=== PATIENT | male | born 1950 | race Caucasian/White ===

== ENCOUNTER → 2018-03-19 15:46 | Outpatient (CLI) | payer MEDICARE, OTHER, SELFPAY ==
[2018-03-19 16:38] LABS: Add Manual Diff / Slide Review NO; Basophils Percent Auto 0.7 % (0-2); Eosinophils Percent Auto 2.2 % (2-4); Hematocrit 45.5 % (41-53); Hemoglobin 15.3 g/dL (13.5-17.5); Lymphocytes Percent Auto 32.1 % (25-40); Mean Corpuscular HGB Conc 33.7 % (30-36); Mean Corpuscular Hemoglobin 30.7 PG (26-34); Mean Corpuscular Volume 91.1 fL (80-100); Monocytes Percent Auto 10.6 % (3-14); Neutrophils Absolute Auto 4000 /uL (1500-7000); Neutrophils Percent Auto 54.4 % (50-75); Platelet Count 255 X10^3/uL (150-400); Red Cell Distribution Width 14.5 % (11.6-14.8); White Blood Cell Count 7.3 X10^3/uL (4.5-11.0)
[2018-03-19 16:52] LABS: Alanine Aminotransferase 43 IU/L (21-72); Albumin 4.6 g/dL (3.5-5.0); Albumin Globulin Ratio 1.6 (1.0-2.8); Alkaline Phosphatase 56 U/L (38-126); Aspartate Aminotransferase 28 IU/L (17-59); Bilirubin Total 0.6 mg/dL (0.2-1.3); Blood Urea Nitrogen 17 mg/dL (9-20); Calcium 9.4 mg/dL (8.4-10.2); Carbon Dioxide 24 mmol/L (22-32); Chloride 104 mmol/L (98-107); Cholesterol 267 mg/dL (140-199); Estimated Glomerular Filt Rate > 60.0 mL/min (>60); Globulin 2.9 g/dL (1.7-4.1); Glucose 91 mg/dL (80-110); HDL Cholesterol 55 mg/dL (40-60); HEMOLYSIS < 15 (0-50); LDL Cholesterol Calculated 183 mg/dL (<100); Potassium 4.4 mmol/L (3.4-5.1); Sodium 141 mmol/L (137-145); Total Protein 7.5 g/dL (6.3-8.2); Triglycerides 144 mg/dL (35-150)
[2018-03-19 17:21] LABS: TSH w/ Reflex to FT4 2.47 uIU/mL (0.47-4.68)
== END ==
PROVIDERS: PCP Family Medicine; Visit Provider Family Medicine
DX: R10.31 Right lower quadrant pain (principal); E78.00 Pure hypercholesterolemia, unspecified
CPT/HCPCS: 36415; 80053; 80061; 84443; 85025

== ENCOUNTER → 2018-03-20 12:31 | Outpatient (CLI) | payer MEDICARE, OTHER, SELFPAY ==
--- NOTE | 2018-03-20 13:49 | DI.CT.S_ITS ---
PROCEDURE: CT ABDOMEN PELVIS W CON INDICATIONS: RLQ pain TECHNIQUE: After the administration of oral and intravenous contrast, 5 mm thick sections acquired from the diaphragms to the symphysis. 5 mm thick coronal and sagittal reformats were performed. For radiation dose reduction, the following was used: automated exposure control, adjustment of mA and/or kV according to patient size. COMPARISON: None. FINDINGS: Image quality: 6 ABDOMEN: Lung bases: Lung bases are clear. Heart size is normal. Solid organs: Liver is normal in size and enhancement. Gallbladder is surgically absent. Biliary system is non-dilated. Pancreas enhances normally. Spleen is normal in size and enhancement. No adrenal nodules. Kidneys are normal in size and enhancement, without hydronephrosis. A low density cystic lesion is present within the midpole of the right kidney which likely represents a simple renal cyst. Peritoneum and bowel: Stomach, small bowel, and colon loops are normal in caliber and wall thickness. The appendix is thin walled and gas filled. No free fluid or air. Nodes and vessels: No retroperitoneal or mesenteric adenopathy. Aorta and inferior vena cava are normal in caliber. There are scattered atheromatous calcifications throughout the aorta and iliac arteries bilaterally. Miscellaneous: No ventral hernias. PELVIS: Genitourinary: Bladder wall thickness is normal. Miscellaneous: No inguinal hernias or adenopathy. Bones: No suspicious bony lesions. No vertebral body compression fractures. Severe degenerative changes present of the lumbar spine. IMPRESSION: 1. No acute intra-abdominal findings. Normal appendix. No findings to explain right lower quadrant pain. 2. Aortic atherosclerosis. Dictated by: Liane Aguilar M.D. on 03/20/2018 at 15:28 Approved by: Liane Aguilar M.D. on 03/20/2018 at 15:31
== END ==
PROVIDERS: Family Provider Family Medicine; PCP Family Medicine; Visit Provider Family Medicine
DX: R10.31 Right lower quadrant pain (principal); I70.0 Atherosclerosis of aorta
CPT/HCPCS: 74177; Q9967

== ENCOUNTER 2018-03-27 06:31 | Day surgery (SDC) | payer MEDICARE, OTHER, SELFPAY ==
--- NOTE | 2018-03-27 | PATH_ITS ---
[facility] Accession Number: [id number] . 01 Material submitted: . PART A: ASCENDING COLON POLYP X2 PART B: COLON POLYP AT 70CM X3 . 02 Diagnosis: A. Ascending Colon, Polyps x2, Biopsies: Tubular adenomas. . B. Colon, Polyp at 70 cm x3, Biopsies: Tubular adenoma in two of seven fragments. MRV/03/29/2018 . 02 Electronically signed: . Cristiana Perez MD, Pathologist NPI- [id number] . 01 Gross description: . Received two formalin-filled containers both labeled with the patient's name. . A. In a container labeled ascending colon polyp X2 are two 0.2 to 0.4 cm portions of tissue. Entirely submitted in cassette A. B. In a container labeled colon polyp at 70 X3 are multiple less than 0.1 to 0.3 cm portions of tissue. Filtered, wrapped and entirely submitted in cassette B. ([facility]:[id number]) /[facility] . 02 Pathologist provided ICD-10: D12.2, D12.6 . 02 CPT . 757220, 564402 Performed at: 01 [facility] [address] Formerly named [facility], [place], [place] [id number] MD Mitchell Fong MD Phone: [phone] Performed at: 02 [facility] [address] [place], [place] [id number] MD Cristiana Perez MD Phone: [phone]
--- NOTE | 2018-03-27 07:11 | SUR.PREOP ---
pt arrived to pre-op states his stool is coming out with pieces in it. Pt states his stool is not clear at all and that he did his prep well. States it did not work . Will let Dr. Noguera know about it.
[2018-03-27] MEDS: SODIUM CHLORIDE 0.9% 1,000 ML 200 ML IV (07:20)
[2018-03-27 07:26] VITALS: BP 146/83; PULSE 91; RESP 18; TEMP 36.6; O2SAT 98; BMI 31.8
--- NOTE | 2018-03-27 08:29 | PM.HP.1 ---
History of Present Illness Date Patient Seen: 03/27/18 Time Patient Seen: 08:21 Chief complaint: colonoscopy [id number] Narrative: Patient is here for screening colonoscopy. His last exam was 10 years ago. He has had polyps in the past. No family history of colon cancer Patient History Surgical History Status post cholecystectomy Family & Social History Family History: Reviewed 03/27/18 by Andre Noguera MD Social History: household members spouse Tobacco & Substance use: Smoking Status Current every day smoker alcohol intake current Meds Home Medications Medication Instructions Recorded Confirmed Type ASPIRIN (Aspir-Low) 162 mg PO QDAY #0 12/04/12 03/27/18 History epinephrine [EpiPen 2-Phillip] 0.3 mg IM SEE INSTRUCTIONS #1 kit 12/09/15 03/27/18 Rx cyclobenzaprine 10 mg tablet See Label Instructions PO TID PRN 03/20/18 03/27/18 Rx #15 tab sildenafil 100 mg tablet 100 mg PO QDAYP PRN #10 tab 03/21/18 03/27/18 Rx Allergies Allergy/AdvReac Type Severity Reaction Status Date / Time No Known Drug Allergies Allergy Verified 03/27/18 07:33 Review of Systems Review of Systems All systems reviewed & are unremarkable except as noted in HPI and below Exam Vital Signs (past 8 hours): - 03/27/18 07:26 Temperature 97.8 F Pulse Rate 91 H Respiratory Rate 18 Blood Pressure 146/83 H Pulse Oximetry 98 Oxygen Delivery Method Room Air Narrative Exam Narrative: Operative no apparent distress. Lungs are clear to auscultation. Heart regular rate and rhythm no murmur gallop. Abdomen is protuberant soft nontender without mass or hernia. Patient is alert and oriented x3. Assessment & Plan Plan: Assessment/Plan Narrative: Patient for screening colonoscopy. I have discussed the procedure and the rationale with the patient including risks of bleeding, perforation which would necessitate a major operation, failure to find remove all lesions and the potential to tattoo. They appeared to understand and wished to proceed.
--- NOTE | 2018-03-27 08:33 | PM.PREOP ---
Pre-operative Note Interval Note History & Physical reviewed/Exam performed by Physician: Yes Changes to H&P: No ASA Class (for procedural sedation): I
[2018-03-27] MEDS: GLUCAGON,HUMAN RECOMBINANT 1 MG/ML VIAL IV (08:57)
[2018-03-27] MEDS: fentaNYL 250 MCG/5 ML INJ IV (09:05)
[2018-03-27] MEDS: MIDAZOLAM 5 MG/5 ML VIAL IV (09:06)
[2018-03-27 09:30] VITALS: BP 117/73; PULSE 97; RESP 17; TEMP 36.8; O2SAT 97
--- NOTE | 2018-03-27 09:33 | P.OP.ENDO_ITS ---
Procedure & Clinicians Study performed: Colonoscopy with cold biopsy Same procedure as scheduled: Yes Indications: Screening. Last exam 10 years ago. Surgeon: Andre Noguera Procedure Notes SCOAP/Timeout: Done Procedure in detail: The patient was placed in the left lateral decubitus position and underwent IV sedation directed by the surgeon consisting of fentanyl and Versed. Digital exam was remarkable for being unable to really feel anything but the most distal part of his prostate. There were no rectal masses. The scope was inserted and advanced through the rectum into the sigmoid. The patient appeared to have a great deal of spasm in his colon. He was given glucagon and I continued into the descending, transverse, and ascending colon. Pressure was applied the patient was repositioned and a stiffener inserted in order to make our way into the cecum. The cecum was reached identified by the ileocecal valve and the appendiceal opening. The ileocecal valve was cannulated. The terminal ileum was normal in appearance. The scope was gradually brought out. Polyps were found at the ascending colon and 3 polyps were found at approximately 70 cm from the anal verge. All were diminutive. The scope ultimately was retroflexed in the rectum. The appearance was normal. The scope was removed and the patient tolerated the procedure well. Prep was adequate with irrigation and suction. There was 1 small area of the sigmoid that was not well seen due to stool. The patient was also noted to have says a few scattered diverticuli. Scope withdrawal time: 19 min Sedation minutes: 48 Findings: diverticulosis (A few scattered throughout the colon) and polyp ( Multiple small polyps) Specimen(s): other (Polyps) Complications: none Recommendations: Colonscopy in 5 years Follow up: as needed Disposition: PACU
[2018-03-27 09:35] VITALS: BP 104/68; PULSE 95; RESP 209; TEMP 36.8
[2018-03-27 09:40] VITALS: BP 101/55; PULSE 86; RESP 20; TEMP 36.8; O2SAT 98
[2018-03-27 09:52] VITALS: BP 109/68; PULSE 83; RESP 15; TEMP 36.5; O2SAT 96
[2018-03-27 10:07] VITALS: BP 106/66; PULSE 76; RESP 18; O2SAT 95
== END 2018-03-27 10:15 | disposition home or self-care (01) ==
PROVIDERS: Family Provider Family Medicine; PCP Family Medicine; Visit Provider Specialist
PROC: 0DJD8ZZ Inspection of Lower Intestinal Tract, Via Natural or Artificial Opening Endoscopic (ICD-10-PCS; CPT 45378; principal; 2018-03-27 07:45)
DX: Z86.010 Personal history of colon polyps (principal); F17.210 Nicotine dependence, cigarettes, uncomplicated; K57.30 Diverticulosis of large intestine without perforation or abscess without bleeding; D12.2 Benign neoplasm of ascending colon; D12.6 Benign neoplasm of colon, unspecified
CPT/HCPCS: 45380; 88305; 99152; 99153; J1610; J2250; J3010

== ENCOUNTER → 2019-10-29 08:34 | Outpatient (CLI) | payer MEDICARE, OTHER, SELFPAY ==
--- NOTE | 2019-10-29 08:35 | DI.ECHO.S_ITS ---
[facility]---------+ [facility] +---------+ : : [address] : : : : [id number] : : : : Phone: [phone]---------+ Echocardiogram Report + + :Name: YANDEL PIERCE Study Date: 10/29/2019 Height: 73 in : :[facility] Weight: 240 lb : : Gender: Male BSA: 2.3 m2 : :: 1950 Age: 69 yrs BP: 167/84 mmHg: :Reason For Study: SHORTNESS OF BREATH : : Performed By: Jeannette Monte : :Referring: JOHN MUHAMMAD : + + Interpretation Summary 1) Mildly increased left ventricular thickness (concentric) with normal size, normal wall motion and normal systolic function (EF 60-65%). 2) Normal right ventricular size and function. 3) No significant valvular abnormalities. 4) Pulmonary artery pressures cannot be estimated because of the lack of a measurable TR jet velocity. 5) Hypertension present during the study (BP 167/84mmHg). 6) No prior Echo available for comparison. Procedure: A two-dimensional transthoracic echocardiogram with color flow and Doppler was performed. The study quality was technically adequate. There is no prior echocardiogram noted for this patient. The patient was in sinus rhythm with heart rates between 56-60 bpm during the exam. Left Ventricle: The left ventricle is normal in size. There is mild concentric left ventricular hypertrophy. The ejection fraction is estimated to be 60-65%. Diastolic parameters suggest probable normal left ventricular diastolic function and normal filling pressures. Right Ventricle: The right ventricle is normal in size and function. Atria: Both atria are normal in size. There is no Doppler evidence for an interatrial shunt. Mitral Valve: The mitral valve is normal in structure and function. There is trace mitral regurgitation. Aortic Valve: The aortic valve is trileaflet. There is discrete nodular thickening of the left coronary cusp. There is no aortic valve stenosis. No aortic regurgitation is present. Tricuspid Valve: The tricuspid valve is normal in structure and function. Pulmonary artery pressures cannot be estimated because of the lack of a measurable TR jet velocity. No tricuspid regurgitation. Pulmonic Valve: The pulmonic valve is not well visualized. The pulmonic valve is not well seen, but is grossly normal. There is a trace or physiologic amount of pulmonic regurgitation. Great Vessels: The aortic root is borderline dilated. The ascending aorta is moderately enlarged. The IVC is of normal diameter and collapses greater than 50% with a sniff. This suggests a low right atrial pressure of 3 mm Hg. Pericardium/ Pleura There is no pericardial effusion. There is no pleural effusion. MMode/2D Measurements & Calculations LVIDd: 5.4 cm LVOT diam: 2.6 cm LVIDs: 3.9 cm Ao root diam: 3.9 cm FS: 28.9 % asc Aorta Diam: 4.2 cm EPSS: 1.2 cm Ao Arch Diam (Prox Trans): 3.7 cm IVSd: 1.1 cm LVPWd: 1.2 cm LV [place]. diameter/BSA (cm/m^2): 2.3 LV sys. diameter/BSA (cm/m^2): 1.7 LA A2 area: 23.2 cm2 RA long axis: 5.8 cm LA A4 area: 20.1 cm2 RA area: 19.1 cm2 LA length (vol): 5.9 cm RA vol: 53.4 ml LA vol: 66.9 ml RA : 23.0 ml/m2 LA vol index: 28.8 ml/m2 IVC diam: 1.6 cm RVD1 (basal): 3.6 cm TAPSE: 2.0 cm Doppler Measurements & Calculations Ao V2 max: 107.8 cm/sec LVOT Max Trevon: 94.3 cm/sec Ao V2 mean: 71.4 cm/sec LV V1 max P.6 mmHg Ao max P.7 mmHg LV V1 VTI: 21.4 cm Ao mean P.4 mmHg BRUCE(I,D): 5.0 cm2 Ao V2 VTI: 23.6 cm BRUCE(V,D): 4.8 cm2 sev ratio: 0.90 BRUCE indexed to BSA (cm^2/m^2): 2.1 MV E max trevon: 49.3 cm/sec PA V2 max: 81.9 cm/sec MV A max trevon: 64.2 cm/sec PA V2 mean: 56.3 cm/sec MV E/A: 0.77 PA mean P.4 mmHg Med Peak E' Trevon: 7.4 cm/sec PA pr(Accel): 29.3 mmHg E/E' med: 6.7 Lat Peak E' Trevon: 7.6 cm/sec E/E' lat: 6.5 E/e' average: 6.6 MV dec time: 0.29 sec SV(LVOT): 117.7 ml Reading Physician:01:14 PM
[2019-10-29 09:44] LABS: Add Manual Diff / Slide Review NO; Basophils Absolute Auto 100 /uL (0-100); Basophils Percent Auto 1.4 % (0-2); Eosinophils Absolute Auto 200 /uL (0-450); Eosinophils Percent Auto 4.3 % (2-4); Hematocrit 42.7 % (41-53); Hemoglobin 14.3 g/dL (13.5-17.5); Lymphocytes Absolute Auto 1600 /uL (1100-4500); Lymphocytes Percent Auto 26.9 % (25-40); Mean Corpuscular HGB Conc 33.4 % (30-36); Mean Corpuscular Hemoglobin 30.1 PG (26-34); Monocytes Absolute Auto 600 /uL (0-900); Monocytes Percent Auto 10.8 % (3-14); Neutrophils Absolute Auto 3300 /uL (1500-7000); Neutrophils Percent Auto 56.6 % (50-75); Platelet Count 266 X10^3/uL (150-400); Red Blood Cell Count 4.75 X10^6/uL (4.5-5.9); Red Cell Distribution Width 14.7 % (11.6-14.8); White Blood Cell Count 5.9 X10^3/uL (4.5-11.0)
[2019-10-29 10:13] LABS: Alanine Aminotransferase 29 IU/L (<50); Albumin 4.1 g/dL (3.5-5.0); Albumin Globulin Ratio 1.5 (1.0-2.8); Alkaline Phosphatase 59 U/L (38-126); Aspartate Aminotransferase 31 IU/L (17-59); Bilirubin Total 0.9 mg/dL (0.2-1.3); Blood Urea Nitrogen 25 mg/dL (9-20); Calcium 9.1 mg/dL (8.4-10.2); Carbon Dioxide 28 mmol/L (22-32); Chloride 101 mmol/L (98-107); Cholesterol 212 mg/dL (140-199); Estimated Glomerular Filt Rate > 60.0 mL/min (>60); Globulin 2.8 g/dL (1.7-4.1); Glucose 101 mg/dL (80-110); HDL Cholesterol 50 mg/dL (40-60); HEMOLYSIS < 15 (0-50); LDL Cholesterol Calculated 139 mg/dL (<100); Potassium 4.3 mmol/L (3.4-5.1); Sodium 136 mmol/L (137-145); Total Protein 6.9 g/dL (6.3-8.2); Triglycerides 116 mg/dL (35-150)
[2019-10-29 10:39] LABS: TSH w/ Reflex to FT4 1.53 uIU/mL (0.47-4.68)
== END ==
PROVIDERS: Family Provider Family Medicine; PCP Family Medicine; Referring Provider Family Medicine; Visit Provider Family Medicine
DX: I77.89 Other specified disorders of arteries and arterioles (principal); R06.02 Shortness of breath; I49.9 Cardiac arrhythmia, unspecified; E78.00 Pure hypercholesterolemia, unspecified; I10 Essential (primary) hypertension
CPT/HCPCS: 36415; 80053; 80061; 84443; 85025; 93306

== ENCOUNTER → 2020-05-25 09:47 | Outpatient (CLI) | payer MEDICARE, OTHER, SELFPAY ==
[2020-05-25] MEDS: COVID-19 VACC, Ad26(JANSSEN)/PF 0.5 ML IM (09:58)
== END ==
PROVIDERS: Family Provider Family Medicine; PCP Family Medicine; Visit Provider Internal Medicine
DX: Z23 Encounter for immunization (principal)
CPT/HCPCS: 0031A; 91303

== ENCOUNTER → 2021-01-28 11:09 | Outpatient (CLI) | payer MEDICARE, OTHER, SELFPAY ==
[2021-01-28 12:06] LABS: Add Manual Diff / Slide Review NO; Basophils Absolute Auto 100 /uL (0-100); Basophils Percent Auto 1.2 % (0-2); Eosinophils Absolute Auto 100 /uL (0-450); Hematocrit 41.5 % (41-53); Lymphocytes Absolute Auto 1100 /uL (1100-4500); Lymphocytes Percent Auto 19.3 % (25-40); Mean Corpuscular HGB Conc 33.7 % (30-36); Mean Corpuscular Hemoglobin 30.5 PG (26-34); Mean Corpuscular Volume 90.5 fL (80-100); Monocytes Absolute Auto 1100 /uL (0-900); Monocytes Percent Auto 18.2 % (3-14); Neutrophils Absolute Auto 3500 /uL (1500-7000); Neutrophils Percent Auto 59.3 % (50-75); Platelet Count 219 X10^3/uL (150-400); Red Blood Cell Count 4.59 X10^6/uL (4.5-5.9); Red Cell Distribution Width 14.5 % (11.6-14.8); White Blood Cell Count 5.8 X10^3/uL (4.5-11.0)
[2021-01-28 13:08] LABS: Alanine Aminotransferase 29 IU/L (<50); Albumin 4.1 g/dL (3.5-5.0); Albumin Globulin Ratio 1.5 (1.0-2.8); Alkaline Phosphatase 49 U/L (38-126); Aspartate Aminotransferase 28 IU/L (17-59); BUN Creatinine Ratio 18.6 (6-22); Bilirubin Total 0.7 mg/dL (0.2-1.3); Blood Urea Nitrogen 19 mg/dL (9-20); Carbon Dioxide 29 mmol/L (22-32); Chloride 101 mmol/L (98-107); Cholesterol 214 mg/dL (140-199); Estimated Glomerular Filt Rate > 60.0 mL/min (>60); Globulin 2.7 g/dL (1.7-4.1); Glucose 105 mg/dL (80-110); HDL Cholesterol 45 mg/dL (40-60); HEMOLYSIS < 15 (0-50); LDL Cholesterol Calculated 144 mg/dL (<100); Potassium 4.2 mmol/L (3.4-5.1); Sodium 137 mmol/L (137-145); Total Protein 6.8 g/dL (6.3-8.2); Triglycerides 126 mg/dL (35-150)
[2021-01-28 13:17] LABS: TSH w/ Reflex to FT4 1.08 uIU/mL (0.47-4.68)
[2021-01-28 13:33] LABS: Prostate Specific Antigen Scrn 0.547 ng/mL (0.1-4.0)
== END ==
PROVIDERS: Family Provider Family Medicine; PCP Family Medicine; Referring Provider Family Medicine; Visit Provider Family Medicine
DX: I10 Essential (primary) hypertension (principal); Z12.5 Encounter for screening for malignant neoplasm of prostate; F32.9 Major depressive disorder, single episode, unspecified
CPT/HCPCS: 36415; 80053; 80061; 84443; 85025; G0103

== ENCOUNTER 2021-11-22 15:06 | Emergency (ER) | payer MEDICARE, OTHER, SELFPAY ==
[2021-11-22 15:59] VITALS: BP 120/68; PULSE 72; RESP 16; O2SAT 97
--- NOTE | 2021-11-22 16:12 | DI.CT.S_ITS ---
PROCEDURE: CT CERVICAL SPINE WO CON INDICATIONS: fall TECHNIQUE: Noncontrast 3 mm thick sections acquired from the skull base to the T4 level. Sagittal and coronal reformats were then constructed. For radiation dose reduction, the following was used: automated exposure control, adjustment of mA and/or kV according to patient size. COMPARISON: [facility], CT, CT FACIAL BONES WO CON, 11/22/2021, 16:18. [facility], CT, CT HEAD/BRAIN WO CON, 11/22/2021, 16:18. FINDINGS: Image quality: This examination is somewhat limited by quantum mottle artifact. Bones: No fractures or dislocations. Visualized superior ribs are intact. Focal degenerative change is seen involving the C1-C2 interface anteriorly. Milder degenerative changes are seen elsewhere. Soft tissues: Prevertebral soft tissues are normal in thickness. No paravertebral hematomas. No apical pneumothoraces. Atherosclerotic calcification is noted. IMPRESSION: Negative for cervical spine fracture. Dictated by: Silvestre Clarke M.D. on 11/22/2021 at 15:42 Approved by: Silvestre Clarke M.D. on 11/22/2021 at 15:43
--- NOTE | 2021-11-22 16:12 | DI.CT.S_ITS ---
PROCEDURE: CT HEAD/BRAIN WO CON INDICATIONS: fall TECHNIQUE: Noncontrast 4.5 mm thick angled axial sections acquired from the foramen magnum to the vertex, with coronal and sagittal reformats. For radiation dose reduction, the following was used: automated exposure control, adjustment of mA and/or kV according to patient size. COMPARISON: [facility], CT, CT CERVICAL SPINE WO CON, 11/22/2021, 16:18. FINDINGS: Image quality: Excellent. CSF spaces: Basal cisterns are patent. No extra-axial fluid collections. The ventricles are symmetric in size and shape. Brain: No intracranial bleeds or masses. There is cerebral volume loss for age, with resultant ventricular and sulcal prominence. There are periventricular and deep white matter chronic small vessel ischemic changes. There is intracranial internal carotid artery atherosclerosis. Skull and face: Calvarium and visualized facial bones appear intact, without suspicious lesions. Sinuses: Visualized sinuses and mastoids are clear. IMPRESSION: No acute intracranial hemorrhage is seen. No acute intracranial process is seen. Dictated by: Silvestre Clarke M.D. on 11/22/2021 at 15:41 Approved by: Silvestre Clarke M.D. on 11/22/2021 at 15:41
--- NOTE | 2021-11-22 16:12 | DI.CT.S_ITS ---
PROCEDURE: CT FACIAL BONES WO CON INDICATIONS: fall TECHNIQUE: Noncontrast 2.5 mm thick axial images acquired from the mandible through the frontal sinuses, with coronal and sagittal reformatting. For radiation dose reduction, the following was used: automated exposure control, adjustment of mA and/or kV according to patient size. COMPARISON: [facility], CT, CT CERVICAL SPINE WO CON, 11/22/2021, 16:18. [facility], CT, CT HEAD/BRAIN WO CON, 11/22/2021, 16:18. FINDINGS: Image quality: Excellent. Bones and teeth: Orbital bowling are intact. Sinus bowling show no fracture or deformity. Nasal bones and septum are intact. Visualized portions of the mandible demonstrate no fractures or subluxation. Zygomatic arches are intact. Pterygoid plates are intact. Visualized portions of the skull base and auditory canals are intact. Sinuses: Mild mucosal thickening is seen within the right maxillary sinus. Mastoid air cells are aerated. A left-sided bharati bullosa can be seen. There is mild rightward nasal septal deviation seen. Soft tissues: Apparent radiopaque debris can be seen involving the central forehead. No edema, masses, or fluid collections. No enlarged lymph nodes. No soft tissue lacerations. Vascular: Visualized vascular structures appear normal in the absence of contrast. Bony vascular foramina and canals are intact. IMPRESSION: No displaced fractures are seen. Apparent radiopaque debris seen involving the central forehead. Please correlate with known patient history and physical examination findings. Dictated by: Silvestre Clarke M.D. on 11/22/2021 at 15:39 Approved by: Silvestre Clarke M.D. on 11/22/2021 at 15:40
[2021-11-22 16:13] VITALS: BP 120/68; PULSE 72; RESP 16; O2SAT 97
[2021-11-22 17:18] VITALS: BP 133/78; PULSE 62; RESP 15; O2SAT 98
--- NOTE | 2021-11-22 18:25 | ED_ITS ---
HPI - Fall <Berny Donaldson PA-C - Last Filed: 11/22/21 19:17> General Chief Complaint: Trauma Stated Complaint: Head lac, Fall 45 minutes ago, balance Time Seen by Provider: 11/22/21 16:25 Source: patient Mode of arrival: Family Vehicle History of Present Illness HPI Narrative: 71-year-old male with past medical history ataxia, slow speech, hypertension, hypercholesterolemia, depression presents to the ED status post a mechanical fall sustained just prior to arrival. Patient fell off a step when he was trying to level a storm door, tried to save the door, fell on his face. Patient denies loss of consciousness, is not on blood thinners. Patient denies feeling lightheaded or dizzy leading up to the fall. Patient states that he takes gabapentin which seem to affect his balance, and this is his baseline. Related Data Previous Rx's Medication Instructions Recorded epinephrine 0.3 mg/0.3 mL 0.3 mg (0.3 mL) IM SEE 12/09/15 injection, auto-injector (EpiPen INSTRUCTIONS #1 kit 2-Phillip) duloxetine 30 mg capsule,delayed 30 mg PO DAILY #90 caps 01/28/21 release hydrochlorothiazide 25 mg tablet 25 mg PO QAM #90 tabs 01/28/21 gabapentin 300 mg capsule 600 mg PO TID rlq pain #180 caps 02/16/21 lisinopril 40 mg tablet 40 mg PO DAILY #90 tabs 04/26/21 sildenafil (pulm.hypertension) 20 60 mg PO DAILY #30 tabs 07/09/21 mg tablet (Revatio) oxycodone 5 mg tablet 5 mg PO Q8H PRN pain #90 tabs 09/29/21 cyclobenzaprine 10 mg tablet 10 mg PO TID PRN muscle spasm #60 10/20/21 tabs Allergies Allergy/AdvReac Type Severity Reaction Status Date / Time No Known Drug Allergies Allergy Verified 09/29/21 08:26 Review of Systems <Berny Donaldson PA-C - Last Filed: 11/22/21 19:17> Review of Systems ROS Unobtainable: All systems reviewed & are unremarkable except as noted in HPI and below Constitutional Constitutional: Denies chills, Denies fatigue, Denies fever(s), Denies frequent falls, Denies lethargy and Denies weakness Eyes Eyes: Denies change in vision, Denies eye discharge, Denies irritation and Denies loss of vision ENT Ears, Nose, Mouth, and Throat: Denies change in voice, Denies dizziness, Denies neck pain, Denies sore throat and Denies throat swelling Cardiovascular Cardiovascular: Denies chest pain, Denies irregular heart rhythm, Denies lightheadedness, Denies palpitations, Denies dyspnea, Denies dyspnea on exertion and Denies orthopnea Respiratory Respiratory: Denies cough, Denies dyspnea, Denies dyspnea on exertion and Denies wheezing Gastrointestinal Gastrointestinal: Denies abdominal pain, Denies change in bowel habits, Denies diarrhea, Denies nausea and Denies vomiting Genitourinary Genitourinary: Denies hematuria, Denies flank pain, Denies urinary incontinence and Denies urinary urgency Musculoskeletal Musculoskeletal: Denies back pain, Denies muscle weakness, Denies neck pain, Denies numbness and Denies tingling Integumentary/Breasts Skin/Breast: Denies pruritus, Denies erythema, Denies rash and Denies wounds Comments: Abrasion/laceration on face Neurologic Neurologic: Denies behavioral changes, Denies confusion, Denies dizziness, Denies frequent falls, Denies loss of vision, Denies numbness, Denies tingling and Denies weakness Psychiatric Psychiatric: Denies anxiety, Denies behavioral changes, Denies confusion, Denies depression, Denies homicidal ideation and Denies suicidal ideation Endocrine Endocrine: Denies fatigue, Denies flushing and Denies palpitations Hematologic/Lymphatic Hematologic/Lymphatic: Denies easy bruising Allergic/Immunologic Allergic/Immunologic: Denies urticaria, Denies throat swelling and Denies wheezing Patient History <Berny Donaldson PA-C - Last Filed: 11/22/21 19:17> Medical History Ataxia Deep inguinal pain, right Medication side effects Pelvic somatic dysfunction Psoas muscle strain Rate of speech, slow Screening for prostate cancer Segmental and somatic dysfunction of abdomen and other regions Surgical History Hx of hernia repair Status post cholecystectomy Family History Grandmother Heart disease Mother Age: 91 Environmental allergies Grandmother Stroke Social History marital status: household members: spouse Smoking Status: Former smoker alcohol intake: current substance use type: does not use Smoking Status: Former smoker alcohol intake frequency: 0-2 drinks per day Substance Use Type: does not use Exam <Berny Donaldson PA-C - Last Filed: 11/22/21 19:17> Narrative Exam Narrative: Const General:?cooperative, healthy appearing and comfortable [facility] Head:?normal to inspection Ears:?hearing grossly normal bilaterally Nose:?external nose normal Face and sinus:?normal facial exam and sinuses nontender Mouth:?oral mucosae normal Throat:?posterior oropharynx normal Eyes General:?appearance normal, both eyes and all related structures Neck Neck:?normal visual inspection and no lymphadenopathy noted Resp Effort & Inspection:?normal respiratory effort Auscultation:?clear to auscultation bilaterally Cardio Rate:?regular rate Rhythm:?regular rhythm Integumentary Multiple abrasions to forehead, top of nose. Bleeding controlled with pressure. Neuro General:?patient alert, patient awake and patient oriented x3 Initial Vital Signs Initial Vital Signs: Vital Signs Pulse Rate 72 11/22/21 15:59 Respiratory Rate 16 11/22/21 15:59 Blood Pressure 120/68 11/22/21 15:59 Pulse Oximetry 97 11/22/21 15:59 Oxygen Delivery Method 11/22/21 15:59 <Keisha Farrar DO - Last Filed: 11/23/21 08:14> Initial Vital Signs Initial Vital Signs: Vital Signs Pulse Rate 72 11/22/21 15:59 Respiratory Rate 16 11/22/21 15:59 Blood Pressure 120/68 11/22/21 15:59 Pulse Oximetry 97 11/22/21 15:59 Oxygen Delivery Method 11/22/21 15:59 Course <eBrny Donaldson PA-C - Last Filed: 11/22/21 19:17> Orders Ordered: Discontinued Medications Acetaminophen (Acetaminophen 325 Mg Tablet) 975 mg PO NOW ONE Stop: 11/22/21 18:17 Last Admin: 11/22/21 18:43 Dose: 975 mg Documented By: SANDRA Manningacin (Bacitracin Oint 0.9 Gm Pckt) 1 applic TOP NOW ONE Stop: 11/22/21 19:15 Last Admin: 11/22/21 19:21 Dose: Not Given Documented By: JR Diphtheria/Tetanus/Acell Pertussis (Tet,Diph,Pertuss(Acell),Vac/Pf 0.5 Ml Syringe) 0.5 ml IM .ONCE ONE Stop: 11/22/21 18:25 Last Admin: 11/22/21 18:41 Dose: 0.5 ml Documented By: SANDRA Vital Signs Vital signs: Vital Signs - 8 hr 11/22/21 15:59 11/22/21 16:13 11/22/21 17:18 Pulse Rate 72 72 62 Respiratory Rate 16 16 15 Blood Pressure 120/68 133/78 Blood Pressure [Right Arm] 120/68 Pulse Oximetry 97 97 98 Oxygen Delivery Method Room Air Room Air <Keisha Farrar DO - Last Filed: 11/23/21 08:14> Orders Ordered: Discontinued Medications Acetaminophen (Acetaminophen 325 Mg Tablet) 975 mg PO NOW ONE Stop: 11/22/21 18:17 Last Admin: 11/22/21 18:43 Dose: 975 mg Documented By: SANDRA Bacitracin (Bacitracin Oint 0.9 Gm Pckt) 1 applic TOP NOW ONE Stop: 11/22/21 19:15 Last Admin: 11/22/21 19:21 Dose: Not Given Documented By: JR Diphtheria/Tetanus/Acell Pertussis (Tet,Diph,Pertuss(Acell),Vac/Pf 0.5 Ml Syringe) 0.5 ml IM .ONCE ONE Stop: 11/22/21 18:25 Last Admin: 11/22/21 18:41 Dose: 0.5 ml Documented By: SANDRA Vital Signs Vital signs: Vital Signs - 8 hr 11/22/21 15:59 11/22/21 16:13 11/22/21 17:18 Pulse Rate 72 72 62 Respiratory Rate 16 16 15 Blood Pressure 120/68 133/78 Blood Pressure [Right Arm] 120/68 Pulse Oximetry 97 97 98 Oxygen Delivery Method Room Air Room Air MDM - Fall <Berny Donaldson PA-C - Last Filed: 11/22/21 19:17> Imaging Data CT scan - head: Radiologist's Impression: PROCEDURE:? CT HEAD/BRAIN WO CON ? INDICATIONS:? fall ? TECHNIQUE:? Noncontrast 4.5 mm thick angled axial sections acquired from the foramen magnum to the vertex, with coronal and sagittal reformats.? For radiation dose reduction, the following was used:? automated exposure control, adjustment of mA and/or kV according to patient size.? ? COMPARISON:? [facility], CT, CT CERVICAL SPINE WO CON, 11/22/2021, 16:18. ? FINDINGS:? Image quality:? Excellent.? ? CSF spaces:? Basal cisterns are patent.? No extra-axial fluid collections.? The ventricles are symmetric in size and shape.? ? Brain:? No intracranial bleeds or masses.? There is cerebral volume loss for age, with resultant ventricular and sulcal prominence.? There are periventricular and deep white matter chronic small vessel ischemic changes.? There is intracranial internal carotid artery atherosclerosis.? ? Skull and face:? Calvarium and visualized facial bones appear intact, without suspicious lesions.? ? Sinuses:? Visualized sinuses and mastoids are clear.? ? IMPRESSION:? No acute intracranial hemorrhage is seen.? ? No acute intracranial process is seen.? ? ? Dictated by: Silvestre Clarke M.D. on 11/22/2021 at 15:41 ? ? Approved by: Silvestre Clarke M.D. on 11/22/2021 at 15:41 ? CT facial bones: Radiologist's Impression: PROCEDURE:? CT FACIAL BONES WO CON ? INDICATIONS:? fall ? TECHNIQUE:? Noncontrast 2.5 mm thick axial images acquired from the mandible through the frontal sinuses, with coronal and sagittal reformatting.? For radiation dose reduction, the following was used:? automated exposure control, adjustment of mA and/or kV according to patient size.? ? COMPARISON:? [facility], CT, CT CERVICAL SPINE WO CON, 11/22/2021, 16:18.? [facility], CT, CT HEAD/BRAIN WO CON, 11/22/2021, 16:18. ? FINDINGS:? Image quality:? Excellent.? ? Bones and teeth:? Orbital bowling are intact.? Sinus bowling show no fracture or deformity.? Nasal bones and septum are intact.? Visualized portions of the mandible demonstrate no fractures or subluxation.? Zygomatic arches are intact.? Pterygoid plates are intact.? Visualized portions of the skull base and auditory canals are intact.? ? Sinuses:? Mild mucosal thickening is seen within the right maxillary sinus.? Mastoid air cells are aerated.? A left-sided bharati bullosa can be seen.? There is mild rightward nasal septal deviation seen. ? Soft tissues:? Apparent radiopaque debris can be seen involving the central forehead.? No edema, masses, or fluid collections.? No enlarged lymph nodes.? No soft tissue lacerations.? ? Vascular:? Visualized vascular structures appear normal in the absence of contrast.? Bony vascular foramina and canals are intact.? ? IMPRESSION:? No displaced fractures are seen. ? Apparent radiopaque debris seen involving the central forehead.? Please correlate with known patient history and physical examination findings. ? ? Dictated by: Silvestre Clarke M.D. on 11/22/2021 at 15:39 ? ? Approved by: Silvestre Clarke M.D. on 11/22/2021 at 15:40 ? CT - cervical spine: Radiologist's Impression: PROCEDURE:? CT CERVICAL SPINE WO CON ? INDICATIONS:? fall ? TECHNIQUE:? Noncontrast 3 mm thick sections acquired from the skull base to the T4 level.? Sagittal and coronal reformats were then constructed.? For radiation dose reduction, the following was used:? automated exposure control, adjustment of mA and/or kV according to patient size.? ? COMPARISON:? [facility], CT, CT FACIAL BONES WO CON, 11/22/2021, 16:18.? [facility], CT, CT HEAD/BRAIN WO CON, 11/22/2021, 16:18. ? FINDINGS:? Image quality:? This examination is somewhat limited by quantum mottle artifact.? ? Bones:? No fractures or dislocations.? Visualized superior ribs are intact.? Focal degenerative change is seen involving the C1-C2 interface anteriorly.? Milder degenerative changes are seen elsewhere.? ? Soft tissues:? Prevertebral soft tissues are normal in thickness.? No paravertebral hematomas.? No apical pneumothoraces.? Atherosclerotic calcification is noted.? ? ? IMPRESSION:? Negative for cervical spine fracture. ? ? ? Dictated by: Silvestre Clarke M.D. on 11/22/2021 at 15:42 ? ? Approved by: Silvestre Clarke M.D. on 11/22/2021 at 15:43 MDM Narrative Medical decision making narrative: 71-year-old male with past medical history ataxia, slow speech, hypertension, hypercholesterolemia, depression presents to the ED status post a mechanical fall sustained just prior to arrival. Concern for intracranial hemorrhage versus fracture/dislocation. No acute findings on CT head, CT C-spine, CT face. Wounds were cleaned out well with irrigation. Wound care and signs of infection discussed with patient and patient's . ED return precautions discussed with patient and patient's . They verbalized understanding. Discharge Plan Departure Patient Disposition: Home Clinical Impression: Fall Instructions: DI for Trauma Activity Restrictions/Additional Instructions: You were evaluated in the ED today for a fall. Your CT of the head, cervical spine, face did not show any fractures or dislocations or brain bleeds. You sustained several abrasions on your face, please keep them clean and dry, you may apply a triple antibiotic ointment on it. Your tetanus was updated today. Please watch for signs of infection including worsening redness, swelling, pain, warmth, discharge. Please return to the ED if you notice any signs of infection. You may take Tylenol for pain. Prescriptions: No Action duloxetine 30 mg capsule,delayed release(DR/EC) 30 mg PO DAILY Qty: 90 3RF Rx Instructions: Take one capsule daily at bedtime. hydrochlorothiazide 25 mg tablet 25 mg PO QAM Qty: 90 3RF epinephrine [EpiPen 2-Phillip] 0.3 MG/0.3 ML auto-injector 0.3 mg IM SEE INSTRUCTIONS Qty: 1 0RF Label Comments: pt has never taken gabapentin 300 mg capsule 600 mg PO TID Qty: 180 11RF lisinopril 40 mg tablet 40 mg PO DAILY Qty: 90 3RF sildenafil (pulm.hypertension) [Revatio] 20 mg tablet 60 mg PO DAILY Qty: 30 5RF Rx Instructions: take up to three tabs a day as needed cyclobenzaprine 10 mg tablet 10 mg PO TID PRN (Reason: muscle spasm) Qty: 60 1RF oxycodone 5 mg tablet 5 mg PO Q8H PRN (Reason: pain) Qty: 90 0RF Referrals: Luciano Cheung DO [Primary Care Provider] - Visit Report Forms: Patient Portal/API <Keisha Farrar DO - Last Filed: 11/23/21 08:14> Cosign ED Attending Cosignature Attestation: I was immediately available in the department for consultation. Documentation has been reviewed.
[2021-11-22] MEDS: TET,DIPH,PERTUSS(ACELL),VAC/PF 0.5 ML SYRINGE IM (18:41)
[2021-11-22] MEDS: ACETAMINOPHEN 325 MG TABLET 975 MG PO (18:43)
[2021-11-22 19:15] VITALS: PULSE 61; O2SAT 97
[2021-11-22 19:16] VITALS: BP 121/65; PULSE 61; O2SAT 97
== END 2021-11-22 19:24 | disposition home or self-care (01) ==
PROVIDERS: Emergency Provider Student in an Organized Health Care Education/Training Program; Family Provider Family Medicine; PCP Family Medicine
DX: S09.93XA Unspecified injury of face, initial encounter (principal); W10.9XXA Fall (on) (from) unspecified stairs and steps, initial encounter; Z23 Encounter for immunization; S09.90XA Unspecified injury of head, initial encounter
CPT/HCPCS: 70450; 70486; 72125; 90471; 99284; 90715

== ENCOUNTER → 2022-01-08 13:34 | Outpatient (CLI) | payer MEDICARE, OTHER, SELFPAY ==
--- NOTE | 2022-01-08 13:36 | DI.RAD.S_ITS ---
PROCEDURE: XR CHEST 2V INDICATIONS: persistent cough TECHNIQUE: 2 views of the chest were acquired. COMPARISON: None. FINDINGS: Surgical changes and devices: None. Lungs and pleura: Suspect left retrocardiac opacity. No pleural effusions or pneumothorax. Mediastinum: Mediastinal contours are normal. Heart size is normal. Bones and chest wall: No suspicious bony abnormalities. Soft tissues appear unremarkable. IMPRESSION: Suspect left retrocardiac opacity. This is suspicious for pneumonia. CT chest could be considered for further evaluation. Dictated by: Terry Pool M.D. on 01/08/2022 at 13:45 Approved by: Terry Pool M.D. on 01/08/2022 at 13:46
== END ==
PROVIDERS: Family Provider Family Medicine; PCP Family Medicine; Referring Provider Registered Nurse; Visit Provider Registered Nurse
DX: R05.9 Cough, unspecified (principal)
CPT/HCPCS: 71046

== ENCOUNTER → 2022-01-18 07:34 | Outpatient (CLI) | payer MEDICARE, OTHER, SELFPAY ==
[2022-01-18 08:47] LABS: Add Manual Diff / Slide Review NO; Basophils Absolute Auto 100 /uL (0-100); Basophils Percent Auto 1.4 % (0-2); Eosinophils Absolute Auto 300 /uL (0-450); Hematocrit 41.5 % (41-53); Hemoglobin 14.4 g/dL (13.5-17.5); Lymphocytes Absolute Auto 1700 /uL (1100-4500); Lymphocytes Percent Auto 27.7 % (25-40); Mean Corpuscular HGB Conc 34.7 % (30-36); Mean Corpuscular Hemoglobin 30.9 PG (26-34); Mean Corpuscular Volume 89.1 fL (80-100); Monocytes Absolute Auto 600 /uL (0-900); Monocytes Percent Auto 10.6 % (3-14); Neutrophils Absolute Auto 3300 /uL (1500-7000); Neutrophils Percent Auto 55.3 % (50-75); Platelet Count 305 X10^3/uL (150-400); Red Blood Cell Count 4.66 X10^6/uL (4.5-5.9); Red Cell Distribution Width 14.9 % (11.6-14.8)
[2022-01-18 09:56] LABS: Prostate Specific Antigen Scrn 0.577 ng/mL (0.1-4.0)
[2022-01-18 10:04] LABS: Alanine Aminotransferase 48 IU/L (<50); Albumin 4.2 g/dL (3.5-5.0); Albumin Globulin Ratio 1.4 (1.0-2.8); Alkaline Phosphatase 65 U/L (38-126); Aspartate Aminotransferase 30 IU/L (17-59); BUN Creatinine Ratio 20.9 (6-22); Bilirubin Total 0.6 mg/dL (0.2-1.3); Blood Urea Nitrogen 19 mg/dL (9-20); Calcium 9.1 mg/dL (8.4-10.2); Carbon Dioxide 26 mmol/L (22-32); Chloride 98 mmol/L (98-107); Cholesterol 175 mg/dL (140-199); Estimated Glomerular Filt Rate > 60 mL/min (>60); Globulin 3.1 g/dL (1.7-4.1); Glucose 107 mg/dL (80-110); HDL Cholesterol 37 mg/dL (40-60); HEMOLYSIS < 15 (0-50); LDL Cholesterol Calculated 116 mg/dL (<100); Potassium 4.3 mmol/L (3.4-5.1); Sodium 137 mmol/L (137-145); Total Protein 7.3 g/dL (6.3-8.2); Triglycerides 112 mg/dL (35-150)
== END ==
PROVIDERS: Family Provider Family Medicine; PCP Family Medicine; Referring Provider Family Medicine; Visit Provider Family Medicine
DX: I10 Essential (primary) hypertension (principal); Z12.5 Encounter for screening for malignant neoplasm of prostate; E78.00 Pure hypercholesterolemia, unspecified; R27.0 Ataxia, unspecified; T88.7XXA Unspecified adverse effect of drug or medicament, initial encounter
CPT/HCPCS: 36415; 80053; 80061; 85025; G0103

== ENCOUNTER 2022-01-25 11:08 | Emergency (ER) | payer MEDICARE, OTHER, SELFPAY ==
[2022-01-25] VITALS (13 sets, daily range): BP systolic 108–136; BP diastolic 60–84; PULSE 68–80; RESP 15–25; TEMP 35.9–36.6; O2SAT 95–98; BMI 33.0
--- NOTE | 2022-01-25 11:40 | DI.CT.S_ITS ---
PROCEDURE: CT HEAD/BRAIN WO CON INDICATIONS: change in neuro status after meds TECHNIQUE: Noncontrast 4.5 mm thick angled axial sections acquired from the foramen magnum to the vertex, with coronal and sagittal reformats. For radiation dose reduction, the following was used: automated exposure control, adjustment of mA and/or kV according to patient size. COMPARISON: [facility], CT, CT HEAD/BRAIN WO CON, 11/22/2021, 16:18. FINDINGS: Image quality: Excellent. CSF spaces: Basal cisterns are patent. No extra-axial fluid collections. The ventricles are symmetric in size and shape. Brain: No intracranial bleeds or masses. There is cerebral volume loss for age, with resultant ventricular and sulcal prominence. There are periventricular and deep white matter chronic small vessel ischemic changes. Skull and face: Calvarium and visualized facial bones appear intact, without suspicious lesions. Sinuses: Visualized sinuses and mastoids are clear. IMPRESSION: No evidence acute intracranial process. Dictated by: Raji Powell M.D. on 01/25/2022 at 12:32 Approved by: Raji Powell M.D. on 01/25/2022 at 12:33
--- NOTE | 2022-01-25 11:40 | DI.RAD.S_ITS ---
PROCEDURE: XR CHEST 1V INDICATIONS: Altered mental status TECHNIQUE: One view of the chest was acquired. COMPARISON: [facility], CR, XR CHEST 2V, 01/08/2022, 13:35. FINDINGS: Surgical changes and devices: None. Lungs and pleura: Lungs are clear. No pleural effusions or pneumothorax. Mediastinum: Mediastinal contours appear normal. Heart size is normal. Bones and chest wall: No suspicious bony lesions. Overlying soft tissues appear unremarkable. IMPRESSION: No acute cardiopulmonary process demonstrated radiographically. Dictated by: Bryce Nunez M.D. on 01/25/2022 at 12:49 Approved by: Bryce Nunez M.D. on 01/25/2022 at 12:50
[2022-01-25 12:00] LABS: Add Manual Diff / Slide Review NO; Basophils Absolute Auto 100 /uL (0-100); Basophils Percent Auto 1.1 % (0-2); Eosinophils Absolute Auto 200 /uL (0-450); Eosinophils Percent Auto 2.7 % (2-4); Hemoglobin 14.4 g/dL (13.5-17.5); Lymphocytes Absolute Auto 2000 /uL (1100-4500); Mean Corpuscular HGB Conc 33.5 % (30-36); Mean Corpuscular Hemoglobin 30.3 PG (26-34); Mean Corpuscular Volume 90.4 fL (80-100); Monocytes Absolute Auto 800 /uL (0-900); Monocytes Percent Auto 12.2 % (3-14); Neutrophils Absolute Auto 3200 /uL (1500-7000); Platelet Count 342 X10^3/uL (150-400); Red Blood Cell Count 4.76 X10^6/uL (4.5-5.9); Red Cell Distribution Width 14.5 % (11.6-14.8); White Blood Cell Count 6.2 X10^3/uL (4.5-11.0)
[2022-01-25 12:10] LABS: Alanine Aminotransferase 40 IU/L (<50); Albumin 4.4 g/dL (3.5-5.0); Albumin Globulin Ratio 1.3 (1.0-2.8); Alkaline Phosphatase 67 U/L (38-126); Aspartate Aminotransferase 46 IU/L (17-59); BUN Creatinine Ratio 23.8 (6-22); Bilirubin Total 0.8 mg/dL (0.2-1.3); Blood Urea Nitrogen 25 mg/dL (9-20); Calcium 9.3 mg/dL (8.4-10.2); Carbon Dioxide 28 mmol/L (22-32); Chloride 98 mmol/L (98-107); Estimated Glomerular Filt Rate > 60 mL/min (>60); Globulin 3.5 g/dL (1.7-4.1); Glucose 106 mg/dL (80-110); HEMOLYSIS < 15 (0-50); Potassium 4.6 mmol/L (3.4-5.1); Sodium 136 mmol/L (137-145); Total Protein 7.9 g/dL (6.3-8.2)
[2022-01-25 12:11] LABS: Ammonia (NH3) < 9 umol/L (9-30)
[2022-01-25 14:27] LABS: Acetaminophen < 10 ug/mL (10-30); Ethanol (ETOH) < 10 mg/dL; Salicylate < 1.0 mg/dL (<20)
--- NOTE | 2022-01-25 15:46 | ED_ITS ---
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 Patient was brought in today for an acute exacerbation of his symptoms. 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 She states when she arrived home he seemed to be back at his baseline but he is had longstanding issues over the last couple years with a shuffling gait, will often mixed up his nose and give a yes answer or vice versa, will often have difficulty with word finding that seems to be intermittent and she is noticed that he has had issues such as in the last few weeks started using his left hand even though he is right-handed. Patient has had some incontinence but this is not new. They state this has been for last several years they thought it maybe from gabapentin and they stopped this 2 weeks ago but he was on it for 4 years total of 600 mg 3 times daily was stopped and he was switched over to oxycodone every 8 hours. She states there has not really been a big change in his mentation since it was stopped there has not been change in the characteristics of his mentation or movements since it was stopped or started on the oxycodone. She states his symptoms started 1 or 2 years after being on the gabapentin not initially. She states he is currently at his normal baseline he agrees. Denies headache, vision changes, denies chest pain or shortness of breath, no nausea no vomiting no weakness or lateralizing deficits. He denies any fecal incontinence but has had urinary issues. Patient has not had any other medication changes. He is had cholecystectomy. No known drug allergies. No tobacco, no alcohol or illicit. His primary care is Dr. Cheung. He had a head CT couple months ago but his last MRI was in 2018. He is set up to see Neurology in April. On Anticoagulants: No Related Data Previous Rx's Medication Instructions Recorded gabapentin 300 mg capsule 600 mg PO TID rlq pain #180 caps 02/16/21 lisinopril 40 mg tablet 40 mg PO DAILY #90 tabs 04/26/21 sildenafil (pulm.hypertension) 20 60 mg PO DAILY #30 tabs 07/09/21 mg tablet (Revatio) epinephrine 0.3 mg/0.3 mL 0.3 mg (0.3 mL) IM SEE 12/09/21 injection, auto-injector (EpiPen INSTRUCTIONS #1 kit 2-Phillip) oxycodone 5 mg tablet 5 mg PO Q8H PRN pain #90 tabs 12/28/21 duloxetine 30 mg capsule,delayed 30 mg PO DAILY #90 caps 01/24/22 release hydrochlorothiazide 25 mg tablet 25 mg PO QAM #90 tabs 01/24/22 lidocaine 5 % topical patch 1 patch topical DAILY PRN pain #15 01/25/22 ea Allergies Allergy/AdvReac Type Severity Reaction Status Date / Time bee venom protein (honey bee) Allergy Severe Anaphylaxis Verified 01/25/22 15:51 Review of Systems Review of Systems ROS Unobtainable: All systems reviewed & are unremarkable except as noted in HPI and below Hematologic/Lymphatic On Anticoagulants: No Patient History Medical History Ataxia Deep inguinal pain, right Medication side effects Pelvic somatic dysfunction Psoas muscle strain Rate of speech, slow Screening for prostate cancer Segmental and somatic dysfunction of abdomen and other regions Surgical History Hx of hernia repair Status post cholecystectomy Family History Grandmother Heart disease Mother Age: 92 Environmental allergies Grandmother Stroke Social History marital status: household members: spouse Smoking Status: Former smoker alcohol intake: current substance use type: does not use Smoking Status: Former smoker alcohol intake frequency: holidays/special occasions only Substance Use Type: does not use Exam Narrative Exam Narrative: GEN: well nourished, well appearing male, alert and oriented x 3, patient appears to be in mild distress. Patient has flat affect, able to answer questions appropriately but quite slow to to speak HEENT: Atraumatic, pupils are equal round reactive to light, extraocular movements are intact, nares are clear, TMs are clear with no fluid, there is no conjunctival pallor. Throat is clear without any exudates, erythema, tonsillar enlargement or uvular deviation, no facial droop noted. HEART: Regular rate and rhythm without murmur, clicks, rubs. pulses are equal in upper and lower extremities LUNGS:Lungs clear to auscultation, no wheezes, rales, crackles, chest moves symmetrically ABD:bowel sounds normal, soft, non-tender, no guarding, rebound, rigidity, no masses noted, no hepatosplenomegaly :No CVA tenderness MSCL: Non-tender, no muscle atrophy, muscles strength 5/5 upper and lower extremities, full range of motion, patient has a slow almost shuffling gait. NEURO:CN 2-12 intact, sensation normal, no tremor appreciated. Initial Vital Signs Initial Vital Signs: Vital Signs Temperature 96.7 F L 01/25/22 11:35 Pulse Rate 71 01/25/22 11:35 Respiratory Rate 15 01/25/22 11:35 Blood Pressure 129/60 01/25/22 11:35 Pulse Oximetry 96 01/25/22 11:35 Oxygen Delivery Method 01/25/22 11:35 Scores GCS [place] coma scale eye opening: Spontaneous [place] coma scale verbal response: Orientated [place] coma scale motor response: Obey commands [place] coma scale total score: 15 Course Orders Ordered: ED Orders 01/25/22 11:40 CT head/brain wo con Stat XR chest 1V Stat 01/25/22 11:47 Acetaminophen Stat Ammonia (NH3) Stat Complete Blood Count AUTO DIFF Stat Comprehensive Metabolic Panel Stat Ethanol (ETOH) Stat Salicylate Stat 01/25/22 15:59 EKG-12 Lead Stat 01/25/22 16:10 Urine Drug Screen, Rapid Stat 01/25/22 16:15 Covid-19 + FLU A/B + RSV - PCR Stat 01/25/22 16:33 MR head/brain wo con Stat Vital Signs Vital signs: Vital Signs - 8 hr 01/25/22 15:37 01/25/22 15:22 01/25/22 15:23 Temperature 97.9 F Pulse Rate 75 78 Respiratory Rate Blood Pressure 115/74 Pulse Oximetry 97 95 98 Oxygen Delivery Method Room Air 01/25/22 15:23 01/25/22 15:30 01/25/22 15:30 Temperature Pulse Rate 76 Respiratory Rate 20 Blood Pressure 119/76 128/82 Pulse Oximetry 97 Oxygen Delivery Method 01/25/22 16:00 01/25/22 16:00 01/25/22 16:13 Temperature Pulse Rate 69 74 Respiratory Rate 25 H 20 Blood Pressure 125/76 Pulse Oximetry 97 98 Oxygen Delivery Method 01/25/22 16:13 01/25/22 16:30 01/25/22 16:30 Temperature Pulse Rate 68 Respiratory Rate 22 Blood Pressure 136/84 125/68 Pulse Oximetry 97 Oxygen Delivery Method 01/25/22 17:31 01/25/22 17:34 01/25/22 17:34 Temperature Pulse Rate 70 69 Respiratory Rate 20 Blood Pressure 126/74 Pulse Oximetry 97 97 Oxygen Delivery Method 01/25/22 18:00 01/25/22 18:00 01/25/22 18:30 Temperature Pulse Rate 73 80 Respiratory Rate 20 Blood Pressure 108/72 Pulse Oximetry 98 97 Oxygen Delivery Method 01/25/22 18:31 01/25/22 18:31 Temperature Pulse Rate 80 Respiratory Rate 22 Blood Pressure 124/79 Pulse Oximetry 96 Oxygen Delivery Method MDM - Neuro Symptoms/Deficit Lab Data Result diagrams: 01/25/22 11:47 01/25/22 11:47 Labs: Lab Results 01/25/22 01/25/22 01/25/22 Range/Units 11:47 11:47 11:47 WBC 6.2 (4.5-11.0) X10^3/uL RBC 4.76 (4.5-5.9) X10^6/uL Hgb 14.4 (13.5-17.5) g/dL Hct 43.0 (41-53) % MCV 90.4 (80-100) fL MCH 30.3 (26-34) PG MCHC 33.5 (30-36) % RDW 14.5 (11.6-14.8) % Plt Count 342 (150-400) X10^3/uL Neut % (Auto) 52.0 (50-75) % Lymph % (Auto) 32.0 (25-40) % [place] % (Auto) 12.2 (3-14) % Eos % (Auto) 2.7 (2-4) % Baso % (Auto) 1.1 (0-2) % Neut # (Auto) 3200 (4848-9052) /uL Lymph # (Auto) 2000 (4264-9811) /uL [place] # (Auto) 800 (0-900) /uL Eos # (Auto) 200 (0-450) /uL Baso # (Auto) 100 (0-100) /uL Sodium 136 L (137-145) mmol/L Potassium 4.6 (3.4-5.1) mmol/L Chloride 98 (98-107) mmol/L Carbon Dioxide 28 (22-32) mmol/L BUN 25 H (9-20) mg/dL Creatinine 1.05 (0.66-1.25) mg/dL Estimated GFR > 60 (>60) mL/min BUN/Creatinine Ratio 23.8 H (6-22) Glucose 106 (80-110) mg/dL Calcium 9.3 (8.4-10.2) mg/dL Total Bilirubin 0.8 (0.2-1.3) mg/dL AST 46 (17-59) IU/L ALT 40 (<50) IU/L Alkaline Phosphatase 67 (38-126) U/L Ammonia < 9 L (9-30) umol/L Total Protein 7.9 (6.3-8.2) g/dL Albumin 4.4 (3.5-5.0) g/dL Globulin 3.5 (1.7-4.1) g/dL Albumin/Globulin Ratio 1.3 (1.0-2.8) Salicylates (<20) mg/dL U Opiates 300ng/mL cut (Negative) Ur Oxycodone Screen (Negative) Urine Methadone Screen (Negative) Acetaminophen (10-30) ug/mL Ur Barbiturates Screen (Negative) U Tricyclic Antidepress (Negative) Ur Phencyclidine Scrn (Negative) Ur Amphetamines Screen (Negative) U Methamphetamines Scrn (Negative) Ur MDMA Scrn (Ecstasy) (Negative) U Benzodiazepines Scrn (Negative) Urine Cocaine Screen (Negative) U Marijuana (THC) Screen (Negative) Ethyl Alcohol ( - 10) mg/dL SARS-CoV-2 (PCR) (Negative) Influenza A (RT-PCR) (NEGATIVE) Influenza B (RT-PCR) (NEGATIVE) RSV (PCR) (Negative) 01/25/22 01/25/22 01/25/22 Range/Units 11:47 16:10 16:15 WBC (4.5-11.0) X10^3/uL RBC (4.5-5.9) X10^6/uL Hgb (13.5-17.5) g/dL Hct (41-53) % MCV (80-100) fL MCH (26-34) PG MCHC (30-36) % RDW (11.6-14.8) % Plt Count (150-400) X10^3/uL Neut % (Auto) (50-75) % Lymph % (Auto) (25-40) % [place] % (Auto) (3-14) % Eos % (Auto) (2-4) % Baso % (Auto) (0-2) % Neut # (Auto) (2105-0824) /uL Lymph # (Auto) (5636-8421) /uL [place] # (Auto) (0-900) /uL Eos # (Auto) (0-450) /uL Baso # (Auto) (0-100) /uL Sodium (137-145) mmol/L Potassium (3.4-5.1) mmol/L Chloride (98-107) mmol/L Carbon Dioxide (22-32) mmol/L BUN (9-20) mg/dL Creatinine (0.66-1.25) mg/dL Estimated GFR (>60) mL/min BUN/Creatinine Ratio (6-22) Glucose (80-110) mg/dL Calcium (8.4-10.2) mg/dL Total Bilirubin (0.2-1.3) mg/dL AST (17-59) IU/L ALT (<50) IU/L Alkaline Phosphatase (38-126) U/L Ammonia (9-30) umol/L Total Protein (6.3-8.2) g/dL Albumin (3.5-5.0) g/dL Globulin (1.7-4.1) g/dL Albumin/Globulin Ratio (1.0-2.8) Salicylates < 1.0 (<20) mg/dL U Opiates 300ng/mL cut Negative (Negative) Ur Oxycodone Screen Positive H (Negative) Urine Methadone Screen Negative (Negative) Acetaminophen < 10 (10-30) ug/mL Ur Barbiturates Screen Negative (Negative) U Tricyclic Antidepress Negative (Negative) Ur Phencyclidine Scrn Negative (Negative) Ur Amphetamines Screen Negative (Negative) U Methamphetamines Scrn Negative (Negative) Ur MDMA Scrn (Ecstasy) Negative (Negative) U Benzodiazepines Scrn Negative (Negative) Urine Cocaine Screen Negative (Negative) U Marijuana (THC) Screen Negative (Negative) Ethyl Alcohol < 10 ( - 10) mg/dL SARS-CoV-2 (PCR) Negative (Negative) Influenza A (RT-PCR) Flu a negative (NEGATIVE) Influenza B (RT-PCR) Flu b negative (NEGATIVE) RSV (PCR) Negative (Negative) Urine Dip Bedside Urine Glucose Negative Bedside Urine Bilirubin - Negative Bedside Urine Ketone - Negative Urine Specific [place] 1.020 Bedside Urine Occult Blood - Negative Bedside Urine Protein +/- 15 Bedside Urine Urobilinogen - Negative Bedside Urine Nitrite - Negative Bedside Urine Leukocytes - Negative Esterase Imaging Data Brain MRI: Radiologist's Impression: [address] [address] Magnetic Resonance Report Signed Patient: Amaury Jacobo MR#: [id number] : 1950 Acct:[id number] Age/Sex: 71 / M Date of Service: 01/25/22 Loc: ED Accession Number: [id number] ?? Procedure: MR head/brain wo con Ordering Provider: Keisha Farrar D.O. PROCEDURE:? MR HEAD/BRAIN WO/W CON ? INDICATIONS:? altered, speech, movement issues long standing ? TECHNIQUE:? Noncontrast axial T1 spin echo, axial T2 fast spin echo, sagittal and axial FLAIR, coronal T2 fast spin echo, axial gradient echo, axial diffusion and ADC through the brain.? After the administration of contrast, axial and coronal and sagittal 3D VIBE or T1 spin echo with fat saturation through the brain.? ? COMPARISON:? None. ? FINDINGS:? Image quality:? Exam was terminated before completion.? Existing images are motion degraded. ? CSF spaces: Basal cisterns are patent. Lateral ventricles are symmetric. Volume:? Lwuw-ef-lzzgipth volume loss ? Brain:? DWI images without acute infarct.? No high-grade edema.? No definite intracranial hemorrhage. ? Craniofacial structures: No displaced fracture. Sinuses are clear. Orbits are intact. ? IMPRESSION:? Exam was terminated prematurely.? Within limits of evaluation.? No acute intracranial abnormality. ? ? Dictated by: Balta Mckinley M.D. on 01/25/2022 at 18:15 ? ? Approved by: Balta Mckinley M.D. on 01/25/2022 at 18:17?? CT scan - head: Radiologist's Impression: [address] [address] [address] Scan Report Signed Patient: Amaury Jacobo MR#: [id number] : 1950 Acct:[id number] Age/Sex: 71 / M Date of Service: 01/25/22 Loc: ED Accession Number: [id number] ?? Procedure: CT head/brain wo con Ordering Provider: Keisha Farrar D.O. PROCEDURE:? CT HEAD/BRAIN WO CON ? INDICATIONS:? change in neuro status after meds ? TECHNIQUE:? Noncontrast 4.5 mm thick angled axial sections acquired from the foramen magnum to the vertex, with coronal and sagittal reformats.? For radiation dose reduction, the following was used:? automated exposure control, adjustment of mA and/or kV according to patient size.? ? COMPARISON:? [facility], CT, CT HEAD/BRAIN WO CON, 11/22/2021, 16:18. ? FINDINGS:? Image quality:? Excellent.? ? CSF spaces:? Basal cisterns are patent.? No extra-axial fluid collections.? The ventricles are symmetric in size and shape.? ? Brain:? No intracranial bleeds or masses.? There is cerebral volume loss for age, with resultant ventricular and sulcal prominence.? There are periventricular and deep white matter chronic small vessel ischemic changes.? ? Skull and face:? Calvarium and visualized facial bones appear intact, without suspicious lesions.? ? Sinuses:? Visualized sinuses and mastoids are clear.? ? IMPRESSION:? No evidence acute intracranial process. ? ? Dictated by: Raji Powell M.D. on 01/25/2022 at 12:32 ? ? Approved by: Raji Powell M.D. on 01/25/2022 at 12:33?? Chest x-ray: Radiologist's Impression: Close Brain MRI (Signed) Balta Mckinley - 01/25/[address] (Signed) Raji Powell - 01/25/22 Chest X-Ray (Signed) Bryce Nunez - 01/25/22 Chest X-Ray (Signed) Terry Pool - 01/08/[address] (Signed) Silvestre Clarke - 11/22/[address] (Signed) Silvestre Clarke - 11/22/[address] (Signed) Silvestre Clarke - 11/22/21 Echocardiogram Ultrasound (Signed) Nilsa Jenkinswes - 10/29/19 Telemetry Strips 03/27/18 Abdomen/Pelvis CT (Signed) Liane Aguilar - 03/20/18 Launch?Image [address] [address] XRay Report Signed Patient: Amaury Jacobo MR#: [id number] : 1950 Acct:[id number] Age/Sex: 71 / M Date of Service: 01/25/22 Loc: ED Accession Number: [id number] ?? Procedure: XR chest 1V Ordering Provider: Keisha Farrar D.O. PROCEDURE:? XR CHEST 1V ? INDICATIONS: Altered mental status ? TECHNIQUE:? One view of the chest was acquired.? ? COMPARISON:? [facility], , XR CHEST 2V, 01/08/2022, 13:35. ? FINDINGS:? ? Surgical changes and devices:? None.? ? Lungs and pleura:? Lungs are clear.? No pleural effusions or pneumothorax.? ? Mediastinum:? Mediastinal contours appear normal.? Heart size is normal.? ? Bones and chest wall:? No suspicious bony lesions.? Overlying soft tissues appear unremarkable.? ? IMPRESSION: No acute cardiopulmonary process demonstrated radiographically. ? ? Dictated by: Bryce Nunez M.D. on 01/25/2022 at 12:49 ? ? Approved by: Bryce Nunez M.D. on 01/25/2022 at 12:50?? ECG Data Interpretation: Normal sinus rhythm, rate of 70 NE 174 QRS of 108 [address]TC 416. No acute ST changes appreciated. MDM Narrative Medical decision making narrative: This is a 71-year-old male with longstanding symptoms seemed to be acutely worsened today, patient's head CT and lab work do not show any clear cause. Family suspects it was his gabapentin although this was stopped 2 weeks ago and he has not had any change or clear withdrawal in comparison and was started on oxycodone and really has not had a lot of change in his symptomatology making this seem less likely. He has seen his primary care he is set up for follow-up in April with Neurology, MRI was obtained today was terminated early as patient started to crawl out the tube but does not show any clear acute changes. Discharge Plan Departure Patient Disposition: Home Clinical Impression: Altered mental status Activity Restrictions/Additional Instructions: Follow-up with your physician, I think it is very appropriate that you follow-up with Neurology. Please talk with them to see if they can move up your appointment. You can try lidocaine patches to the affected area on your abdomen Prescription sent to [facility] in [place] It may be helpful to follow-up with pain management for your chronic nerve pain. Please return for rapidly worsening changes, severe headaches, sudden speech, mentation changes, new weakness, difficulty with movement, facial droop or other new or concerning changes. Prescriptions: New lidocaine 5 % adhesive patch,medicated 1 patch topical DAILY PRN (Reason: pain) Qty: 15 0RF Rx Instructions: leave on most painful area for up to 12 hrs No Action gabapentin 300 mg capsule 600 mg PO TID Qty: 180 11RF Label Comments: PT reports not taking this anymore x 2 weeks lisinopril 40 mg tablet 40 mg PO DAILY Qty: 90 3RF sildenafil (pulm.hypertension) [Revatio] 20 mg tablet 60 mg PO DAILY Qty: 30 5RF Rx Instructions: take up to three tabs a day as needed duloxetine 30 mg capsule,delayed release(DR/EC) 30 mg PO DAILY Qty: 90 3RF Rx Instructions: Take one capsule daily at bedtime. hydrochlorothiazide 25 mg tablet 25 mg PO QAM Qty: 90 3RF epinephrine [EpiPen 2-Phillip] 0.3 mg/0.3 mL auto-injector 0.3 mg IM SEE INSTRUCTIONS Qty: 1 2RF Label Comments: pt has never taken oxycodone 5 mg tablet 5 mg PO Q8H PRN (Reason: pain) Qty: 90 0RF Referrals: Anibal Keita DO [Physician] - Luciano Cheung DO [Primary Care Provider] - Visit Report Forms: Patient Portal/API
--- NOTE | 2022-01-25 15:57 | PC.NURSE ---
Pt spouse reports that pt has been having a hard time finding words, delayed speech intermittently over the past 1-2 year. Reports that two weeks ago, gabapentin Rx was stopped and pt was put on oxycodone TID prn. Comes in today because these symptoms just aren't going away. Has been seen in primary care for this in August also. Pt is alert/oriented and does at times say yes or no but he actually means the opposite. Slow to answer questions, though will answer appropriately. Pt states he is frustrated by all of this.
--- NOTE | 2022-01-25 16:33 | DI.MRI.S_ITS ---
PROCEDURE: MR HEAD/BRAIN WO/W CON INDICATIONS: altered, speech, movement issues long standing TECHNIQUE: Noncontrast axial T1 spin echo, axial T2 fast spin echo, sagittal and axial FLAIR, coronal T2 fast spin echo, axial gradient echo, axial diffusion and ADC through the brain. After the administration of contrast, axial and coronal and sagittal 3D VIBE or T1 spin echo with fat saturation through the brain. COMPARISON: None. FINDINGS: Image quality: Exam was terminated before completion. Existing images are motion degraded. CSF spaces: Basal cisterns are patent. Lateral ventricles are symmetric. Volume: Melc-bm-blazueoi volume loss Brain: DWI images without acute infarct. No high-grade edema. No definite intracranial hemorrhage. Craniofacial structures: No displaced fracture. Sinuses are clear. Orbits are intact. IMPRESSION: Exam was terminated prematurely. Within limits of evaluation. No acute intracranial abnormality. Dictated by: Balta Mckinley M.D. on 01/25/2022 at 18:15 Approved by: Balta Mckinley M.D. on 01/25/2022 at 18:17
[2022-01-25 16:35] LABS: UR Morphine/Opiate cutoff 300 Negative (Negative); Ur Creatinine Normal (Normal); Ur Specific Gravity Normal (Normal); Urine Amphetamines Negative (Negative); Urine Barbiturates Negative (Negative); Urine Benzodiazepines Negative (Negative); Urine Cocaine Negative (Negative); Urine MDMA Negative (Negative); Urine Methadone Negative (Negative); Urine Methamphetamines Negative (Negative); Urine Oxycodone Positive (Negative); Urine Phencyclidine Negative (Negative); Urine Tetrahydrocannabinol Negative (Negative); Urine Tricyclic Antidepressant Negative (Negative); Urine pH Normal (Normal)
[2022-01-25 17:08] LABS: Influenza A - CEPHEID Flu A NEGATIVE (NEGATIVE); Influenza B - CEPHEID Flu B NEGATIVE (NEGATIVE); Respiratory Syncytial Virus Negative (Negative)
[2022-01-25 17:18] LABS: COVID-19 CEPHEID 4-PLEX PCR Negative (Negative)
== END 2022-01-25 19:12 | disposition home or self-care (01) ==
PROVIDERS: Emergency Provider Emergency Medicine; Family Provider Family Medicine; PCP Family Medicine
DX: R41.82 Altered mental status, unspecified (principal); Z20.822 Contact with and (suspected) exposure to COVID-19
CPT/HCPCS: 0241U; 36415; 70450; 70551; 71045; 80053; 80305; 80320; 80329; 81003; 82140; 85025; 93005; 99284; G0480

== ENCOUNTER 2022-01-28 14:16 | Emergency (ER) | payer MEDICARE, OTHER, SELFPAY ==
[2022-01-28 14:43] VITALS: BP 111/55; PULSE 86; RESP 17; TEMP 36.6; O2SAT 97
--- NOTE | 2022-01-28 14:46 | DI.CT.S_ITS ---
PROCEDURE: CT HEAD/BRAIN WO CON INDICATIONS: head injury TECHNIQUE: Noncontrast 4.5 mm thick angled axial sections acquired from the foramen magnum to the vertex, with coronal and sagittal reformats. For radiation dose reduction, the following was used: automated exposure control, adjustment of mA and/or kV according to patient size. COMPARISON: [facility], CT, CT HEAD/BRAIN WO CON, 01/25/2022, 12:01. [facility], CT, CT HEAD/BRAIN WO CON, 11/22/2021, 16:18. FINDINGS: Image quality: Excellent. CSF spaces: Basal cisterns are patent. No extra-axial fluid collections. The ventricles are symmetric in size and shape. Brain: No intracranial bleeds or masses. There is cerebral volume loss for age, with resultant ventricular and sulcal prominence. There are periventricular and deep white matter chronic small vessel ischemic changes. There is intracranial internal carotid artery atherosclerosis. Skull and face: Calvarium and visualized facial bones appear intact, without suspicious lesions. Sinuses: Visualized sinuses and mastoids are clear. IMPRESSION: Normal for age, source of current pain after trauma symptoms is not seen. Dictated by: Darren Griffin M.D. on 01/28/2022 at 15:20 Approved by: Darren Griffin M.D. on 01/28/2022 at 15:20
[2022-01-28] MEDS: ACETAMINOPHEN 325 MG TABLET 975 MG PO (18:49)
[2022-01-28] MEDS: LIDOCAINE 2% INJ SDV 5 ML INJ (18:49)
[2022-01-28] MEDS: BACITRACIN OINT 0.9 GM PCKT 1 APPLIC TOP (18:49)
[2022-01-28 18:51] VITALS: BP 162/74; PULSE 68; O2SAT 97
--- NOTE | 2022-01-28 19:40 | ED_ITS ---
HPI - Head Injury <Cristiana Dumont [facility] - Last Filed: 01/28/22 19:49> General Chief complaint: Head Injury Stated complaint: fall, split forehead open, bleeding Time Seen by Provider: 01/28/22 18:44 Source: patient Mode of arrival: Ambulatory History of Present Illness HPI Narrative: This is a 71-year-old male presents to the emergency department after he fell forward only approximately 6 in in his garden while working today but fell into a rest and metal post that caused the laceration vertically on his forehead approximately 5 cm. Patient is not anticoagulated, he takes gabapentin at baseline which causes a speech delay, he is being worked up by Neurology and his primary care provider for this change that has been gradual over a couple of years. Patient has some balance issues at baseline, denies any history of dementia, is alert, oriented and interactive. Denies any nausea vomiting, denies any neck pain, states his last tetanus was 1 year ago. He denies vision changes, is ambulatory, has full range of motion of his neck, shoulders and denies any other pain. He endorses a mild headache without any other symptoms. There was no loss of consciousness. Without vomiting. He denies any numbness or tingling anywhere. Related Data Previous Rx's Medication Instructions Recorded gabapentin 300 mg capsule 600 mg PO TID rlq pain #180 caps 02/16/21 lisinopril 40 mg tablet 40 mg PO DAILY #90 tabs 04/26/21 sildenafil (pulm.hypertension) 20 60 mg PO DAILY #30 tabs 07/09/21 mg tablet (Revatio) epinephrine 0.3 mg/0.3 mL 0.3 mg (0.3 mL) IM SEE 12/09/21 injection, auto-injector (EpiPen INSTRUCTIONS #1 kit 2-Phillip) duloxetine 30 mg capsule,delayed 30 mg PO DAILY #90 caps 01/24/22 release hydrochlorothiazide 25 mg tablet 25 mg PO QAM #90 tabs 01/24/22 lidocaine 5 % topical patch 1 patch topical DAILY PRN pain #15 01/25/22 ea nirmatrelvir 300 mg (150 mg See Rx Instructions PO .COMPLEX 02/07/22 x2)-ritonavir 100 mg tablet,dose #30 ea pack(EUA) (Paxlovid) Allergies Allergy/AdvReac Type Severity Reaction Status Date / Time bee venom protein (honey bee) Allergy Severe Anaphylaxis Verified 02/01/22 16:19 Review of Systems <LOVE Sousa - Last Filed: 01/28/22 19:49> Review of Systems Narrative: Review of systems is negative for acute abnormalities unless otherwise noted in HPI Patient History <LOVE Sousa - Last Filed: 01/28/22 19:49> Medical History Ataxia Deep inguinal pain, right Medication side effects Pelvic somatic dysfunction Psoas muscle strain Rate of speech, slow Screening for prostate cancer Segmental and somatic dysfunction of abdomen and other regions Surgical History Hx of hernia repair Status post cholecystectomy Family History Grandmother Heart disease Mother Age: 92 Environmental allergies Grandmother Stroke Social History marital status: household members: spouse Smoking Status: Former smoker alcohol intake: current substance use type: does not use Smoking Status: Former smoker alcohol intake frequency: holidays/special occasions only Substance Use Type: does not use Exam <LOVE Sousa - Last Filed: 01/28/22 19:49> Narrative Exam Narrative: Reviewed vitals signs and nursing notes. General: cooperative, comfortable, in no acute distress, well groomed HEENT: symmetrical facial expressions, moist mucous membranes, no tenderness to his cervical spine to palpation, patient has full range of motion of his neck both flexion extension into the left and right. Mild abrasion to his nose, patient's states that he was wearing his glasses when he fell forward which caused an abrasion to his nares, no tenderness to his facial bones, nasal bones, or other facial structures to palpation EOMI, symmetrical face expressions, pupils are equal and reactive to light and accommodation Cardiovascular: regular rate and rhythm, no peripheral edema, warm extremities MSK: moves all extremities, neurovascularly intact, no weakness, normal tone without any other injury Skin: brisk capillary refill, without pallor or erythema, Neuro: normal speech and cognition, A&O x3, ambulatory, clear speech Psych: mental status is grossly normal, congruent mood, normal affect, pleasant and cooperative Initial Vital Signs Initial Vital Signs: Vital Signs Temperature 98 F 01/28/22 14:43 Pulse Rate 86 01/28/22 14:43 Respiratory Rate 17 01/28/22 14:43 Blood Pressure 111/55 L 01/28/22 14:43 Pulse Oximetry 97 01/28/22 14:43 Oxygen Delivery Method 01/28/22 14:43 <Keisha Farrar DO - Last Filed: 02/11/22 11:09> Initial Vital Signs Initial Vital Signs: Vital Signs Temperature 98 F 01/28/22 14:43 Pulse Rate 86 01/28/22 14:43 Respiratory Rate 17 01/28/22 14:43 Blood Pressure 111/55 L 01/28/22 14:43 Pulse Oximetry 97 01/28/22 14:43 Oxygen Delivery Method 01/28/22 14:43 Procedures <LOVE Sousa - Last Filed: 01/28/22 19:49> Laceration Repair Laceration 1: Site: face Size (cm): 5 Description: linear, flap and irregular Depth: simple, single layer Local Anesthetic: lidocaine 1% Amount of anesthesia used (mL): 5 Pre-repair: wound explored, irrigated extensively, deep structures intact and wound margins revised Skin layer closed with: nylon Skin layer suture size: 6-0 Number of sutures: 14 Technique: simple, interrupted and horizontal mattress Course <LOVE Sousa - Last Filed: 01/28/22 19:49> Orders Ordered: Discontinued Medications Acetaminophen (Acetaminophen 325 Mg Tablet) 975 mg PO NOW ONE Stop: 01/28/22 18:45 Last Admin: 01/28/22 18:49 Dose: 975 mg Documented By: SREE Bacitracin (Bacitracin Oint 0.9 Gm Pckt) 1 applic TOP NOW ONE Stop: 01/28/22 18:46 Last Admin: 01/28/22 18:49 Dose: 1 applic Documented By: SREE Lidocaine HCl (Lidocaine 2% Inj Sdv) 5 ml INJ INTRA-OP ONE Stop: 01/28/22 18:49 Last Admin: 01/28/22 18:49 Dose: 5 ml Documented By: SREE Lidocaine/Epinephrine (Lidocaine 1% W/Epi) 4 ml INJ INTRA-OP ONE Stop: 01/28/22 18:45 Last Admin: 01/28/22 18:50 Dose: Not Given Documented By: RL Vital Signs Vital signs: Vital Signs - 8 hr 01/28/22 14:43 01/28/22 18:51 Temperature 98 F Pulse Rate 86 68 Respiratory Rate 17 Blood Pressure 111/55 L 162/74 H Pulse Oximetry 97 97 Oxygen Delivery Method Room Air Room Air <Keisha Farrar DO - Last Filed: 02/11/22 11:09> Orders Ordered: Discontinued Medications Acetaminophen (Acetaminophen 325 Mg Tablet) 975 mg PO NOW ONE Stop: 01/28/22 18:45 Last Admin: 01/28/22 18:49 Dose: 975 mg Documented By: RL Bacitracin (Bacitracin Oint 0.9 Gm Pckt) 1 applic TOP NOW ONE Stop: 01/28/22 18:46 Last Admin: 01/28/22 18:49 Dose: 1 applic Documented By: RL Lidocaine HCl (Lidocaine 2% Inj Sdv) 5 ml INJ INTRA-OP ONE Stop: 01/28/22 18:49 Last Admin: 01/28/22 18:49 Dose: 5 ml Documented By: RL Lidocaine/Epinephrine (Lidocaine 1% W/Epi) 4 ml INJ INTRA-OP ONE Stop: 01/28/22 18:45 Last Admin: 01/28/22 18:50 Dose: Not Given Documented By: RL Vital Signs Vital signs: Vital Signs - 8 hr 01/28/22 14:43 01/28/22 18:51 Temperature 98 F Pulse Rate 86 68 Respiratory Rate 17 Blood Pressure 111/55 L 162/74 H Pulse Oximetry 97 97 Oxygen Delivery Method Room Air Room Air MDM - Head Injury <LOVE Sousa - Last Filed: 01/28/22 19:49> Imaging Data CT scan - head: Radiologist's Impression: PROCEDURE:? CT HEAD/BRAIN WO CON ? INDICATIONS:? head injury ? TECHNIQUE:? Noncontrast 4.5 mm thick angled axial sections acquired from the foramen magnum to the vertex, with coronal and sagittal reformats.? For radiation dose reduction, the following was used:? automated exposure control, adjustment of mA and/or kV according to patient size.? ? COMPARISON:? [facility], CT, CT HEAD/BRAIN WO CON, 01/25/2022, 12:01.? [facility], CT, CT HEAD/BRAIN WO CON, 11/22/2021, 16:18. ? FINDINGS:? Image quality:? Excellent.? ? CSF spaces:? Basal cisterns are patent.? No extra-axial fluid collections.? The ventricles are symmetric in size and shape.? ? Brain:? No intracranial bleeds or masses.? There is cerebral volume loss for age, with resultant ventricular and sulcal prominence.? There are periventricular and deep white matter chronic small vessel ischemic changes.? There is intracranial internal carotid artery atherosclerosis.? ? Skull and face:? Calvarium and visualized facial bones appear intact, without suspicious lesions.? ? Sinuses:? Visualized sinuses and mastoids are clear.? ? IMPRESSION:? Normal for age, source of current pain after trauma symptoms is not seen. ? ? Dictated by: Darren Griffin M.D. on 01/28/2022 at 15:20 ? ? Approved by: Darren Griffin M.D. on 01/28/2022 at 15:20 ? MDM Narrative Medical decision making narrative: This is a 71 year male who presents to the emergency department after a fall forward while working in the garden today causing a laceration to his forehead approximately 5 cm. He had a head CT completed today which does not show any acute intracranial abnormality, his speech is normal for him at baseline, he is without vision changes, nausea vomiting, neck pain, altered mentation, weakness or sensation changes. Suture repair was completed by myself, received 14 sutures, both horizontal mattress and simple sutures to bring wound edges together with good approximation. Wound was irrigated with normal saline, debris was removed, no deep structure injury, symmetrical face expressions. Patient is leaving on a trip tomorrow, he was given strict return precautions for any worsening of his symptoms, nausea vomiting, vision changes, weakness or altered mental status. He is instructed to have his sutures removed in 5 days, return for any worsening, and to follow-up with his regular doctor. Patient is appropriate and amenable to discharge home. Vital signs are stable on repeat examination is unremarkable. Patient has been informed of results. Patient has been given strict return to ER precautions for any new or worsening symptoms. Patient understands to follow up closely with outpatient providers as instructed. Patient understands plan and agrees to discharge home. All questions and concerns answered at this time. Discharge Plan Departure Patient Disposition: Home Clinical Impression: Laceration Head injury Qualifiers: Encounter type: initial encounter Qualified Code(s): S09.90XA - Unspecified injury of head, initial encounter Concussion Qualifiers: Encounter type: initial encounter Loss of consciousness presence/duration: without LOC Qualified Code(s): S06.0X0A - Concussion without loss of consciousness, initial encounter Instructions: DI for Concussion, Concussion, DI for Laceration Repair, DI for Suture Removal, DI for Closed Head Injury Activity Restrictions/Additional Instructions: *You have been diagnosed with [ ] a head injury, laceration, and concussion. Please have your sutures removed in 5 days, you have 14 of them. Keep your wound covered with antibiotic ointment and a Band-Aid, please drink plenty of water, take Tylenol and ibuprofen for headache, have a fun trip, and take it easy, avoid hitting her head again. And if you have any changes in behavior, vision, vomiting, please go to an emergency department for evaluation. I wish you a great weekend. Thank you for your patience today. *What to do: *Please continue to take your regular medications as directed. [ ] New medication prescriptions sent to your pharmacy: [ ] [ ] New medication written as a paper prescription [x] No new medications given *Please follow up with your primary care provider in 2-3 days, call for an appointment. Let them know you were seen in the Emergency Department and that we asked that you be seen for follow-up. We will electronically transmit a record of today's note if your PCP is in our system *If you do not have a primary care provider please contact [phone] to establish care with one of the [facility] primary care providers. *Return to Emergency Department if you should have any new, worsening, or concerning symptoms, such as [fever greater than 101F, chills, worsening pain, persistent vomiting or other bothersome symptoms]. Prescriptions: No Action gabapentin 300 mg capsule 600 mg PO TID Qty: 180 11RF Label Comments: PT reports not taking this anymore x 2 weeks lisinopril 40 mg tablet 40 mg PO DAILY Qty: 90 3RF sildenafil (pulm.hypertension) [Revatio] 20 mg tablet 60 mg PO DAILY Qty: 30 5RF Rx Instructions: take up to three tabs a day as needed duloxetine 30 mg capsule,delayed release(DR/EC) 30 mg PO DAILY Qty: 90 3RF Rx Instructions: Take one capsule daily at bedtime. hydrochlorothiazide 25 mg tablet 25 mg PO QAM Qty: 90 3RF Paxlovid (EUA) 300 mg (150 mg x 2)-100 mg tablets,dose pack See Rx Instructions PO .COMPLEX Qty: 30 0RF Rx Instructions: take TWO 150 mg tablets of nirmatrelvir with ONE 100 mg tablet of ritonavir twice daily for 5 days PO. Do not take statins with this medication. epinephrine [EpiPen 2-Phillip] 0.3 mg/0.3 mL auto-injector 0.3 mg IM SEE INSTRUCTIONS Qty: 1 2RF Label Comments: pt has never taken lidocaine 5 % adhesive patch,medicated 1 patch topical DAILY PRN (Reason: pain) Qty: 15 0RF Rx Instructions: leave on most painful area for up to 12 hrs Referrals: Luciano Cheung DO [Primary Care Provider] - Visit Report Forms: Patient Portal/API <Keisha Farrar DO - Last Filed: 02/11/22 11:09> Cosign ED Attending Cosluisature Attestation: I was immediately available in the department for consultation. Documentation has been reviewed.
== END 2022-01-28 19:44 | disposition home or self-care (01) ==
PROVIDERS: Emergency Provider Nurse Practitioner Critical Care Medicine; Family Provider Family Medicine; PCP Family Medicine
DX: S01.01XA Laceration without foreign body of scalp, initial encounter (principal); S06.0X0A Concussion without loss of consciousness, initial encounter; W18.00XA Striking against unspecified object with subsequent fall, initial encounter; Y93.H2 Activity, gardening and landscaping
CPT/HCPCS: 12002; 70450; 99284

== ENCOUNTER → 2022-02-16 09:35 | Outpatient (CLI) | payer MEDICARE, OTHER, SELFPAY ==
--- NOTE | 2022-02-16 09:38 | DI.RAD.S_ITS ---
PROCEDURE: XR CHEST 2V INDICATIONS: persistent cough and SOB after covid pna TECHNIQUE: 2 views of the chest were acquired. COMPARISON: [facility], CR, XR CHEST 1V, 01/25/2022, 12:01. [facility], CR, XR CHEST 2V, 01/08/2022, 13:35. FINDINGS: Surgical changes and devices: None. Lungs and pleura: Lungs are clear. No pleural effusions or pneumothorax. Mediastinum: Mediastinal contours are normal. Heart size is normal. Bones and chest wall: No suspicious bony abnormalities. Soft tissues appear unremarkable. IMPRESSION: No acute cardiopulmonary process demonstrated radiographically. Dictated by: Bryce Nunez M.D. on 02/16/2022 at 9:17 Approved by: Bryce Nunez M.D. on 02/16/2022 at 9:17
== END ==
PROVIDERS: Family Provider Family Medicine; PCP Family Medicine; Referring Provider Family Medicine; Visit Provider Family Medicine
DX: R05.9 Cough, unspecified (principal)
CPT/HCPCS: 71046

== ENCOUNTER → 2022-03-21 10:17 | Outpatient (CLI) | payer MEDICARE, OTHER, SELFPAY ==
--- NOTE | 2022-03-21 10:18 | DI.RAD.S_ITS ---
PROCEDURE: XR HIP W PEL IF DONE DIPIKA MIN 4V INDICATIONS: Hip Pain TECHNIQUE: AP pelvis with lateral view(s) of the each hip(s). COMPARISON: [facility], CT, CT ABDOMEN PELVIS W CON, 03/20/2018, 13:34. FINDINGS: Bones: No fractures or dislocations. Mild bilateral joint space narrowing. Elof-di-pwnfjumg degenerative changes. Pelvic ring appears intact. No suspicious bony lesions. Soft tissues: The visualized bowel gas pattern is normal. No suspicious soft tissue calcifications. IMPRESSION: [id number] bilateral hip DJD. Dictated by: Terry Pool M.D. on 03/21/2022 at 15:29 Approved by: Terry Pool M.D. on 03/21/2022 at 15:31
--- NOTE | 2022-03-21 10:18 | DI.RAD.S_ITS ---
PROCEDURE: XR LUMBAR SPINE INDICATIONS: LOW BACK PAIN TECHNIQUE: Three views of the lumbar spine. COMPARISON: None. FINDINGS: Bones: 5 nonrib-bearing vertebrae are present. Minimal scoliosis. Multilevel loss of intervertebral disc space height. Vertebral body osteophytes. Lower lumbar spine facet joint hypertrophy. Bony neural foraminal stenosis. No vertebral body compression fractures. No suspicious bony lesions. Soft tissues: Overlying bowel gas pattern is normal. No suspicious soft tissue calcifications. Cholecystectomy clips. IMPRESSION: Advanced degenerative change and DDD in the lumbar spine. Dictated by: Terry Pool M.D. on 03/21/2022 at 15:33 Approved by: Terry Pool M.D. on 03/21/2022 at 15:35
== END ==
PROVIDERS: Family Provider Family Medicine; PCP Family Medicine; Referring Provider Anesthesiology; Visit Provider Anesthesiology
DX: M99.05 Segmental and somatic dysfunction of pelvic region (principal); M16.0 Bilateral primary osteoarthritis of hip; M47.816 Spondylosis without myelopathy or radiculopathy, lumbar region; M51.36 Other intervertebral disc degeneration, lumbar region; G57.91 Unspecified mononeuropathy of right lower limb; M54.50 Low back pain, unspecified; G58.8 Other specified mononeuropathies
CPT/HCPCS: 64425; 72110; 73522; 76942; 99214; J1030

== ENCOUNTER → 2022-04-07 07:41 | Outpatient (CLI) | payer MEDICARE, OTHER, SELFPAY ==
[2022-04-07 08:05] LABS: Add Manual Diff / Slide Review NO; Basophils Absolute Auto 100 /uL (0-100); Basophils Percent Auto 1.1 % (0-2); Eosinophils Absolute Auto 300 /uL (0-450); Eosinophils Percent Auto 3.9 % (2-4); Hematocrit 41.5 % (41-53); Hemoglobin 14.6 g/dL (13.5-17.5); Lymphocytes Absolute Auto 2800 /uL (1100-4500); Mean Corpuscular HGB Conc 35.1 % (30-36); Mean Corpuscular Hemoglobin 31.2 PG (26-34); Mean Corpuscular Volume 88.9 fL (80-100); Monocytes Absolute Auto 900 /uL (0-900); Monocytes Percent Auto 11.5 % (3-14); Neutrophils Absolute Auto 3500 /uL (1500-7000); Neutrophils Percent Auto 46.5 % (50-75); Platelet Count 278 X10^3/uL (150-400); Red Blood Cell Count 4.67 X10^6/uL (4.5-5.9); Red Cell Distribution Width 15.5 % (11.6-14.8); White Blood Cell Count 7.6 X10^3/uL (4.5-11.0)
[2022-04-07 08:19] LABS: Alanine Aminotransferase 23 IU/L (<50); Albumin 4.5 g/dL (3.5-5.0); Albumin Globulin Ratio 1.4 (1.0-2.8); Alkaline Phosphatase 54 U/L (38-126); Aspartate Aminotransferase 26 IU/L (17-59); BUN Creatinine Ratio 26.2 (6-22); Bilirubin Total 0.6 mg/dL (0.2-1.3); Blood Urea Nitrogen 28 mg/dL (9-20); Calcium 9.4 mg/dL (8.4-10.2); Carbon Dioxide 29 mmol/L (22-32); Chloride 98 mmol/L (98-107); Estimated Glomerular Filt Rate > 60 mL/min (>60); Globulin 3.2 g/dL (1.7-4.1); Glucose 105 mg/dL (80-110); HEMOLYSIS < 15 (0-50); Potassium 4.7 mmol/L (3.4-5.1); Sodium 135 mmol/L (137-145); Total Protein 7.7 g/dL (6.3-8.2)
[2022-04-07 08:46] LABS: Prostate Specific Antigen Scrn 0.508 ng/mL (0.1-4.0)
== END ==
PROVIDERS: Family Provider Family Medicine; PCP Family Medicine; Referring Provider Family Medicine; Visit Provider Family Medicine
DX: E78.00 Pure hypercholesterolemia, unspecified (principal); Z12.5 Encounter for screening for malignant neoplasm of prostate; I10 Essential (primary) hypertension
CPT/HCPCS: 36415; 80053; 85025; G0103

== ENCOUNTER → 2022-04-11 11:21 | Outpatient (CLI) | payer MEDICARE, OTHER, SELFPAY ==
--- NOTE | 2022-04-11 11:22 | DI.CT.S_ITS ---
PROCEDURE: CT ABDOMEN PELVIS W CON INDICATIONS: Right groin pain TECHNIQUE: After the administration of oral and IV contrast, axial sections were acquired from the lung bases to the pubic symphysis. Coronal and sagittal reformats were performed. For radiation dose reduction, the following was used: automated exposure control, adjustment of mA and/or kV according to patient size. COMPARISON: [facility], CT, CT ABDOMEN PELVIS W CON, 03/20/2018, 13:34. FINDINGS: Image quality: There are motion artifacts. Lung bases: Unremarkable. Heart: No significant findings. Mild coronary artery calcification. Small hiatal hernia ABDOMEN: Liver: Unremarkable. Gallbladder: Surgically removed. Biliary ducts: Unremarkable. Pancreas: Unremarkable. Spleen: Unremarkable. Adrenal Glands: Unremarkable. Kidneys and Ureters: There is a 2.2 cm cyst in the inferior pole of the right kidney. Kidneys are normal in size and enhancement. No stones or hydronephrosis. Stomach and Bowel: Stomach, small bowel loops, and colon are normal in caliber. Appendix is normal. A large amount of stool in colon. Peritoneum: No abnormal intraperitoneal fluid. No free air. Ventral Wall: No hernia. Abdominal Nodes: No retroperitoneal or mesenteric adenopathy by size criteria. Vessels: Aorta and inferior vena cava are normal in size. Moderate atherosclerosis. PELVIS: Pelvic Organs: Unremarkable. Bladder: Unremarkable. Pelvic Nodes: There is a 1.0 x 1.6 cm right inguinal lymph node, likely reactive. Miscellaneous: There is a small fat containing left inguinal hernia. Bones: Scoliosis and severe degenerative changes in lumbar spine. IMPRESSION: 1. A cause for right groin pain is not identified. There is a borderline sized right inguinal lymph node, nonspecific and most likely reactive. 2. A small fat containing left inguinal hernia. 3. A large amount of stool in colon. 4. Scoliosis and severe degenerative changes in lumbar spine. Dictated by: Sreedhar Lawrence M.D. on 04/11/2022 at 19:15 Approved by: Sreedhar Lawrence M.D. on 04/12/2022 at 8:33
== END ==
PROVIDERS: Family Provider Family Medicine; PCP Family Medicine; Referring Provider Anesthesiology; Visit Provider Anesthesiology
DX: R10.31 Right lower quadrant pain (principal); K44.9 Diaphragmatic hernia without obstruction or gangrene; K40.90 Unilateral inguinal hernia, without obstruction or gangrene, not specified as recurrent; N28.1 Cyst of kidney, acquired; M47.816 Spondylosis without myelopathy or radiculopathy, lumbar region; M41.9 Scoliosis, unspecified; I25.10 Atherosclerotic heart disease of native coronary artery without angina pectoris; G89.29 Other chronic pain; Z90.49 Acquired absence of other specified parts of digestive tract
CPT/HCPCS: 74177; Q9967

== ENCOUNTER → 2022-05-03 15:10 | Outpatient (CLI) | payer MEDICARE, OTHER, SELFPAY ==
--- NOTE | 2022-05-03 15:11 | DI.MRI.S_ITS ---
PROCEDURE: MR LUMBAR SPINE WO CON INDICATIONS: GROIN PAIN CHRONIC,RIGHT-ILIOHYPERGASTRIC NEURALGIA TECHNIQUE: Noncontrast sagittal T1 spin echo and T2 fast echo, sagittal STIR, and T2 fast spin echo through the lumbar spine. In cases with scoliosis, additional coronal T2 fast spin echo may be performed. COMPARISON: [facility], CR, XR LUMBAR SPINE MIN 4V, 03/21/2022, 10:54. FINDINGS: Image quality: Excellent. Alignment and Curvature: There is normal bony alignment. Bone Marrow: Marrow is of normal overall signal. No acute vertebral body compression fractures. Spinal Cord: Conus medullaris terminates at the L1-L2 level. Visualized cord demonstrates normal signal and size. Paraspinous Soft Tissues: No paravertebral masses. T12-L1: Normal appearance. L1-L2: Disc bulge. Mild facet hypertrophy. Borderline canal stenosis. Mild left foraminal stenosis. L2-L3: Minimal disc bulge. Facet hypertrophy. No canal stenosis or significant foraminal stenosis. L3-L4: Severe chronic disc height loss. Posterior disc osteophyte complex. Facet and ligament hypertrophy. Moderate canal stenosis. Moderate bilateral foraminal narrowing. There is flattening deformity on the exiting right L3 nerve root. L4-L5: Severe chronic disc height loss. Posterior disc osteophyte complex. Facet hypertrophy. Moderate canal stenosis. There is a right foraminal disc protrusion that contributes to moderate to severe right foraminal narrowing and right foraminal L4 nerve root impingement. Reference image 06/13--T2 sagittal sequence. Mild left foraminal narrowing. L5-S1: There is moderate to severe chronic disc height loss. There is bilateral facet hypertrophy. There is a focal left lateral recess/foraminal disc protrusion/extrusion. Disc material does not directly abut the left S1 nerve root. There is a right foraminal disc protrusion, resulting in severe right foraminal narrowing and right foraminal L5 nerve root impingement. There is moderate to severe left foraminal narrowing with a degree of left foraminal L5 nerve root impingement. IMPRESSION: 1. Diffuse degenerative change with multilevel degenerative disc disease and facet arthropathy. 2. There is moderate canal stenosis at L3-L4 and L4-L5. 3. At L4-L5, there is moderate to severe right foraminal narrowing with right foraminal L4 nerve root impingement. 4. At L5-S1, there is severe right foraminal narrowing and moderate to severe left foraminal narrowing with bilateral foraminal L5 nerve root impingement. Dictated by: Raji Powell M.D. on 05/04/2022 at 8:08 Approved by: Raji Powell M.D. on 05/04/2022 at 8:49
--- NOTE | 2022-05-03 15:11 | DI.MRI.S_ITS ---
PROCEDURE: MR PELVIS WO CON INDICATIONS: GROIN PAIN CHRONIC RIGHT-ILIOHYPERGASTRIC- TECHNIQUE: Noncontrast axial and oblique coronal T1 spin echo and STIR through the sacroiliac joints. COMPARISON: None. FINDINGS: Image quality: Excellent. Bones: Mild bilateral sacroiliac joint osteoarthritic changes are seen with joint space narrowing and subchondral sclerosis. No adjacent bone marrow edema to suggest active sacroiliitis. No bony ankylosis. No suspicious marrow space occupying lesions. Degenerative disc disease in visualized lower lumbar spine is seen. No acute pelvic or hip fracture. No evidence of avascular necrosis of femoral head. Soft tissues: No presacral masses. Rectum appears normal in caliber and wall thickness. No pathologic free pelvic fluid. No gross pelvic or hip muscle signal abnormalities. IMPRESSION: 1. Mild bilateral sacroiliac joint osteoarthritis. No marrow edema. No bony erosion or ankylosis. 2. Bilateral hip joint osteoarthritis. No hip fracture or dislocation. No evidence of avascular necrosis of femoral heads. Degenerative disc disease in visualized lower lumbar spine. 3. No pelvic or hip muscle or tendon signal abnormalities. No presacral soft tissue abnormalities. 4. No pelvic free fluid. Dictated by: Master Reynolds M.D. on 05/04/2022 at 8:51 Approved by: Master Reynolds M.D. on 05/04/2022 at 9:01
== END ==
PROVIDERS: Family Provider Family Medicine; PCP Family Medicine; Referring Provider Anesthesiology; Visit Provider Anesthesiology
DX: G58.8 Other specified mononeuropathies (principal); R10.31 Right lower quadrant pain; M47.816 Spondylosis without myelopathy or radiculopathy, lumbar region; G57.91 Unspecified mononeuropathy of right lower limb; M51.36 Other intervertebral disc degeneration, lumbar region; M47.817 Spondylosis without myelopathy or radiculopathy, lumbosacral region; M51.37 Other intervertebral disc degeneration, lumbosacral region; M48.061 Spinal stenosis, lumbar region without neurogenic claudication; G89.29 Other chronic pain; M48.07 Spinal stenosis, lumbosacral region
CPT/HCPCS: 72148; 72195

== ENCOUNTER 2022-07-27 07:56 | Outpatient (CLI) | payer MEDICARE, OTHER, SELFPAY ==
--- NOTE | 2022-07-27 07:58 | DI.RAD.S_ITS ---
PROCEDURE: PAIN L INTERLAMINAR/CAUDAL INJ INDICATIONS: SPONDYLOSIS COMPARISON: [facility], MR, MR LUMBAR SPINE WO CON, 05/03/2022, 15:35. FINDINGS: Or Fluoroscopic spot filming was performed to verify placement of a spinal needle at the L3-L4 level, as labeled on the films. Appropriate location of the needle tip was confirmed by injection of iodinated contrast. IMPRESSION: Intraprocedural examination within normal limits. Dictated by: Silvestre Clarke M.D. on 07/27/2022 at 12:17 Approved by: Silvestre Clarke M.D. on 07/27/2022 at 12:17
[2022-07-27 08:00] VITALS: BP 134/63; PULSE 64; RESP 18; TEMP 36.2; O2SAT 100
[2022-07-27 08:30] VITALS: BP 125/60; PULSE 59; RESP 18; O2SAT 97
[2022-07-27] MEDS: BUPIVACAINE 0.25% (PF) VIAL 2 ML INJ (08:34)
[2022-07-27] MEDS: methylPREDNISolone acetate 80 MG/ML VIAL INJ (08:34)
[2022-07-27 08:35] VITALS: BP 103/60; PULSE 60; RESP 22; O2SAT 100
[2022-07-27] MEDS: IOPAMIDOL 15 ML VIAL 3 ML INJ (08:35)
[2022-07-27 08:39] VITALS: BP 101/57; PULSE 58; RESP 22; O2SAT 100
[2022-07-27 08:43] VITALS: BP 117/67; PULSE 65; RESP 18; O2SAT 99
--- NOTE | 2022-07-27 13:58 | P.PCN_ITS ---
Date/Time/Diagnoses Date of procedure: 07/27/22 Time of procedure: 08:30 Procedure Notes Physician: Charles Patel Total Fluoroscopy time (seconds): 16 Total sedation minutes: 0 Procedure in detail & Post-procedure care: L3-4 Interlaminar Epidural Steroid Injection Indications: Enrique is presenting for treatment of lumbar radiculopathy with low back and leg pain. Preoperative diagnosis: Lumbar radiculopathy Postoperative diagnosis: Same Focused Examination: Ax3 Mood and affect are normal Vital Signs: VSS Consent: Following review of allergies and potential side effects/complications, including, but not necessarily limited to, infection, allergic reaction, local tissue breakdown, stroke, temporary or permanent nerve injury, paralysis, and possible , the patient indicated that they understood and agreed to proceed.? An informed consent document was signed by the patient, witnessed by a nurse and placed in the patient's chart.? Additionally, other treatment options including medications and physical therapy were reviewed with the patient. All questions were answered. Site was then marked. Anesthesia: local Position: Prone Monitoring: NIBP, Pulse oximetry, 3 lead EKG Needle used: 18 G 3.5? Tuohy Contrast: Isovue 300M Injectate: Depo-Medrol 80 mg with 0.25% Bupivacaine 2 mL Technique: The skin was prepped with chloraprep and then draped in a sterile fashion. Time out was performed as per protocol. Oxygen applied via NC. Skin and subcutaneous structures of the needle entry site was then infiltrated with 3 mL of lidocaine 1%. Under AP, lateral and contralateral oblique fluoroscopic control, the Tuohy needle was guided into the L3-4 epidural space. The space was accessed with loss of resistance technique. Isovue 300M was then injected and the spread was consistent with the epidural space. There was no evidence for intravascular or intrathecal uptake. After negative aspiration, the above- mentioned injectate was then slowly administered and the needle withdrawn. The patient expressed no unusual discomfort or paresthesias during the injection. Band-Aids applied to injection sites. EBL: less than 1 ml Complications: None Post Procedure: Patient was taken to the recovery and monitored. It was noted that his pain was 0/10 in recovery. He denied weakness of the lower extremities. The patient was provided a Pain Log to continue to record the patient's response to the target-specific procedure prior to the patient's follow-up visit with the referring physician. Patient was stable upon discharge. Detailed post procedure instructions were provided. Patient was asked to call in the event of worsening pain, fever, weakness, numbness or bladder or bowel incontinence.
== END 2022-07-27 08:50 | disposition home or self-care (01) ==
LOC: RAD 07:57
PROVIDERS: Family Provider Family Medicine; PCP Family Medicine; Referring Provider Anesthesiology; Visit Provider Anesthesiology
DX: M54.16 Radiculopathy, lumbar region (principal)
CPT/HCPCS: 62323; J1040; J3490

== ENCOUNTER 2022-09-20 08:27 | Day surgery (SDC) | payer MEDICARE, OTHER, SELFPAY ==
[2022-09-08 09:23] VITALS: BMI 30.3
[2022-09-20] VITALS (7 sets, daily range): BP systolic 101–121; BP diastolic 60–77; PULSE 73–78; RESP 12–18; TEMP 36.2–36.3; O2SAT 91–97; BMI 30.3
[2022-09-20] MEDS: LACTATED RINGERS 1,000 ML 84 ML IV ×2 (08:54→10:14)
--- NOTE | 2022-09-20 09:15 | PM.PREOP ---
Pre-operative Note COVID-19 COVID-19 status: Not tested Interval Note History & Physical reviewed/Exam performed by Physician: Yes Changes to H&P: No ASA Class (for procedural sedation): III
[2022-09-20] MEDS: CEFAZOLIN 2 GM/100 ML PREMIX 100 ML IV (09:35)
[2022-09-20] MEDS: BUPIVACAINE 0.5% (PF) 10 ML VIAL INJ (09:50)
[2022-09-20] MEDS: EPINEPHrine 1 MG/ML 0.15 MG INJ (09:51)
--- NOTE | 2022-09-20 09:53 | SUR.OPER ---
Supine on padded OR bed, head on pillow, arms secured on padded arm boards at <90 degrees abduction, right forearm/wrist supported by folded blanket, legs uncrossed, safety belt at thigh, tape over blanket over lower legs.
--- NOTE | 2022-09-20 10:16 | PM.OP.1 ---
Operative Date/Time/Diagnoses Date of procedure: 09/20/22 Time of procedure: 10:16 Pre-op diagnosis: Right inguinodynia Post-op diagnosis: same Procedure & Clinicians Procedure: Right double neurectomy Same procedure as scheduled: No Surgeon: Chi hSultz Caustic Preparer: Emre Wilkins Anesthesia Type: General Operative Notes Procedure in detail: Enrique is a 72-year-old man with right inguinodynia. He had a right inguinal hernia repair over 5 years ago and had neuropathic pain of the right groin for several years. He was consented for a right triple neurectomy. The patient was given preoperative antibiotic. The patient was brought to the operating room and placed on the table in the supine position and general anesthesia was induced with LMA. The right groin was prepped and draped in the usual fashion and a time-out was performed. We made a 5 cm incision at the lateral aspect of the old inguinal hernia scar. We dissected down to the external oblique fascia. There was no evidence of recurrence. We open the fascia at the lateral aspect of the wound and immediately identified the ilioinguinal and iliohypogastric nerves. It appeared that there was an Ethibond stitch encircling the ilioinguinal nerve. Palpation of the lateral superior aspect of the mesh suggested that the stitch may have been placed to close the tails of the mesh. After injecting some lidocaine into the proximal perineural tissue a 2 cm segment of the ilioinguinal nerve was resected and a 2 cm segment of the iliohypogastric nerve was resected and sent in formalin. The offending stitch was also resected along with a small triangle of mesh. This did not violate the mesh to the level of the internal ring preserving the original successful hernia repair. A small amount of cautery was used to stop some bleeders near the edge of the mesh which was well within the denervated tissue. EBL: 10 mL Specimens: Ilioinguinal nerve, iliohypogastric nerve and stitch with mesh Post-operative Condition: stable Disposition: PACU
== END 2022-09-20 11:20 | disposition home or self-care (01) ==
PROVIDERS: Family Provider Family Medicine; PCP Family Medicine; Referring Provider Surgery; Visit Provider Surgery
PROC: (CPT 64784; principal; 2022-09-20 09:45)
DX: G57.91 Unspecified mononeuropathy of right lower limb (principal); Z87.891 Personal history of nicotine dependence
CPT/HCPCS: 64784; J0171; J0690; J2405; J3010

== ENCOUNTER → 2022-10-18 09:45 | Outpatient (CLI) | payer MEDICARE, OTHER, SELFPAY ==
--- NOTE | 2022-10-18 09:46 | DI.RAD.S_ITS ---
PROCEDURE: XR ELBOW RT MIN 3V INDICATIONS: fall right elbow pain/laceration TECHNIQUE: 3 views of the elbow were acquired. COMPARISON: None. FINDINGS: Bones: No fractures or dislocations. No suspicious bony lesions. Soft tissues: No elbow joint effusion. No suspicious soft tissue calcifications. IMPRESSION: No acute osseous abnormality. If symptoms persist, follow-up radiographs and/or CT or MRI may be helpful for further evaluation. Dictated by: Sagar Baldwin M.D. on 10/18/2022 at 12:17 Approved by: Sagar Baldwin M.D. on 10/18/2022 at 12:24
== END ==
PROVIDERS: Family Provider Family Medicine; PCP Family Medicine; Referring Provider Student in an Organized Health Care Education/Training Program; Visit Provider Student in an Organized Health Care Education/Training Program
DX: M25.521 Pain in right elbow (principal)
CPT/HCPCS: 73080

== ENCOUNTER → 2022-10-31 16:08 | Outpatient (CLI) | payer MEDICARE, OTHER, SELFPAY | PROVIDERS: Family Provider Family Medicine; PCP Family Medicine; Visit Provider Family Medicine | DX: S51.001A Unspecified open wound of right elbow, initial encounter (principal) | CPT/HCPCS: 87070; 87075; 87077; 87186; 87205 ==

== ENCOUNTER 2022-11-07 07:07 | Emergency (ER) | payer MEDICARE, OTHER, SELFPAY ==
[2022-11-07 07:23] VITALS: PULSE 67; RESP 29; O2SAT 99
[2022-11-07 07:27] VITALS: BP 131/81; PULSE 63; RESP 18; TEMP 36.6; O2SAT 99; BMI 28.3
[2022-11-07 07:30] VITALS: BP 107/70; PULSE 63; RESP 20; O2SAT 99
--- NOTE | 2022-11-07 07:49 | ED.GENADULT ---
HPI - General Adult General Chief complaint: Abdominal Pain Stated complaint: abd pain, had surgery and can't sleep Time Seen by Provider: 11/07/22 07:36 Source: patient and family Mode of arrival: Ambulatory History of Present Illness HPI narrative: Patient is a 72-year-old male. History of Parkinson's disease. His at bedside is providing much of the HPI. He had a right inguinal hernia repair many years ago. He has been having pain in that area. Has been on gabapentin and nortriptyline which he is weaned off both of these medicines. Approximately 6 weeks ago he had a surgery where they ?cut the nerves? in the right inguinal region. He would a period of time with no pain afterwards however now he is starting to have increase in pain. No fevers. He does urinate frequently per his this is baseline for him. Related Data Home Medications Medication Instructions Recorded Confirmed carbidopa 25 mg-levodopa 100 mg 1 tab PO TID 05/25/22 10/31/22 tablet gabapentin 600 mg tablet 600 mg PO BID 09/08/22 10/31/22 Previous Rx's Medication Instructions Recorded sildenafil (pulm.hypertension) 20 60 mg PO DAILY #30 tabs 07/09/21 mg tablet (Revatio) epinephrine 0.3 mg/0.3 mL 0.3 mg (0.3 mL) IM SEE 12/09/21 injection, auto-injector (EpiPen INSTRUCTIONS #1 kit 2-Phillip) duloxetine 30 mg capsule,delayed 30 mg PO DAILY #90 caps 01/24/22 release hydrochlorothiazide 25 mg tablet 25 mg PO QAM #90 tabs 01/24/22 albuterol sulfate 90 mcg/actuation 2 puff inhalation Q4-6H PRN 03/04/22 aerosol inhaler shortness of breath or wheezing #8.5 grams lisinopril 40 mg tablet 40 mg PO DAILY #90 tabs 04/26/22 ibuprofen 600 mg tablet 600 mg PO Q8H PRN pain #90 tabs 05/04/22 Disabled Parking Permit #1 ea 10/14/22 amoxicillin 875 mg-potassium 1 tab PO BID #10 tabs 10/31/22 clavulanate 125 mg tablet hydrocodone 5 mg-acetaminophen 325 1 tab PO Q8H PRN pain #14 tabs 11/07/22 mg tablet Allergies Allergy/AdvReac Type Severity Reaction Status Date / Time bee venom protein (honey bee) Allergy Severe Anaphylaxis Verified 10/31/22 16:00 Review of Systems Constitutional Constitutional: Reports system reviewed and no additional complaints, except as documented Gastrointestinal Gastrointestinal: Reports system reviewed and no additional complaints, except as documented Integumentary/Breasts Skin/Breast: Reports system reviewed and no additional complaints, except as documented Neurologic Neurologic: Reports system reviewed and no additional complaints, except as documented Patient History Medical History Ataxia BCC (basal cell carcinoma) Deep inguinal pain, right Femoroacetabular impingement of right hip Groin pain, chronic, right History of COVID-19 (01/2022) HTN (hypertension) 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 Lumbar radiculopathy Medication side effects Osteoarthritis, hip, bilateral Parkinson disease Pelvic somatic dysfunction Psoas muscle strain Rate of speech, slow Screening for prostate cancer Segmental and somatic dysfunction of abdomen and other regions Sleep apnea Surgical History Hx of hernia repair Status post cholecystectomy Family History Grandmother Heart disease Mother Age: 92 Environmental allergies Grandmother Stroke Social History marital status: household members: spouse Smoking Status: Former smoker alcohol intake: current substance use type: does not use Smoking Status: Former smoker alcohol intake frequency: holidays/special occasions only Substance Use Type: does not use Exam Initial Vital Signs Initial Vital Signs: Vital Signs Temperature 97.9 F 11/07/22 07:27 Pulse Rate 63 11/07/22 07:27 Respiratory Rate 18 11/07/22 07:27 Blood Pressure 131/81 11/07/22 07:27 Pulse Oximetry 99 11/07/22 07:27 Oxygen Delivery Method Room Air 11/07/22 07:27 Const General: cooperative, healthy appearing and No ill appearing HENND Head: normal to inspection and normocephalic GI Other: No masses in right inguinal region Skin Other: Surgical incision right inguinal region appears very well. No signs of infection. Extrem Other: No gross deformities Course Orders Ordered: ED Orders 11/07/22 07:31 Complete Blood Count AUTO DIFF Stat Comprehensive Metabolic Panel Stat Lipase Stat Ondansetron HCl (Ondansetron 4 Mg Odt) 4 mg PO NOW PRN PRN Reason: Nausea And Vomiting Ondansetron HCl (Ondansetron 4 Mg/2 Ml Inj) 4 mg IV NOW PRN PRN Reason: Nausea And Vomiting Discontinued Medications Hydrocodone Bitart/Acetaminophen (Hydrocodone/Acet 5/325 Tablet) 1 tab PO NOW ONE Stop: 11/07/22 07:51 Last Admin: 11/07/22 07:57 Dose: 1 tab Documented By: DAY Vital Signs Vital signs: Vital Signs - 8 hr 11/07/22 07:27 Temperature 97.9 F Pulse Rate 63 Respiratory Rate 18 Blood Pressure 131/81 Pulse Oximetry 99 Oxygen Delivery Method Room Air Medical Decision Making Lab Data 11/07/22 07:31 11/07/22 07:31 Labs: Lab Results 11/07/22 11/07/22 Range/Units 07:31 07:31 WBC 7.7 (4.5-11.0) X10^3/uL RBC 4.06 L (4.5-5.9) X10^6/uL Hgb 12.6 L (13.5-17.5) g/dL Hct 37.1 L (41-53) % MCV 91.5 (80-100) fL MCH 31.0 (26-34) PG MCHC 33.9 (30-36) % RDW 13.7 (11.6-14.8) % Plt Count 322 (150-400) X10^3/uL Neut % (Auto) 58.6 (50-75) % Lymph % (Auto) 28.1 (25-40) % [place] % (Auto) 9.5 (3-14) % Eos % (Auto) 2.8 (2-4) % Baso % (Auto) 1.0 (0-2) % Neut # (Auto) 4500 (5531-7151) /uL Lymph # (Auto) 2200 (0143-7225) /uL [place] # (Auto) 700 (0-900) /uL Eos # (Auto) 200 (0-450) /uL Baso # (Auto) 100 (0-100) /uL Sodium 135 L (137-145) mmol/L Potassium 4.1 (3.4-5.1) mmol/L Chloride 100 (98-107) mmol/L Carbon Dioxide 28 (22-32) mmol/L BUN 28 H (9-20) mg/dL Creatinine 0.95 (0.66-1.25) mg/dL Estimated GFR > 60 (>60) mL/min BUN/Creatinine Ratio 29.5 H (6-22) Glucose 101 (80-110) mg/dL Calcium 9.0 (8.4-10.2) mg/dL Total Bilirubin 0.3 (0.2-1.3) mg/dL AST 31 (17-59) IU/L ALT 17 (<50) IU/L Alkaline Phosphatase 51 (38-126) U/L Total Protein 6.9 (6.3-8.2) g/dL Albumin 4.1 (3.5-5.0) g/dL Globulin 2.8 (1.7-4.1) g/dL Albumin/Globulin Ratio 1.5 (1.0-2.8) Lipase 925 H (23-300) U/L Urine Dip Bedside Urine Glucose Negative Bedside Urine Bilirubin - Negative Bedside Urine Ketone - Negative Urine Specific [place] 1.02 Bedside Urine Occult Blood - Negative Bedside Urine pH 6.0 Bedside Urine Protein - Negative Bedside Urine Urobilinogen - Negative Bedside Urine Nitrite - Negative Bedside Urine Leukocytes - Negative Esterase Point of care testing: Urine Dip Bedside Urine Glucose Negative Bedside Urine Bilirubin - Negative Bedside Urine Ketone - Negative Urine Specific [place] 1.02 Bedside Urine Occult Blood - Negative Bedside Urine pH 6.0 Bedside Urine Protein - Negative Bedside Urine Urobilinogen - Negative Bedside Urine Nitrite - Negative Bedside Urine Leukocytes - Negative Esterase MDM Narrative Medical decision making narrative: Patient is well-appearing. The surgical incision appears well. His labs are unremarkable. Afebrile. Urinalysis is unremarkable. No indication for any radiologic studies. He is going to need follow-up with Neurology or surgery. Will provide pain medication for now for that. He was given return precautions. Discharge Plan Departure Patient Disposition: Home Clinical Impression: Abdominal pain Instructions: DI for Abdominal Pain-Adult Activity Restrictions/Additional Instructions: I do recommend that you contact your neurologist and general surgeon for a follow-up and to discuss further medications. Return to the emergency department for new symptoms. Prescriptions: New hydrocodone-acetaminophen 5-325 mg tablet 1 tab PO Q8H PRN (Reason: pain) Qty: 14 0RF No Action sildenafil (pulm.hypertension) [Revatio] 20 mg tablet 60 mg PO DAILY Qty: 30 5RF Rx Instructions: take up to three tabs a day as needed duloxetine 30 mg capsule,delayed release(DR/EC) 30 mg PO DAILY Qty: 90 3RF Rx Instructions: Take one capsule daily at bedtime. hydrochlorothiazide 25 mg tablet 25 mg PO QAM Qty: 90 3RF albuterol sulfate 90 mcg/actuation HFA aerosol inhaler 2 puff inhalation Q4-6H PRN (Reason: shortness of breath or wheezing) Qty: 8.5 0RF lisinopril 40 mg tablet 40 mg PO DAILY Qty: 90 3RF (DME) Disabled Parking Permit See Rx Instructions .Route .MEDSUPPLY Qty: 1 0RF Rx Instructions: Valid for 12 months amoxicillin-pot clavulanate 875-125 mg tablet 1 tab PO BID Qty: 10 0RF epinephrine [EpiPen 2-Phillip] 0.3 mg/0.3 mL auto-injector 0.3 mg IM SEE INSTRUCTIONS Qty: 1 2RF Patient Comments: pt has never taken gabapentin 600 mg tablet 600 mg PO BID ibuprofen 600 mg tablet 600 mg PO Q8H PRN (Reason: pain) Qty: 90 2RF carbidopa-levodopa 25-100 mg tablet 1 tab PO TID Referrals: Luciano Cheung DO [Primary Care Provider] - Stand Alone Forms: Patient Portal/API
[2022-11-07 07:52] LABS: Alanine Aminotransferase 17 IU/L (<50); Albumin 4.1 g/dL (3.5-5.0); Albumin Globulin Ratio 1.5 (1.0-2.8); Alkaline Phosphatase 51 U/L (38-126); Aspartate Aminotransferase 31 IU/L (17-59); BUN Creatinine Ratio 29.5 (6-22); Bilirubin Total 0.3 mg/dL (0.2-1.3); Blood Urea Nitrogen 28 mg/dL (9-20); Carbon Dioxide 28 mmol/L (22-32); Chloride 100 mmol/L (98-107); Estimated Glomerular Filt Rate > 60 mL/min (>60); Globulin 2.8 g/dL (1.7-4.1); Glucose 101 mg/dL (80-110); HEMOLYSIS < 15 (0-50); Lipase 925 U/L (23-300); Potassium 4.1 mmol/L (3.4-5.1); Sodium 135 mmol/L (137-145); Total Protein 6.9 g/dL (6.3-8.2)
[2022-11-07 07:53] LABS: Add Manual Diff / Slide Review NO; Basophils Absolute Auto 100 /uL (0-100); Eosinophils Absolute Auto 200 /uL (0-450); Eosinophils Percent Auto 2.8 % (2-4); Hematocrit 37.1 % (41-53); Hemoglobin 12.6 g/dL (13.5-17.5); Lymphocytes Absolute Auto 2200 /uL (1100-4500); Lymphocytes Percent Auto 28.1 % (25-40); Mean Corpuscular HGB Conc 33.9 % (30-36); Mean Corpuscular Volume 91.5 fL (80-100); Monocytes Absolute Auto 700 /uL (0-900); Monocytes Percent Auto 9.5 % (3-14); Neutrophils Absolute Auto 4500 /uL (1500-7000); Neutrophils Percent Auto 58.6 % (50-75); Platelet Count 322 X10^3/uL (150-400); Red Blood Cell Count 4.06 X10^6/uL (4.5-5.9); Red Cell Distribution Width 13.7 % (11.6-14.8); White Blood Cell Count 7.7 X10^3/uL (4.5-11.0)
[2022-11-07] MEDS: HYDROCODONE/ACET 5/325 TABLET 1 TAB PO (07:57)
[2022-11-07 08:00] VITALS: BP 120/70; PULSE 72; RESP 30
[2022-11-07 08:30] VITALS: BP 121/72; PULSE 55; RESP 14
[2022-11-07 09:00] VITALS: BP 123/73; PULSE 60; RESP 13
== END 2022-11-07 09:22 | disposition home or self-care (01) ==
PROVIDERS: Emergency Provider Emergency Medicine; Family Provider Family Medicine; PCP Family Medicine
DX: R10.9 Unspecified abdominal pain (principal)
CPT/HCPCS: 36415; 80053; 81003; 83690; 85025; 99283; 99284

== ENCOUNTER 2022-11-10 09:16 | Emergency (ER) | payer MEDICARE, OTHER, SELFPAY ==
[2022-11-10 09:19] VITALS: BP 100/56; PULSE 75; RESP 22; TEMP 36.6; O2SAT 98; BMI 29.0
--- NOTE | 2022-11-10 09:31 | DI.CT.S_ITS ---
PROCEDURE: CT CERVICAL SPINE WO CON INDICATIONS: fall, hit head TECHNIQUE: Noncontrast 3 mm thick sections acquired from the skull base to the T4 level. Sagittal and coronal reformats were then constructed. For radiation dose reduction, the following was used: automated exposure control, adjustment of mA and/or kV according to patient size. COMPARISON: [facility], CT, CT CERVICAL SPINE WO CON, 11/22/2021, 16:18. FINDINGS: Image quality: Excellent. Bones: No fractures or dislocations. Visualized superior ribs are intact. Soft tissues: Prevertebral soft tissues are normal in thickness. No paravertebral hematomas. No apical pneumothoraces. IMPRESSION: No visualized fracture. Dictated by: Radha Donovan M.D. on 11/10/2022 at 10:05 Approved by: Radha Donovan M.D. on 11/10/2022 at 10:10
--- NOTE | 2022-11-10 09:31 | DI.CT.S_ITS ---
PROCEDURE: CT HEAD/BRAIN WO CON INDICATIONS: fall, hit head TECHNIQUE: Noncontrast 4.5 mm thick angled axial sections acquired from the foramen magnum to the vertex, with coronal and sagittal reformats. For radiation dose reduction, the following was used: automated exposure control, adjustment of mA and/or kV according to patient size. COMPARISON: [facility], CT, CT HEAD/BRAIN WO CON, 01/28/2022, 14:52. FINDINGS: Image quality: Excellent. CSF spaces: Basal cisterns are patent. No extra-axial fluid collections. The ventricles are symmetric in size and shape. Brain: No intracranial bleeds or masses. There is cerebral volume loss for age, with resultant ventricular and sulcal prominence. There are periventricular and deep white matter chronic small vessel ischemic changes. There is intracranial internal carotid artery atherosclerosis. Skull and face: Calvarium and visualized facial bones appear intact, without suspicious lesions. Sinuses: Visualized sinuses and mastoids are clear. IMPRESSION: 1. No acute intracranial process. 2. Mild to moderate atrophy and chronic microvascular ischemic changes. Dictated by: Radha Donovan M.D. on 11/10/2022 at 9:57 Approved by: Radha Donovan M.D. on 11/10/2022 at 10:05
[2022-11-10 11:16] VITALS: BP 113/63; PULSE 77; RESP 12; O2SAT 95
--- NOTE | 2022-11-10 11:27 | ED_ITS ---
HPI - Fall <Heather Garcia PA-C - Last Filed: 11/10/22 11:37> General Chief Complaint: Fall Stated Complaint: fell hit head Time Seen by Provider: 11/10/22 09:45 Source: patient and family Mode of arrival: Ambulatory History of Present Illness HPI Narrative: Patient is a 72-year-old male with Parkinson's who was attempting to retrieve something he had dropped on the floor and fell this morning, hitting his forehead and right faith. This occurred at home, where he lives and is cared for by his . He did not have loss of consciousness and does not take any blood thinners. He initially reported pain in his forehead to his but denies pain on my exam. He denies nausea vomiting, blurry vision, palpitations, chest pain. Related Data Home Medications Medication Instructions Recorded Confirmed carbidopa 25 mg-levodopa 100 mg 1 tab PO TID 05/25/22 11/11/22 tablet gabapentin 600 mg tablet 600 mg PO BID 09/08/22 11/11/22 Previous Rx's Medication Instructions Recorded sildenafil (pulm.hypertension) 20 60 mg PO DAILY #30 tabs 07/09/21 mg tablet (Revatio) epinephrine 0.3 mg/0.3 mL 0.3 mg (0.3 mL) IM SEE 12/09/21 injection, auto-injector (EpiPen INSTRUCTIONS #1 kit 2-Phillip) duloxetine 30 mg capsule,delayed 30 mg PO DAILY #90 caps 01/24/22 release hydrochlorothiazide 25 mg tablet 25 mg PO QAM #90 tabs 01/24/22 albuterol sulfate 90 mcg/actuation 2 puff inhalation Q4-6H PRN 03/04/22 aerosol inhaler shortness of breath or wheezing #8.5 grams lisinopril 40 mg tablet 40 mg PO DAILY #90 tabs 04/26/22 ibuprofen 600 mg tablet 600 mg PO Q8H PRN pain #90 tabs 05/04/22 Disabled Parking Permit #1 ea 10/14/22 amoxicillin 875 mg-potassium 1 tab PO BID #10 tabs 10/31/22 clavulanate 125 mg tablet hydrocodone 5 mg-acetaminophen 325 1 tab PO Q8H PRN pain #14 tabs 11/15/22 mg tablet Allergies Allergy/AdvReac Type Severity Reaction Status Date / Time bee venom protein (honey bee) Allergy Severe Anaphylaxis Verified 11/11/22 16:04 Review of Systems <Heather Garcia PA-C - Last Filed: 11/10/22 11:37> Review of Systems ROS Unobtainable: All systems reviewed & are unremarkable except as noted in HPI and below Patient History <Heather Garcia PA-C - Last Filed: 11/10/22 11:37> Medical History Ataxia BCC (basal cell carcinoma) Deep inguinal pain, right Femoroacetabular impingement of right hip Groin pain, chronic, right History of COVID-19 (01/2022) HTN (hypertension) 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 Lumbar radiculopathy Medication side effects Osteoarthritis, hip, bilateral Parkinson disease Pelvic somatic dysfunction Psoas muscle strain Rate of speech, slow Screening for prostate cancer Segmental and somatic dysfunction of abdomen and other regions Sleep apnea Surgical History Hx of hernia repair Status post cholecystectomy Family History Grandmother Heart disease Mother Age: 92 Environmental allergies Grandmother Stroke Social History marital status: household members: spouse Smoking Status: Former smoker alcohol intake: current substance use type: does not use Smoking Status: Former smoker alcohol intake frequency: holidays/special occasions only Substance Use Type: does not use Exam <Heather Garcia PA-C - Last Filed: 11/10/22 11:37> Narrative Exam Narrative: GENERAL: 72 year old patient, alert, flat affect, responds slowly to my questions. reports he is a little bit slower today overall including prior to the fall then at his baseline. NEURO: AOx3. Patient has unsteady gait, normally ambulates with a walker. He has a mild tremor. HEAD: Mild erythema and edema over right eyebrow and right faith. No significant fluid collection, no tenderness to palpation. EYES: Pupils equal round and reactive. Extraocular motions intact. No scleral icterus. No injection or drainage. ENT: Nose without bleeding or purulent drainage. RESPIRATORY: No distress SKIN: 2 small abrasions on right hand and right forearm not requiring repair. I cleaned and bandaged by RN. Initial Vital Signs Initial Vital Signs: Vital Signs Temperature 97.8 F 11/10/22 09:19 Pulse Rate 75 11/10/22 09:19 Respiratory Rate 22 11/10/22 09:19 Blood Pressure 100/56 L 11/10/22 09:19 Pulse Oximetry 98 11/10/22 09:19 Oxygen Delivery Method Room Air 11/10/22 09:19 <Fabian Pimentel MD - Last Filed: 11/18/22 07:08> Initial Vital Signs Initial Vital Signs: Vital Signs Temperature 97.8 F 11/10/22 09:19 Pulse Rate 75 11/10/22 09:19 Respiratory Rate 22 11/10/22 09:19 Blood Pressure 100/56 L 11/10/22 09:19 Pulse Oximetry 98 11/10/22 09:19 Oxygen Delivery Method Room Air 11/10/22 09:19 Course <Heather Garcia PA-C - Last Filed: 11/10/22 11:37> Orders Ordered: ED Orders 11/10/22 09:31 CT cervical spine wo con Stat CT head/brain wo con Stat Vital Signs Vital signs: Vital Signs - 8 hr 11/10/22 09:19 11/10/22 11:16 Temperature 97.8 F Pulse Rate 75 77 Respiratory Rate 22 12 Blood Pressure 100/56 L 113/63 Pulse Oximetry 98 95 Oxygen Delivery Method Room Air Room Air <Fabian Pimentel MD - Last Filed: 11/18/22 07:08> Orders Ordered: ED Orders 11/10/22 09:31 CT cervical spine wo con Stat CT head/brain wo con Stat Vital Signs Vital signs: Vital Signs - 8 hr 11/10/22 09:19 11/10/22 11:16 Temperature 97.8 F Pulse Rate 75 77 Respiratory Rate 22 12 Blood Pressure 100/56 L 113/63 Pulse Oximetry 98 95 Oxygen Delivery Method Room Air Room Air MDM - Fall <Heather Garcia PA-C - Last Filed: 11/10/22 11:37> Lab Data Labs: Urine Dip Bedside Urine Glucose Negative Bedside Urine Bilirubin - Negative Bedside Urine Ketone - Negative Urine Specific [place] 1.010 Bedside Urine Occult Blood - Negative Bedside Urine pH 6.5 Bedside Urine Protein - Negative Bedside Urine Urobilinogen - Negative Bedside Urine Nitrite - Negative Bedside Urine Leukocytes - Negative Esterase Imaging Data CT scan - head: Radiologist's Impression: PROCEDURE:? CT HEAD/BRAIN WO CON ? INDICATIONS:? fall, hit head ? TECHNIQUE:? Noncontrast 4.5 mm thick angled axial sections acquired from the foramen magnum to the vertex, with coronal and sagittal reformats.? For radiation dose reduction, the following was used:? automated exposure control, adjustment of mA and/or kV according to patient size.? ? COMPARISON:? [facility], CT, CT HEAD/BRAIN WO CON, 01/28/2022, 14:52. ? FINDINGS:? Image quality:? Excellent.? ? CSF spaces:? Basal cisterns are patent.? No extra-axial fluid collections.? The ventricles are symmetric in size and shape.? ? Brain:? No intracranial bleeds or masses.? There is cerebral volume loss for age, with resultant ventricular and sulcal prominence.? There are periventricular and deep white matter chronic small vessel ischemic changes.? There is intracranial internal carotid artery atherosclerosis.? ? Skull and face:? Calvarium and visualized facial bones appear intact, without suspicious lesions.? ? Sinuses:? Visualized sinuses and mastoids are clear.? ? IMPRESSION:? ? 1. No acute intracranial process. ? 2. Mild to moderate atrophy and chronic microvascular ischemic changes. ? ? Dictated by: Radha Donovan M.D. on 11/10/2022 at 9:57 ? ? Approved by: Radha Donovan M.D. on 11/10/2022 at 10:05 ? CT - cervical spine: Radiologist's Impression: PROCEDURE:? CT CERVICAL SPINE WO CON ? INDICATIONS:? fall, hit head ? TECHNIQUE:? Noncontrast 3 mm thick sections acquired from the skull base to the T4 level.? Sagittal and coronal reformats were then constructed.? For radiation dose reduction, the following was used:? automated exposure control, adjustment of mA and/or kV according to patient size.? ? COMPARISON:? [facility], CT, CT CERVICAL SPINE WO CON, 11/22/2021, 16:18. ? FINDINGS:? Image quality:? Excellent.? ? Bones:? No fractures or dislocations.? Visualized superior ribs are intact.? ? Soft tissues:? Prevertebral soft tissues are normal in thickness.? No parav ertebral hematomas.? No apical pneumothoraces.? ? ? IMPRESSION:? No visualized fracture. ? Dictated by: Radha Donovan M.D. on 11/10/2022 at 10:05 ? ? Approved by: Radha Donovan M.D. on 11/10/2022 at 10:10 ? MDM Narrative Medical decision making narrative: Multiple etiologies for patient's symptoms considered including, but not limited to: Intracranial hemorrhage, skull fracture, fracture of cervical spine, scalp hematoma. Patient with fall this morning, meets criteria for cross-sectional imaging given age. UA negative for urinary tract infection, screening done as potential source of fall. Imaging reviewed: Reports reviewed, no skull or C-spine fracture, or intracranial hemorrhage, or acute intracranial changes noted. Abrasions dressed. feels comfortable taking him home and patient is anxious to go. Return precautions reviewed. Patient's symptoms improved over duration of stay with above-stated therapies. Findings and discharge diagnosis discussed with patient/family followed by verbalization of understanding Return precautions discussed with patient/family whom verbalize understanding of diagnosis and plan <Fabian Pimentel MD - Last Filed: 11/18/22 07:08> Lab Data Labs: Urine Dip Bedside Urine Glucose Negative Bedside Urine Bilirubin - Negative Bedside Urine Ketone - Negative Urine Specific [place] 1.010 Bedside Urine Occult Blood - Negative Bedside Urine pH 6.5 Bedside Urine Protein - Negative Bedside Urine Urobilinogen - Negative Bedside Urine Nitrite - Negative Bedside Urine Leukocytes - Negative Esterase Discharge Plan Departure Patient Disposition: Home Clinical Impression: Fall Instructions: How to Prevent Falls Activity Restrictions/Additional Instructions: *You have been diagnosed with a fall. Your CT of your neck and head does not show any fractures or bleeding in your brain. I suspect he may have a headache after this fall, for an apply ice to the area. If you develop any vomiting, severe pain not controlled by Tylenol, blurry vision, or significant dizziness, or other new concerns, please return to the emergency department for reassessment. *What to do: *Please continue to take your regular medications as directed. [ ] New medication prescriptions sent to your pharmacy: [ ] [ ] New medication written as a paper prescription [x] No new medications given *Please follow up with your primary care provider in 2-3 days, call for an appointment. Let them know you were seen in the Emergency Department and that we ask that you be seen in follow up. We will electronically transmit a record of today's note if your PCP is in our system *If you do not have a primary care provider please contact the [facility] Resource line at [phone]. They will ask some questions about your medical history and help get you set up with a doctor in the community. *Return to Emergency Department if you should have any new, worsening or concerning symptoms, such as [fever greater than 101 F, shaking chills, worsening pain, persistent vomiting or other concerning symptoms]. Prescriptions: No Action sildenafil (pulm.hypertension) [Revatio] 20 mg tablet 60 mg PO DAILY Qty: 30 5RF Rx Instructions: take up to three tabs a day as needed duloxetine 30 mg capsule,delayed release(DR/EC) 30 mg PO DAILY Qty: 90 3RF Rx Instructions: Take one capsule daily at bedtime. hydrochlorothiazide 25 mg tablet 25 mg PO QAM Qty: 90 3RF albuterol sulfate 90 mcg/actuation HFA aerosol inhaler 2 puff inhalation Q4-6H PRN (Reason: shortness of breath or wheezing) Qty: 8.5 0RF lisinopril 40 mg tablet 40 mg PO DAILY Qty: 90 3RF (DME) Disabled Parking Permit See Rx Instructions .Route .MEDSUPPLY Qty: 1 0RF Rx Instructions: Valid for 12 months hydrocodone-acetaminophen 5-325 mg tablet 1 tab PO Q8H PRN (Reason: pain) Qty: 14 0RF amoxicillin-pot clavulanate 875-125 mg tablet 1 tab PO BID Qty: 10 0RF epinephrine [EpiPen 2-Phillip] 0.3 mg/0.3 mL auto-injector 0.3 mg IM SEE INSTRUCTIONS Qty: 1 2RF Patient Comments: pt has never taken gabapentin 600 mg tablet 600 mg PO BID ibuprofen 600 mg tablet 600 mg PO Q8H PRN (Reason: pain) Qty: 90 2RF carbidopa-levodopa 25-100 mg tablet 1 tab PO TID Referrals: Luciano Cheung DO [Primary Care Provider] - Stand Alone Forms: Patient Portal/API <Fabian Pimentel MD - Last Filed: 11/18/22 07:08> Cosign ED Attending Cosignature Attestation: I was immediately available in the department for consultation. ?This documentation has been reviewed and I agree with assessment and plan. Supervised by Fabian Pimentel MD
== END 2022-11-10 11:18 | disposition home or self-care (01) ==
PROVIDERS: Emergency Provider Physician Assistant; Family Provider Family Medicine; PCP Family Medicine
DX: S09.90XA Unspecified injury of head, initial encounter (principal); W18.30XA Fall on same level, unspecified, initial encounter; G20 Parkinson's disease
CPT/HCPCS: 70450; 72125; 81003; 99283; 99284

== ENCOUNTER 2022-12-15 15:22 | Emergency (ER) | payer MEDICARE, OTHER, SELFPAY ==
[2022-12-15] VITALS (7 sets, daily range): BP systolic 90–127; BP diastolic 55–69; PULSE 61–75; RESP 16–23; TEMP 36.4; O2SAT 96–99; BMI 27.8
--- NOTE | 2022-12-15 16:06 | ED.GENADULT ---
HPI - General Adult General Chief complaint: Weakness Stated complaint: low blood pressure, sent by clinic Time Seen by Provider: 12/15/22 15:36 Source: patient Mode of arrival: Wheelchair History of Present Illness HPI narrative: 72-year-old male who has a history of Parkinson's disease. At baseline he uses a cane and a walker. He also has a history of high blood pressure. He is on lisinopril and hydrochlorothiazide. He was recently started on Flomax secondary to urinary issues. He was at the pain management clinic today. He has had some left lower quadrant pain related to an incision. He was found to be hypotensive. There was some question as to whether not he was lightheaded at that time. At the time of my evaluation he states he is feeling better. No chest pain. No lightheadedness. No dizziness. No fevers. Related Data Home Medications Medication Instructions Recorded Confirmed gabapentin 600 mg tablet 600 mg PO BID 09/08/22 12/15/22 carbidopa 25 mg-levodopa 100 mg 2 tab PO TID 12/01/22 12/15/22 tablet Previous Rx's Medication Instructions Recorded sildenafil (pulm.hypertension) 20 60 mg (3 x 20 mg) PO DAILY #30 tabs 07/09/21 mg tablet (Revatio) epinephrine 0.3 mg/0.3 mL 0.3 mg (0.3 mL) IM SEE 12/09/21 injection, auto-injector (EpiPen INSTRUCTIONS #1 kit 2-Phillip) duloxetine 30 mg capsule,delayed 30 mg PO DAILY #90 caps 01/24/22 release albuterol sulfate 90 mcg/actuation 2 puff inhalation Q4-6H PRN 03/04/22 aerosol inhaler shortness of breath or wheezing #8.5 grams lisinopril 40 mg tablet 40 mg PO DAILY #90 tabs 04/26/22 Disabled Parking Permit #1 ea 10/14/22 amoxicillin 875 mg-potassium 1 tab PO BID #10 tabs 10/31/22 clavulanate 125 mg tablet hydrocodone 5 mg-acetaminophen 325 1 tab PO Q8H PRN pain #14 tabs 11/15/22 mg tablet hydrochlorothiazide 12.5 mg tablet 12.5 mg PO QAM #30 tabs 12/01/22 tamsulosin 0.4 mg capsule (Flomax) 0.4 mg PO DAILY #30 caps 12/01/22 ibuprofen 600 mg tablet 600 mg PO Q8H PRN pain #90 tabs 12/15/22 ketamine 5 % cream in metered-dose 1 applic topical BID #30 grams 12/15/22 applicator Allergies Allergy/AdvReac Type Severity Reaction Status Date / Time bee venom protein (honey bee) Allergy Severe Anaphylaxis Verified 12/01/22 11:22 Review of Systems Constitutional Constitutional: Reports system reviewed and no additional complaints, except as documented Cardiovascular Cardiovascular: Reports system reviewed and no additional complaints, except as documented Respiratory Respiratory: Reports system reviewed and no additional complaints, except as documented Gastrointestinal Gastrointestinal: Reports system reviewed and no additional complaints, except as documented Integumentary/Breasts Skin/Breast: Reports system reviewed and no additional complaints, except as documented Neurologic Neurologic: Reports system reviewed and no additional complaints, except as documented Patient History Medical History History of COVID-19 (01/2022) Sleep apnea HTN (hypertension) BCC (basal cell carcinoma) Parkinson disease Lumbar radiculopathy Femoroacetabular impingement of right hip Osteoarthritis, hip, bilateral Groin pain, chronic, right 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 Psoas muscle strain Segmental and somatic dysfunction of abdomen and other regions Pelvic somatic dysfunction Screening for prostate cancer Ataxia Rate of speech, slow Medication side effects Deep inguinal pain, right Surgical History Hx of hernia repair Status post cholecystectomy Family History Grandmother Heart disease Mother Age: 93 Environmental allergies Grandmother Stroke Social History marital status: household members: spouse Smoking Status: Former smoker alcohol intake: current substance use type: does not use Smoking Status: Former smoker alcohol intake frequency: holidays/special occasions only Substance Use Type: does not use Exam Initial Vital Signs Initial Vital Signs: Vital Signs Temperature 97.6 F 12/15/22 15:25 Pulse Rate 74 12/15/22 15:25 Respiratory Rate 16 12/15/22 15:25 Blood Pressure 90/55 L 12/15/22 15:25 Pulse Oximetry 97 12/15/22 15:25 Oxygen Delivery Method Room Air 12/15/22 15:25 HENMT Head: normal to inspection and normocephalic Resp Effort & Inspection: normal respiratory effort Auscultation: clear to auscultation bilaterally Cardio Rate: regular rate Rhythm: regular rhythm GI Inspection: normal to inspection Neuro General: patient alert, patient awake and moves all extremities Extrem General: normal to inspection and capillary refill normal Course Orders Ordered: ED Orders 12/15/22 16:10 EKG-12 Lead Stat Vital Signs Vital signs: Vital Signs - 8 hr 12/15/22 15:25 12/15/22 15:33 12/15/22 15:33 Temperature 97.6 F Pulse Rate 74 71 Respiratory Rate 16 23 Blood Pressure 90/55 L 105/57 L Pulse Oximetry 97 99 Oxygen Delivery Method Room Air 12/15/22 16:00 12/15/22 16:00 Temperature Pulse Rate 63 Respiratory Rate 22 Blood Pressure 100/58 L Pulse Oximetry 99 Oxygen Delivery Method Medical Decision Making ECG Data Attestation: I personally reviewed and interpreted this ECG as follows: Interpretation: Sinus rhythm Ventricular rate is 62 Normal axis Normal QRS Normal QTC No ST T wave changes MDM Narrative Medical decision making narrative: Patient was relatively hypotensive here in the ER. I suspect that this is because he just started on the Flomax and also is other blood pressure medications. He did ambulate with a walker and felt fine per his report. His blood pressure improved without specific intervention. Plan will be to have him decrease his lisinopril in half and continue with the Flomax and also the hydrochlorothiazide. Take his blood pressure at home and follow-up with primary provider. Discharge Plan Departure Patient Disposition: Home Clinical Impression: Hypotension Activity Restrictions/Additional Instructions: I do recommend that you continue to take the hydrochlorothiazide and tamsulosin as directed. I recommend that you decrease your lisinopril to half of your previous dose. Continue to take your blood pressure at home. Contact your primary provider for follow-up. Prescriptions: No Action sildenafil (pulm.hypertension) [Revatio] 20 mg tablet 60 mg PO DAILY Qty: 30 5RF Rx Instructions: take up to three tabs a day as needed duloxetine 30 mg capsule,delayed release(DR/EC) 30 mg PO DAILY Qty: 90 3RF Rx Instructions: Take one capsule daily at bedtime. albuterol sulfate 90 mcg/actuation HFA aerosol inhaler 2 puff inhalation Q4-6H PRN (Reason: shortness of breath or wheezing) Qty: 8.5 0RF lisinopril 40 mg tablet 40 mg PO DAILY Qty: 90 3RF (DME) Disabled Parking Permit See Rx Instructions .Route .MEDSUPPLY Qty: 1 0RF Rx Instructions: Valid for 12 months hydrocodone-acetaminophen 5-325 mg tablet 1 tab PO Q8H PRN (Reason: pain) Qty: 14 0RF amoxicillin-pot clavulanate 875-125 mg tablet 1 tab PO BID Qty: 10 0RF tamsulosin [Flomax] 0.4 mg capsule 0.4 mg PO DAILY Qty: 30 2RF hydrochlorothiazide 12.5 mg tablet 12.5 mg PO QAM Qty: 30 2RF epinephrine [EpiPen 2-Phillip] 0.3 mg/0.3 mL auto-injector 0.3 mg IM SEE INSTRUCTIONS Qty: 1 2RF Patient Comments: pt has never taken gabapentin 600 mg tablet 600 mg PO BID carbidopa-levodopa 25-100 mg tablet 2 tab PO TID ibuprofen 600 mg tablet 600 mg PO Q8H PRN (Reason: pain) Qty: 90 2RF ketamine 5 % cream in metered-dose pump 1 applic topical BID Qty: 30 0RF Referrals: Luciano Cheung DO [Primary Care Provider] - Stand Alone Forms: Patient Portal/API
--- NOTE | 2022-12-15 16:40 | PC.NURSE ---
Patient ambulated with wheeled walker, denies dizziness or lightheadedness. Dr. Salcido notified
== END 2022-12-15 17:20 | disposition home or self-care (01) ==
PROVIDERS: Emergency Provider Emergency Medicine; Family Provider Family Medicine; PCP Family Medicine
DX: I95.9 Hypotension, unspecified (principal); R07.9 Chest pain, unspecified; L76.82 Other postprocedural complications of skin and subcutaneous tissue
CPT/HCPCS: 36415; 93005; 99213; 99283

== ENCOUNTER 2023-01-15 05:01 | Emergency (ER) | payer MEDICARE, OTHER, SELFPAY ==
[2023-01-15 05:15] VITALS: BP 178/86; PULSE 69; RESP 22; TEMP 37.2; O2SAT 98; BMI 29.0
--- NOTE | 2023-01-15 05:15 | ED.GENADULT ---
HPI - General Adult General Chief complaint: Skin/Abscess/Foreign Body Stated complaint: constant pain in incision area Time Seen by Provider: 01/15/23 05:02 Source: patient and family Mode of arrival: Ambulatory Limitations: no limitations History of Present Illness HPI narrative: Patient is a 72-year-old male. Has a history of Parkinson's disease. Has had issues with chronic pain secondary to an incision in his right inguinal region. Has had surgeries to try to several of the nerves in this area. Is being followed by pain management. Has been on gabapentin in the past but not currently. He is tried lidocaine patches. Has had hydrocodone in the past. Minimal relief with any of these treatments. He is here because his pain continues to worsen and his states that he has expressed concern about his ability to continue to live because of the pain. They do have an appointment with the friction paint machine tender next week. No fevers. No urinary symptoms. No skin changes. Related Data Home Medications Medication Instructions Recorded Confirmed gabapentin 600 mg tablet 600 mg PO BID 09/08/22 01/10/23 carbidopa 25 mg-levodopa 100 mg 2 tab PO TID 12/01/22 01/10/23 tablet Previous Rx's Medication Instructions Recorded sildenafil (pulm.hypertension) 20 60 mg (3 x 20 mg) PO DAILY #30 tabs 07/09/21 mg tablet (Revatio) epinephrine 0.3 mg/0.3 mL 0.3 mg (0.3 mL) IM SEE 12/09/21 injection, auto-injector (EpiPen INSTRUCTIONS #1 kit 2-Phillip) Disabled Parking Permit #1 ea 10/14/22 hydrocodone 5 mg-acetaminophen 325 1 tab PO Q8H PRN pain #14 tabs 11/15/22 mg tablet ketamine 5 % cream in metered-dose 1 applic topical BID #30 grams 12/15/22 applicator duloxetine 30 mg capsule,delayed 30 mg PO DAILY #90 caps 01/10/23 release hydrochlorothiazide 12.5 mg tablet 12.5 mg PO QAM #90 tabs 01/10/23 ibuprofen 600 mg tablet 600 mg PO Q8H PRN pain #90 tabs 01/10/23 lisinopril 20 mg tablet 20 mg PO DAILY #90 tabs 01/10/23 tamsulosin 0.4 mg capsule 0.4 mg PO DAILY #90 caps 01/10/23 triamcinolone acetonide 0.1 % 1 applic topical BID PRN itching 01/10/23 topical ointment #30 grams oxycodone-acetaminophen 5 mg-325 1 tab PO Q8H PRN pain #14 tabs 01/15/23 mg tablet (Percocet) Allergies Allergy/AdvReac Type Severity Reaction Status Date / Time bee venom protein (honey bee) Allergy Severe Anaphylaxis Verified 01/10/23 14:06 Review of Systems Constitutional Constitutional: Reports system reviewed and no additional complaints, except as documented Genitourinary Genitourinary: Reports system reviewed and no additional complaints, except as documented Integumentary/Breasts Skin/Breast: Reports system reviewed and no additional complaints, except as documented Neurologic Neurologic: Reports system reviewed and no additional complaints, except as documented Hematologic/Lymphatic On Anticoagulants: No Patient History Medical History History of COVID-19 (01/2022) Sleep apnea HTN (hypertension) BCC (basal cell carcinoma) Parkinson disease Lumbar radiculopathy Femoroacetabular impingement of right hip Osteoarthritis, hip, bilateral Groin pain, chronic, right 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 Psoas muscle strain Segmental and somatic dysfunction of abdomen and other regions Pelvic somatic dysfunction Screening for prostate cancer Ataxia Rate of speech, slow Medication side effects Deep inguinal pain, right Surgical History Hx of hernia repair Status post cholecystectomy Family History Grandmother Heart disease Mother Age: 93 Environmental allergies Grandmother Stroke Social History marital status: household members: spouse Smoking Status: Former smoker alcohol intake: current substance use type: does not use Smoking Status: Former smoker alcohol intake frequency: holidays/special occasions only Substance Use Type: does not use Exam Initial Vital Signs Initial Vital Signs: Vital Signs Temperature 98.9 F 01/15/23 05:15 Pulse Rate 69 01/15/23 05:15 Respiratory Rate 22 01/15/23 05:15 Blood Pressure 178/86 H 01/15/23 05:15 Pulse Oximetry 98 01/15/23 05:15 Oxygen Delivery Method Room Air 01/15/23 05:15 HENOK Head: normal to inspection and normocephalic GI Inspection: normal to inspection and non-distended Palpation: soft Skin Other: Surgical incision and right inguinal region appears well. There was no signs of infection. Extrem Other: No gross deformities Course Orders Ordered: Discontinued Medications Bupivacaine HCl (Bupivacaine 0.25% Mdv) 50 ml INJ INTRA-OP ONE Stop: 01/15/23 05:16 Bupivacaine HCl (Bupivacaine 0.25% (Pf) Vial) 30 ml INJ INTRA-OP ONE Stop: 01/15/23 05:20 Last Admin: 01/15/23 05:24 Dose: 30 ml Documented By: SANDEEP Oxycodone/Acetaminophen (Oxycodone/Acetaminophen 5/325 Tablet) 1 tab PO NOW ONE Stop: 01/15/23 05:37 Last Admin: 01/15/23 06:00 Dose: 1 tab Documented By: SANDEEP Oxycodone/Acetaminophen (Oxycodone/Apap 5/325 Prepack) 1 bottle MISC SEEINSTR ONE Stop: 01/15/23 05:37 Last Admin: 01/15/23 06:01 Dose: 1 bottle Documented By: SANDEEP Vital Signs Vital signs: Vital Signs - 8 hr 01/15/23 05:15 Temperature 98.9 F Pulse Rate 69 Respiratory Rate 22 Blood Pressure 178/86 H Pulse Oximetry 98 Oxygen Delivery Method Room Air Medical Decision Making MDM Narrative Medical decision making narrative: Patient's surgical incision appears very well. There was no signs of an infection. The pain does seem to be located around the incision. The patient was able to express that the pain seems to be more superficial rather than deep in his abdomen. A total of 10 cc of 1% lidocaine with epi mixed with 0.25% bupivacaine was injected around the incision site. Patient states that this did improve his symptoms but did not take the pain completely away. I had a long discussion with the family regarding this. Do not feel there is any radiologic studies or blood work that would be helpful. Hydrocodone has not worked for him in the past so we will try oxycodone/acetaminophen. They understand the risks of this with balance issues and his Parkinson's disease but the patient's pain seems to be getting somewhat out of control for him. Advised that they talk with her friction paint machine tender next week. They were given return precautions. They expressed understanding and agreement. Discharge Plan Departure Patient Disposition: Home Clinical Impression: Pain at surgical incision Activity Restrictions/Additional Instructions: Recommend that you continue to take all of your medications as directed. Keep all of your scheduled medical appointments. Return to the emergency department for new symptoms. Prescriptions: New oxycodone-acetaminophen [Percocet] 5-325 mg tablet 1 tab PO Q8H PRN (Reason: pain) Qty: 14 0RF No Action sildenafil (pulm.hypertension) [Revatio] 20 mg tablet 60 mg PO DAILY Qty: 30 5RF Hold Instructions: started flomax Rx Instructions: take up to three tabs a day as needed (DME) Disabled Parking Permit See Rx Instructions .Route .MEDSUPPLY Qty: 1 0RF Rx Instructions: Valid for 12 months hydrocodone-acetaminophen 5-325 mg tablet 1 tab PO Q8H PRN (Reason: pain) Qty: 14 0RF ibuprofen 600 mg tablet 600 mg PO Q8H PRN (Reason: pain) Qty: 90 2RF epinephrine [EpiPen 2-Phillip] 0.3 mg/0.3 mL auto-injector 0.3 mg IM SEE INSTRUCTIONS Qty: 1 2RF Patient Comments: pt has never taken lisinopril 20 mg tablet 20 mg PO DAILY Qty: 90 1RF tamsulosin 0.4 mg capsule 0.4 mg PO DAILY Qty: 90 1RF hydrochlorothiazide 12.5 mg tablet 12.5 mg PO QAM Qty: 90 1RF duloxetine 30 mg capsule,delayed release(DR/EC) 30 mg PO DAILY Qty: 90 3RF Rx Instructions: Take one capsule daily at bedtime. triamcinolone acetonide 0.1 % ointment 1 applic topical BID PRN (Reason: itching) Qty: 30 0RF Rx Instructions: After 7 days, pause for at least 7 days to pulse the therapy and avoid thinning the skin. gabapentin 600 mg tablet 600 mg PO BID carbidopa-levodopa 25-100 mg tablet 2 tab PO TID ketamine 5 % cream in metered-dose pump 1 applic topical BID Qty: 30 0RF Referrals: Luciano Cheung DO [Primary Care Provider] - Stand Alone Forms: Patient Portal/API
[2023-01-15] MEDS: BUPIVACAINE 0.25% (PF) VIAL 30 ML INJ (05:24)
--- NOTE | 2023-01-15 05:39 | PC.NURSE ---
Patient has a surgical scar in his right lower groin that has been painful for months; endorses that he has an appointment with his pain management team next week but this is really challenging to cope with this level of pain at home.
[2023-01-15] MEDS: OXYCODONE/ACETAMINOPHEN 5/325 TABLET 1 TAB PO (06:00)
[2023-01-15] MEDS: OXYCODONE/APAP 5/325 PREPACK 1 BOTTLE MISC (06:01)
== END 2023-01-15 06:12 | disposition home or self-care (01) ==
PROVIDERS: Emergency Provider Emergency Medicine; Family Provider Family Medicine; PCP Family Medicine
DX: G89.18 Other acute postprocedural pain (principal)
CPT/HCPCS: 99283

== ENCOUNTER → 2023-01-30 09:16 | Outpatient (CLI) | payer MEDICARE, OTHER, SELFPAY ==
--- NOTE | 2023-01-30 09:18 | DI.RAD.S_ITS ---
PROCEDURE: XR FOREARM RT 2V INDICATIONS: Upper extremity injury TECHNIQUE: 2 views of the forearm were acquired. COMPARISON: None. FINDINGS: Bones: No acute fractures or dislocations. No suspicious bony lesions. Degenerative changes are seen in the wrist. Soft tissues: No suspicious soft tissue calcifications. Nonspecific soft tissue edema is seen surrounding the elbow and forearm. IMPRESSION: Nonspecific soft tissue edema. No acute osseous abnormality. If the symptoms persist, consider cross sectional imaging such as MRI or CT for further assessment. Approved by: Sagar Joyce M.D. on 01/30/2023 at 13:33
--- NOTE | 2023-01-30 09:18 | DI.RAD.S_ITS ---
PROCEDURE: XR HUMERUS RT 2V INDICATIONS: Upper extremity injury TECHNIQUE: 2 views of the humerus were acquired. COMPARISON: None. FINDINGS: Bones: No acute fractures or dislocations. No suspicious bony lesions. Chronic appearing right-sided rib fractures are noted. Soft tissues: No suspicious soft tissue calcifications. Soft tissue edema noted in the distal upper arm and elbow. IMPRESSION: No acute osseous abnormality. If the symptoms persist, consider cross sectional imaging such as MRI or CT for further assessment. Approved by: Sagar Joyce M.D. on 01/30/2023 at 13:35
--- NOTE | 2023-01-30 09:18 | DI.RAD.S_ITS ---
PROCEDURE: XR HAND RT MIN 3V INDICATIONS: Upper extremity injury TECHNIQUE: Three views of the hand acquired. COMPARISON: None. FINDINGS: Bones: No acute fractures or dislocations. Carpal bones are normally aligned. No suspicious bony lesions. Moderate multifocal osteoarthrosis in the wrist and the interphalangeal joints of the fingers with presume subchondral cystic changes. Soft tissues: No suspicious soft tissue calcifications. Nonspecific subcutaneous edema is seen throughout the distal forearm and hand. IMPRESSION: 1. Diffuse nonspecific soft tissue edema. No acute osseous abnormality. If the symptoms persist, consider cross sectional imaging such as MRI or CT for further assessment. 2. Moderate osteoarthrosis. Approved by: Sagar Joyce M.D. on 01/30/2023 at 13:34
--- NOTE | 2023-01-30 09:18 | DI.RAD.S_ITS ---
PROCEDURE: XR SHOULDER RT MIN 2V INDICATIONS: Upper extremity injury TECHNIQUE: Three views of the shoulder were acquired. COMPARISON: None. FINDINGS: Bones: No acute fractures or dislocations. No suspicious bony lesions. Visualized ribs appear intact. Moderate acromioclavicular joint osteoarthrosis. Soft tissues: No suspicious soft tissue calcifications. IMPRESSION: 1. No acute osseous abnormality. If the symptoms persist, consider cross sectional imaging such as MRI or CT for further assessment. 2. Moderate acromioclavicular joint osteoarthrosis. Approved by: Sagar Joyce M.D. on 01/30/2023 at 13:30
--- NOTE | 2023-01-30 09:18 | DI.RAD.S_ITS ---
PROCEDURE: XR ELBOW RT MIN 3V INDICATIONS: Upper extremity injury TECHNIQUE: Three views of the elbow were acquired. COMPARISON: [facility], CR, XR ELBOW RT MIN 3V, 10/18/2022, 9:52. FINDINGS: Bones: No acute fractures or dislocations. No suspicious bony lesions. Small posterior olecranon enthesophyte. Soft tissues: No elbow joint effusion. No suspicious soft tissue calcifications. Nonspecific soft tissue edema is seen surrounding the elbow. IMPRESSION: Nonspecific soft tissue edema. No acute osseous abnormality. If the symptoms persist, consider cross sectional imaging such as MRI or CT for further assessment. Approved by: Sagar Joyce M.D. on 01/30/2023 at 13:31
== END ==
PROVIDERS: Family Provider Family Medicine; PCP Family Medicine; Referring Provider Nurse Practitioner Family; Visit Provider Nurse Practitioner Family
DX: S49.90XA Unspecified injury of shoulder and upper arm, unspecified arm, initial encounter (principal); M19.011 Primary osteoarthritis, right shoulder; M19.041 Primary osteoarthritis, right hand; M19.031 Primary osteoarthritis, right wrist; X58.XXXA Exposure to other specified factors, initial encounter
CPT/HCPCS: 73030; 73060; 73080; 73090; 73130

== ENCOUNTER 2023-03-07 09:00 | Outpatient (RCR) | payer MEDICARE, OTHER, SELFPAY ==
--- NOTE | 2022-11-08 16:31 | PT.OIE ---
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 Lumbar radiculopathy Medication side effects Osteoarthritis, hip, bilateral Parkinson disease Pelvic somatic dysfunction Psoas muscle strain Rate of speech, slow Screening for prostate cancer Segmental and somatic dysfunction of abdomen and other regions Sleep apnea Past Surgical History (Last Reviewed 10/18/22 @ 19:37 by Heather Hough PA-C) Hx of hernia repair Status post cholecystectomy Visit Care Team Role Provider Type Luciano Cheung DO Attending Provider Physician Family Provider Primary Care Provider Referring Provider Specialty: [facility] Address: [address] [place] [address] Email: Physical Therapy Initial Evaluation PT-OP-A Visit Information Start: 11/08/22 15:09 Freq: Status: Active Protocol: Document 11/08/22 15:10 AB (Rec: 11/08/22 16:30 AB [id number]) Out-Patient Physical Therapy Visit Information Visit Information Visit Type Initial Evaluation Visit Start Time 15:15 Visit Stop Time 16:00 Total Visit Minutes 45 Visit Number 1 Number of 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 He also confirms a fall today and a fall on 10/18/22 which caused an injury to his right elbow. The pt confirms that he is experiencing right sided weakness and imbalance which are leading to falls. His confirmed this information, and stated that the pt's neurologist has increased his PD medication to help with muscle stiffness. Treatment Goals Patient/Caregiver Goals To decrease his fall risk. Prior Functional Status Baseline Function- ADL's Needs Assist Baseline Function- Mobility Needs Assist Baseline Function- Gait Uses FWW at home, 4WW in community Baseline Function- Work/School Retired Current Functional Impairments (Reported) Functional Limitations- Other Same level of function, however is more unstable when walking PT-OP-C Subjective Start: 11/08/22 15:09 Freq: Status: Active Protocol: Document 11/08/22 15:10 AB (Rec: 11/08/22 16:30 AB [id number]) OP-PT Subjective Patient Comments Patient Comments See hx of current condition PT-OP-D Balance Start: 11/08/22 15:09 Freq: Status: Active Protocol: Document 11/08/22 15:10 AB (Rec: 11/08/22 16:30 AB [id number]) Balance Tests mCTSIB mCTSIB Position 1 30 sec mCTSIB Position 2 30 sec mild sway mCTSIB Position 3 30 sec mod sway mCTSIB Position 4 8 sec with anterior LOB PT-OP-E Functional Tests Start: 11/08/22 15:09 Freq: Status: Active Protocol: Document 11/08/22 15:10 AB (Rec: 11/08/22 16:30 AB [id number]) Functional Tests Five Times Sit to Stand Test Score 20.08 sec Comments High fall risk; with BUEs Timed Up and Go (TUG) Score 31.51 sec without AD; 27.15 with 4WW PT-OP-G Mobility & Gait Start: 11/08/22 15:09 Freq: Status: Active Protocol: Document 11/08/22 15:10 AB (Rec: 11/08/22 16:30 AB [id number]) OP Mobility Evaluation Transfers Sit to Stand SBA to IND, uses BUEs and uses back of legs on chair for stability Poor safety awareness when performing stand<>sit OP Gait Assessment Gait Gait Assistance Required: Contact Guard Assist,1 Person Assist Distance (Feet) 200 Assistive Devices Assistive Device Gait Belt,4 Wheeled Walker Gait Deviations General Gait Pattern Decreased Stride Length, Decreased Feet Clearance, Flexed Trunk,Narrow Based Gait Factors Limiting Gait Function Factors Limiting Gait Function Difficulty Following Directions,Incoordination, Limited Range of Motion,Poor Balance,Poor Safety Awareness Comments Gait Comments Pt has poor safety awareness when ambulatinWW is too far, does not pay attention to obstacles in the way PT-OP-M Strength Start: 11/08/22 15:09 Freq: Status: Active Protocol: Document 11/08/22 15:10 AB (Rec: 11/08/22 16:30 AB [id number]) Hip Strength Hip Manual Muscle Testing Right Flexion (L2) 5 Normal Extension (S1) 4 Good Abduction 4- Good- Adduction 4 Good External Rotation 3+ Fair+ Internal Rotation 3+ Fair+ Left Flexion (L2) 5 Normal Extension (S1) 4 Good Abduction 4- Good- Adduction 4 Good External Rotation 3+ Fair+ Internal Rotation 3+ Fair+ Knee Strength Knee Manual Muscle Testing Right Flexion (S2) 4 Good Extension (L3) 5 Normal Left Flexion (S2) 4 Good Extension (L3) 5 Normal Ankle/Foot Strength Ankle and Foot Manual Muscle Testing Right Dorsiflexion (L4) 4+ Good+ Plantarflexion (S1) 4 Good Left Dorsiflexion (L4) 4+ Good+ Plantarflexion (S1) 4 Good PT-OP-T Assessment and Plan Start: 11/08/22 15:09 Freq: Status: Active Protocol: Document 11/08/22 15:10 AB (Rec: 11/08/22 16:30 AB [id number]) Physical Therapy Assessment Rehab Potential Rehabilitation Potential Fair Evaluation Complexity Number of Personal Factors/Comorbidities 1-2 Number of Body Systems Impaired 1-2 Clinical Presentation at Evaluation Stable Impairments Impairments Balance,Coordination, Functional Activities, Functional Mobility,Gait,Pain, Posture,ROM,Soft Tissue Mobility,Strength,Transfers Goals Four Impairment mCTSIB Short Term Goal (STG) Pt to be able to perform conditions 2 and 3 of mCTSIB with minimal to no abnormal sway to show improving static balance to reduce fall risk. STG Duration 4 Chcf Goal (LTG) Pt to be able to perform condition 4 of mCTSIB for 15 seconds or better with minimal to no abnormal sway to show improving static balance to reduce fall risk. LTG Duration 8 Three Impairment TUG Short Term Goal (STG) Pt's TUG with an AD to improve to 22 seconds or better to show improving dynamic balance in order to reduce fall risk. STG Duration 4 Traffic Coordinator Goal (LTG) Pt's TUG with an AD to improve to 18 seconds or better to show improving dynamic balance in order to reduce fall risk. LTG Duration 8 Two Impairment 5x STS Short Term Goal (STG) Pt's 5xSTS to improve to 16 seconds or better to show improving LE strength and stability to reduce fall risk. STG Duration 4 Traffic Coordinator Goal (LTG) Pt's 5xSTS to improve to 13 seconds or better to show improving LE strength and stability to reduce fall risk. LTG Duration 8 One Impairment LE strength Short Term Goal (STG) Pt's gross LE MMT scores to improve to 4/5 or better to show improving strength to perform functional mobility and increase stability. STG Duration 4 Traffic Coordinator Goal (LTG) Pt's gross LE MMT scores to improve to 5/5 to show improved strength to perform functional mobility and increase stability. LTG Duration 8 Assessment Summary Assessment Amaury Jacobo is a 72 year old male patient presenting to outpatient PT clinic with complaints of right sided weakness and instability of frequent falls. Of note, the pt also has a medical diagnosis of Parkinson 's disease. Today's PT examination revealed BLE weakness, gait impairments, and static and dynamic balance deficits. These are contributing to the pt's frequent falls and recent injuries. Based on these findings, the pt would benefit from a trial of skilled PT to improve these deficits in order to improve his symptoms and reduce his risk for falls. The pt may also benefit from a referral to [facility] program in order to further improve his symptoms. His POC is subject to change based on any changes in status. The pt's rehab potential is guarded to the nature of PD, and the amount of time since onset of symptoms. Physical Therapy Plan Frequency and Duration Frequency of Treatment 2x/Week Duration of treatment (weeks) 8 Plan of Care Start Date 11/08/22 Plan of Care End Date 01/03/23 Therapeutic Interventions Therapeutic Interventions Balance Training,Coordination Training,Gait Training,Home Exercise Program,Joint Mobilizations,Manual Therapy, Neuromuscular Re-education, Orthotic/Prosthetic Management ,Patient/Caregiver Education, Self-Care/Home Management,Soft Tissue Mobilization,Taping, Therapeutic Activities, Therapeutic Exercises Modalities Cold Pack/Ice Massage,Electric Stimulation,Hot Packs Other Referrals/Consults Referrals/Consults Recommended May benefit from evaluation for [facility] program. Next Visit Focus/Plan Next Note Type Treatment Note Next Visit Plan Perform additional functional or balance tests as indicated. Establish HEP.
--- NOTE | 2022-11-08 16:31 | PT.OPPOC ---
Physical, Occupational & Speech Therapy At Current Diagnoses Parkinson's disease (11/08/22) Bilateral primary osteoarthritis of hip (11/08/22) Radiculopathy, lumbar region (11/08/22) Ataxia, unspecified (11/08/22) Visit Care Team Role Provider Type Luciano Cheung DO Attending Provider Physician Family Provider Primary Care Provider Referring Provider Specialty: Family Practice Address: [address] [place] [address], [facility] Email: Plan Of Care PT-OP-T Assessment and Plan Start: 11/08/22 15:09 Freq: Status: Active Protocol: Document 11/08/22 15:10 AB (Rec: 11/08/22 16:30 AB [id number]) Physical Therapy Assessment Rehab Potential Rehabilitation Potential Fair Evaluation Complexity Number of Personal Factors/Comorbidities 1-2 Number of Body Systems Impaired 1-2 Clinical Presentation at Evaluation Stable Impairments Impairments Balance,Coordination, Functional Activities, Functional Mobility,Gait,Pain, Posture,ROM,Soft Tissue Mobility,Strength,Transfers Goals Four Impairment mCTSIB Short Term Goal (STG) Pt to be able to perform conditions 2 and 3 of mCTSIB with minimal to no abnormal sway to show improving static balance to reduce fall risk. STG Duration 4 Schedule Clerk Goal (LTG) Pt to be able to perform condition 4 of mCTSIB for 15 seconds or better with minimal to no abnormal sway to show improving static balance to reduce fall risk. LTG Duration 8 Three Impairment TUG Short Term Goal (STG) Pt's TUG with an AD to improve to 22 seconds or better to show improving dynamic balance in order to reduce fall risk. STG Duration 4 Care Home Goal (LTG) Pt's TUG with an AD to improve to 18 seconds or better to show improving dynamic balance in order to reduce fall risk. LTG Duration 8 Two Impairment 5x STS Short Term Goal (STG) Pt's 5xSTS to improve to 16 seconds or better to show improving LE strength and stability to reduce fall risk. STG Duration 4 Care Home Goal (LTG) Pt's 5xSTS to improve to 13 seconds or better to show improving LE strength and stability to reduce fall risk. LTG Duration 8 One Impairment LE strength Short Term Goal (STG) Pt's gross LE MMT scores to improve to 4/5 or better to show improving strength to perform functional mobility and increase stability. STG Duration 4 Care Home Goal (LTG) Pt's gross LE MMT scores to improve to 5/5 to show improved strength to perform functional mobility and increase stability. LTG Duration 8 Assessment Summary Assessment Amaury Jacobo is a 72 year old male patient presenting to outpatient PT clinic with complaints of right sided weakness and instability of frequent falls. Of note, the pt also has a medical diagnosis of Parkinson 's disease. Today's PT examination revealed BLE weakness, gait impairments, and static and dynamic balance deficits. These are contributing to the pt's frequent falls and recent injuries. Based on these findings, the pt would benefit from a trial of skilled PT to improve these deficitis in order to improve his symptoms and reduce his risk for falls. The pt may also benefit from a referral to [facility] program in order to further improve his symptoms. His POC is subject to change based on any changes in status. The pt's rehab potential is guarded to the nature of PD, and the amount of time since onset of symptoms. Physical Therapy Plan Frequency and Duration Frequency of Treatment 2x/Week Duration of treatment (weeks) 8 Plan of Care Start Date 11/08/22 Plan of Care End Date 01/03/23 Therapeutic Interventions Therapeutic Interventions Balance Training,Coordination Training,Gait Training,Home Exercise Program,Joint Mobilizations,Manual Therapy, Neuromuscular Re-education, Orthotic/Prosthetic Management ,Patient/Caregiver Education, Self-Care/Home Management,Soft Tissue Mobilization,Taping, Therapeutic Activities, Therapeutic Exercises Modalities Cold Pack/Ice Massage,Electric Stimulation,Hot Packs Other Referrals/Consults Referrals/Consults Recommended May benefit from evaluation for [facility] program. Next Visit Focus/Plan Next Note Type Treatment Note Next Visit Plan Perform additional functional or balance tests as indicated. Establish HEP. Plan of Care Dates Plan of Care Start Date 11/08/22 Plan of Care End Date 01/03/23 Electronically Signed by: Ernesto Martin PT 11/08/22 0038 If you are in agreement with this Plan of Care, please return a signed and dated copy. I have reviewed this Plan of Care and certify that the skilled therapy services above are required to meet the patient?s needs. Physician Signature Date Printed Name and Credentials Clinical Instructor Signature Printed Name and Credentials
--- NOTE | 2022-11-15 17:19 | PT.OTN ---
Current Diagnoses Parkinson's disease (11/15/22) Bilateral primary osteoarthritis of hip (11/15/22) Radiculopathy, lumbar region (11/15/22) Ataxia, unspecified (11/15/22) Physical Therapy Treatment Note PT-OP-A Visit Information Start: 11/08/22 15:09 Freq: Status: Active Protocol: Document 11/15/22 16:25 AB (Rec: 11/15/22 17:19 AB [id number]) Out-Patient Physical Therapy Visit Information Visit Information Visit Type Treatment Note Visit Start Time 16:17 Visit Stop Time 17:00 Total Visit Minutes 42 Visit Number 2 Number of HOSTEL PARENT Visits 0 Evaluation Information Evaluation Date 11/08/22 PT-OP-B Current Condition Start: 11/08/22 15:09 Freq: Status: Active Protocol: Document 11/08/22 15:10 AB (Rec: 11/08/22 16:30 AB [id number]) Current Condition History of Current Condition Onset Date Chronic Current Complaints Right sided weakness, frequent falls History of Current Condition Pt confirms ED visit yesterday due to increased pain the the abdominal area where he had surgery on 09/20/22. He also confirms a fall today and a fall on 10/18/22 which caused an injury to his right elbow. The pt confirms that he is experiencing right sided weakness and imbalance which are leading to falls. His confirmed this information, and stated that the pt's neurologist has increased his PD medication to help with muscle stiffness. Treatment Goals Patient/Caregiver Goals To decrease his fall risk. Prior Functional Status Baseline Function- ADL's Needs Assist Baseline Function- Mobility Needs Assist Baseline Function- Gait Uses FWW at home, 4WW in community Baseline Function- Work/School Retired Current Functional Impairments (Reported) Functional Limitations- Other Same level of function, however is more unstable when walking PT-OP-C Subjective Start: 11/08/22 15:09 Freq: Status: Active Protocol: Document 11/15/22 16:25 AB (Rec: 11/15/22 17:19 AB [id number]) OP-PT Subjective Patient Comments Patient Comments The pt reports he fell. He currently has brusing near his right eye, as well as a superficial wound on the lateral side of his right knee . PT-OP-D Balance Start: 11/08/22 15:09 Freq: Status: Active Protocol: Document 11/08/22 15:10 AB (Rec: 11/08/22 16:30 AB [id number]) Balance Tests mCTSIB mCTSIB Position 1 30 sec mCTSIB Position 2 30 sec mild sway mCTSIB Position 3 30 sec mod sway mCTSIB Position 4 8 sec with anterior LOB PT-OP-E Functional Tests Start: 11/08/22 15:09 Freq: Status: Active Protocol: Document 11/08/22 15:10 AB (Rec: 11/08/22 16:30 AB [id number]) Functional Tests Five Times Sit to Stand Test Score 20.08 sec Comments High fall risk; with BUEs Timed Up and Go (TUG) Score 31.51 sec without AD; 27.15 with 4WW PT-OP-G Mobility & Gait Start: 11/08/22 15:09 Freq: Status: Active Protocol: Document 11/08/22 15:10 AB (Rec: 11/08/22 16:30 AB [id number]) OP Mobility Evaluation Transfers Sit to Stand SBA to IND, uses BUEs and uses back of legs on chair for stability Poor safety awareness when performing stand<>sit OP Gait Assessment Gait Gait Assistance Required: Contact Guard Assist,1 Person Assist Distance (Feet) 200 Assistive Devices Assistive Device Gait Belt,4 Wheeled Walker Gait Deviations General Gait Pattern Decreased Stride Length, Decreased Feet Clearance, Flexed Trunk,Narrow Based Gait Factors Limiting Gait Function Factors Limiting Gait Function Difficulty Following Directions,Incoordination, Limited Range of Motion,Poor Balance,Poor Safety Awareness Comments Gait Comments Pt has poor safety awareness when ambulatinWW is too far, does not pay attention to obstacles in the way PT-OP-M Strength Start: 11/08/22 15:09 Freq: Status: Active Protocol: Document 11/08/22 15:10 AB (Rec: 11/08/22 16:30 AB [id number]) Hip Strength Hip Manual Muscle Testing Right Flexion (L2) 5 Normal Extension (S1) 4 Good Abduction 4- Good- Adduction 4 Good External Rotation 3+ Fair+ Internal Rotation 3+ Fair+ Left Flexion (L2) 5 Normal Extension (S1) 4 Good Abduction 4- Good- Adduction 4 Good External Rotation 3+ Fair+ Internal Rotation 3+ Fair+ Knee Strength Knee Manual Muscle Testing Right Flexion (S2) 4 Good Extension (L3) 5 Normal Left Flexion (S2) 4 Good Extension (L3) 5 Normal Ankle/Foot Strength Ankle and Foot Manual Muscle Testing Right Dorsiflexion (L4) 4+ Good+ Plantarflexion (S1) 4 Good Left Dorsiflexion (L4) 4+ Good+ Plantarflexion (S1) 4 Good PT-OP-Q Treatments Start: 11/08/22 15:09 Freq: Status: Active Protocol: Document 11/15/22 16:25 AB (Rec: 11/15/22 17:19 AB [id number]) Cardio Equipment Recumbent Elliptical (Biodex) Duration (Minutes) 5 Seat Position 16 Therapeutic Exercises Sitting Exercises Balloon toss Reps/Minutes 2x1 min marching Reps/Minutes 2x10 ea Comments Emphasizing big movement LAQs Reps/Minutes 2x10 ea Comments Emphasizing big movement STS Equipment Used standard chair Reps/Minutes 3x8 Comments with Alex PT-OP-T Assessment and Plan Start: 11/08/22 15:09 Freq: Status: Active Protocol: Document 11/15/22 16:25 AB (Rec: 11/15/22 17:19 AB [id number]) Physical Therapy Assessment Goals Four Impairment mCTSIB Short Term Goal (STG) Pt to be able to perform conditions 2 and 3 of mCTSIB with minimal to no abnormal sway to show improving static balance to reduce fall risk. STG Duration 4 Usp Goal (LTG) Pt to be able to perform condition 4 of mCTSIB for 15 seconds or better with minimal to no abnormal sway to show improving static balance to reduce fall risk. LTG Duration 8 Three Impairment TUG Short Term Goal (STG) Pt's TUG with an AD to improve to 22 seconds or better to show improving dynamic balance in order to reduce fall risk. STG Duration 4 Clinical Account Manager Goal (LTG) Pt's TUG with an AD to improve to 18 seconds or better to show improving dynamic balance in order to reduce fall risk. LTG Duration 8 Two Impairment 5x STS Short Term Goal (STG) Pt's 5xSTS to improve to 16 seconds or better to show improving LE strength and stability to reduce fall risk. STG Duration 4 Clinical Account Manager Goal (LTG) Pt's 5xSTS to improve to 13 seconds or better to show improving LE strength and stability to reduce fall risk. LTG Duration 8 One Impairment LE strength Short Term Goal (STG) Pt's gross LE MMT scores to improve to 4/5 or better to show improving strength to perform functional mobility and increase stability. STG Duration 4 Usp Goal (LTG) Pt's gross LE MMT scores to improve to 5/5 to show improved strength to perform functional mobility and increase stability. LTG Duration 8 Assessment Summary Assessment The pt's HEP was established with a focus on LE strengthening and improving STS form to improve ability to perform functional mobility. The pt requires extensive verbal cues when performing STS for proper hand placement, to fully stand up, and to control his descent to the chair. With LAQs and marching, verbal cues to perform large and big movements were given to improve the amplitude of these movements. The pt would benefit from continued skilled PT focusing on improving the quality of his functional mobility to decrease his risk for falls. Physical Therapy Plan Frequency and Duration Frequency of Treatment 2x/Week Duration of treatment (weeks) 8 Plan of Care Start Date 11/08/22 Plan of Care End Date 01/03/23 Therapeutic Interventions Therapeutic Interventions Balance Training,Coordination Training,Gait Training,Home Exercise Program,Joint Mobilizations,Manual Therapy, Neuromuscular Re-education, Orthotic/Prosthetic Management ,Patient/Caregiver Education, Self-Care/Home Management,Soft Tissue Mobilization,Taping, Therapeutic Activities, Therapeutic Exercises Modalities Cold Pack/Ice Massage,Electric Stimulation,Hot Packs Next Visit Focus/Plan Next Note Type Treatment Note Next Visit Plan Add additional exercises to improve gait mechanics and safety with functional mobility.
--- NOTE | 2022-11-22 15:36 | PT.OTN ---
Current Diagnoses Parkinson's disease (11/22/22) Bilateral primary osteoarthritis of hip (11/22/22) Radiculopathy, lumbar region (11/22/22) Ataxia, unspecified (11/22/22) Physical Therapy Treatment Note PT-OP-A Visit Information Start: 11/08/22 15:09 Freq: Status: Active Protocol: Document 11/22/22 14:20 NBM (Rec: 11/22/22 15:32 NB [id number]) Out-Patient Physical Therapy Visit Information Visit Information Visit Type Treatment Note Visit Start Time 14:17 Visit Stop Time 15:04 Total Visit Minutes 47 Visit Number 3 Number of SUPERVISOR LEAD REFINERY Visits 1 PT-OP-B Current Condition Start: 11/08/22 15:09 Freq: Status: Active Protocol: Document 11/08/22 15:10 AB (Rec: 11/08/22 16:30 AB [id number]) Current Condition History of Current Condition Onset Date Chronic Current Complaints Right sided weakness, frequent falls History of Current Condition Pt confirms ED visit yesterday due to increased pain the the abdominal area where he had surgery on 09/20/22. He also confirms a fall today and a fall on 10/18/22 which caused an injury to his right elbow. The pt confirms that he is experiencing right sided weakness and imbalance which are leading to falls. His confirmed this information, and stated that the pt's neurologist has increased his PD medication to help with muscle stiffness. Treatment Goals Patient/Caregiver Goals To decrease his fall risk. Prior Functional Status Baseline Function- ADL's Needs Assist Baseline Function- Mobility Needs Assist Baseline Function- Gait Uses FWW at home, 4WW in community Baseline Function- Work/School Retired Current Functional Impairments (Reported) Functional Limitations- Other Same level of function, however is more unstable when walking PT-OP-C Subjective Start: 11/08/22 15:09 Freq: Status: Active Protocol: Document 11/22/22 14:20 NBM (Rec: 11/22/22 15:32 NBM [id number]) OP-PT Subjective Patient Comments Patient Comments Enrique reports no new falls. Spouse reports pt has returning cataracts affecting vision and will receive surgery date Monday. PT-OP-D Balance Start: 11/08/22 15:09 Freq: Status: Active Protocol: Document 11/08/22 15:10 AB (Rec: 11/08/22 16:30 AB [id number]) Balance Tests mCTSIB mCTSIB Position 1 30 sec mCTSIB Position 2 30 sec mild sway mCTSIB Position 3 30 sec mod sway mCTSIB Position 4 8 sec with anterior LOB PT-OP-E Functional Tests Start: 11/08/22 15:09 Freq: Status: Active Protocol: Document 11/08/22 15:10 AB (Rec: 11/08/22 16:30 AB [id number]) Functional Tests Five Times Sit to Stand Test Score 20.08 sec Comments High fall risk; with BUEs Timed Up and Go (TUG) Score 31.51 sec without AD; 27.15 with 4WW PT-OP-G Mobility & Gait Start: 11/08/22 15:09 Freq: Status: Active Protocol: Document 11/08/22 15:10 AB (Rec: 11/08/22 16:30 AB [id number]) OP Mobility Evaluation Transfers Sit to Stand SBA to IND, uses BUEs and uses back of legs on chair for stability Poor safety awareness when performing stand<>sit OP Gait Assessment Gait Gait Assistance Required: Contact Guard Assist,1 Person Assist Distance (Feet) 200 Assistive Devices Assistive Device Gait Belt,4 Wheeled Walker Gait Deviations General Gait Pattern Decreased Stride Length, Decreased Feet Clearance, Flexed Trunk,Narrow Based Gait Factors Limiting Gait Function Factors Limiting Gait Function Difficulty Following Directions,Incoordination, Limited Range of Motion,Poor Balance,Poor Safety Awareness Comments Gait Comments Pt has poor safety awareness when ambulatinWW is too far, does not pay attention to obstacles in the way PT-OP-M Strength Start: 11/08/22 15:09 Freq: Status: Active Protocol: Document 11/08/22 15:10 AB (Rec: 11/08/22 16:30 AB [id number]) Hip Strength Hip Manual Muscle Testing Right Flexion (L2) 5 Normal Extension (S1) 4 Good Abduction 4- Good- Adduction 4 Good External Rotation 3+ Fair+ Internal Rotation 3+ Fair+ Left Flexion (L2) 5 Normal Extension (S1) 4 Good Abduction 4- Good- Adduction 4 Good External Rotation 3+ Fair+ Internal Rotation 3+ Fair+ Knee Strength Knee Manual Muscle Testing Right Flexion (S2) 4 Good Extension (L3) 5 Normal Left Flexion (S2) 4 Good Extension (L3) 5 Normal Ankle/Foot Strength Ankle and Foot Manual Muscle Testing Right Dorsiflexion (L4) 4+ Good+ Plantarflexion (S1) 4 Good Left Dorsiflexion (L4) 4+ Good+ Plantarflexion (S1) 4 Good PT-OP-Q Treatments Start: 11/08/22 15:09 Freq: Status: Active Protocol: Document 11/22/22 14:20 NBM (Rec: 11/22/22 15:32 NBM [id number]) Cardio Equipment Recumbent Elliptical (Biodex) Duration (Minutes) 6 Seat Position 16>15 seen Other cues to push through heels. MaxA for foot placement Samuel. Therapeutic Exercises Sitting Exercises IV/EV Sitting Exercise Name resisted Side bilateral Resistance Lvl 1 Tb peach Reps/Minutes x5 ea Comments form improves w/ visual target PF/DF Sitting Exercise Name resisted - (added to HEP DF unresisted) Side bilateral Resistance Lvl 1 Tb peach Reps/Minutes x10 ea Comments verbal count cues for slower pacing Balloon toss Sitting Exercise Name 1. UE toss 2. LE kicks, R focus. Reps/Minutes 2x2 min ea marching Side bilateral Equipment Used metronome 50 bps for slower pacing Reps/Minutes 2x10 ea Comments Emphasizing big movement, demonstration LAQs Side bilateral Equipment Used metronome 50 bps for slower pacing Reps/Minutes 2x10 ea Comments Emphasizing big movement, demonstration, visual target STS Equipment Used standard chair Reps/Minutes 2x10 Comments with BUEs, cues for tall posture, slower pacing Gait Training Gait Activity 4WW Description Ambulating in clinic w/ 4WW Device Used 4WW Level of Assistance CGA Surface carpet Treatment Focus safety, proximation, upright posture, STS Comments Educated pt for safe hand placement and brake-setting 4WW prior to sitting or standing. Self-Care/Home Management Treatment Education Patient Education Fall Risk,Home Exercise Program,Posture,Safety Other Education Educated pt to remove rugs and increase lighting (such as night lights) in house to reduce fall risk. Educated pt for safe hand placement and brake-setting 4WW prior to sitting or standing. Added to HEP: Dorsiflexion and resisted PF - HO and Lvl1 Tb given to spouse who is educated w/ pt's permission on cues for safety w/ FWW and pacing w/ ex's. PT-OP-T Assessment and Plan Start: 11/08/22 15:09 Freq: Status: Active Protocol: Document 11/22/22 14:20 [facility] (Rec: 11/22/22 15:32 [facility] [id number]) Physical Therapy Assessment Goals Four Impairment mCTSIB Short Term Goal (STG) Pt to be able to perform conditions 2 and 3 of mCTSIB with minimal to no abnormal sway to show improving static balance to reduce fall risk. STG Duration 4 Assisted Goal (LTG) Pt to be able to perform condition 4 of mCTSIB for 15 seconds or better with minimal to no abnormal sway to show improving static balance to reduce fall risk. LTG Duration 8 Three Impairment TUG Short Term Goal (STG) Pt's TUG with an AD to improve to 22 seconds or better to show improving dynamic balance in order to reduce fall risk. STG Duration 4 Program Support Clerk Goal (LTG) Pt's TUG with an AD to improve to 18 seconds or better to show improving dynamic balance in order to reduce fall risk. LTG Duration 8 Two Impairment 5x STS Short Term Goal (STG) Pt's 5xSTS to improve to 16 seconds or better to show improving LE strength and stability to reduce fall risk. STG Duration 4 Program Support Clerk Goal (LTG) Pt's 5xSTS to improve to 13 seconds or better to show improving LE strength and stability to reduce fall risk. LTG Duration 8 One Impairment LE strength Short Term Goal (STG) Pt's gross LE MMT scores to improve to 4/5 or better to show improving strength to perform functional mobility and increase stability. STG Duration 4 Assisted Goal (LTG) Pt's gross LE MMT scores to improve to 5/5 to show improved strength to perform functional mobility and increase stability. LTG Duration 8 Assessment Summary Assessment Treatment focus on education, safety w/ 4WW and LE strengthening and HEP review of STS. Enrique demonstrates impulsivity w/ leaving 4WW to walk when near target. He requires cues with 4WW for L side clearance (possibly affected by cataracts), proximation and upright posture, setting brakes appropriately, and safe hand placement for stand to sit. Educated pt to remove rugs and increase lighting (such as night lights) in house to reduce fall risk. MaxA for LE elevation with recumbent elliptical. He requires cues with STS for standing upright fully and eccentric control. Metronome 50 bps and demonstration improves pt's pacing with seated LAQs and marching. Resisted inversion/ eversion form improves with visual target. Added to HEP: Dorsiflexion and resisted PF - HO and Lvl1 Tb given to spouse who is educated w/ pt's permission on cues for safety w/ FWW and pacing w/ ex's. 2 seated rest/water breaks this session. Physical Therapy Plan Frequency and Duration Frequency of Treatment 2x/Week Duration of treatment (weeks) 8 Plan of Care Start Date 11/08/22 Plan of Care End Date 01/03/23 Therapeutic Interventions Therapeutic Interventions Balance Training,Coordination Training,Gait Training,Home Exercise Program,Joint Mobilizations,Manual Therapy, Neuromuscular Re-education, Orthotic/Prosthetic Management ,Patient/Caregiver Education, Self-Care/Home Management,Soft Tissue Mobilization,Taping, Therapeutic Activities, Therapeutic Exercises Modalities Cold Pack/Ice Massage,Electric Stimulation,Hot Packs Other Referrals/Consults Referrals/Consults Recommended May benefit from evaluation for LSVT BIG program. Next Visit Focus/Plan Next Note Type Treatment Note Next Visit Plan Safety w/ 4WW(L-side clearance , proximation, brakes, hand placement for sitting). Asses 4-way ankle ex for HEP. Continue POC. POC: Add additional exercises to improve gait mechanics and safety with functional mobility.
--- NOTE | 2022-11-29 11:33 | PT.OTN ---
Current Diagnoses Parkinson's disease (11/29/22) Bilateral primary osteoarthritis of hip (11/29/22) Radiculopathy, lumbar region (11/29/22) Ataxia, unspecified (11/29/22) Physical Therapy Treatment Note PT-OP-A Visit Information Start: 11/08/22 15:09 Freq: Status: Active Protocol: Document 11/29/22 10:19 NBM (Rec: 11/29/22 11:31 NB [id number]) Out-Patient Physical Therapy Visit Information Visit Information Visit Type Treatment Note Visit Note Pt EKUK bilaterally Visit Start Time 10:30 Visit Stop Time 11:16 Total Visit Minutes 46 Visit Number 4 Number of CHART SNATCHER Visits 2 Evaluation Information Evaluation Date 11/08/22 PT-OP-B Current Condition Start: 11/08/22 15:09 Freq: Status: Active Protocol: Document 11/08/22 15:10 AB (Rec: 11/08/22 16:30 AB [id number]) Current Condition History of Current Condition Onset Date Chronic Current Complaints Right sided weakness, frequent falls History of Current Condition Pt confirms ED visit yesterday due to increased pain the the abdominal area where he had surgery on 09/20/22. He also confirms a fall today and a fall on 10/18/22 which caused an injury to his right elbow. The pt confirms that he is experiencing right sided weakness and imbalance which are leading to falls. His confirmed this information, and stated that the pt's neurologist has increased his PD medication to help with muscle stiffness. Treatment Goals Patient/Caregiver Goals To decrease his fall risk. Prior Functional Status Baseline Function- ADL's Needs Assist Baseline Function- Mobility Needs Assist Baseline Function- Gait Uses FWW at home, 4WW in community Baseline Function- Work/School Retired Current Functional Impairments (Reported) Functional Limitations- Other Same level of function, however is more unstable when walking PT-OP-C Subjective Start: 11/08/22 15:09 Freq: Status: Active Protocol: Document 11/29/22 10:19 NBM (Rec: 11/29/22 11:31 NB [id number]) OP-PT Subjective Patient Comments Patient Comments Enrique and spouse report no new falls. He gets surgery on both eyes . Pt reports doing ex's. Spouse Anisha reports pt is hard of hearing in both ears and has misplaced one hearing aid. PT-OP-D Balance Start: 11/08/22 15:09 Freq: Status: Active Protocol: Document 11/08/22 15:10 AB (Rec: 11/08/22 16:30 AB [id number]) Balance Tests mCTSIB mCTSIB Position 1 30 sec mCTSIB Position 2 30 sec mild sway mCTSIB Position 3 30 sec mod sway mCTSIB Position 4 8 sec with anterior LOB PT-OP-E Functional Tests Start: 11/08/22 15:09 Freq: Status: Active Protocol: Document 11/08/22 15:10 AB (Rec: 11/08/22 16:30 AB [id number]) Functional Tests Five Times Sit to Stand Test Score 20.08 sec Comments High fall risk; with BUEs Timed Up and Go (TUG) Score 31.51 sec without AD; 27.15 with 4WW PT-OP-G Mobility & Gait Start: 11/08/22 15:09 Freq: Status: Active Protocol: Document 11/08/22 15:10 AB (Rec: 11/08/22 16:30 AB [id number]) OP Mobility Evaluation Transfers Sit to Stand SBA to IND, uses BUEs and uses back of legs on chair for stability Poor safety awareness when performing stand<>sit OP Gait Assessment Gait Gait Assistance Required: Contact Guard Assist,1 Person Assist Distance (Feet) 200 Assistive Devices Assistive Device Gait Belt,4 Wheeled Walker Gait Deviations General Gait Pattern Decreased Stride Length, Decreased Feet Clearance, Flexed Trunk,Narrow Based Gait Factors Limiting Gait Function Factors Limiting Gait Function Difficulty Following Directions,Incoordination, Limited Range of Motion,Poor Balance,Poor Safety Awareness Comments Gait Comments Pt has poor safety awareness when ambulatinWW is too far, does not pay attention to obstacles in the way PT-OP-M Strength Start: 11/08/22 15:09 Freq: Status: Active Protocol: Document 11/08/22 15:10 AB (Rec: 11/08/22 16:30 AB [id number]) Hip Strength Hip Manual Muscle Testing Right Flexion (L2) 5 Normal Extension (S1) 4 Good Abduction 4- Good- Adduction 4 Good External Rotation 3+ Fair+ Internal Rotation 3+ Fair+ Left Flexion (L2) 5 Normal Extension (S1) 4 Good Abduction 4- Good- Adduction 4 Good External Rotation 3+ Fair+ Internal Rotation 3+ Fair+ Knee Strength Knee Manual Muscle Testing Right Flexion (S2) 4 Good Extension (L3) 5 Normal Left Flexion (S2) 4 Good Extension (L3) 5 Normal Ankle/Foot Strength Ankle and Foot Manual Muscle Testing Right Dorsiflexion (L4) 4+ Good+ Plantarflexion (S1) 4 Good Left Dorsiflexion (L4) 4+ Good+ Plantarflexion (S1) 4 Good PT-OP-Q Treatments Start: 11/08/22 15:09 Freq: Status: Active Protocol: Document 11/29/22 10:19 [facility] (Rec: 11/29/22 11:31 [facility] [id number]) Cardio Equipment Recumbent Elliptical (Biodex) Duration (Minutes) 6 Seat Position 16>13 seen Other Target 30 RPS, vc to push through heels. Martha for R foot placement Therapeutic Exercises Sitting Exercises HS Curls Sitting Exercise Name seated hamstring curls Side bilateral Resistance Lvl 1 Tb Reps/Minutes Rx10, Lx15 Comments dc'd on R due to fatigue. Hip adduction Sitting Exercise Name seated ball squeeze Side bilateral Equipment Used blue/white ball Reps/Minutes 10 x5SH Comments added to HEP Hip ER Sitting Exercise Name seated clamshells Side bilateral Resistance Lvl 1 Tb Reps/Minutes x10 Comments added to HEP IV/EV Sitting Exercise Name resisted Side bilateral Resistance Lvl 1 Tb peach Reps/Minutes x10 ea Comments w/ visual target PF/DF Sitting Exercise Name resisted - (added to HEP DF unresisted) Side bilateral Resistance Lvl 1 Tb peach Reps/Minutes x10 ea Comments cues for straight leg w/ PF and verbal count for slower pacing marching Side bilateral Resistance 1# ea Reps/Minutes 2x10 ea Comments Emphasizing big movement, demonstration LAQs Side bilateral Resistance 1# ea Reps/Minutes x10 ea Comments Emphasizing big movement, demonstration, visual target STS Equipment Used standard chair Reps/Minutes x10 Comments with BUEs, cues for tall posture, slower pacing Gait Training Gait Activity 4WW Description Ambulating in clinic w/ 4WW Device Used 4WW Level of Assistance CGA Surface carpet Distance/Duration 200' Treatment Focus safety, proximation, upright posture, STS Comments Focus on proximation, safe hand placement and brake- setting 4WW prior to sitting or standing. Self-Care/Home Management Treatment Education Patient Education Fall Risk,Home Exercise Program,Posture,Safety Other Education Reviewed education for safe hand placement and brake- setting 4WW prior to sitting or standing, and not to walk without walker. Added to HEP: seated resisted clamshells and seated hip adduction - HO given to spouse w/ pt's permission. PT-OP-T Assessment and Plan Start: 11/08/22 15:09 Freq: Status: Active Protocol: Document 11/29/22 10:19 [facility] (Rec: 11/29/22 11:31 [facility] [id number]) Physical Therapy Assessment Goals Four Impairment mCTSIB Short Term Goal (STG) Pt to be able to perform conditions 2 and 3 of mCTSIB with minimal to no abnormal sway to show improving static balance to reduce fall risk. STG Duration 4 Usp Goal (LTG) Pt to be able to perform condition 4 of mCTSIB for 15 seconds or better with minimal to no abnormal sway to show improving static balance to reduce fall risk. LTG Duration 8 Three Impairment TUG Short Term Goal (STG) Pt's TUG with an AD to improve to 22 seconds or better to show improving dynamic balance in order to reduce fall risk. STG Duration 4 Blending Plant Operator Goal (LTG) Pt's TUG with an AD to improve to 18 seconds or better to show improving dynamic balance in order to reduce fall risk. LTG Duration 8 Two Impairment 5x STS Short Term Goal (STG) Pt's 5xSTS to improve to 16 seconds or better to show improving LE strength and stability to reduce fall risk. STG Duration 4 Usp Goal (LTG) Pt's 5xSTS to improve to 13 seconds or better to show improving LE strength and stability to reduce fall risk. LTG Duration 8 One Impairment LE strength Short Term Goal (STG) Pt's gross LE MMT scores to improve to 4/5 or better to show improving strength to perform functional mobility and increase stability. STG Duration 4 Blending Plant Operator Goal (LTG) Pt's gross LE MMT scores to improve to 5/5 to show improved strength to perform functional mobility and increase stability. LTG Duration 8 Assessment Summary Assessment Enrique demonstrates improved LE strength today requiring no foot placement assist for LLE and Martha instead of maxA for RLE foot placement in recumbant elliptical. He shows impulsivity with 4WW walking without it, not setting brakes , using two hands on it to sit abruptly, and two hands to pull to standing. Reviewed education for safe hand placement and brake-setting 4WW prior to sitting or standing, and not to walk without walker. He requires initial cues for straight leg with resisted plantar flexion. Added to HEP: seated resisted clamshells and seated hip adduction - HO given to spouse w/ pt's permission. Physical Therapy Plan Frequency and Duration Frequency of Treatment 2x/Week Duration of treatment (weeks) 8 Plan of Care Start Date 11/08/22 Plan of Care End Date 01/03/23 Therapeutic Interventions Therapeutic Interventions Balance Training,Coordination Training,Gait Training,Home Exercise Program,Joint Mobilizations,Manual Therapy, Neuromuscular Re-education, Orthotic/Prosthetic Management ,Patient/Caregiver Education, Self-Care/Home Management,Soft Tissue Mobilization,Taping, Therapeutic Activities, Therapeutic Exercises Modalities Cold Pack/Ice Massage,Electric Stimulation,Hot Packs Other Referrals/Consults Referrals/Consults Recommended May benefit from evaluation for LSVT BIG program. Next Visit Focus/Plan Next Note Type Treatment Note Next Visit Plan Safety w/ 4WW(L-side clearance , proximation, brakes, hand placement for sitting). Assess 4-way ankle ex for HEP. Continue POC. POC: Add additional exercises to improve gait mechanics and safety with functional mobility.
--- NOTE | 2022-12-07 17:14 | PT.OTN ---
Current Diagnoses Parkinson's disease (12/07/22) Bilateral primary osteoarthritis of hip (12/07/22) Radiculopathy, lumbar region (12/07/22) Ataxia, unspecified (12/07/22) Physical Therapy Treatment Note PT-OP-A Visit Information Start: 11/08/22 15:09 Freq: Status: Active Protocol: Document 12/07/22 13:57 AB (Rec: 12/07/22 15:30 AB [id number]) Out-Patient Physical Therapy Visit Information Visit Information Visit Type Treatment Note Visit Start Time 13:15 Visit Stop Time 14:30 Total Visit Minutes 45 Visit Number 5 PT-OP-B Current Condition Start: 11/08/22 15:09 Freq: Status: Active Protocol: Document 11/08/22 15:10 AB (Rec: 11/08/22 16:30 AB [id number]) Current Condition History of Current Condition Onset Date Chronic Current Complaints Right sided weakness, frequent falls History of Current Condition Pt confirms ED visit yesterday due to increased pain the the abdominal area where he had surgery on 09/20/22. He also confirms a fall today and a fall on 10/18/22 which caused an injury to his right elbow. The pt confirms that he is experiencing right sided weakness and imbalance which are leading to falls. His confirmed this information, and stated that the pt's neurologist has increased his PD medication to help with muscle stiffness. Treatment Goals Patient/Caregiver Goals To decrease his fall risk. Prior Functional Status Baseline Function- ADL's Needs Assist Baseline Function- Mobility Needs Assist Baseline Function- Gait Uses FWW at home, 4WW in community Baseline Function- Work/School Retired Current Functional Impairments (Reported) Functional Limitations- Other Same level of function, however is more unstable when walking PT-OP-C Subjective Start: 11/08/22 15:09 Freq: Status: Active Protocol: Document 12/07/22 13:57 AB (Rec: 12/07/22 15:30 AB [id number]) OP-PT Subjective Patient Comments Patient Comments The pt reports he fell two days ago while on vacation, though denies any injuries. PT-OP-D Balance Start: 11/08/22 15:09 Freq: Status: Active Protocol: Document 11/08/22 15:10 AB (Rec: 11/08/22 16:30 AB [id number]) Balance Tests mCTSIB mCTSIB Position 1 30 sec mCTSIB Position 2 30 sec mild sway mCTSIB Position 3 30 sec mod sway mCTSIB Position 4 8 sec with anterior LOB PT-OP-E Functional Tests Start: 11/08/22 15:09 Freq: Status: Active Protocol: Document 11/08/22 15:10 AB (Rec: 11/08/22 16:30 AB [id number]) Functional Tests Five Times Sit to Stand Test Score 20.08 sec Comments High fall risk; with BUEs Timed Up and Go (TUG) Score 31.51 sec without AD; 27.15 with 4WW PT-OP-G Mobility & Gait Start: 11/08/22 15:09 Freq: Status: Active Protocol: Document 11/08/22 15:10 AB (Rec: 11/08/22 16:30 AB [id number]) OP Mobility Evaluation Transfers Sit to Stand SBA to IND, uses BUEs and uses back of legs on chair for stability Poor safety awareness when performing stand<>sit OP Gait Assessment Gait Gait Assistance Required: Contact Guard Assist,1 Person Assist Distance (Feet) 200 Assistive Devices Assistive Device Gait Belt,4 Wheeled Walker Gait Deviations General Gait Pattern Decreased Stride Length, Decreased Feet Clearance, Flexed Trunk,Narrow Based Gait Factors Limiting Gait Function Factors Limiting Gait Function Difficulty Following Directions,Incoordination, Limited Range of Motion,Poor Balance,Poor Safety Awareness Comments Gait Comments Pt has poor safety awareness when ambulatinWW is too far, does not pay attention to obstacles in the way PT-OP-M Strength Start: 11/08/22 15:09 Freq: Status: Active Protocol: Document 11/08/22 15:10 AB (Rec: 11/08/22 16:30 AB [id number]) Hip Strength Hip Manual Muscle Testing Right Flexion (L2) 5 Normal Extension (S1) 4 Good Abduction 4- Good- Adduction 4 Good External Rotation 3+ Fair+ Internal Rotation 3+ Fair+ Left Flexion (L2) 5 Normal Extension (S1) 4 Good Abduction 4- Good- Adduction 4 Good External Rotation 3+ Fair+ Internal Rotation 3+ Fair+ Knee Strength Knee Manual Muscle Testing Right Flexion (S2) 4 Good Extension (L3) 5 Normal Left Flexion (S2) 4 Good Extension (L3) 5 Normal Ankle/Foot Strength Ankle and Foot Manual Muscle Testing Right Dorsiflexion (L4) 4+ Good+ Plantarflexion (S1) 4 Good Left Dorsiflexion (L4) 4+ Good+ Plantarflexion (S1) 4 Good PT-OP-Q Treatments Start: 11/08/22 15:09 Freq: Status: Active Protocol: Document 12/07/22 13:57 AB (Rec: 12/07/22 15:30 AB [id number]) Cardio Equipment Recumbent Elliptical (Biodex) Duration (Minutes) 6 Therapeutic Exercises Sitting Exercises Cross body reaching Sitting Exercise Name High cross body reaching; low cross body reaching Side bilateral Equipment Used foam pads (for visual cue) Reps/Minutes 2x10 ea Comments decreased ROM with RUE Balloon toss Sitting Exercise Name 1. UE toss 2. LE kicks, R focus. Reps/Minutes 2x2 min ea marching Side bilateral Reps/Minutes 2x10 ea Comments Emphasizing big movement, demonstration LAQs Side bilateral Reps/Minutes x10 ea Comments Emphasizing big movement, demonstration, visual target STS Equipment Used standard chair Reps/Minutes 2x10 Comments with LUE, cues for tall posture, slower pacing, proper hand placement PT-OP-T Assessment and Plan Start: 11/08/22 15:09 Freq: Status: Active Protocol: Document 12/07/22 13:57 AB (Rec: 12/07/22 15:30 AB [id number]) Physical Therapy Assessment Goals Four Impairment mCTSIB Short Term Goal (STG) Pt to be able to perform conditions 2 and 3 of mCTSIB with minimal to no abnormal sway to show improving static balance to reduce fall risk. STG Duration 4 Care Home Goal (LTG) Pt to be able to perform condition 4 of mCTSIB for 15 seconds or better with minimal to no abnormal sway to show improving static balance to reduce fall risk. LTG Duration 8 Three Impairment TUG Short Term Goal (STG) Pt's TUG with an AD to improve to 22 seconds or better to show improving dynamic balance in order to reduce fall risk. STG Duration 4 Care Home Goal (LTG) Pt's TUG with an AD to improve to 18 seconds or better to show improving dynamic balance in order to reduce fall risk. LTG Duration 8 Two Impairment 5x STS Short Term Goal (STG) Pt's 5xSTS to improve to 16 seconds or better to show improving LE strength and stability to reduce fall risk. STG Duration 4 Metal Model Maker Goal (LTG) Pt's 5xSTS to improve to 13 seconds or better to show improving LE strength and stability to reduce fall risk. LTG Duration 8 One Impairment LE strength Short Term Goal (STG) Pt's gross LE MMT scores to improve to 4/5 or better to show improving strength to perform functional mobility and increase stability. STG Duration 4 Metal Model Maker Goal (LTG) Pt's gross LE MMT scores to improve to 5/5 to show improved strength to perform functional mobility and increase stability. LTG Duration 8 Assessment Summary Assessment The focus of today's session was on improving STS mechanics and safety, as this continues to be a difficult task for the pt which could lead to a fall. The pt initially demonstrates a WBOS and use of BUEs on 4WW to pull up. He was educated with visual and verbal cues on proper form including proper hand and foot placement, cues to control descent into chair, and cues to generate power through LEs to stand. The pt demonstrates much improved STS technique, however relies on LUE/LLE than RUE/RLE due to right sided weakness and RUE pain. The pt continues to benefit from skilled PT to improve his deficits and to decrease his fall risk. Physical Therapy Plan Frequency and Duration Frequency of Treatment 2x/Week Duration of treatment (weeks) 8 Plan of Care Start Date 11/08/22 Plan of Care End Date 01/03/23 Therapeutic Interventions Therapeutic Interventions Balance Training,Coordination Training,Gait Training,Home Exercise Program,Joint Mobilizations,Manual Therapy, Neuromuscular Re-education, Orthotic/Prosthetic Management ,Patient/Caregiver Education, Self-Care/Home Management,Soft Tissue Mobilization,Taping, Therapeutic Activities, Therapeutic Exercises Modalities Cold Pack/Ice Massage,Electric Stimulation,Hot Packs Next Visit Focus/Plan Next Note Type Treatment Note Next Visit Plan Safety w/ 4WW(L-side clearance , proximation, brakes, hand placement for sitting). Assess 4-way ankle ex for HEP. Continue POC. POC: Add additional exercises to improve gait mechanics and safety with functional mobility.
--- NOTE | 2022-12-16 12:48 | PT.OTN ---
Current Diagnoses Parkinson's disease (12/16/22) Bilateral primary osteoarthritis of hip (12/16/22) Radiculopathy, lumbar region (12/16/22) Ataxia, unspecified (12/16/22) Physical Therapy Treatment Note PT-OP-A Visit Information Start: 11/08/22 15:09 Freq: Status: Active Protocol: Document 12/16/22 11:45 NBM (Rec: 12/16/22 12:21 NBM [id number]) Out-Patient Physical Therapy Visit Information Visit Information Visit Type Treatment Note Visit Note PT late. helpdesk specialist confirms w / pt's they are coming to PT but thought appt was at 11 :45a. Visit Start Time 11:45 Visit Stop Time 12:20 Total Visit Minutes 35 Visit Number 7 Number of SLEEP LAB TECHNICIAN Visits 2 Evaluation Information Evaluation Date 11/08/22 Precautions Precautions Parkinson's disease Only able to answer yes/no questions due to word finding difficulties HTN PT-OP-B Current Condition Start: 11/08/22 15:09 Freq: Status: Active Protocol: Document 11/08/22 15:10 AB (Rec: 11/08/22 16:30 AB [id number]) Current Condition History of Current Condition Onset Date Chronic Current Complaints Right sided weakness, frequent falls History of Current Condition Pt confirms ED visit yesterday due to increased pain the the abdominal area where he had surgery on 09/20/22. He also confirms a fall today and a fall on 10/18/22 which caused an injury to his right elbow. The pt confirms that he is experiencing right sided weakness and imbalance which are leading to falls. His confirmed this information, and stated that the pt's neurologist has increased his PD medication to help with muscle stiffness. Treatment Goals Patient/Caregiver Goals To decrease his fall risk. Prior Functional Status Baseline Function- ADL's Needs Assist Baseline Function- Mobility Needs Assist Baseline Function- Gait Uses FWW at home, 4WW in community Baseline Function- Work/School Retired Current Functional Impairments (Reported) Functional Limitations- Other Same level of function, however is more unstable when walking PT-OP-C Subjective Start: 11/08/22 15:09 Freq: Status: Active Protocol: Document 12/16/22 11:45 NBM (Rec: 12/16/22 12:21 NBM [id number]) OP-PT Subjective Patient Comments Patient Comments Enrique confirms in ED yesterday for high blood pressure. He reports he took two lisinopril today and feels good for Physical Therapy. He is not sure if he has a follow up appt scheduled w/ PCP. He reports no new falls and he is feeling stronger and trying to move his R side more. Patient Reported Progress Improving PT-OP-D Balance Start: 11/08/22 15:09 Freq: Status: Active Protocol: Document 11/08/22 15:10 AB (Rec: 11/08/22 16:30 AB [id number]) Balance Tests mCTSIB mCTSIB Position 1 30 sec mCTSIB Position 2 30 sec mild sway mCTSIB Position 3 30 sec mod sway mCTSIB Position 4 8 sec with anterior LOB PT-OP-E Functional Tests Start: 11/08/22 15:09 Freq: Status: Active Protocol: Document 11/08/22 15:10 AB (Rec: 11/08/22 16:30 AB [id number]) Functional Tests Five Times Sit to Stand Test Score 20.08 sec Comments High fall risk; with BUEs Timed Up and Go (TUG) Score 31.51 sec without AD; 27.15 with 4WW PT-OP-G Mobility & Gait Start: 11/08/22 15:09 Freq: Status: Active Protocol: Document 11/08/22 15:10 AB (Rec: 11/08/22 16:30 AB [id number]) OP Mobility Evaluation Transfers Sit to Stand SBA to IND, uses BUEs and uses back of legs on chair for stability Poor safety awareness when performing stand<>sit OP Gait Assessment Gait Gait Assistance Required: Contact Guard Assist,1 Person Assist Distance (Feet) 200 Assistive Devices Assistive Device Gait Belt,4 Wheeled Walker Gait Deviations General Gait Pattern Decreased Stride Length, Decreased Feet Clearance, Flexed Trunk,Narrow Based Gait Factors Limiting Gait Function Factors Limiting Gait Function Difficulty Following Directions,Incoordination, Limited Range of Motion,Poor Balance,Poor Safety Awareness Comments Gait Comments Pt has poor safety awareness when ambulatinWW is too far, does not pay attention to obstacles in the way PT-OP-M Strength Start: 11/08/22 15:09 Freq: Status: Active Protocol: Document 11/08/22 15:10 AB (Rec: 11/08/22 16:30 AB [id number]) Hip Strength Hip Manual Muscle Testing Right Flexion (L2) 5 Normal Extension (S1) 4 Good Abduction 4- Good- Adduction 4 Good External Rotation 3+ Fair+ Internal Rotation 3+ Fair+ Left Flexion (L2) 5 Normal Extension (S1) 4 Good Abduction 4- Good- Adduction 4 Good External Rotation 3+ Fair+ Internal Rotation 3+ Fair+ Knee Strength Knee Manual Muscle Testing Right Flexion (S2) 4 Good Extension (L3) 5 Normal Left Flexion (S2) 4 Good Extension (L3) 5 Normal Ankle/Foot Strength Ankle and Foot Manual Muscle Testing Right Dorsiflexion (L4) 4+ Good+ Plantarflexion (S1) 4 Good Left Dorsiflexion (L4) 4+ Good+ Plantarflexion (S1) 4 Good PT-OP-Q Treatments Start: 11/08/22 15:09 Freq: Status: Active Protocol: Document 12/16/22 11:45 NBM (Rec: 12/16/22 12:21 NBM [id number]) Cardio Equipment Recumbent Elliptical (Evostor) Duration (Minutes) 6 Seat Position 13 seen Other visual [id number], push through heels. metronome 60 bps,foot placement Therapeutic Exercises Sitting Exercises Floor to Ceiling ex Sitting Exercise Name fwd reach>ceiling reach>floor reach>side reach Side bilateral Equipment Used standard mesh chair, finger flicks to side Reps/Minutes x5 Comments cues for large amplitude, pause for slower RUE Cross body reaching Sitting Exercise Name High cross body reaching; low cross body reaching Side bilateral Equipment Used foam pads (for visual cue) Reps/Minutes 2x10 ea Comments decreased ROM with RUE Gait Training Gait Activity 4WW Description Ambulating in clinic w/ 4WW Device Used 4WW Level of Assistance CGA Surface carpet Distance/Duration 70', 40', 70' Treatment Focus safety, proximation, upright posture, STS Comments Focus on proximation, safe hand placement and brake- setting 4WW prior to sitting or standing. Manual Therapy Treatment Soft Tissue Mobilization R shoulder Body Location R UT, LS, supraspinatus, infraspinatus, teres minor Mobilization Type Rolling,Strumming,Sustained Pressure Intensity/Depth Moderate Body Position Sitting Comments R UT focus Manual Techniques Hip Flexor stretch Type next session Body Location Samuel hip flex Body Position Sidelying Reps/Duration 2 x 30s each PT-OP-T Assessment and Plan Start: 11/08/22 15:09 Freq: Status: Active Protocol: Document 12/16/22 11:45 [facility] (Rec: 12/16/22 12:21 [facility] [id number]) Physical Therapy Assessment Goals Four Impairment mCTSIB Short Term Goal (STG) Pt to be able to perform conditions 2 and 3 of mCTSIB with minimal to no abnormal sway to show improving static balance to reduce fall risk. STG Duration 4 Mcfp Goal (LTG) Pt to be able to perform condition 4 of mCTSIB for 15 seconds or better with minimal to no abnormal sway to show improving static balance to reduce fall risk. LTG Duration 8 Three Impairment TUG Short Term Goal (STG) Pt's TUG with an AD to improve to 22 seconds or better to show improving dynamic balance in order to reduce fall risk. STG Duration 4 Outpatient Clerk Goal (LTG) Pt's TUG with an AD to improve to 18 seconds or better to show improving dynamic balance in order to reduce fall risk. LTG Duration 8 Two Impairment 5x STS Short Term Goal (STG) Pt's 5xSTS to improve to 16 seconds or better to show improving LE strength and stability to reduce fall risk. STG Duration 4 Outpatient Clerk Goal (LTG) Pt's 5xSTS to improve to 13 seconds or better to show improving LE strength and stability to reduce fall risk. LTG Duration 8 One Impairment LE strength Short Term Goal (STG) Pt's gross LE MMT scores to improve to 4/5 or better to show improving strength to perform functional mobility and increase stability. STG Duration 4 Mcfp Goal (LTG) Pt's gross LE MMT scores to improve to 5/5 to show improved strength to perform functional mobility and increase stability. LTG Duration 8 Assessment Summary Assessment Pt presented to Emergency Department yesterday for hypertension and reports taking two tablets of lisinopril today. B/P 101/62, 71 bpm start of session - Automation Control Integrator authorizes this SLEEP LAB TECHNICIAN to proceed w/ treatment session (in evaluating PT's absence). Pt presents late so shortened session today. Enrique is unable to maintain 60 bpm with metronome on recumbent elliptical or visual target of 30 RPMs. Pt struggles with full amplitude UE movements bilaterally today with floor to ceiling ex, particularly with shoulder abduction, and does not perform finger flicks today despite cueing. He misjudges target consistently today when ambulating to chair to sit and requires max cues to adjust positioning before sitting. He again requires cues for safety and hand placement using both hands on 4WW and falling back into chair without brakes or control. Pt is counseled for safety w/ 4WW and demonstrates improved proximation and hand placement w/ sit>stand transition end of session. Max cues for RUE with ceiling reach and pt reports R arm hurts today. STM to R shoulder in sitting with focus on R Upper Trapezius mm. Palpable tension to R UT improves w/ manual therapy. Pt's spouse is informed of pt's report of R shoulder pain end of session. Physical Therapy Plan Frequency and Duration Frequency of Treatment 2x/Week Duration of treatment (weeks) 8 Plan of Care Start Date 11/08/22 Plan of Care End Date 01/03/23 Therapeutic Interventions Therapeutic Interventions Balance Training,Coordination Training,Gait Training,Home Exercise Program,Joint Mobilizations,Manual Therapy, Neuromuscular Re-education, Orthotic/Prosthetic Management ,Patient/Caregiver Education, Self-Care/Home Management,Soft Tissue Mobilization,Taping, Therapeutic Activities, Therapeutic Exercises Modalities Cold Pack/Ice Massage,Electric Stimulation,Hot Packs Other Referrals/Consults Referrals/Consults Recommended May benefit from evaluation for LSVT BIG program. Next Visit Focus/Plan Next Note Type Treatment Note Next Visit Plan STM to RUE. On Air Host for gait belt use. Consider hip flexor stretch. Safety w/ 4WW(L-side clearance, proximation, brakes , hand placement for sitting). Assess 4-way ankle ex for HEP . Continue POC. POC: Add additional exercises to improve gait mechanics and safety with functional mobility.
--- NOTE | 2022-12-21 15:26 | PT.OTN ---
Current Diagnoses Parkinson's disease (12/21/22) Bilateral primary osteoarthritis of hip (12/21/22) Radiculopathy, lumbar region (12/21/22) Ataxia, unspecified (12/21/22) Physical Therapy Treatment Note PT-OP-A Visit Information Start: 11/08/22 15:09 Freq: Status: Active Protocol: Document 12/21/22 10:58 AB (Rec: 12/21/22 15:26 AB [id number]) Out-Patient Physical Therapy Visit Information Visit Information Visit Type Treatment Note Visit Start Time 11:40 Visit Stop Time 12:25 Total Visit Minutes 45 Visit Number 8 Evaluation Information Evaluation Date 11/08/22 Precautions Precautions Parkinson's disease Only able to answer yes/no questions due to word finding difficulties HTN PT-OP-B Current Condition Start: 11/08/22 15:09 Freq: Status: Active Protocol: Document 12/21/22 10:58 AB (Rec: 12/21/22 15:26 AB [id number]) Current Condition Prior Functional Status Baseline Function- ADL's Needs Assist Baseline Function- Mobility Needs Assist Baseline Function- Gait Uses FWW at home, 4WW in community Baseline Function- Work/School Retired Current Functional Impairments (Reported) Functional Limitations- Other Same level of function, however is more unstable when walking PT-OP-C Subjective Start: 11/08/22 15:09 Freq: Status: Active Protocol: Document 12/21/22 10:58 AB (Rec: 12/21/22 15:26 AB [id number]) OP-PT Subjective Patient Comments Patient Comments The pt reports he is feeling good, except has pain in his RUE. He denies any recent falls. PT-OP-D Balance Start: 11/08/22 15:09 Freq: Status: Active Protocol: Document 11/08/22 15:10 AB (Rec: 11/08/22 16:30 AB [id number]) Balance Tests mCTSIB mCTSIB Position 1 30 sec mCTSIB Position 2 30 sec mild sway mCTSIB Position 3 30 sec mod sway mCTSIB Position 4 8 sec with anterior LOB PT-OP-E Functional Tests Start: 11/08/22 15:09 Freq: Status: Active Protocol: Document 11/08/22 15:10 AB (Rec: 11/08/22 16:30 AB [id number]) Functional Tests Five Times Sit to Stand Test Score 20.08 sec Comments High fall risk; with BUEs Timed Up and Go (TUG) Score 31.51 sec without AD; 27.15 with 4WW PT-OP-G Mobility & Gait Start: 11/08/22 15:09 Freq: Status: Active Protocol: Document 11/08/22 15:10 AB (Rec: 11/08/22 16:30 AB [id number]) OP Mobility Evaluation Transfers Sit to Stand SBA to IND, uses BUEs and uses back of legs on chair for stability Poor safety awareness when performing stand<>sit OP Gait Assessment Gait Gait Assistance Required: Contact Guard Assist,1 Person Assist Distance (Feet) 200 Assistive Devices Assistive Device Gait Belt,4 Wheeled Walker Gait Deviations General Gait Pattern Decreased Stride Length, Decreased Feet Clearance, Flexed Trunk,Narrow Based Gait Factors Limiting Gait Function Factors Limiting Gait Function Difficulty Following Directions,Incoordination, Limited Range of Motion,Poor Balance,Poor Safety Awareness Comments Gait Comments Pt has poor safety awareness when ambulatinWW is too far, does not pay attention to obstacles in the way PT-OP-M Strength Start: 11/08/22 15:09 Freq: Status: Active Protocol: Document 12/21/22 10:58 AB (Rec: 12/21/22 15:26 AB [id number]) Hip Strength Hip Manual Muscle Testing Right Flexion (L2) 5 Normal Extension (S1) 4 Good Abduction 4 Good Adduction 4+ Good+ External Rotation 4 Good Internal Rotation 4 Good Left Flexion (L2) 5 Normal Extension (S1) 4 Good Abduction 4 Good Adduction 4+ Good+ External Rotation 4 Good Internal Rotation 4 Good Knee Strength Knee Manual Muscle Testing Right Flexion (S2) 4 Good Extension (L3) 5 Normal Left Flexion (S2) 4 Good Extension (L3) 5 Normal PT-OP-Q Treatments Start: 11/08/22 15:09 Freq: Status: Active Protocol: Document 12/21/22 10:58 AB (Rec: 12/21/22 15:26 AB [id number]) Cardio Equipment Recumbent Elliptical ([employer]ho.st) Duration (Minutes) 6 Therapeutic Exercises Sitting Exercises Floor to Ceiling ex Sitting Exercise Name fwd reach>ceiling reach>floor reach>side reach Side bilateral Equipment Used standard mesh chair, finger flicks to side Reps/Minutes 2x5 Comments cues for large amplitude, pause for slower RUE Self-Care/Home Management Treatment Education Patient Education Fall Risk,Posture,Safety Caregiver Education Continued education regarding safety with STS. Pt and were also educated on orthostatic hypotension findings and LSVT BIG program. PT-OP-T Assessment and Plan Start: 11/08/22 15:09 Freq: Status: Active Protocol: Document 12/21/22 10:58 AB (Rec: 12/21/22 15:26 AB [id number]) Physical Therapy Assessment Goals Four Impairment mCTSIB Short Term Goal (STG) Pt to be able to perform conditions 2 and 3 of mCTSIB with minimal to no abnormal sway to show improving static balance to reduce fall risk. STG Duration 4 Water Gas Operator Goal (LTG) Pt to be able to perform condition 4 of mCTSIB for 15 seconds or better with minimal to no abnormal sway to show improving static balance to reduce fall risk. LTG Duration 8 Three Impairment TUG Short Term Goal (STG) Pt's TUG with an AD to improve to 22 seconds or better to show improving dynamic balance in order to reduce fall risk. STG Duration 4 Usp Goal (LTG) Pt's TUG with an AD to improve to 18 seconds or better to show improving dynamic balance in order to reduce fall risk. LTG Duration 8 Two Impairment 5x STS Short Term Goal (STG) Pt's 5xSTS to improve to 16 seconds or better to show improving LE strength and stability to reduce fall risk. STG Duration 4 Water Gas Operator Goal (LTG) Pt's 5xSTS to improve to 13 seconds or better to show improving LE strength and stability to reduce fall risk. LTG Duration 8 One Impairment LE strength Short Term Goal (STG) Pt's gross LE MMT scores to improve to 4/5 or better to show improving strength to perform functional mobility and increase stability. STG Duration 4 Usp Goal (LTG) Pt's gross LE MMT scores to improve to 5/5 to show improved strength to perform functional mobility and increase stability. LTG Duration 8 Assessment Summary Assessment Progress note was initially planned for today, however was not performed due to orthostatic hypotension noted when going from sitting to standing and pt reports of dizziness and lightheadedness. The pt's BP in sitting after 5 mins on [employer] is 136/77 mmHg. Upon performing STS to attempt to perform mCTSIB, the pt reports dizziness/ lightheadedness and needing to sit. Pt sat down and BP is 128/74. Pt was allowed to rest and performed STS again, this time BP was assessed in standing and is 110/73 and again reports symptoms. Pt returned to sitting and symptoms resolved after a few minutes. The pt was then able to complete seated exercises with mild symptoms of dizziness and lightheadedness. At end of session, pt's was informed of findings. Both pt and pt's were educated on LSVT BIG program including benefits for pts with PD, and need for MD referral in order to evaluate. Physical Therapy Plan Frequency and Duration Frequency of Treatment 2x/Week Duration of treatment (weeks) 8 Plan of Care Start Date 11/08/22 Plan of Care End Date 01/03/23 Therapeutic Interventions Therapeutic Interventions Balance Training,Coordination Training,Gait Training,Home Exercise Program,Joint Mobilizations,Manual Therapy, Neuromuscular Re-education, Orthotic/Prosthetic Management ,Patient/Caregiver Education, Self-Care/Home Management,Soft Tissue Mobilization,Taping, Therapeutic Activities, Therapeutic Exercises Modalities Cold Pack/Ice Massage,Electric Stimulation,Hot Packs Other Referrals/Consults Referrals/Consults Recommended May benefit from evaluation for LSVT BIG program. Next Visit Focus/Plan Next Note Type Treatment Note Next Visit Plan Continue with STS and gait with 4WW practice focusing on safety and proper mechanics.
--- NOTE | 2022-12-23 13:28 | PT.OTN ---
Current Diagnoses Parkinson's disease (12/23/22) Bilateral primary osteoarthritis of hip (12/23/22) Radiculopathy, lumbar region (12/23/22) Ataxia, unspecified (12/23/22) Physical Therapy Treatment Note PT-OP-A Visit Information Start: 11/08/22 15:09 Freq: Status: Active Protocol: Document 12/23/22 10:28 NBM (Rec: 12/23/22 13:26 NBM [id number]) Out-Patient Physical Therapy Visit Information Visit Information Visit Type Treatment Note Visit Note Start of session sitting B/P: 119/72 HR 68 bpm. standing 121 /72 HR 72 After w/u sitting B/P 120/77 74 bpm, standing b/p 127/76 Visit Start Time 11:30 Visit Stop Time 12:15 Total Visit Minutes 45 Visit Number 9 Number of WEED SPRAYER Visits 1 PT-OP-B Current Condition Start: 11/08/22 15:09 Freq: Status: Active Protocol: Document 12/21/22 10:58 AB (Rec: 12/21/22 15:26 AB [id number]) Current Condition Prior Functional Status Baseline Function- ADL's Needs Assist Baseline Function- Mobility Needs Assist Baseline Function- Gait Uses FWW at home, 4WW in community Baseline Function- Work/School Retired Current Functional Impairments (Reported) Functional Limitations- Other Same level of function, however is more unstable when walking PT-OP-C Subjective Start: 11/08/22 15:09 Freq: Status: Active Protocol: Document 12/23/22 10:28 NBM (Rec: 12/23/22 13:26 NBM [id number]) OP-PT Subjective Patient Comments Patient Comments Enrique and spouse report no blood pressure issues today. Pt is feeling good. Spouse plans to talk to pt's PCP about LSVT BIG program. Enrique reports manual therapy helped R arm pain last visit. PT-OP-D Balance Start: 11/08/22 15:09 Freq: Status: Active Protocol: Document 11/08/22 15:10 AB (Rec: 11/08/22 16:30 AB [id number]) Balance Tests mCTSIB mCTSIB Position 1 30 sec mCTSIB Position 2 30 sec mild sway mCTSIB Position 3 30 sec mod sway mCTSIB Position 4 8 sec with anterior LOB PT-OP-E Functional Tests Start: 11/08/22 15:09 Freq: Status: Active Protocol: Document 11/08/22 15:10 AB (Rec: 11/08/22 16:30 AB [id number]) Functional Tests Five Times Sit to Stand Test Score 20.08 sec Comments High fall risk; with BUEs Timed Up and Go (TUG) Score 31.51 sec without AD; 27.15 with 4WW PT-OP-G Mobility & Gait Start: 11/08/22 15:09 Freq: Status: Active Protocol: Document 11/08/22 15:10 AB (Rec: 11/08/22 16:30 AB [id number]) OP Mobility Evaluation Transfers Sit to Stand SBA to IND, uses BUEs and uses back of legs on chair for stability Poor safety awareness when performing stand<>sit OP Gait Assessment Gait Gait Assistance Required: Contact Guard Assist,1 Person Assist Distance (Feet) 200 Assistive Devices Assistive Device Gait Belt,4 Wheeled Walker Gait Deviations General Gait Pattern Decreased Stride Length, Decreased Feet Clearance, Flexed Trunk,Narrow Based Gait Factors Limiting Gait Function Factors Limiting Gait Function Difficulty Following Directions,Incoordination, Limited Range of Motion,Poor Balance,Poor Safety Awareness Comments Gait Comments Pt has poor safety awareness when ambulatinWW is too far, does not pay attention to obstacles in the way PT-OP-M Strength Start: 11/08/22 15:09 Freq: Status: Active Protocol: Document 12/21/22 10:58 AB (Rec: 12/21/22 15:26 AB [id number]) Hip Strength Hip Manual Muscle Testing Right Flexion (L2) 5 Normal Extension (S1) 4 Good Abduction 4 Good Adduction 4+ Good+ External Rotation 4 Good Internal Rotation 4 Good Left Flexion (L2) 5 Normal Extension (S1) 4 Good Abduction 4 Good Adduction 4+ Good+ External Rotation 4 Good Internal Rotation 4 Good Knee Strength Knee Manual Muscle Testing Right Flexion (S2) 4 Good Extension (L3) 5 Normal Left Flexion (S2) 4 Good Extension (L3) 5 Normal PT-OP-Q Treatments Start: 11/08/22 15:09 Freq: Status: Active Protocol: Document 12/23/22 10:28 NBM (Rec: 12/23/22 13:26 NBM [id number]) Cardio Equipment Recumbent Elliptical (Un[employer]) Duration (Minutes) 6 Seat Position 13 seen Other UEs/LEs, visual target 30RPMs, push through heels, foot placement Therapeutic Exercises Sitting Exercises Floor to Ceiling ex Sitting Exercise Name fwd reach>floor reach>ceiling reach>>side reach Side bilateral Equipment Used standard mesh chair, finger flicks to side Reps/Minutes x5 Comments pt reports RUE pain; cues for large amplitude, pause for slower RUE marching Sitting Exercise Name 1. marching 2. alt midline foot tap 3. alt foot tap to cone w/ LE alignment Side bilateral Resistance 1# ea LE Equipment Used two cones; modA for RLE for LE alignment Reps/Minutes x5 ea, x8 ea w/ foot taps to middle cone, then lateral Comments Emphasizing big movement, demonstration STS Equipment Used standard mesh chair Reps/Minutes x8 ea Comments with LUE, cues for tall posture, slower pacing, hand placement Gait Training Gait Activity 4WW Description Ambulating in clinic w/ 4WW Device Used 4WW Level of Assistance CGA Surface carpet Distance/Duration 70', 40', 70' Treatment Focus safety, proximation, upright posture, STS Comments Focus on proximation, upright posture, safe hand placement. Manual Therapy Treatment Soft Tissue Mobilization R shoulder Body Location R UT, LS, supraspinatus, infraspinatus, teres minor Mobilization Type Rolling,Strumming,Sustained Pressure Intensity/Depth Moderate Body Position Sitting Comments R UT focus PT-OP-T Assessment and Plan Start: 11/08/22 15:09 Freq: Status: Active Protocol: Document 12/23/22 10:28 [facility] (Rec: 12/23/22 13:26 [facility] [id number]) Physical Therapy Assessment Goals Four Impairment mCTSIB Short Term Goal (STG) Pt to be able to perform conditions 2 and 3 of mCTSIB with minimal to no abnormal sway to show improving static balance to reduce fall risk. STG Duration 4 Prison Goal (LTG) Pt to be able to perform condition 4 of mCTSIB for 15 seconds or better with minimal to no abnormal sway to show improving static balance to reduce fall risk. LTG Duration 8 Three Impairment TUG Short Term Goal (STG) Pt's TUG with an AD to improve to 22 seconds or better to show improving dynamic balance in order to reduce fall risk. STG Duration 4 Traffic Control Specialist Goal (LTG) Pt's TUG with an AD to improve to 18 seconds or better to show improving dynamic balance in order to reduce fall risk. LTG Duration 8 Two Impairment 5x STS Short Term Goal (STG) Pt's 5xSTS to improve to 16 seconds or better to show improving LE strength and stability to reduce fall risk. STG Duration 4 Prison Goal (LTG) Pt's 5xSTS to improve to 13 seconds or better to show improving LE strength and stability to reduce fall risk. LTG Duration 8 One Impairment LE strength Short Term Goal (STG) Pt's gross LE MMT scores to improve to 4/5 or better to show improving strength to perform functional mobility and increase stability. STG Duration 4 Prison Goal (LTG) Pt's gross LE MMT scores to improve to 5/5 to show improved strength to perform functional mobility and increase stability. LTG Duration 8 Assessment Summary Assessment Blood pressure values taken start of session in seating and standing and again after warmup and remain stable. Treatment focus on Sit to stand, gait w/ 4WW, and manual therapy to RUE. Enrique requires maximum cues for slower pacing and eccentric control w / STS. Emphasis on large amplitude movements w/ gait and proximation of 4WW. Pt requires less cueing today for proximation of 4WW and use of brakes demonstrating improving safety. He is able to accurately transition from standing to sitting after ambulating w/ 4WW today when approaching seat from his Left but requires maximum cues for target when approaching seat from his R. Pt compensates for RLE hip flexion w/ hip ER requiring modA for cone tap. Floor to ceiling ex discontinued today per pt's report of R arm pain which limits R arm abduction w/ elbow extension. Pt reports arm pain from shoulder down to R elbow. Palpable tightness to R Upper trapezius improves w/ soft tissue mobilization and pt reports decreased R upper extremity pain after. Physical Therapy Plan Frequency and Duration Frequency of Treatment 2x/Week Duration of treatment (weeks) 8 Plan of Care Start Date 11/08/22 Plan of Care End Date 01/03/23 Therapeutic Interventions Therapeutic Interventions Balance Training,Coordination Training,Gait Training,Home Exercise Program,Joint Mobilizations,Manual Therapy, Neuromuscular Re-education, Orthotic/Prosthetic Management ,Patient/Caregiver Education, Self-Care/Home Management,Soft Tissue Mobilization,Taping, Therapeutic Activities, Therapeutic Exercises Modalities Cold Pack/Ice Massage,Electric Stimulation,Hot Packs Other Referrals/Consults Referrals/Consults Recommended May benefit from evaluation for LSVT BIG program. Next Visit Focus/Plan Next Note Type Treatment Note Next Visit Plan Continue with STS and gait with 4WW practice focusing on safety and proper mechanics.
--- NOTE | 2023-01-04 17:03 | PT.OTN ---
Current Diagnoses Parkinson's disease (01/04/23) Bilateral primary osteoarthritis of hip (01/04/23) Radiculopathy, lumbar region (01/04/23) Ataxia, unspecified (01/04/23) Physical Therapy Treatment Note PT-OP-A Visit Information Start: 11/08/22 15:09 Freq: Status: Active Protocol: Document 01/04/23 11:07 AB (Rec: 01/04/23 17:02 AB [id number]) Out-Patient Physical Therapy Visit Information Visit Information Visit Type Progress Note Visit Note BP is stable throughout session. Visit Start Time 11:00 Visit Stop Time 11:45 Total Visit Minutes 45 Visit Number 12 Evaluation Information Evaluation Date 11/08/22 Precautions Precautions Parkinson's disease Only able to answer yes/no questions due to word finding difficulties HTN PT-OP-B Current Condition Start: 11/08/22 15:09 Freq: Status: Active Protocol: Document 01/04/23 11:07 AB (Rec: 01/04/23 17:02 AB [id number]) Current Condition History of Current Condition Onset Date Chronic Current Complaints Right sided weakness, frequent falls History of Current Condition Pt confirms ED visit yesterday due to increased pain the the abdominal area where he had surgery on 09/20/22. He also confirms a fall today and a fall on 10/18/22 which caused an injury to his right elbow. The pt confirms that he is experiencing right sided weakness and imbalance which are leading to falls. His confirmed this information, and stated that the pt's neurologist has increased his PD medication to help with muscle stiffness. Treatment Goals Patient/Caregiver Goals To decrease his fall risk. Current Functional Impairments (Reported) Functional Limitations- Other Same level of function, however is more unstable when walking PT-OP-C Subjective Start: 11/08/22 15:09 Freq: Status: Active Protocol: Document 01/04/23 11:07 AB (Rec: 01/04/23 17:02 AB [id number]) OP-PT Subjective Patient Comments Patient Comments The pt and his spouse deny any falls since last visit, and report his BP has been stable. They both agree that Enrique is feeling stronger and is a little more mobile. However, his reports continue concern regarding his safety when performing STS or when sitting down, as a few of his falls have occurred when missing the seat or sitting down too hard causing the seat to tip over. PT-OP-D Balance Start: 11/08/22 15:09 Freq: Status: Active Protocol: Document 01/04/23 11:07 AB (Rec: 01/04/23 17:02 AB [id number]) Balance Tests mCTSIB mCTSIB Position 1 30 sec mCTSIB Position 2 30 sec mCTSIB Position 3 30 sec mild sway mCTSIB Position 4 26 sec, lateral LOB PT-OP-E Functional Tests Start: 11/08/22 15:09 Freq: Status: Active Protocol: Document 01/04/23 11:07 AB (Rec: 01/04/23 17:02 AB [id number]) Functional Tests Five Times Sit to Stand Test Score 17.78 seconds Comments High fall risk; with BUEs Timed Up and Go (TUG) Score 25.88 sec without AD; 30.51 with FWW PT-OP-G Mobility & Gait Start: 11/08/22 15:09 Freq: Status: Active Protocol: Document 01/04/23 11:07 AB (Rec: 01/04/23 17:02 AB [id number]) OP Gait Assessment Gait Gait Assistance Required: Standby Assistance,1 Person Assist Distance (Feet) 50 Assistive Devices Assistive Device Gait Belt,Front Wheeled Walker Gait Deviations General Gait Pattern Decreased Stride Length, Decreased Feet Clearance, Flexed Trunk,Narrow Based Gait Factors Limiting Gait Function Factors Limiting Gait Function Difficulty Following Directions,Incoordination, Limited Range of Motion,Poor Balance,Poor Safety Awareness Comments Gait Comments Assessed pt's use of FWW: much improved stability noted with FWW compared to 4WW. PT adjusted height and placement of wheels vs tennis balls on walker (wheels were originally on back side). PT-OP-M Strength Start: 11/08/22 15:09 Freq: Status: Active Protocol: Document 01/04/23 11:07 AB (Rec: 01/04/23 17:02 AB [id number]) Hip Strength Hip Manual Muscle Testing Right Flexion (L2) 5 Normal Extension (S1) 4 Good Abduction 4 Good Adduction 4+ Good+ External Rotation 4 Good Internal Rotation 4 Good Left Flexion (L2) 5 Normal Extension (S1) 4 Good Abduction 4 Good Adduction 4+ Good+ External Rotation 4 Good Internal Rotation 4 Good Knee Strength Knee Manual Muscle Testing Right Flexion (S2) 4 Good Extension (L3) 5 Normal Left Flexion (S2) 4 Good Extension (L3) 5 Normal PT-OP-Q Treatments Start: 11/08/22 15:09 Freq: Status: Active Protocol: Document 01/04/23 11:07 AB (Rec: 01/04/23 17:02 AB [id number]) Cardio Equipment Recumbent Stepper (Sci-Fit) Duration (Minutes) 8 Gait Training Gait Activity FWW Description Assessment of FWW Device Used FWW Level of Assistance SBA/CGA Surface even Distance/Duration 50 Treatment Focus proper use of FWW; adjusted height and legs of FWW Self-Care/Home Management Treatment Education Patient Education Fall Risk,Home Exercise Program,Safety Caregiver Education Discussed with pt and spouse regarding progress note findings, LSVT BIG eval and updated POC, and safety when sitting and when using 4WW vs FWW PT-OP-T Assessment and Plan Start: 11/08/22 15:09 Freq: Status: Active Protocol: Document 01/04/23 11:07 AB (Rec: 01/04/23 17:02 AB [id number]) Physical Therapy Assessment Goals Four Impairment mCTSIB Short Term Goal (STG) Pt to be able to perform conditions 2 and 3 of mCTSIB with minimal to no abnormal sway to show improving static balance to reduce fall risk. STG Duration 4 Business Solutions Director Goal (LTG) Pt to be able to perform condition 4 of mCTSIB for 15 seconds or better with minimal to no abnormal sway to show improving static balance to reduce fall risk. LTG Duration 8 Three Impairment TUG Short Term Goal (STG) Pt's TUG with an AD to improve to 22 seconds or better to show improving dynamic balance in order to reduce fall risk. STG Duration 4 Business Solutions Director Goal (LTG) Pt's TUG with an AD to improve to 18 seconds or better to show improving dynamic balance in order to reduce fall risk. LTG Duration 8 Two Impairment 5x STS Short Term Goal (STG) Pt's 5xSTS to improve to 16 seconds or better to show improving LE strength and stability to reduce fall risk. STG Duration 4 Senior Care Goal (LTG) Pt's 5xSTS to improve to 13 seconds or better to show improving LE strength and stability to reduce fall risk. LTG Duration 8 One Impairment LE strength Short Term Goal (STG) Pt's gross LE MMT scores to improve to 4/5 or better to show improving strength to perform functional mobility and increase stability. STG Duration 4 Senior Care Goal (LTG) Pt's gross LE MMT scores to improve to 5/5 to show improved strength to perform functional mobility and increase stability. LTG Duration 8 Progress Towards Goals Progress Towards Goals Progressing Toward Goals Assessment Summary Assessment Enrique has completed 11 visits of skilled PT to address his high fall risk and functional mobility deficits. The pt shows improvement in his 5x STS, TUG, MMT scores, and mCTSIB. However, minimal improvements in gait mechanics and safety awareness have been made, and the pt continues to have falls. Based on his improvements but high fall risk and remaining deficits, the pt would benefit from continued skilled PT interventions. Participating in LSVT BIG program was discussed with the pt and spouse, and they are agreeable to this. The pt's POC will be extended in order for the pt to continue to participate in PT and to continue making gains, then will be discharged from this case before undergoing LSVT BIG evaluation to avoid a gap in care. Physical Therapy Plan Frequency and Duration Frequency of Treatment 2x/Week Duration of treatment (weeks) 8 Plan of Care Start Date 01/04/23 Plan of Care End Date 03/01/23 Therapeutic Interventions Therapeutic Interventions Balance Training,Coordination Training,Gait Training,Home Exercise Program,Joint Mobilizations,Manual Therapy, Neuromuscular Re-education, Orthotic/Prosthetic Management ,Patient/Caregiver Education, Self-Care/Home Management,Soft Tissue Mobilization,Taping, Therapeutic Activities, Therapeutic Exercises Modalities Cold Pack/Ice Massage,Electric Stimulation,Hot Packs Next Visit Focus/Plan Next Note Type Treatment Note Next Visit Plan Continue with STS and gait with 4WW practice focusing on safety and proper mechanics.
--- NOTE | 2023-01-04 17:04 | PT.OPPOC ---
Physical, Occupational & Speech Therapy At [facility] Current Diagnoses Parkinson's disease (01/04/23) Bilateral primary osteoarthritis of hip (01/04/23) Radiculopathy, lumbar region (01/04/23) Ataxia, unspecified (01/04/23) Visit Care Team Role Provider Type Luciano Cheung DO Attending Provider Physician Family Provider Primary Care Provider Referring Provider Specialty: Family Practice Address: [address] [place] [address], [facility] Email: Plan Of Care PT-OP-T Assessment and Plan Start: 11/08/22 15:09 Freq: Status: Active Protocol: Document 01/04/23 11:07 AB (Rec: 01/04/23 17:02 AB [id number]) Physical Therapy Assessment Goals Four Impairment mCTSIB Short Term Goal (STG) Pt to be able to perform conditions 2 and 3 of mCTSIB with minimal to no abnormal sway to show improving static balance to reduce fall risk. STG Duration 4 Fuel Quality Tech Goal (LTG) Pt to be able to perform condition 4 of mCTSIB for 15 seconds or better with minimal to no abnormal sway to show improving static balance to reduce fall risk. LTG Duration 8 Three Impairment TUG Short Term Goal (STG) Pt's TUG with an AD to improve to 22 seconds or better to show improving dynamic balance in order to reduce fall risk. STG Duration 4 Fuel Quality Tech Goal (LTG) Pt's TUG with an AD to improve to 18 seconds or better to show improving dynamic balance in order to reduce fall risk. LTG Duration 8 Two Impairment 5x STS Short Term Goal (STG) Pt's 5xSTS to improve to 16 seconds or better to show improving LE strength and stability to reduce fall risk. STG Duration 4 Fuel Quality Tech Goal (LTG) Pt's 5xSTS to improve to 13 seconds or better to show improving LE strength and stability to reduce fall risk. LTG Duration 8 One Impairment LE strength Short Term Goal (STG) Pt's gross LE MMT scores to improve to 4/5 or better to show improving strength to perform functional mobility and increase stability. STG Duration 4 Fuel Quality Tech Goal (LTG) Pt's gross LE MMT scores to improve to 5/5 to show improved strength to perform functional mobility and increase stability. LTG Duration 8 Progress Towards Goals Progress Towards Goals Progressing Toward Goals Assessment Summary Assessment Enrique has completed 11 visits of skilled PT to address his high fall risk and functional mobility deficits. The pt shows improvement in his 5x STS, TUG, MMT scores, and mCTSIB. However, minimal improvements in gait mechanics and safety awareness have been made, and the pt continues to have falls. Based on his improvements but high fall risk and remaining deficits, the pt would benefit from continued skilled PT interventions. Participating in LSVT BIG program was discussed with the pt and spouse, and they are agreeable to this. The pt's POC will be extended in order for the pt to continue to participate in PT and to continue making gains, then will be discharged from this case before undergoing LSVT BIG evaluation to avoid a gap in care. Physical Therapy Plan Frequency and Duration Frequency of Treatment 2x/Week Duration of treatment (weeks) 8 Plan of Care Start Date 01/04/23 Plan of Care End Date 03/01/23 Therapeutic Interventions Therapeutic Interventions Balance Training,Coordination Training,Gait Training,Home Exercise Program,Joint Mobilizations,Manual Therapy, Neuromuscular Re-education, Orthotic/Prosthetic Management ,Patient/Caregiver Education, Self-Care/Home Management,Soft Tissue Mobilization,Taping, Therapeutic Activities, Therapeutic Exercises Modalities Cold Pack/Ice Massage,Electric Stimulation,Hot Packs Next Visit Focus/Plan Next Note Type Treatment Note Next Visit Plan Continue with STS and gait with 4WW practice focusing on safety and proper mechanics. Plan of Care Dates Plan of Care Start Date 01/04/23 Plan of Care End Date 03/01/23 Electronically Signed by: Ernesto Martin, PT 01/04/23 2597 If you are in agreement with this Plan of Care, please return a signed and dated copy. I have reviewed this Plan of Care and certify that the skilled therapy services above are required to meet the patient?s needs. Physician Signature Date Printed Name and Credentials Clinical Instructor Signature Printed Name and Credentials
--- NOTE | 2023-01-06 12:50 | PT.OTN ---
Current Diagnoses Parkinson's disease (01/06/23) Bilateral primary osteoarthritis of hip (01/06/23) Radiculopathy, lumbar region (01/06/23) Ataxia, unspecified (01/06/23) Physical Therapy Treatment Note PT-OP-A Visit Information Start: 11/08/22 15:09 Freq: Status: Active Protocol: Document 01/06/23 11:34 NBM (Rec: 01/06/23 11:44 NBM [id number]) Out-Patient Physical Therapy Visit Information Visit Information Visit Type Treatment Note Visit Note EOS BP: H 106/72 HR 69 bpm Visit Start Time 11:35 Visit Stop Time 12:15 Total Visit Minutes 40 Visit Number 13 Number of ANESTHESIA RESIDENT Visits 1 Evaluation Information Evaluation Date 11/08/22 Precautions Precautions Parkinson's disease Only able to answer yes/no questions due to word finding difficulties HTN PT-OP-B Current Condition Start: 11/08/22 15:09 Freq: Status: Active Protocol: Document 01/04/23 11:07 AB (Rec: 01/04/23 17:02 AB [id number]) Current Condition History of Current Condition Onset Date Chronic Current Complaints Right sided weakness, frequent falls History of Current Condition Pt confirms ED visit yesterday due to increased pain the the abdominal area where he had surgery on 09/20/22. He also confirms a fall today and a fall on 10/18/22 which caused an injury to his right elbow. The pt confirms that he is experiencing right sided weakness and imbalance which are leading to falls. His confirmed this information, and stated that the pt's neurologist has increased his PD medication to help with muscle stiffness. Treatment Goals Patient/Caregiver Goals To decrease his fall risk. Current Functional Impairments (Reported) Functional Limitations- Other Same level of function, however is more unstable when walking PT-OP-C Subjective Start: 11/08/22 15:09 Freq: Status: Active Protocol: Document 01/06/23 11:34 NBM (Rec: 01/06/23 11:46 NBM [id number]) OP-PT Subjective Patient Comments Patient Comments Enrique and spouse report he is doing well and blood pressure has been stable for several days; no new falls or near falls. Spouse reports they have been using a heating pad for pt's R shoulder. PT-OP-D Balance Start: 11/08/22 15:09 Freq: Status: Active Protocol: Document 01/04/23 11:07 AB (Rec: 01/04/23 17:02 AB [id number]) Balance Tests mCTSIB mCTSIB Position 1 30 sec mCTSIB Position 2 30 sec mCTSIB Position 3 30 sec mild sway mCTSIB Position 4 26 sec, lateral LOB PT-OP-E Functional Tests Start: 11/08/22 15:09 Freq: Status: Active Protocol: Document 01/04/23 11:07 AB (Rec: 01/04/23 17:02 AB [id number]) Functional Tests Five Times Sit to Stand Test Score 17.78 seconds Comments High fall risk; with BUEs Timed Up and Go (TUG) Score 25.88 sec without AD; 30.51 with FWW PT-OP-G Mobility & Gait Start: 11/08/22 15:09 Freq: Status: Active Protocol: Document 01/04/23 11:07 AB (Rec: 01/04/23 17:02 AB [id number]) OP Gait Assessment Gait Gait Assistance Required: Standby Assistance,1 Person Assist Distance (Feet) 50 Assistive Devices Assistive Device Gait Belt,Front Wheeled Walker Gait Deviations General Gait Pattern Decreased Stride Length, Decreased Feet Clearance, Flexed Trunk,Narrow Based Gait Factors Limiting Gait Function Factors Limiting Gait Function Difficulty Following Directions,Incoordination, Limited Range of Motion,Poor Balance,Poor Safety Awareness Comments Gait Comments Assessed pt's use of FWW: much improved stability noted with FWW compared to 4WW. PT adjusted height and placement of wheels vs tennis balls on walker (wheels were originally on back side). PT-OP-M Strength Start: 11/08/22 15:09 Freq: Status: Active Protocol: Document 01/04/23 11:07 AB (Rec: 01/04/23 17:02 AB [id number]) Hip Strength Hip Manual Muscle Testing Right Flexion (L2) 5 Normal Extension (S1) 4 Good Abduction 4 Good Adduction 4+ Good+ External Rotation 4 Good Internal Rotation 4 Good Left Flexion (L2) 5 Normal Extension (S1) 4 Good Abduction 4 Good Adduction 4+ Good+ External Rotation 4 Good Internal Rotation 4 Good Knee Strength Knee Manual Muscle Testing Right Flexion (S2) 4 Good Extension (L3) 5 Normal Left Flexion (S2) 4 Good Extension (L3) 5 Normal PT-OP-Q Treatments Start: 11/08/22 15:09 Freq: Status: Active Protocol: Document 01/06/23 11:34 [facility] (Rec: 01/06/23 11:44 [facility] [id number]) Cardio Equipment Recumbent Elliptical (Biodex) Duration (Minutes) 8 Seat Position 11 seen, UE Lvl 5 Other UEs/LEs, visual target 30RPMs, push through heels, foot placement Recumbent Stepper (Sci-Fit) Other attempted, dc'd d/t pt report of R LE pain Therapeutic Exercises Sitting Exercises DF Sitting Exercise Name Dorsiflexion Side bilateral Reps/Minutes x15 Comments same time for neurofeedback, cues for slower pacing w/ fatigue Hip adduction Sitting Exercise Name seated ball squeeze Side bilateral Equipment Used blue/white ball Reps/Minutes 10 x5SH Comments verbal count Hip ER Sitting Exercise Name seated clamshells Side bilateral Resistance Lvl 1 Tb Reps/Minutes x8 Comments visual and tactile cues for RLE to midline marching Sitting Exercise Name 1. marching Side bilateral Resistance 1# ea LE Reps/Minutes x5 ea Comments Emphasizing big movement, demonstration LAQs Side bilateral Resistance 1# ea LE Reps/Minutes x10 ea Comments Emphasizing big movement, demonstration, visual target Neuro Re-Education Treatment Balance Activities // bars Comments 1. fwd/bwd ambulation 4x10ft ea - cues for upright posture , focal point, large amplitude . 2HHA. Pt freezes w/ bwd ambulation after about 10 small steps. 2. static balance EO/EC x30s ea. Head turns attempted but pt unable to perform without turning trunk or initiating forward ambulation. PT-OP-T Assessment and Plan Start: 11/08/22 15:09 Freq: Status: Active Protocol: Document 01/06/23 11:34 [facility] (Rec: 01/06/23 11:46 [facility] [id number]) Physical Therapy Assessment Goals Four Impairment mCTSIB Short Term Goal (STG) Pt to be able to perform conditions 2 and 3 of mCTSIB with minimal to no abnormal sway to show improving static balance to reduce fall risk. STG Duration 4 Snf Goal (LTG) Pt to be able to perform condition 4 of mCTSIB for 15 seconds or better with minimal to no abnormal sway to show improving static balance to reduce fall risk. LTG Duration 8 Three Impairment TUG Short Term Goal (STG) Pt's TUG with an AD to improve to 22 seconds or better to show improving dynamic balance in order to reduce fall risk. STG Duration 4 Snf Goal (LTG) Pt's TUG with an AD to improve to 18 seconds or better to show improving dynamic balance in order to reduce fall risk. LTG Duration 8 Two Impairment 5x STS Short Term Goal (STG) Pt's 5xSTS to improve to 16 seconds or better to show improving LE strength and stability to reduce fall risk. STG Duration 4 Instructional Technology Specialist Goal (LTG) Pt's 5xSTS to improve to 13 seconds or better to show improving LE strength and stability to reduce fall risk. LTG Duration 8 One Impairment LE strength Short Term Goal (STG) Pt's gross LE MMT scores to improve to 4/5 or better to show improving strength to perform functional mobility and increase stability. STG Duration 4 Instructional Technology Specialist Goal (LTG) Pt's gross LE MMT scores to improve to 5/5 to show improved strength to perform functional mobility and increase stability. LTG Duration 8 Assessment Summary Assessment Enrique is able to tolerate balance ex today in parallel bars w/ regular seated rest breaks and without change in BP. He consistently freezes with backwards ambulation. He follows cues for static balance w/ WBOS EO/EC but is challenged to perform head turns without moving whole body or initiating forward walking. BP assessed end of session is in normal range 106 /72. Physical Therapy Plan Frequency and Duration Frequency of Treatment 2x/Week Duration of treatment (weeks) 8 Plan of Care Start Date 01/04/23 Plan of Care End Date 03/01/23 Therapeutic Interventions Therapeutic Interventions Balance Training,Coordination Training,Gait Training,Home Exercise Program,Joint Mobilizations,Manual Therapy, Neuromuscular Re-education, Orthotic/Prosthetic Management ,Patient/Caregiver Education, Self-Care/Home Management,Soft Tissue Mobilization,Taping, Therapeutic Activities, Therapeutic Exercises Modalities Cold Pack/Ice Massage,Electric Stimulation,Hot Packs Other Referrals/Consults Referrals/Consults Recommended May benefit from evaluation for LSVT BIG program. Next Visit Focus/Plan Next Note Type Treatment Note Next Visit Plan Consider STM to RUE. POC: Continue with STS and gait with 4WW practice focusing on safety and proper mechanics.
--- NOTE | 2023-01-11 13:25 | PT.OTN ---
Current Diagnoses Parkinson's disease (01/11/23) Bilateral primary osteoarthritis of hip (01/11/23) Radiculopathy, lumbar region (01/11/23) Ataxia, unspecified (01/11/23) Physical Therapy Treatment Note PT-OP-A Visit Information Start: 11/08/22 15:09 Freq: Status: Active Protocol: Document 01/11/23 11:06 AB (Rec: 01/11/23 13:27 AB [id number]) Out-Patient Physical Therapy Visit Information Visit Information Visit Type Treatment Note Visit Start Time 11:02 Visit Stop Time 11:45 Total Visit Minutes 43 Visit Number 14 Evaluation Information Evaluation Date 11/08/22 Precautions Precautions Parkinson's disease Only able to answer with one word answers due to word finding difficulties HTN PT-OP-B Current Condition Start: 11/08/22 15:09 Freq: Status: Active Protocol: Document 01/04/23 11:07 AB (Rec: 01/04/23 17:02 AB [id number]) Current Condition History of Current Condition Onset Date Chronic Current Complaints Right sided weakness, frequent falls History of Current Condition Pt confirms ED visit yesterday due to increased pain the the abdominal area where he had surgery on 09/20/22. He also confirms a fall today and a fall on 10/18/22 which caused an injury to his right elbow. The pt confirms that he is experiencing right sided weakness and imbalance which are leading to falls. His confirmed this information, and stated that the pt's neurologist has increased his PD medication to help with muscle stiffness. Treatment Goals Patient/Caregiver Goals To decrease his fall risk. Current Functional Impairments (Reported) Functional Limitations- Other Same level of function, however is more unstable when walking PT-OP-C Subjective Start: 11/08/22 15:09 Freq: Status: Active Protocol: Document 01/11/23 11:06 AB (Rec: 01/11/23 13:27 AB [id number]) OP-PT Subjective Patient Comments Patient Comments The pt reports he is doing good. He denies any recent falls. PT-OP-D Balance Start: 11/08/22 15:09 Freq: Status: Active Protocol: Document 01/04/23 11:07 AB (Rec: 01/04/23 17:02 AB [id number]) Balance Tests mCTSIB mCTSIB Position 1 30 sec mCTSIB Position 2 30 sec mCTSIB Position 3 30 sec mild sway mCTSIB Position 4 26 sec, lateral LOB PT-OP-E Functional Tests Start: 11/08/22 15:09 Freq: Status: Active Protocol: Document 01/04/23 11:07 AB (Rec: 01/04/23 17:02 AB [id number]) Functional Tests Five Times Sit to Stand Test Score 17.78 seconds Comments High fall risk; with BUEs Timed Up and Go (TUG) Score 25.88 sec without AD; 30.51 with FWW PT-OP-G Mobility & Gait Start: 11/08/22 15:09 Freq: Status: Active Protocol: Document 01/04/23 11:07 AB (Rec: 01/04/23 17:02 AB [id number]) OP Gait Assessment Gait Gait Assistance Required: Standby Assistance,1 Person Assist Distance (Feet) 50 Assistive Devices Assistive Device Gait Belt,Front Wheeled Walker Gait Deviations General Gait Pattern Decreased Stride Length, Decreased Feet Clearance, Flexed Trunk,Narrow Based Gait Factors Limiting Gait Function Factors Limiting Gait Function Difficulty Following Directions,Incoordination, Limited Range of Motion,Poor Balance,Poor Safety Awareness Comments Gait Comments Assessed pt's use of FWW: much improved stability noted with FWW compared to 4WW. PT adjusted height and placement of wheels vs tennis balls on walker (wheels were originally on back side). PT-OP-M Strength Start: 11/08/22 15:09 Freq: Status: Active Protocol: Document 01/04/23 11:07 AB (Rec: 01/04/23 17:02 AB [id number]) Hip Strength Hip Manual Muscle Testing Right Flexion (L2) 5 Normal Extension (S1) 4 Good Abduction 4 Good Adduction 4+ Good+ External Rotation 4 Good Internal Rotation 4 Good Left Flexion (L2) 5 Normal Extension (S1) 4 Good Abduction 4 Good Adduction 4+ Good+ External Rotation 4 Good Internal Rotation 4 Good Knee Strength Knee Manual Muscle Testing Right Flexion (S2) 4 Good Extension (L3) 5 Normal Left Flexion (S2) 4 Good Extension (L3) 5 Normal PT-OP-Q Treatments Start: 11/08/22 15:09 Freq: Status: Active Protocol: Document 01/11/23 11:06 AB (Rec: 01/11/23 13:27 AB [id number]) Cardio Equipment Recumbent Stepper (Sci-Fit) Duration (Minutes) 5 Therapeutic Exercises Sitting Exercises marching Sitting Exercise Name 1. marching Side bilateral Resistance 1# ea LE Reps/Minutes 1x5, 1x10 ea Comments Emphasizing big movement, provided with target LAQs Side bilateral Resistance 1# ea LE Reps/Minutes 2x10 ea Comments Emphasizing big movement, visual target Gait Training Gait Activity Stepping amplitude Description Take big step forward then backward Device Used // bars Level of Assistance CGA Surface even Distance/Duration 2x5 reps ea Treatment Focus taking large step forward then backward Comments Pt was provided with visual cues to reach target when stepping forward. Distance of target from standing leg is about 12 inches. Neuro Re-Education Treatment Balance Activities // bars Comments 1. fwd/bwd ambulation 2x10ft ea - cues for upright posture , focal point, large amplitude . 2HHA PT-OP-T Assessment and Plan Start: 11/08/22 15:09 Freq: Status: Active Protocol: Document 01/11/23 11:06 AB (Rec: 01/11/23 13:27 AB [id number]) Physical Therapy Assessment Goals Four Impairment mCTSIB Short Term Goal (STG) Pt to be able to perform conditions 2 and 3 of mCTSIB with minimal to no abnormal sway to show improving static balance to reduce fall risk. STG Duration 4 Assisted Goal (LTG) Pt to be able to perform condition 4 of mCTSIB for 15 seconds or better with minimal to no abnormal sway to show improving static balance to reduce fall risk. LTG Duration 8 Three Impairment TUG Short Term Goal (STG) Pt's TUG with an AD to improve to 22 seconds or better to show improving dynamic balance in order to reduce fall risk. STG Duration 4 Software Consultant Goal (LTG) Pt's TUG with an AD to improve to 18 seconds or better to show improving dynamic balance in order to reduce fall risk. LTG Duration 8 Two Impairment 5x STS Short Term Goal (STG) Pt's 5xSTS to improve to 16 seconds or better to show improving LE strength and stability to reduce fall risk. STG Duration 4 Software Consultant Goal (LTG) Pt's 5xSTS to improve to 13 seconds or better to show improving LE strength and stability to reduce fall risk. LTG Duration 8 One Impairment LE strength Short Term Goal (STG) Pt's gross LE MMT scores to improve to 4/5 or better to show improving strength to perform functional mobility and increase stability. STG Duration 4 Software Consultant Goal (LTG) Pt's gross LE MMT scores to improve to 5/5 to show improved strength to perform functional mobility and increase stability. LTG Duration 8 Assessment Summary Assessment The focus of today's session is on improving step length amplitude. Recumbent elliptical was performed as a neuromuscular primer at the start of the session, then was followed by therex focusing on LE strengthening and big movements which are necessary for gait mechanics including hip flexion and knee extension . The the performed neuromuscular re-ed and gait training to improve step amplitude including fwd/bwd walking, and large steps fwd/ bwd to improve his gait mechanics. The pt requires visual and tactile cues to avoid shuffling gait and increase foot clearance. BP was stable throughout session. Physical Therapy Plan Frequency and Duration Frequency of Treatment 2x/Week Duration of treatment (weeks) 8 Plan of Care Start Date 01/04/23 Plan of Care End Date 03/01/23 Therapeutic Interventions Therapeutic Interventions Balance Training,Coordination Training,Gait Training,Home Exercise Program,Joint Mobilizations,Manual Therapy, Neuromuscular Re-education, Orthotic/Prosthetic Management ,Patient/Caregiver Education, Self-Care/Home Management,Soft Tissue Mobilization,Taping, Therapeutic Activities, Therapeutic Exercises Modalities Cold Pack/Ice Massage,Electric Stimulation,Hot Packs Other Referrals/Consults Referrals/Consults Recommended May benefit from evaluation for LSVT BIG program. Next Visit Focus/Plan Next Note Type Treatment Note Next Visit Plan Consider STM to RUE. POC: Continue with STS and gait with 4WW practice focusing on safety and proper mechanics.
--- NOTE | 2023-01-18 12:13 | PT.OTN ---
Current Diagnoses Parkinson's disease without dyskinesia, without mention of fluctuations (01/18/23) Bilateral primary osteoarthritis of hip (01/18/23) Radiculopathy, lumbar region (01/18/23) Ataxia, unspecified (01/18/23) Physical Therapy Treatment Note PT-OP-A Visit Information Start: 11/08/22 15:09 Freq: Status: Active Protocol: Document 01/18/23 11:07 AB (Rec: 01/18/23 12:13 AB [id number]) Out-Patient Physical Therapy Visit Information Visit Information Visit Type Treatment Note Visit Start Time 11:03 Visit Stop Time 11:48 Total Visit Minutes 45 Visit Number 15 PT-OP-B Current Condition Start: 11/08/22 15:09 Freq: Status: Active Protocol: Document 01/04/23 11:07 AB (Rec: 01/04/23 17:02 AB [id number]) Current Condition History of Current Condition Onset Date Chronic Current Complaints Right sided weakness, frequent falls History of Current Condition Pt confirms ED visit yesterday due to increased pain the the abdominal area where he had surgery on 09/20/22. He also confirms a fall today and a fall on 10/18/22 which caused an injury to his right elbow. The pt confirms that he is experiencing right sided weakness and imbalance which are leading to falls. His confirmed this information, and stated that the pt's neurologist has increased his PD medication to help with muscle stiffness. Treatment Goals Patient/Caregiver Goals To decrease his fall risk. Current Functional Impairments (Reported) Functional Limitations- Other Same level of function, however is more unstable when walking PT-OP-C Subjective Start: 11/08/22 15:09 Freq: Status: Active Protocol: Document 01/18/23 11:07 AB (Rec: 01/18/23 12:13 AB [id number]) OP-PT Subjective Patient Comments Patient Comments The pt reports his RUE is feeling better, and he is doing well overall. PT-OP-D Balance Start: 11/08/22 15:09 Freq: Status: Active Protocol: Document 01/04/23 11:07 AB (Rec: 01/04/23 17:02 AB [id number]) Balance Tests mCTSIB mCTSIB Position 1 30 sec mCTSIB Position 2 30 sec mCTSIB Position 3 30 sec mild sway mCTSIB Position 4 26 sec, lateral LOB PT-OP-E Functional Tests Start: 11/08/22 15:09 Freq: Status: Active Protocol: Document 01/04/23 11:07 AB (Rec: 01/04/23 17:02 AB [id number]) Functional Tests Five Times Sit to Stand Test Score 17.78 seconds Comments High fall risk; with BUEs Timed Up and Go (TUG) Score 25.88 sec without AD; 30.51 with FWW PT-OP-G Mobility & Gait Start: 11/08/22 15:09 Freq: Status: Active Protocol: Document 01/04/23 11:07 AB (Rec: 01/04/23 17:02 AB [id number]) OP Gait Assessment Gait Gait Assistance Required: Standby Assistance,1 Person Assist Distance (Feet) 50 Assistive Devices Assistive Device Gait Belt,Front Wheeled Walker Gait Deviations General Gait Pattern Decreased Stride Length, Decreased Feet Clearance, Flexed Trunk,Narrow Based Gait Factors Limiting Gait Function Factors Limiting Gait Function Difficulty Following Directions,Incoordination, Limited Range of Motion,Poor Balance,Poor Safety Awareness Comments Gait Comments Assessed pt's use of FWW: much improved stability noted with FWW compared to 4WW. PT adjusted height and placement of wheels vs tennis balls on walker (wheels were originally on back side). PT-OP-M Strength Start: 11/08/22 15:09 Freq: Status: Active Protocol: Document 01/04/23 11:07 AB (Rec: 01/04/23 17:02 AB [id number]) Hip Strength Hip Manual Muscle Testing Right Flexion (L2) 5 Normal Extension (S1) 4 Good Abduction 4 Good Adduction 4+ Good+ External Rotation 4 Good Internal Rotation 4 Good Left Flexion (L2) 5 Normal Extension (S1) 4 Good Abduction 4 Good Adduction 4+ Good+ External Rotation 4 Good Internal Rotation 4 Good Knee Strength Knee Manual Muscle Testing Right Flexion (S2) 4 Good Extension (L3) 5 Normal Left Flexion (S2) 4 Good Extension (L3) 5 Normal PT-OP-Q Treatments Start: 11/08/22 15:09 Freq: Status: Active Protocol: Document 01/18/23 11:07 AB (Rec: 01/18/23 12:13 AB [id number]) Cardio Equipment Recumbent Stepper (Sci-Fit) Duration (Minutes) 5 Therapeutic Exercises Standing Exercises Marching Standing Exercise Name Standing marching Side bilateral Equipment Used dowel on // bars for tactile/ visual cue Reps/Minutes 2x5 ea Comments requires max verbal, tactile and visual cues for proper performance Gait Training Gait Activity Stepping amplitude Description Take big step forward then backward Device Used // bars Level of Assistance CGA Surface even Distance/Duration 2x5 reps ea Treatment Focus taking large step forward then backward Comments Pt was provided with visual cues to reach target when stepping forward. Distance of target from standing leg is about 12 inches. 4WW Description Ambulating in clinic w/ 4WW Device Used 4WW Level of Assistance CGA Surface carpet, tile Distance/Duration 156ft, 183ft Treatment Focus safety, proximation, upright posture, STS, step length symmetry Comments Focus on proximation, upright posture, safe hand placement, step length symmetry. PT-OP-T Assessment and Plan Start: 11/08/22 15:09 Freq: Status: Active Protocol: Document 01/18/23 11:07 AB (Rec: 01/18/23 12:13 AB [id number]) Physical Therapy Assessment Goals Four Impairment mCTSIB Short Term Goal (STG) Pt to be able to perform conditions 2 and 3 of mCTSIB with minimal to no abnormal sway to show improving static balance to reduce fall risk. STG Duration 4 Fdc Goal (LTG) Pt to be able to perform condition 4 of mCTSIB for 15 seconds or better with minimal to no abnormal sway to show improving static balance to reduce fall risk. LTG Duration 8 Three Impairment TUG Short Term Goal (STG) Pt's TUG with an AD to improve to 22 seconds or better to show improving dynamic balance in order to reduce fall risk. STG Duration 4 Fdc Goal (LTG) Pt's TUG with an AD to improve to 18 seconds or better to show improving dynamic balance in order to reduce fall risk. LTG Duration 8 Two Impairment 5x STS Short Term Goal (STG) Pt's 5xSTS to improve to 16 seconds or better to show improving LE strength and stability to reduce fall risk. STG Duration 4 Fdc Goal (LTG) Pt's 5xSTS to improve to 13 seconds or better to show improving LE strength and stability to reduce fall risk. LTG Duration 8 One Impairment LE strength Short Term Goal (STG) Pt's gross LE MMT scores to improve to 4/5 or better to show improving strength to perform functional mobility and increase stability. STG Duration 4 Fdc Goal (LTG) Pt's gross LE MMT scores to improve to 5/5 to show improved strength to perform functional mobility and increase stability. LTG Duration 8 Assessment Summary Assessment Continued working on improving step length amplitude, especially of RLE. This was done by beginning on scifit for neural priming, the continued with therex and pre- gait training to strengthen and engage LE muscle groups needed for ambulation, and ended with ambulation in clinic with 4WW and CGA. Throughout session, the pt continues to require VCs for proper STS mechanics, as well as to take large step with RLE . He shows some recall in regards to controlling descent when sitting down, but can still be variable. He also requires extended rest breaks between sets and exercises due to fatigue. The pt continues to benefit from skilled PT at this time. Physical Therapy Plan Frequency and Duration Frequency of Treatment 2x/Week Duration of treatment (weeks) 8 Plan of Care Start Date 01/04/23 Plan of Care End Date 03/01/23 Therapeutic Interventions Therapeutic Interventions Balance Training,Coordination Training,Gait Training,Home Exercise Program,Joint Mobilizations,Manual Therapy, Neuromuscular Re-education, Orthotic/Prosthetic Management ,Patient/Caregiver Education, Self-Care/Home Management,Soft Tissue Mobilization,Taping, Therapeutic Activities, Therapeutic Exercises Modalities Cold Pack/Ice Massage,Electric Stimulation,Hot Packs
--- NOTE | 2023-01-25 14:13 | PT.OTN ---
Current Diagnoses Parkinson's disease without dyskinesia, without mention of fluctuations (01/25/23) Bilateral primary osteoarthritis of hip (01/25/23) Radiculopathy, lumbar region (01/25/23) Ataxia, unspecified (01/25/23) Physical Therapy Treatment Note PT-OP-A Visit Information Start: 11/08/22 15:09 Freq: Status: Active Protocol: Document 01/25/23 13:06 AB (Rec: 01/25/23 14:13 AB [id number]) Out-Patient Physical Therapy Visit Information Visit Information Visit Type Treatment Note Visit Start Time 13:03 Visit Stop Time 13:45 Total Visit Minutes 42 Visit Number 16 Evaluation Information Evaluation Date 11/08/22 Precautions Precautions Parkinson's disease Only able to answer with one word answers due to word finding difficulties HTN PT-OP-B Current Condition Start: 11/08/22 15:09 Freq: Status: Active Protocol: Document 01/04/23 11:07 AB (Rec: 01/04/23 17:02 AB [id number]) Current Condition History of Current Condition Onset Date Chronic Current Complaints Right sided weakness, frequent falls History of Current Condition Pt confirms ED visit yesterday due to increased pain the the abdominal area where he had surgery on 09/20/22. He also confirms a fall today and a fall on 10/18/22 which caused an injury to his right elbow. The pt confirms that he is experiencing right sided weakness and imbalance which are leading to falls. His confirmed this information, and stated that the pt's neurologist has increased his PD medication to help with muscle stiffness. Treatment Goals Patient/Caregiver Goals To decrease his fall risk. Current Functional Impairments (Reported) Functional Limitations- Other Same level of function, however is more unstable when walking PT-OP-C Subjective Start: 11/08/22 15:09 Freq: Status: Active Protocol: Document 01/25/23 13:06 AB (Rec: 01/25/23 14:13 AB [id number]) OP-PT Subjective Patient Comments Patient Comments The pt presents with increased swelling in RUE and upon questioning, the pt's reports Enrique had a fall over the weekend, when he was walking and tripped. His RUE was X-rayed and there were no fx found. PT-OP-D Balance Start: 11/08/22 15:09 Freq: Status: Active Protocol: Document 01/04/23 11:07 AB (Rec: 01/04/23 17:02 AB [id number]) Balance Tests mCTSIB mCTSIB Position 1 30 sec mCTSIB Position 2 30 sec mCTSIB Position 3 30 sec mild sway mCTSIB Position 4 26 sec, lateral LOB PT-OP-E Functional Tests Start: 11/08/22 15:09 Freq: Status: Active Protocol: Document 01/04/23 11:07 AB (Rec: 01/04/23 17:02 AB [id number]) Functional Tests Five Times Sit to Stand Test Score 17.78 seconds Comments High fall risk; with BUEs Timed Up and Go (TUG) Score 25.88 sec without AD; 30.51 with FWW PT-OP-G Mobility & Gait Start: 11/08/22 15:09 Freq: Status: Active Protocol: Document 01/04/23 11:07 AB (Rec: 01/04/23 17:02 AB [id number]) OP Gait Assessment Gait Gait Assistance Required: Standby Assistance,1 Person Assist Distance (Feet) 50 Assistive Devices Assistive Device Gait Belt,Front Wheeled Walker Gait Deviations General Gait Pattern Decreased Stride Length, Decreased Feet Clearance, Flexed Trunk,Narrow Based Gait Factors Limiting Gait Function Factors Limiting Gait Function Difficulty Following Directions,Incoordination, Limited Range of Motion,Poor Balance,Poor Safety Awareness Comments Gait Comments Assessed pt's use of FWW: much improved stability noted with FWW compared to 4WW. PT adjusted height and placement of wheels vs tennis balls on walker (wheels were originally on back side). PT-OP-M Strength Start: 11/08/22 15:09 Freq: Status: Active Protocol: Document 01/04/23 11:07 AB (Rec: 01/04/23 17:02 AB [id number]) Hip Strength Hip Manual Muscle Testing Right Flexion (L2) 5 Normal Extension (S1) 4 Good Abduction 4 Good Adduction 4+ Good+ External Rotation 4 Good Internal Rotation 4 Good Left Flexion (L2) 5 Normal Extension (S1) 4 Good Abduction 4 Good Adduction 4+ Good+ External Rotation 4 Good Internal Rotation 4 Good Knee Strength Knee Manual Muscle Testing Right Flexion (S2) 4 Good Extension (L3) 5 Normal Left Flexion (S2) 4 Good Extension (L3) 5 Normal PT-OP-Q Treatments Start: 11/08/22 15:09 Freq: Status: Active Protocol: Document 01/25/23 13:06 AB (Rec: 01/25/23 14:13 AB [id number]) Cardio Equipment Recumbent Stepper (Sci-Fit) Duration (Minutes) 5 Therapeutic Exercises Standing Exercises Heel raises Side bilateral Equipment Used // bars Reps/Minutes 1x10 Comments Unable to complete bilaterally simulatenously, must alternate Marching Standing Exercise Name Standing marching Side bilateral Equipment Used dowel on // bars for tactile/ visual cue Reps/Minutes 2x5 ea Comments requires max verbal, tactile and visual cues for proper performance Neuro Re-Education Treatment Balance Activities LE reaching Details reaching with LEs Surface even Equipment // bars, 3 different colored semi hempispheres Reps/Duration 3x1 min Comments PT calls out color then pt reach to touch that color with foot; requires LUE support // bars Details fwd/bwd ambulation Surface even Equipment // bars Reps/Duration x6 laps in // bars Comments Pt had difficulty coordinating bwd steps therefore was regressed to fwd stepping only with focus on step through with RLE PT-OP-T Assessment and Plan Start: 11/08/22 15:09 Freq: Status: Active Protocol: Document 01/25/23 13:06 AB (Rec: 01/25/23 14:13 AB [id number]) Physical Therapy Assessment Goals Four Impairment mCTSIB Short Term Goal (STG) Pt to be able to perform conditions 2 and 3 of mCTSIB with minimal to no abnormal sway to show improving static balance to reduce fall risk. STG Duration 4 Port Surveyor Goal (LTG) Pt to be able to perform condition 4 of mCTSIB for 15 seconds or better with minimal to no abnormal sway to show improving static balance to reduce fall risk. LTG Duration 8 Three Impairment TUG Short Term Goal (STG) Pt's TUG with an AD to improve to 22 seconds or better to show improving dynamic balance in order to reduce fall risk. STG Duration 4 Retirement Goal (LTG) Pt's TUG with an AD to improve to 18 seconds or better to show improving dynamic balance in order to reduce fall risk. LTG Duration 8 Two Impairment 5x STS Short Term Goal (STG) Pt's 5xSTS to improve to 16 seconds or better to show improving LE strength and stability to reduce fall risk. STG Duration 4 Retirement Goal (LTG) Pt's 5xSTS to improve to 13 seconds or better to show improving LE strength and stability to reduce fall risk. LTG Duration 8 One Impairment LE strength Short Term Goal (STG) Pt's gross LE MMT scores to improve to 4/5 or better to show improving strength to perform functional mobility and increase stability. STG Duration 4 Port Surveyor Goal (LTG) Pt's gross LE MMT scores to improve to 5/5 to show improved strength to perform functional mobility and increase stability. LTG Duration 8 Assessment Summary Assessment The pt demonstrated decreased use of RLE when ambulating with 4WW and when using // bars for support, more so than typical due to his injury. Attempted to perform bilateral heel raises, however the pt had difficulty coordinating bilateral movement and had to perform alternating unilaterally. The pt also had difficulty coordinating bwd ambulation in // bars, therefore focus was changed RLE step through with fwd ambulation. Mild improvement is noted with step through gait post treatment. The pt continues to benefit from skilled PT to improve his deficits. Physical Therapy Plan Frequency and Duration Frequency of Treatment 2x/Week Duration of treatment (weeks) 8 Plan of Care Start Date 01/04/23 Plan of Care End Date 03/01/23 Therapeutic Interventions Therapeutic Interventions Balance Training,Coordination Training,Gait Training,Home Exercise Program,Joint Mobilizations,Manual Therapy, Neuromuscular Re-education, Orthotic/Prosthetic Management ,Patient/Caregiver Education, Self-Care/Home Management,Soft Tissue Mobilization,Taping, Therapeutic Activities, Therapeutic Exercises Modalities Cold Pack/Ice Massage,Electric Stimulation,Hot Packs Next Visit Focus/Plan Next Note Type Treatment Note Next Visit Plan Consider STM to RUE. POC: Continue with STS and gait with 4WW practice focusing on safety and proper mechanics.
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
--- NOTE | 2023-03-07 10:48 | PT.OTN ---
Current Diagnoses Parkinson's disease without dyskinesia, without mention of fluctuations (03/07/23) Bilateral primary osteoarthritis of hip (03/07/23) Radiculopathy, lumbar region (03/07/23) Ataxia, unspecified (03/07/23) Physical Therapy Treatment Note PT-OP-A Visit Information Start: 11/08/22 15:09 Freq: Status: Active Protocol: Document 03/07/23 09:02 LRN (Rec: 03/07/23 10:45 LRN [id number]) Out-Patient Physical Therapy Visit Information Visit Information Visit Type Treatment Note Visit Start Time 09:02 Visit Stop Time 09:58 Total Visit Minutes 56 Visit Number 22 Precautions Precautions Parkinson's disease Only able to answer with one word answers due to word finding difficulties HTN PT-OP-B Current Condition Start: 11/08/22 15:09 Freq: Status: Active Protocol: Document 01/04/23 11:07 AB (Rec: 01/04/23 17:02 AB [id number]) Current Condition History of Current Condition Onset Date Chronic Current Complaints Right sided weakness, frequent falls History of Current Condition Pt confirms ED visit yesterday due to increased pain the the abdominal area where he had surgery on 09/20/22. He also confirms a fall today and a fall on 10/18/22 which caused an injury to his right elbow. The pt confirms that he is experiencing right sided weakness and imbalance which are leading to falls. His confirmed this information, and stated that the pt's neurologist has increased his PD medication to help with muscle stiffness. Treatment Goals Patient/Caregiver Goals To decrease his fall risk. Current Functional Impairments (Reported) Functional Limitations- Other Same level of function, however is more unstable when walking PT-OP-C Subjective Start: 11/08/22 15:09 Freq: Status: Active Protocol: Document 03/07/23 09:02 LRN (Rec: 03/07/23 10:45 LRN [id number]) OP-PT Subjective Patient Comments Patient Comments Spouse states somedays his abilities are better than other, but she hasn't noticed a decline in function. Pt did respond 2x appropriately when asked how many days ago did he fall and he reported 5. PT-OP-D Balance Start: 11/08/22 15:09 Freq: Status: Active Protocol: Document 01/04/23 11:07 AB (Rec: 01/04/23 17:02 AB [id number]) Balance Tests mCTSIB mCTSIB Position 1 30 sec mCTSIB Position 2 30 sec mCTSIB Position 3 30 sec mild sway mCTSIB Position 4 26 sec, lateral LOB PT-OP-E Functional Tests Start: 11/08/22 15:09 Freq: Status: Active Protocol: Document 01/04/23 11:07 AB (Rec: 01/04/23 17:02 AB [id number]) Functional Tests Five Times Sit to Stand Test Score 17.78 seconds Comments High fall risk; with BUEs Timed Up and Go (TUG) Score 25.88 sec without AD; 30.51 with FWW PT-OP-G Mobility & Gait Start: 11/08/22 15:09 Freq: Status: Active Protocol: Document 01/04/23 11:07 AB (Rec: 01/04/23 17:02 AB [id number]) OP Gait Assessment Gait Gait Assistance Required: Standby Assistance,1 Person Assist Distance (Feet) 50 Assistive Devices Assistive Device Gait Belt,Front Wheeled Walker Gait Deviations General Gait Pattern Decreased Stride Length, Decreased Feet Clearance, Flexed Trunk,Narrow Based Gait Factors Limiting Gait Function Factors Limiting Gait Function Difficulty Following Directions,Incoordination, Limited Range of Motion,Poor Balance,Poor Safety Awareness Comments Gait Comments Assessed pt's use of FWW: much improved stability noted with FWW compared to 4WW. PT adjusted height and placement of wheels vs tennis balls on walker (wheels were originally on back side). PT-OP-M Strength Start: 11/08/22 15:09 Freq: Status: Active Protocol: Document 03/07/23 09:02 LRN (Rec: 03/07/23 10:45 LRN [id number]) Hip Strength Hip Manual Muscle Testing Right Flexion (L2) 5 Normal Abduction 4- Good- External Rotation 4 Good Internal Rotation 2- Poor- Left Flexion (L2) 5 Normal Abduction 4- Good- External Rotation 3 Fair Internal Rotation 5 Normal PT-OP-Q Treatments Start: 11/08/22 15:09 Freq: Status: Active Protocol: Document 03/07/23 09:02 LRN (Rec: 03/07/23 10:45 LRN [id number]) Therapeutic Exercises Supine Exercises SLR Supine Exercise Name SLR Side bilateral Reps/Minutes 6' Comments Extra time taken to try and get pt to lift w/o knee flex, unable. MMT taken Sidelying Exercises Hip AB Sidelying Exercise Name Hip AB Reps/Minutes 6' Comments Extra time taken to get pt in correct position. MMT taken Sitting Exercises Hip IR Sitting Exercise Name Hip IR, variable assist Side bilateral Reps/Minutes 5' Comments Much cuing to get pt to perform correctly, MMT taken Hip ER Sitting Exercise Name Foot lifts (ankle over opp knee) Side bilateral Reps/Minutes 5' Comments Cuing to get pt to perform correctly. MMT taken STS Sitting Exercise Name STS - Extensive time taken for initial set up for ex. Teaching sitting safe Equipment Used Standard chair Reps/Minutes 19' 5x STS - 55 secs shortest time. Comments Cues for upright posture, correct mvmts, hand placments Neuro Re-Education Treatment Balance Activities mCTSIB Details Heels together, hands across chest - EO, EC, foam Surface level / firm Equipment None Reps/Duration 5' Comments Pt needed assist to get into position. Places heels or toes together, but not both. Pt would not close eyes due to fear, and had difficulty with standing on level/firm; therefore did not attempt standing on foam. Gait with turn Details TUG with webbed chair, 4WW w/2 tennis balls on wheels in front Surface Level/carpet Equipment 4WW with tennis balls on front wheels. Reps/Duration 10' Comments Focus on proximation, upright posture, safe hand placement, increased R hip flexion and big step on R with physical cuing. 10'x 1; 20' x 2. TUG taken PT-OP-T Assessment and Plan Start: 11/08/22 15:09 Freq: Status: Active Protocol: Document 03/07/23 09:02 LRN (Rec: 03/07/23 10:45 LRN [id number]) Physical Therapy Assessment Goals Four Impairment mCTSIB Short Term Goal (STG) Pt to be able to perform conditions 2 and 3 of mCTSIB with minimal to no abnormal sway to show improving static balance to reduce fall risk. 03/07/23: Pt not able to perform due to fear of falling , verbalizing sorry when asked to perform. STG Duration 4 (03/07/23: NOT MET GOAL) Sewer Connector Goal (LTG) Pt to be able to perform condition 4 of mCTSIB for 15 seconds or better with minimal to no abnormal sway to show improving static balance to reduce fall risk. 03/07/23: Pt not able to perform due to fear of falling , verbalizing sorry when asked to perform. LTG Duration 8 (03/07/23: NOT MET GOAL) Three Impairment TUG Short Term Goal (STG) Pt's TUG with an AD to improve to 22 seconds or better to show improving dynamic balance in order to reduce fall risk. 03/07/23: TUG 119 secs with 4WW. STG Duration 4 (03/07/23: NOT MET GOAL) Sewer Connector Goal (LTG) Pt's TUG with an AD to improve to 18 seconds or better to show improving dynamic balance in order to reduce fall risk. 03/07/23: TUG 119 secs with 4WW. LTG Duration 8 (03/07/23: NOT MET GOAL) Two Impairment 5x STS Short Term Goal (STG) Pt's 5xSTS to improve to 16 seconds or better to show improving LE strength and stability to reduce fall risk. 03/07/23: 55 secs. STG Duration 4 (03/07/23: NOT MET GOAL ) Penitentiary Goal (LTG) Pt's 5xSTS to improve to 13 seconds or better to show improving LE strength and stability to reduce fall risk. 03/07/23: 55 secs. LTG Duration 8 (03/07/23: NOT MET GOAL) One Impairment LE strength Short Term Goal (STG) Pt's gross LE MMT scores to improve to 4/5 or better to show improving strength to perform functional mobility and increase stability. STG Duration 4 (03/07/23: NOT MET GOAL) Sewer Connector Goal (LTG) Pt's gross LE MMT scores to improve to 5/5 to show improved strength to perform functional mobility and increase stability. LTG Duration 8 (03/07/23: NOT MET GOAL) Assessment Summary Assessment The pt was not able to show improvement in functional stability as indicated by STS time of 55 secs and TUG score of 119 secs. He shows fear with balance assessment ( mCTSIB). He doesn't show improvement in strength hips with AB, ER/IR (ext not assessed). Speech difficulties makes it hard to determine why pt is more fearful with gait and balance, but probably due to his slipping from chairs resulting in his slowly sliding to the ground, per spouse report. The pt does show poor and unsafe transfers with sitting. The pt needed to be seen today for final assessment and discharge. The pt will be starting the Parkinson's BIG program tomorrow. Physical Therapy Plan Frequency and Duration Frequency of Treatment 1 visit. Duration of treatment (weeks) 1 Plan of Care Start Date 03/07/23 Plan of Care End Date 03/07/23 Discharge Physical Therapy Discharge Reasons Patient Request Discharge Comments Pt will be discharged after today's update of his POC and will be switching to BIG program tomorrow, 03/08/23. Today's progress report/plan of care update, is the last appt for this account.
--- NOTE | 2023-03-07 10:49 | PT.OPPOC ---
Physical, Occupational & Speech Therapy At [facility] Current Diagnoses Parkinson's disease without dyskinesia, without mention of fluctuations (03/07/23) Bilateral primary osteoarthritis of hip (03/07/23) Radiculopathy, lumbar region (03/07/23) Ataxia, unspecified (03/07/23) Visit Care Team Role Provider Type Luciano Cheung DO Attending Provider Physician Family Provider Primary Care Provider Referring Provider Specialty: [facility] Address: [address] [place] [address], [facility] Email: Plan Of Care PT-OP-T Assessment and Plan Start: 11/08/22 15:09 Freq: Status: Active Protocol: Document 03/07/23 09:02 LRN (Rec: 03/07/23 10:45 LRN [id number]) Physical Therapy Assessment Goals Four Impairment mCTSIB Short Term Goal (STG) Pt to be able to perform conditions 2 and 3 of mCTSIB with minimal to no abnormal sway to show improving static balance to reduce fall risk. 03/07/23: Pt not able to perform due to fear of falling , verbalizing sorry when asked to perform. STG Duration 4 (03/07/23: NOT MET GOAL) Alf Goal (LTG) Pt to be able to perform condition 4 of mCTSIB for 15 seconds or better with minimal to no abnormal sway to show improving static balance to reduce fall risk. 03/07/23: Pt not able to perform due to fear of falling , verbalizing sorry when asked to perform. LTG Duration 8 (03/07/23: NOT MET GOAL) Three Impairment TUG Short Term Goal (STG) Pt's TUG with an AD to improve to 22 seconds or better to show improving dynamic balance in order to reduce fall risk. 03/07/23: TUG 119 secs with 4WW. STG Duration 4 (03/07/23: NOT MET GOAL) Alf Goal (LTG) Pt's TUG with an AD to improve to 18 seconds or better to show improving dynamic balance in order to reduce fall risk. 03/07/23: TUG 119 secs with 4WW. LTG Duration 8 (03/07/23: NOT MET GOAL) Two Impairment 5x STS Short Term Goal (STG) Pt's 5xSTS to improve to 16 seconds or better to show improving LE strength and stability to reduce fall risk. 03/07/23: 55 secs. STG Duration 4 (03/07/23: NOT MET GOAL ) Alf Goal (LTG) Pt's 5xSTS to improve to 13 seconds or better to show improving LE strength and stability to reduce fall risk. 03/07/23: 55 secs. LTG Duration 8 (03/07/23: NOT MET GOAL) One Impairment LE strength Short Term Goal (STG) Pt's gross LE MMT scores to improve to 4/5 or better to show improving strength to perform functional mobility and increase stability. STG Duration 4 (03/07/23: NOT MET GOAL) Music Orchestrator Goal (LTG) Pt's gross LE MMT scores to improve to 5/5 to show improved strength to perform functional mobility and increase stability. LTG Duration 8 (03/07/23: NOT MET GOAL) Assessment Summary Assessment The pt was not able to show improvement in functional stability as indicated by STS time of 55 secs and TUG score of 119 secs. He shows fear with balance assessment ( mCTSIB). He doesn't show improvement in strength hips with AB, ER/IR (ext not assessed). Speech difficulties makes it hard to determine why pt is more fearful with gait and balance, but probably due to his slipping from chairs resulting in his slowly sliding to the ground, per spouse report. The pt does show poor and unsafe transfers with sitting. The pt needed to be seen today for final assessment and discharge. The pt will be starting the Parkinson's BIG program tomorrow. Physical Therapy Plan Frequency and Duration Frequency of Treatment 1 visit. Duration of treatment (weeks) 1 Plan of Care Start Date 03/07/23 Plan of Care End Date 03/07/23 Discharge Physical Therapy Discharge Reasons Patient Request Discharge Comments Pt will be discharged after today's update of his POC and will be switching to BIG program tomorrow, 03/08/23. Today's progress report/plan of care update, is the last appt for this account. Plan of Care Dates Plan of Care Start Date 03/07/23 Plan of Care End Date 03/07/23 Electronically Signed by: Liane Larsen, PT 03/07/23 2350 If you are in agreement with this Plan of Care, please return a signed and dated copy. I have reviewed this Plan of Care and certify that the skilled therapy services above are required to meet the patient?s needs. Physician Signature Date Printed Name and Credentials Clinical Instructor Signature Printed Name and Credentials
== END 2023-03-08 14:47 | disposition home or self-care (01) ==
LOC: PHYS 09:00
PROVIDERS: Absent Provider Family Medicine; Family Provider Family Medicine; PCP Family Medicine; Referring Provider Family Medicine; Visit Provider Family Medicine
DX: R27.0 Ataxia, unspecified (principal); M54.16 Radiculopathy, lumbar region; M16.0 Bilateral primary osteoarthritis of hip; G20.A1 Parkinson's disease without dyskinesia, without mention of fluctuations
CPT/HCPCS: 97110; 97112; 97116; 97140; 97162; 97535

== ENCOUNTER 2023-03-07 14:24 | Emergency (ER) | payer MEDICARE, OTHER, SELFPAY ==
[2023-03-07] VITALS (16 sets, daily range): BP systolic 123–168; BP diastolic 63–89; PULSE 68–81; RESP 16–23; TEMP 37; O2SAT 93–97; BMI 32.6
--- NOTE | 2023-03-07 14:40 | DI.CT.S_ITS ---
PROCEDURE: CT HEAD/BRAIN WO CON INDICATIONS: fall, unwitnessed. LAC L head, neck pain TECHNIQUE: Noncontrast 4.5 mm thick angled axial sections acquired from the foramen magnum to the vertex, with coronal and sagittal reformats. For radiation dose reduction, the following was used: automated exposure control, adjustment of mA and/or kV according to patient size. COMPARISON: [facility], CT, CT HEAD/BRAIN WO CON, 01/25/2022, 12:01. [facility], CT, CT HEAD/BRAIN WO CON, 01/28/2022, 14:52. [facility], CT, CT CERVICAL SPINE WO CON, 03/07/2023, 15:02. [facility], CT, CT HEAD/BRAIN WO CON, 11/10/2022, 9:48. FINDINGS: Image quality: Mild streak artifact can be seen through the skull base. CSF spaces: Basal cisterns are patent. No extra-axial fluid collections. The ventricles are symmetric in size and shape. Brain: No intracranial bleeds or masses. There is cerebral volume loss for age, with resultant ventricular and sulcal prominence. There are periventricular and deep white matter chronic small vessel ischemic changes. There is intracranial internal carotid artery atherosclerosis. Skull and face: Calvarium and visualized facial bones appear intact, without suspicious lesions. Sinuses: Visualized sinuses and mastoids are clear. IMPRESSION: No acute intracranial pathology. No acute intracranial hemorrhage is seen. Dictated by: Silvestre Clarke M.D. on 03/07/2023 at 14:17 Approved by: Silvestre Clarke M.D. on 03/07/2023 at 14:20
--- NOTE | 2023-03-07 15:02 | DI.CT.S_ITS ---
PROCEDURE: CT CERVICAL SPINE WO CON INDICATIONS: fall, unwitnessed. LAC L head, neck pain TECHNIQUE: Noncontrast 3 mm thick sections acquired from the skull base to the T4 level. Sagittal and coronal reformats were then constructed. Oblique axial images were also reformatted. For radiation dose reduction, the following was used: automated exposure control, adjustment of mA and/or kV according to patient size. COMPARISON: [facility], CT, CT CERVICAL SPINE WO CON, 11/22/2021, 16:18. [facility], CT, CT CERVICAL SPINE WO CON, 11/10/2022, 9:48. [facility], CT, CT HEAD/BRAIN WO CON, 03/07/2023, 15:02. FINDINGS: Image quality: This examination is somewhat limited by quantum mottle artifact. Bones: No fractures or dislocations. Visualized superior ribs are intact. Age-appropriate bony degenerative changes are seen. Soft tissues: Prevertebral soft tissues are normal in thickness. No paravertebral hematomas. No apical pneumothoraces. IMPRESSION: No displaced fracture or traumatic subluxation. Dictated by: Silvestre Clarke M.D. on 03/07/2023 at 14:20 Approved by: Silvestre Clarke M.D. on 03/07/2023 at 14:22
[2023-03-07] MEDS: CARBIDOPA-LEVODOPA 25/100 TABLET 2 EACH PO (15:38)
--- NOTE | 2023-03-07 16:05 | PC.NURSE ---
Pt is becoming restless and c/o pain in his neck and arm. Pt has hx of parkinsons and dementai at baseline. Pt can vocalize pain, however, cannot vocalize where pain is located verbally. Pt's states that he pointed to his neck and left arm when she asked where is pain is. Dr de la rosa notified.
--- NOTE | 2023-03-07 18:19 | ED.FALL ---
HPI - Fall General Chief Complaint: Fall Stated Complaint: fell unwitnessed slice in forehead Time Seen by Provider: 03/07/23 17:57 Source: patient and family Mode of arrival: Wheelchair Limitations: other History of Present Illness HPI Narrative: 72-year-old male. History of Parkinson's disease. Also has balance issues. Is here for evaluation of injuries that he sustained after an unwitnessed fall. He is here with his . They were leaving physical therapy when he was walking out the door and his thinks that he hit his head on the door. When she turned around he was sitting on the ground. They do not think that he actually fell and hit his head. He is at his baseline mental status. He reports no extremity injuries. He does have a wound to his left forehead. He is in an inflatable cervical collar placed by EMS. Related Data Home Medications Medication Instructions Recorded Confirmed lisinopril 40 mg tablet 20 mg PO DAILY 02/16/23 03/07/23 carbidopa 25 mg-levodopa 100 mg 2 tab PO 3XD 03/07/23 03/07/23 tablet Previous Rx's Medication Instructions Recorded epinephrine 0.3 mg/0.3 mL 0.3 mg (0.3 mL) IM SEE 12/09/21 injection, auto-injector (EpiPen INSTRUCTIONS #1 kit 2-Phillip) Disabled Parking Permit #1 ea 10/14/22 ketamine 5 % cream in metered-dose 1 applic topical BID #30 grams 12/15/22 applicator duloxetine 30 mg capsule,delayed 30 mg PO DAILY #90 caps 01/10/23 release hydrochlorothiazide 12.5 mg tablet 12.5 mg PO QAM #90 tabs 01/10/23 tamsulosin 0.4 mg capsule 0.4 mg PO DAILY #90 caps 01/10/23 triamcinolone acetonide 0.1 % 1 applic topical BID PRN itching 01/10/23 topical ointment #30 grams oxycodone-acetaminophen 5 mg-325 1 tab PO Q8H PRN severe pain #90 02/07/23 mg tablet (Percocet) tabs Allergies Allergy/AdvReac Type Severity Reaction Status Date / Time bee venom protein (honey bee) Allergy Severe Anaphylaxis Verified 02/16/23 13:00 Review of Systems Constitutional Constitutional: Reports system reviewed and no additional complaints, except as documented Cardiovascular Cardiovascular: Reports system reviewed and no additional complaints, except as documented Musculoskeletal Musculoskeletal: Reports system reviewed and no additional complaints, except as documented Integumentary/Breasts Skin/Breast: Reports system reviewed and no additional complaints, except as documented Neurologic Neurologic: Reports system reviewed and no additional complaints, except as documented Hematologic/Lymphatic On Anticoagulants: No 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 Psoas muscle strain Segmental and somatic dysfunction of abdomen and other regions Pelvic somatic dysfunction Screening for prostate cancer Ataxia Rate of speech, slow Medication side effects Deep inguinal pain, right Surgical History Hx of hernia repair Status post cholecystectomy Family History Grandmother Heart disease Mother Age: 93 Environmental allergies Grandmother Stroke Social History marital status: household members: spouse Smoking Status: Former smoker alcohol intake: current substance use type: does not use Smoking Status: Former smoker alcohol intake frequency: holidays/special occasions only Substance Use Type: does not use Exam Initial Vital Signs Initial Vital Signs: Vital Signs Pulse Rate 71 03/07/23 14:32 Pulse Oximetry 97 03/07/23 14:32 HENMT Head: abrasion (Left forehead) and No laceration Resp Effort & Inspection: normal respiratory effort Auscultation: clear to auscultation bilaterally Cardio Rate: regular rate Rhythm: regular rhythm GI Inspection: normal to inspection and non-distended Skin Other: Approximately 2-3 cm skin tear to the left forehead. Is oozing but no active bleeding. Extrem Other: No gross deformities. He is moving his bilateral lower extremities and left upper extremity without issue. He is chronic weakness of his right upper extremity but does not appear to have discomfort with movement of this. Course Orders Ordered: ED Orders 03/07/23 14:40 CT head/brain wo con Stat 03/07/23 15:02 CT cervical spine wo con Stat Discontinued Medications Bacitracin (Bacitracin Oint 0.9 Gm Pckt) 1 applic TOP NOW ONE Stop: 03/07/23 18:21 Carbidopa/Levodopa (Carbidopa-Levodopa 25/100 Tablet) 1 each PO NOW ONE Stop: 03/07/23 15:26 Last Admin: 03/07/23 15:30 Dose: Not Given Documented By: DAY Carbidopa/Levodopa (Carbidopa-Levodopa 25/100 Tablet) 2 each PO NOW ONE Stop: 03/07/23 15:29 Last Admin: 03/07/23 15:38 Dose: 2 each Documented By: DAY Vital Signs Vital signs: Vital Signs - 8 hr 03/07/23 14:32 03/07/23 14:34 03/07/23 15:05 Temperature 98.6 F Pulse Rate 71 71 72 Respiratory Rate 16 Blood Pressure 132/68 Pulse Oximetry 97 97 Oxygen Delivery Method Room Air 03/07/23 15:07 03/07/23 15:07 03/07/23 15:30 Temperature Pulse Rate 69 73 Respiratory Rate 17 22 Blood Pressure 128/63 Pulse Oximetry 96 97 Oxygen Delivery Method 03/07/23 15:30 03/07/23 16:00 03/07/23 16:00 Temperature Pulse Rate 81 Respiratory Rate 23 Blood Pressure 123/64 132/78 Pulse Oximetry 96 Oxygen Delivery Method 03/07/23 16:30 03/07/23 16:45 03/07/23 17:00 Temperature Pulse Rate 78 68 72 Respiratory Rate 22 17 19 Blood Pressure Pulse Oximetry 97 96 96 Oxygen Delivery Method 03/07/23 17:00 03/07/23 17:15 03/07/23 17:30 Temperature Pulse Rate 79 Respiratory Rate Blood Pressure 163/80 H 160/81 H Pulse Oximetry 96 Oxygen Delivery Method 03/07/23 17:30 03/07/23 17:45 03/07/23 18:00 Temperature Pulse Rate 71 72 Respiratory Rate 18 20 Blood Pressure 153/79 H Pulse Oximetry 93 95 Oxygen Delivery Method 03/07/23 18:00 03/07/23 18:15 03/07/23 18:30 Temperature Pulse Rate 73 77 Respiratory Rate 21 Blood Pressure 168/89 H Pulse Oximetry 95 97 Oxygen Delivery Method 03/07/23 18:30 03/07/23 18:36 03/07/23 18:36 Temperature Pulse Rate 68 71 Respiratory Rate 18 Blood Pressure 163/74 H Pulse Oximetry 95 94 Oxygen Delivery Method MDM - Fall Imaging Data CT scan - head: Radiologist's Impression: PROCEDURE: CT HEAD/BRAIN WO CON INDICATIONS: fall, unwitnessed. LAC L head, neck pain TECHNIQUE: Noncontrast 4.5 mm thick angled axial sections acquired from the foramen magnum to the vertex, with coronal and sagittal reformats. For radiation dose reduction, the following was used: automated exposure control, adjustment of mA and/or kV according to patient size. COMPARISON: [facility], CT, CT HEAD/BRAIN WO CON, 01/25/2022, 12:01. [facility], CT, CT HEAD/BRAIN WO CON, 01/28/2022, 14:52. [facility], CT, CT CERVICAL SPINE WO CON, 03/07/2023, 15:02. [facility], CT, CT HEAD/BRAIN WO CON, 11/10/2022, 9:48. FINDINGS: Image quality: Mild streak artifact can be seen through the skull base. CSF spaces: Basal cisterns are patent. No extra-axial fluid collections. The ventricles are symmetric in size and shape. Brain: No intracranial bleeds or masses. There is cerebral volume loss for age, with resultant ventricular and sulcal prominence. There are periventricular and deep white matter chronic small vessel ischemic changes. There is intracranial internal carotid artery atherosclerosis. Skull and face: Calvarium and visualized facial bones appear intact, without suspicious lesions. Sinuses: Visualized sinuses and mastoids are clear. IMPRESSION: No acute intracranial pathology. No acute intracranial hemorrhage is seen. CT - cervical spine: Radiologist's Impression: PROCEDURE: CT CERVICAL SPINE WO CON INDICATIONS: fall, unwitnessed. LAC L head, neck pain TECHNIQUE: Noncontrast 3 mm thick sections acquired from the skull base to the T4 level. Sagittal and coronal reformats were then constructed. Oblique axial images were also reformatted. For radiation dose reduction, the following was used: automated exposure control, adjustment of mA and/or kV according to patient size. COMPARISON: [facility], CT, CT CERVICAL SPINE WO CON, 11/22/2021, 16:18. [facility], CT, CT CERVICAL SPINE WO CON, 11/10/2022, 9:48. [facility], CT, CT HEAD/BRAIN WO CON, 03/07/2023, 15:02. FINDINGS: Image quality: This examination is somewhat limited by quantum mottle artifact. Bones: No fractures or dislocations. Visualized superior ribs are intact. Age-appropriate bony degenerative changes are seen. Soft tissues: Prevertebral soft tissues are normal in thickness. No paravertebral hematomas. No apical pneumothoraces. IMPRESSION: No displaced fracture or traumatic subluxation. ECG Data Attestation: I personally reviewed and interpreted this ECG as follows: Interpretation: Sinus rhythm Ventricular rate is [address] T wave changes MDM Narrative Medical decision making narrative: Imaging of his head and neck are unremarkable. He does have a skin tear to his left forehead and Steri-Strips were placed over this just to try to hold the skin in place. He has no apparent discomfort with movement of any of his extremities. He initially had some difficulty was sitting up in bed becoming somewhat lightheaded but after a period of time he stated that he felt much better. He was able to walk around the room with his walker at baseline. Will discharge patient home with return precautions. was at bedside. They expressed understanding and agreement. Discharge Plan Departure Patient Disposition: Home Clinical Impression: Skin tear, Fall Instructions: How to Prevent Falls, Skin Wound Activity Restrictions/Additional Instructions: Recommend that Amaury continue to take all of his medications as directed. He can shower like normal. You can try to bandage the wound on the forehead as best as possible. Return to the emergency department for new or worsening symptoms. Prescriptions: No Action (DME) Disabled Parking Permit See Rx Instructions .Route .MEDSUPPLY Qty: 1 0RF Rx Instructions: Valid for 12 months epinephrine [EpiPen 2-Phillip] 0.3 mg/0.3 mL auto-injector 0.3 mg IM SEE INSTRUCTIONS Qty: 1 2RF Patient Comments: pt has never taken tamsulosin 0.4 mg capsule 0.4 mg PO DAILY Qty: 90 1RF hydrochlorothiazide 12.5 mg tablet 12.5 mg PO QAM Qty: 90 1RF duloxetine 30 mg capsule,delayed release(DR/EC) 30 mg PO DAILY Qty: 90 3RF Rx Instructions: Take one capsule daily at bedtime. triamcinolone acetonide 0.1 % ointment 1 applic topical BID PRN (Reason: itching) Qty: 30 0RF Rx Instructions: After 7 days, pause for at least 7 days to pulse the therapy and avoid thinning the skin. oxycodone-acetaminophen [Percocet] 5-325 mg tablet 1 tab PO Q8H PRN (Reason: severe pain) Qty: 90 0RF Rx Instructions: caution re balance impairment carbidopa-levodopa 25-100 mg tablet 2 tab PO 3XD ketamine 5 % cream in metered-dose pump 1 applic topical BID Qty: 30 0RF lisinopril 40 mg tablet 20 mg PO DAILY Referrals: Luciano Cehung DO [Primary Care Provider] - Stand Alone Forms: Patient Portal/API
--- NOTE | 2023-03-07 18:45 | PC.NURSE ---
Pt up for discharge and while transferring the pt to wheelchair, pt got extremely dizzy and had to sit back down. Pt was reaching for items and replied yes when I asked if he was feeling like he was going to faint. BP 126/74, HR 72, o2 sat 97% on RA. Dr Salcido notified.
== END 2023-03-07 19:13 | disposition home or self-care (01) ==
PROVIDERS: Emergency Provider Emergency Medicine; Family Provider Family Medicine; PCP Family Medicine
DX: S01.81XA Laceration without foreign body of other part of head, initial encounter (principal); W18.09XA Striking against other object with subsequent fall, initial encounter
CPT/HCPCS: 70450; 72125; 93005; 99283; 99284

== ENCOUNTER 2023-03-22 10:30 | Outpatient (RCR) | payer MEDICARE, OTHER, SELFPAY ==
--- NOTE | 2022-11-01 15:19 | OT.OP.EVAL ---
Visit Care Team Role Provider Type Luciano Cheung DO Attending Provider Physician Family Provider Primary Care Provider Referring Provider Specialty: Family Practice Address: [address] [place] [address], [id number] Email: Occupational Therapy Initial Evaluation OT Outpatient Adult Evaluation Start: 11/01/22 14:36 Freq: Status: Active Protocol: Document 11/01/22 14:43 AMS (Rec: 11/01/22 15:18 AMS [id number]) General Information - Adult Visit Number 03/22; 03/31 --> visit KX modifier Plan of Care Dates 11/01/22 - 12/27/22 Insurance Information Medicare Visit Start Time 13:30 Visit Stop Time 14:00 Total Visit Minutes 30 Treatment Setting Outpatient Care Note Type Initial Evaluation Identification Confirmed Yes Goals Short Term Goals 1. Enrique will actively participate in additional standardized assessments (e.g. , 9-HPT). Sailing Master Goals 1. Enrique will be modified independent with execution of home exercise program with the support of his family utilizing provided written and visual instructions from therapist. 2. Enrique and family will be able to identify 2 or 3 additional techniques/ modification strategies/ adaptive equipment that Enrique would be able to use in the home environment to support active engagement/ participation in meaningful activities/self care tasks. Assessment/Plan Treatment Assessment Enrique is a 72 year-old right hand dominant male referred to outpatient OT secondary to diagnosis of Parkinson's disease. Intake paperwork completed by Anisha Jacobo. Medical history significant for: blood pressure - med managed; depression; dizziness ; falls; hearing problems; vision problems (wears glasses w/ upcoming scheduled appt). R olecranon bursitis injury 10/18 secondary to fall; Surgical h/o significant for Neurectomy - lower abdomen/groin outpatient procedure 09/20/22 and surgery on gall bladder approx 12 years ago. Enrique is currently receiving outpatient CORPORATE TRAINING MANAGER; he reportedly is scheduled to be evaluated by PT in near future. Indication of 6 out of 10 on Pain Assessment Grid relative to R UE; 2 out of 10 on Pain Assessment Grid relative to R LE. Evaluation Findings: Presented w/ slip-on shoes and ambulating w/ 4WW w/ noted neglect of R UE. Report of having difficulty w/ managing buttons and belt; reportedly has shirt w/ magnetized buttons; Anisha reportedly adapted another button-up shirt for Enrique. Reportedly has trialed curved handle fork and spoon w/ decreased success utilizing utensils placed in the left hand. Reportedly is completing g/h tasks and self- feeding w/ the L hand. Anisha reportedly assists Enrique w/ donning watch on L wrist. Able to oppose R thumb to 3rd digit pad; able to oppose L thumb to all digit pads of the L hand. Able to functionally position both hands on top of head; phys assist from L hand to position both hands on back of head. Able to position both hands on lower back and touch bilateral shoulders. Difficulty motor planning of the R UE; unable to execute forearm flip R UE, however, passive within normal limits supination available. Decreased motor planning of the R wrist; unable to imitate RD/UD and wrist circles in either direction. 67.0# of force R veterinary technologist (compared to 70- 74 y.o. male norms 75.3 +/- 21 .5# of force) versus 99.0# of force L veterinary technologist (compared to 70- 74 y.o. male norms 64.8 +/- 18 .1# of force); 17.0# of force R lateral pinch (compared to 70-74 y.o. male norms 13.8 +/- 2.6# of force) versus 22.0# of force (compared to 70-74 y. o. male norms 13.3 +/- 2.6# of force); 9.0# of force R 3-jaw pinch (compared to 70-74 y.o. male norms 18.1 +/- 3.4# of force) versus 16.5# of force L 3-jaw pinch (compared to 70- 74 y.o. male norms 18.8 +/- 3. 3# of force); 6.0# of force R tip pinch (compared to 70-74 y .o. male norms 13.8 +/- 2.6# of force) versus 17.0# of force L tip pinch (compared to 70-74 y.o. male norms 13.3 +/ - 2.6# of force). Able to pick -up and transfer small bull and 1/4-inch thick short pegs from TT to container w/ R hand ; max difficulty motor planning compensatory approach of sliding flat object to edge of TT and coordinating 2nd/3rd digits w/ thumb. Poor proximal stabilization of UE w / writing name on TT surface; inconsistent w/ grasp approach w/ pen positioned in right hand (relative to number of digit pads positioned on writing utensil) although positioned in web space. Jerky movements noted w/ pen use versus fluid/smooth line formation(s). (+) attempt of tracing therapist's [place] w/ ends not meeting w/ approx 1/4 -inch overlap. Report of practicing some hand writing/ letter formation w/ outpatient CORPORATE TRAINING MANAGER utilizing whiteboard and dry erase marker. Patient goals are to increase R UE function, including being able to write name and feed self utilizing utensils w/ the right hand. Enrique presented with increased L hand veterinary technologist/ digit compared to R hand veterinary technologist/ digit strength (dominant side) , decreased R UE motor coordination/motor planning, decreased R UE in-hand manipulation, R sided neglect, hard of hearing, vision impairment (report of recent blurriness per Anisha) and decreased ability to successfully engage in meaningful activities in a variety of environments. Thus, outpatient OT is recommended to address these areas to support active engagement in meaningful activities w/ focus on functioning of the R UE. Further assessment(s) are needed to establish base line. Length of treatment (weeks) 8 Plan of Care Start Date 11/01/22 Plan of Care End Date 12/27/22 Treatment Frequency Once a Week Therapeutic Contents Active Range of Motion, Adaptive Equipment Education, Client Education,Cognitive Skills Development,Functional Activities,Home Exercise Program,Joint Protection, Manual Therapy,Education, Neurodevelopment Treatment, Neuromuscular Re-Education, Self-Care,Stretching/ Flexibility Activities, Therapeutic Activities, Therapeutic Exercises
--- NOTE | 2022-11-17 16:00 | OT.OP.TRT ---
Visit Care Team Role Provider Type Luciano Cheung DO Attending Provider Physician Family Provider Primary Care Provider Referring Provider Specialty: Family Practice Address: [address] [place] [address], [id number] Email: Occupational Therapy Treatment Note OT Outpatient Treatment Note - Adult Start: 11/01/22 14:36 Freq: Status: Active Protocol: Document 11/17/22 15:49 AMS (Rec: 11/17/22 16:00 AMS [id number]) OT Outpatient Adult Treatment Note Session Time Visit Start Time 15:00 Visit Stop Time 15:45 Total Visit Minutes 45 Visit Information Visit Number 04/22; 05/01 --> visit KX modifier Plan of Care Dates 11/01/22 - 12/27/22 Insurance Information Medicare Setting Treatment Setting Outpatient Care Visit Type Note Type Treatment Note General Information General Information Enrique is a 72 year-old right hand dominant male referred to outpatient OT secondary to diagnosis of Parkinson's disease. Intake paperwork completed by Anisha Jacobo. Medical history significant for: blood pressure - med managed; depression; dizziness ; falls; hearing problems; vision problems (wears glasses w/ upcoming scheduled appt). R olecranon bursitis injury 10/18 secondary to fall; Surgical h/o significant for Neurectomy - lower abdomen/groin outpatient procedure 09/20/22 and surgery on gall bladder approx 12 years ago. 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 Indication of 6 out of 10 on Pain Assessment Grid relative to R UE; 2 out of 10 on Pain Assessment Grid relative to R LE. - Subjective Identification Type Name Identification Reconciled With Medical Record Observations Enrique was seen 1:1 for OT treatment session. Enrique's , Anisha, reported that she has a container of objects that she has him practice picking up; she also has him use a squeeze ball. = Anisha - Objective Objective Measurements Please refer to below for progress towards meeting established OT goals: 11/17/22 = completed 9-HPT w/ L hand in 1 min 46 sec; able to place x 2 pegs in pegboard w/ R hand without L hand assist. Unable to motor plan 5-digit R hand abduction; able to isolate active R radial thumb abd and isolate active R 5th digit abduction. Unable to rotate objects w/ R hand. Short Term Goals GOALS MET Enrique will actively participate in additional standardized assessments (e.g., 9-HPT). * MET 11/17/22 Senior Living Goals 1. Enrique will be modified independent with execution of home exercise program with the support of his family utilizing provided written and visual instructions from therapist. 2. Enrique and family will be able to identify 2 or 3 additional techniques/ modification strategies/ adaptive equipment that Enrique would be able to use in the home environment to support active engagement/ participation in meaningful activities/self care tasks. - Treatment 2 Descriptor Awareness of right hand/motor planning of right hand. 1 Descriptor Object manipulation. 9-HPT. - Assessment Assessment of Improvement R UE neglect; verbal cueing and tactile cueing to encourage R handed placement on 4WW w/ mobility. Recent fall at home to head; presented w/ bruising around the R eye. Unable to rotate objects w/ the R hand; increased reliance on the left hand. Unable to complete 9- HPT w/ the R hand; able to place 2 pegs into pegboard w/ R hand without L hand assist ( able to remove all pegs from pegboard w/ the R hand w/ increased time). Completed the 9-HPT w/ L hand in 1 min 46 sec. The 9-Hole Peg Test is a timed test in which 9 pegs are inserted and removed from 9 holes in the pegboard with each hand. It is an assessment that can be used to assess hand dexterity. Decreased motor planning of the R hand. Overall, fair session. Patient goals are to increase R UE function, including being able to write name and feed self utilizing utensils w/ the right hand. 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 Thus, outpatient OT is recommended to address these areas to support active engagement in meaningful activities w/ focus on functioning of the R UE. - Plan Therapy Recommendations Continue with Current Program, Advance per Rehabilitation Protocol
--- NOTE | 2022-11-25 10:48 | OT.OP.TRT ---
Visit Care Team Role Provider Type Luciano Cheung DO Attending Provider Physician Family Provider Primary Care Provider Referring Provider Specialty: Family Practice Address: [address] [place] [address], [id number] Email: Occupational Therapy Treatment Note OT Outpatient Treatment Note - Adult Start: 11/01/22 14:36 Freq: Status: Active Protocol: Document 11/25/22 10:38 AMS (Rec: 11/25/22 10:48 AMS [id number]) OT Outpatient Adult Treatment Note Session Time Visit Start Time 09:45 Visit Stop Time 10:25 Total Visit Minutes 40 Visit Information Visit Number 05/20; 05/29 --> visit KX modifier Plan of Care Dates 11/01/22 - 12/27/22 Insurance Information Medicare Setting Treatment Setting Outpatient Care Visit Type Note Type Treatment Note General Information General Information Enrique is a 72 year-old right hand dominant male referred to outpatient OT secondary to diagnosis of Parkinson's disease. Intake paperwork completed by Anisha Jacobo. Medical history significant for: blood pressure - med managed; depression; dizziness ; falls; hearing problems; vision problems (wears glasses w/ upcoming scheduled appt). R olecranon bursitis injury 10/18 secondary to fall; Surgical h/o significant for Neurectomy - lower abdomen/groin outpatient procedure 09/20/22 and surgery on gall bladder approx 12 years ago. 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 Indication of 6 out of 10 on Pain Assessment Grid relative to R UE; 2 out of 10 on Pain Assessment Grid relative to R LE. - Subjective Identification Type Name Identification Reconciled With Medical Record Observations Enrique's , Anisha, accompanied him to OT treatment session. She reported that Enrique has an appointment with the eye surgeon today. = Anisha - Objective Objective Measurements Please refer to below for progress towards meeting established OT goals: 11/17/22 = completed 9-HPT w/ L hand in 1 min 46 sec; able to place x 2 pegs in pegboard w/ R hand without L hand assist. Unable to motor plan 5-digit R hand abduction; able to isolate active R radial thumb abd and isolate active R 5th digit abduction. Unable to rotate objects w/ R hand. Short Term Goals GOALS MET Enrique will actively participate in additional standardized assessments (e.g., 9-HPT). * MET 11/17/22 Residential Goals 1. Enrique will be modified independent with execution of home exercise program with the support of his family utilizing provided written and visual instructions from therapist. 2. Enrique and family will be able to identify 2 or 3 additional techniques/ modification strategies/ adaptive equipment that Enrique would be able to use in the home environment to support active engagement/ participation in meaningful activities/self care tasks. - Treatment 2 Descriptor Awareness of right hand/motor planning of right hand. Initiation/maintenace of R hand grasp w/ UE ther exercises. UBE x 7 minutes. Sitting. Alt directions. Intermittent phys assist to support R handed grasping of handle. 1 Descriptor Object manipulation. Strengthening of digits. Resistance clothespins. 1# to 6# of force manipulated; requested to be finished w/ task. Medium firm green theraputty. - Assessment Assessment of Improvement R UE neglect; verbal cueing to support initial grasping of 4WW w/ s-s transfers. (-) UE reaching for seat and/or arm rest w/ t/f from standing position. (-) locking of 4WW brakes prior to sitting in chair(s). Instructed in theraputty use; rec completing theraputty exercises over a surface (TT) w/ formation of ball (gross digit flexion) (1 x 5), pinching of theraputty between thumb and 2nd digit (3 x 10), and pressing individual digits of the R hand into putty (10 reps each digit). Decreased success w/ isolated 4th digit flex; combined w/ 3rd digit flexion. However, able to isolate 5th digit flex/press into putty without active flex observed of 4th digit. Initiated use of seated arm bike; discussed potential use of pedal bike given ability to place pedal bike on TT surface. Intermittent cueing and min phys assist to support re- positioning of R hand on handle of arm bike. Overall, fair session. Patient goals are to increase R UE function, including being able to write name and feed self utilizing utensils w/ the right hand. Enrique presented with increased L hand toe laster/ digit compared to R hand toe laster/ digit strength (dominant side) , decreased R UE motor coordination/motor planning, decreased R UE in-hand manipulation, R sided neglect, hard of hearing, vision impairment (report of recent blurriness per Anisha) and decreased ability to successfully engage in meaningful activities in a variety of environments. Thus, outpatient OT is recommended to address these areas to support active engagement in meaningful activities w/ focus on functioning of the R UE. Home Exercise Program 11/25/22 = Provided with medium firm theraputty for home use; instructed in care and storage of putty. Rec gross digit flexion, pinching between thumb and 2nd digit (w / putty positioned on TT) and pushing each digit (2-5) into putty. Rec completion of putty exercises over/on top of TT. Enrique's , Anisha, was present throughout treatment session. Discussed potential use of pedal bike given UE option; currently has stationary bike. - Plan Therapy Recommendations Continue with Current Program, Advance per Rehabilitation Protocol
--- NOTE | 2022-11-28 14:43 | OT.OP.TRT ---
Visit Care Team Role Provider Type Luciano Cheung DO Attending Provider Physician Family Provider Primary Care Provider Referring Provider Specialty: Family Practice Address: [address] [place] [address], [id number] Email: Occupational Therapy Treatment Note OT Outpatient Treatment Note - Adult Start: 11/01/22 14:36 Freq: Status: Active Protocol: Document 11/28/22 14:37 AMS (Rec: 11/28/22 14:43 AMS [id number]) OT Outpatient Adult Treatment Note Session Time Visit Start Time 09:45 Visit Stop Time 10:25 Total Visit Minutes 40 Visit Information Visit Number 06/20; 06/29 --> visit KX modifier Plan of Care Dates 11/01/22 - 12/27/22 Insurance Information Medicare Setting Treatment Setting Outpatient Care Visit Type Note Type Treatment Note General Information General Information Enrique is a 72 year-old right hand dominant male referred to outpatient OT secondary to diagnosis of Parkinson's disease. Intake paperwork completed by Anisha Jacobo. Medical history significant for: blood pressure - med managed; depression; dizziness ; falls; hearing problems; vision problems (wears glasses w/ upcoming scheduled appt). R olecranon bursitis injury 10/18 secondary to fall; Surgical h/o significant for Neurectomy - lower abdomen/groin outpatient procedure 09/20/22 and surgery on gall bladder approx 12 years ago. 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 Indication of 6 out of 10 on Pain Assessment Grid relative to R UE; 2 out of 10 on Pain Assessment Grid relative to R LE. - Subjective Identification Type Name Identification Reconciled With Medical Record Observations Enrique's , Anisha, accompanied him to OT treatment session. She reported that Enrique has an appointment December 29 for bilateral eye surgery. (+) use of foam handles to build-up utensils and/or other items for manipulation. (+) report of getting pedal bike for home use. = Anisha Patient/Caregiver Compliance with Home Good Exercise Program Comment w/ family support - Objective Objective Measurements Please refer to below for progress towards meeting established OT goals: 11/28/22 = (+) use of foam handles to build-up utensils and/or other items for manipulation. (+) report of getting pedal bike for home use. 11/17/22 = completed 9-HPT w/ L hand in 1 min 46 sec; able to place x 2 pegs in pegboard w/ R hand without L hand assist. Unable to motor plan 5-digit R hand abduction; able to isolate active R radial thumb abd and isolate active R 5th digit abduction. Unable to rotate objects w/ R hand. Short Term Goals GOALS MET Enrique will actively participate in additional standardized assessments (e.g., 9-HPT). * MET 11/17/22 Refinery Operator V[facility] Goals 1. Enrique will be modified independent with execution of home exercise program with the support of his family utilizing provided written and visual instructions from therapist. 2. Enrique and family will be able to identify 2 or 3 additional techniques/ modification strategies/ adaptive equipment that Enrique would be able to use in the home environment to support active engagement/ participation in meaningful activities/self care tasks. - Treatment 2 Descriptor Awareness of right hand/motor planning of right hand. Initiation/maintenace of R hand grasp w/ UE ther exercises. UBE x 5 minutes. Sitting. Alt directions. Able to re-obtain R handed grasp of handle without phys support. 1 Descriptor Object manipulation. Strengthening of digits/grasp. Motor planning of R grasp. Resistance clothespins. 2# to 8# of force manipulated; requested to be finished w/ task. Red flex bar. 'U' 3 x 10. Upside down 'U' 3 x 10. Twist w/ flex bar horizontal. 3 x 10 . - Assessment Assessment of Improvement (+) report of obtaining pedal bike for home use; utilization of foam handles for utensils and/or objects to support manipulation w/ the R hand. Increased success w/ maintaining and motor planning of R marketing development specialist on handle of UEB in today's treatment session. Introduced red flex bar; inconsistent w/ tight fist of R hand relative to thumb positioning; however, able to maintain R handed marketing development specialist w/ 'U', upside down 'U' and twists of flexbar positioned in horizontal plane. Thus, likely would be a good option for home carry-over to work on R marketing development specialist strength/motor planning/ and maintaining R marketing development specialist. Overall, fair session. Patient goals are to increase R UE function, including being able to write name and feed self utilizing utensils w/ the right hand. Enrique presented with increased L hand marketing development specialist/ digit compared to R hand marketing development specialist/ digit strength (dominant side) , decreased R UE motor coordination/motor planning, decreased R UE in-hand manipulation, R sided neglect, hard of hearing, vision impairment (report of recent blurriness per Anisha) and decreased ability to successfully engage in meaningful activities in a variety of environments. Thus, outpatient OT is recommended to address these areas to support active engagement in meaningful activities w/ focus on functioning of the R UE. Home Exercise Program 11/25/22 = Provided with medium firm theraputty for home use; instructed in care and storage of putty. Rec gross digit flexion, pinching between thumb and 2nd digit (w / putty positioned on TT) and pushing each digit (2-5) into putty. Rec completion of putty exercises over/on top of TT. Enrique's , Anisha, was present throughout treatment session. Discussed potential use of pedal bike given UE option; currently has stationary bike. - Plan Therapy Recommendations Continue with Current Program, Advance per Rehabilitation Protocol
--- NOTE | 2022-12-12 12:30 | OT.OP.TRT ---
Visit Care Team Role Provider Type Luciano Cheung DO Attending Provider Physician Family Provider Primary Care Provider Referring Provider Specialty: Family Practice Address: [address] [place] [address], [id number] Email: Occupational Therapy Treatment Note OT Outpatient Treatment Note - Adult Start: 11/01/22 14:36 Freq: Status: Active Protocol: Document 12/12/22 12:24 AMS (Rec: 12/12/22 12:30 AMS [id number]) OT Outpatient Adult Treatment Note Session Time Visit Start Time 10:45 Visit Stop Time 11:30 Total Visit Minutes 45 Visit Information Visit Number 07/20; 07/29 --> visit KX modifier Plan of Care Dates 11/01/22 - 12/27/22 Insurance Information Medicare Setting Treatment Setting Outpatient Care Visit Type Note Type Treatment Note General Information General Information Enrique is a 72 year-old right hand dominant male referred to outpatient OT secondary to diagnosis of Parkinson's disease. Intake paperwork completed by Anisha Jacobo. Medical history significant for: blood pressure - med managed; depression; dizziness ; falls; hearing problems; vision problems (wears glasses w/ upcoming scheduled appt). R olecranon bursitis injury 10/18 secondary to fall; Surgical h/o significant for Neurectomy - lower abdomen/groin outpatient procedure 09/20/22 and surgery on gall bladder approx 12 years ago. 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 Indication of 6 out of 10 on Pain Assessment Grid relative to R UE; 2 out of 10 on Pain Assessment Grid relative to R LE. - Subjective Identification Type Name Identification Reconciled With Medical Record Observations Enrique was seen 1:1 for OT treatment session. No new concerns were indicated. 11/28/22 = Enrique's , Anisha, reported that Enrique has an appointment December 29 for bilateral eye surgery. (+) use of foam handles to build-up utensils and/or other items for manipulation. (+) report of getting pedal bike for home use. = Anisha Patient/Caregiver Compliance with Home Good Exercise Program Comment w/ family support - Objective Objective Measurements Please refer to below for progress towards meeting established OT goals: 11/28/22 = (+) use of foam handles to build-up utensils and/or other items for manipulation. (+) report of getting pedal bike for home use. 11/17/22 = completed 9-HPT w/ L hand in 1 min 46 sec; able to place x 2 pegs in pegboard w/ R hand without L hand assist. Unable to motor plan 5-digit R hand abduction; able to isolate active R radial thumb abd and isolate active R 5th digit abduction. Unable to rotate objects w/ R hand. Short Term Goals GOALS MET Enrique will actively participate in additional standardized assessments (e.g., 9-HPT). * MET 11/17/22 Molder Operator Goals 1. Enrique will be modified independent with execution of home exercise program with the support of his family utilizing provided written and visual instructions from therapist. 2. Enrique and family will be able to identify 2 or 3 additional techniques/ modification strategies/ adaptive equipment that Enrique would be able to use in the home environment to support active engagement/ participation in meaningful activities/self care tasks. - Treatment 2 Descriptor Awareness of right hand/motor planning of right hand. Initiation/maintenace of R hand grasp. UBE x 5 minutes. Sitting. Alt directions. Assist x 1 trial for R handed grasp of handle. 1 Descriptor Object manipulation. Strengthening of digits/grasp. Motor planning of R grasp. Resistance clothespins. 1# to 8# of force manipulated R hand . Red flex bar. 'U' 1 x 10. Upside down 'U' 1 x 10. Twist w/ flex bar horizontal. 3 x 10 . Flipping of index cards 1 x 5. Flipping of light cans 1 x 5. Flipping of heavy, weighted cans 1 x 5. - Assessment Assessment of Improvement (-) reaching back for arm rests/chair w/ transfer from standing --> sitting; (-) locking of brakes w/ transfer from standing --> sitting. (+) locking of brakes w/ s-s; however, tactile cueing for positioning of R hand on 4WW. Assist for donning jacket; min phys assist. Discussion re: donning R UE first given decreased coordination/ mobility. Able to doff jacket without phys assist. Cueing to discourage L handed use w/ flipping of cans. Preference for using corner/proximal edge of index card vs sliding to edge of table. Variable motor approaches observed w/ flipping cans, index cards and transferring of checkers from TT to container w/ R hand. Overall, fair session. Patient goals are to increase R UE function, including being able to write name and feed self utilizing utensils w/ the right hand. Enrique presented with increased L hand guard dance hall/ digit compared to R hand guard dance hall/ digit strength (dominant side) , decreased R UE motor coordination/motor planning, decreased R UE in-hand manipulation, R sided neglect, hard of hearing, vision impairment (report of recent blurriness per Anisha) and decreased ability to successfully engage in meaningful activities in a variety of environments. Thus, outpatient OT is recommended to address these areas to support active engagement in meaningful activities w/ focus on functioning of the R UE. Home Exercise Program 11/25/22 = Provided with medium firm theraputty for home use; instructed in care and storage of putty. Rec gross digit flexion, pinching between thumb and 2nd digit (w / putty positioned on TT) and pushing each digit (2-5) into putty. Rec completion of putty exercises over/on top of TT. Enrique's , Anisha, was present throughout treatment session. Discussed potential use of pedal bike given UE option; currently has stationary bike. - Plan Therapy Recommendations Continue with Current Program, Advance per Rehabilitation Protocol
--- NOTE | 2022-12-19 11:39 | OT.OP.TRT ---
Visit Care Team Role Provider Type Luciano Cheung DO Attending Provider Physician Family Provider Primary Care Provider Referring Provider Specialty: Family Practice Address: [address] [place] [address], [id number] Email: Occupational Therapy Treatment Note OT Outpatient Treatment Note - Adult Start: 11/01/22 14:36 Freq: Status: Active Protocol: Document 12/19/22 11:33 AMS (Rec: 12/19/22 11:39 AMS [id number]) OT Outpatient Adult Treatment Note Session Time Visit Start Time 10:45 Visit Stop Time 11:27 Total Visit Minutes 42 Visit Information Visit Number 08/20; 08/29 --> visit KX modifier Plan of Care Dates 11/01/22 - 12/27/22 Insurance Information Medicare Setting Treatment Setting Outpatient Care Visit Type Note Type Treatment Note General Information General Information Enrique is a 72 year-old right hand dominant male referred to outpatient OT secondary to diagnosis of Parkinson's disease. Intake paperwork completed by Anisha Jacobo. Medical history significant for: blood pressure - med managed; depression; dizziness ; falls; hearing problems; vision problems (wears glasses w/ upcoming scheduled appt). R olecranon bursitis injury 10/18 secondary to fall; Surgical h/o significant for Neurectomy - lower abdomen/groin outpatient procedure 09/20/22 and surgery on gall bladder approx 12 years ago. 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 Indication of 6 out of 10 on Pain Assessment Grid relative to R UE; 2 out of 10 on Pain Assessment Grid relative to R LE. - Subjective Identification Type Name Identification Reconciled With Medical Record Observations Enrique was seen 1:1 for OT treatment session. No new concerns were indicated. 11/28/22 = Enrique's , Anisha, reported that Enrique has an appointment December 29 for bilateral eye surgery. (+) use of foam handles to build-up utensils and/or other items for manipulation. (+) report of getting pedal bike for home use. = Anisha Patient/Caregiver Compliance with Home Good Exercise Program Comment w/ family support - Objective Objective Measurements Please refer to below for progress towards meeting established OT goals: 11/28/22 = (+) use of foam handles to build-up utensils and/or other items for manipulation. (+) report of getting pedal bike for home use. 11/17/22 = completed 9-HPT w/ L hand in 1 min 46 sec; able to place x 2 pegs in pegboard w/ R hand without L hand assist. Unable to motor plan 5-digit R hand abduction; able to isolate active R radial thumb abd and isolate active R 5th digit abduction. Unable to rotate objects w/ R hand. Short Term Goals GOALS MET Enrique will actively participate in additional standardized assessments (e.g., 9-HPT). * MET 11/17/22 Director Of Manufacturing Operations Goals 1. Enrique will be modified independent with execution of home exercise program with the support of his family utilizing provided written and visual instructions from therapist. 2. Enrique and family will be able to identify 2 or 3 additional techniques/ modification strategies/ adaptive equipment that Enrique would be able to use in the home environment to support active engagement/ participation in meaningful activities/self care tasks. - Treatment 2 Descriptor Awareness of right hand/motor planning of right hand. Initiation/maintenace of R hand grasp. UBE x 5 minutes. Sitting. Alt directions. Able to initiate/maintain/adjust R hand grasp on own. 1 Descriptor Object manipulation. Strengthening of digits/grasp. Motor planning of R grasp. Resistance clothespins. 2# to 8# of force manipulated R hand . Flipping of 2 colored disks. Transferring of 2 colored disks TT -> container. Transferring of small drink caps TT -> container. Transferring of tokens TT -> container. N/A 12/19/22 Red flex bar. 'U' 1 x 10. Upside down 'U' 1 x 10. Twist w/ flex bar horizontal. 3 x 10 . - Assessment Assessment of Improvement (-) reaching back for arm rests/chair w/ transfer from standing --> sitting despite verbal/visual cueing; (-) locking of brakes w/ transfer from standing --> sitting. Frequently locks FWW brakes once seated in prep for s-s. Verbal cueing to encourage radial side manipulation of objects, including resistant clothespins. Inconsistent motor approach observed w/ tranferring of objects from TT -> container (as observed w/ tokens and caps; e.g., inconsistent incorporation of R thumb). Inconsistent translation noted w/ R hand despite object placement in R palm. Overall, good session. Patient goals are to increase R UE function, including being able to write name and feed self utilizing utensils w/ the right hand. Enrique presented with increased L hand electric stop installer/ digit compared to R hand electric stop installer/ digit strength (dominant side) , decreased R UE motor coordination/motor planning, decreased R UE in-hand manipulation, R sided neglect, hard of hearing, vision impairment (report of recent blurriness per Anisha) and decreased ability to successfully engage in meaningful activities in a variety of environments. Thus, outpatient OT is recommended to address these areas to support active engagement in meaningful activities w/ focus on functioning of the R UE. Home Exercise Program 11/25/22 = Provided with medium firm theraputty for home use; instructed in care and storage of putty. Rec gross digit flexion, pinching between thumb and 2nd digit (w / putty positioned on TT) and pushing each digit (2-5) into putty. Rec completion of putty exercises over/on top of TT. Enrique's , Anisha, was present throughout treatment session. Discussed potential use of pedal bike given UE option; currently has stationary bike. - Plan Therapy Recommendations Continue with Current Program, Advance per Rehabilitation Protocol
--- NOTE | 2023-01-03 13:58 | OT.OPPOC ---
Physical, Occupational & Speech Therapy At [facility] Amaury Jacobo [id number] 1950 Visit Care Team Role Provider Type Luciano Cheung DO Attending Provider Physician Family Provider Primary Care Provider Referring Provider Address: [address] [place] [address], [id number] Occupational Therapy Plan of Care OT Outpatient Adult Evaluation Start: 11/01/22 14:36 Freq: Status: Active Protocol: Document 11/01/22 14:43 AMS (Rec: 11/01/22 15:18 AMS [id number]) General Information - Adult Visit Information Visit Number 03/22; 03/31 --> visit KX modifier Plan of Care Dates 11/01/22 - 12/27/22 Insurance Information Medicare Session Time Visit Start Time 13:30 Visit Stop Time 14:00 Total Visit Minutes 30 Setting Treatment Setting Outpatient Care Visit Type Note Type Initial Evaluation Identification Identification Confirmed Yes Goals Short Term Goals Short Term Goals 1. Enrique will actively participate in additional standardized assessments (e.g. , 9-HPT). Alf Goals Alf Goals 1. Enrique will be modified independent with execution of home exercise program with the support of his family utilizing provided written and visual instructions from therapist. 2. Enrique and family will be able to identify 2 or 3 additional techniques/ modification strategies/ adaptive equipment that Enrique would be able to use in the home environment to support active engagement/ participation in meaningful activities/self care tasks. Assessment/Plan Assessment Treatment Assessment Enrique is a 72 year-old right hand dominant male referred to outpatient OT secondary to diagnosis of Parkinson's disease. Intake paperwork completed by Anisha Jacobo. Medical history significant for: blood pressure - med managed; depression; dizziness ; falls; hearing problems; vision problems (wears glasses w/ upcoming scheduled appt). R olecranon bursitis injury 10/18 secondary to fall; Surgical h/o significant for Neurectomy - lower abdomen/groin outpatient procedure 09/20/22 and surgery on gall bladder approx 12 years ago. Enrique is currently receiving outpatient ADULT LIVE IN CAREGIVER; he reportedly is scheduled to be evaluated by PT in near future. Indication of 6 out of 10 on Pain Assessment Grid relative to R UE; 2 out of 10 on Pain Assessment Grid relative to R LE. Evaluation Findings: Presented w/ slip-on shoes and ambulating w/ 4WW w/ noted neglect of R UE. Report of having difficulty w/ managing buttons and belt; reportedly has shirt w/ magnetized buttons; Anisha reportedly adapted another button-up shirt for Enrique. Reportedly has trialed curved handle fork and spoon w/ decreased success utilizing utensils placed in the left hand. Reportedly is completing g/h tasks and self- feeding w/ the L hand. Anisha reportedly assists Enrique w/ donning watch on L wrist. Able to oppose R thumb to 3rd digit pad; able to oppose L thumb to all digit pads of the L hand. Able to functionally position both hands on top of head; phys assist from L hand to position both hands on back of head. Able to position both hands on lower back and touch bilateral shoulders. Difficulty motor planning of the R UE; unable to execute forearm flip R UE, however, passive within normal limits supination available. Decreased motor planning of the R wrist; unable to imitate RD/UD and wrist circles in either direction. 67.0# of force R director of revenue (compared to 70- 74 y.o. male norms 75.3 +/- 21 .5# of force) versus 99.0# of force L director of revenue (compared to 70- 74 y.o. male norms 64.8 +/- 18 .1# of force); 17.0# of force R lateral pinch (compared to 70-74 y.o. male norms 13.8 +/- 2.6# of force) versus 22.0# of force (compared to 70-74 y. o. male norms 13.3 +/- 2.6# of force); 9.0# of force R 3-jaw pinch (compared to 70-74 y.o. male norms 18.1 +/- 3.4# of force) versus 16.5# of force L 3-jaw pinch (compared to 70- 74 y.o. male norms 18.8 +/- 3. 3# of force); 6.0# of force R tip pinch (compared to 70-74 y .o. male norms 13.8 +/- 2.6# of force) versus 17.0# of force L tip pinch (compared to 70-74 y.o. male norms 13.3 +/ - 2.6# of force). Able to pick -up and transfer small bull and 1/4-inch thick short pegs from TT to container w/ R hand ; max difficulty motor planning compensatory approach of sliding flat object to edge of TT and coordinating 2nd/3rd digits w/ thumb. Poor proximal stabilization of UE w / writing name on TT surface; inconsistent w/ grasp approach w/ pen positioned in right hand (relative to number of digit pads positioned on writing utensil) although positioned in web space. Jerky movements noted w/ pen use versus fluid/smooth line formation(s). (+) attempt of tracing therapist's [place] w/ ends not meeting w/ approx 1/4 -inch overlap. Report of practicing some hand writing/ letter formation w/ outpatient ADULT LIVE IN CAREGIVER utilizing whiteboard and dry erase marker. Patient goals are to increase R UE function, including being able to write name and feed self utilizing utensils w/ the right hand. Enrique presented with increased L hand director of revenue/ digit compared to R hand director of revenue/ digit strength (dominant side) , decreased R UE motor coordination/motor planning, decreased R UE in-hand manipulation, R sided neglect, hard of hearing, vision impairment (report of recent blurriness per Anisha) and decreased ability to successfully engage in meaningful activities in a variety of environments. Thus, outpatient OT is recommended to address these areas to support active engagement in meaningful activities w/ focus on functioning of the R UE. Further assessment(s) are needed to establish base line. Plan Length of treatment (weeks) 8 Plan of Care Start Date 11/01/22 Plan of Care End Date 12/27/22 Treatment Frequency Once a Week Therapeutic Contents Active Range of Motion, Adaptive Equipment Education, Client Education,Cognitive Skills Development,Functional Activities,Home Exercise Program,Joint Protection, Manual Therapy,Education, Neurodevelopment Treatment, Neuromuscular Re-Education, Self-Care,Stretching/ Flexibility Activities, Therapeutic Activities, Therapeutic Exercises Functional Wrist/Hand Scan Hand Side Sensory Assessment Sensory Profile2 OT Outpatient Treatment Note - Adult Start: 11/01/22 14:36 Freq: Status: Active Protocol: Document 01/03/23 13:46 AMS (Rec: 01/03/23 13:57 AMS [id number]) OT Outpatient Adult Treatment Note Session Time Visit Start Time 09:45 Visit Stop Time 10:30 Total Visit Minutes 45 Visit Information Visit Number 03/22; 09/28 --> visit KX modifier Plan of Care Dates 12/27/22 - 02/21/23 Insurance Information Medicare Setting Treatment Setting Outpatient Care Visit Type Note Type Progress Note General Information General Information Enrique is a 72 year-old right hand dominant male referred to outpatient OT secondary to diagnosis of Parkinson's disease. Intake paperwork completed by Anisha Jacobo. Medical history significant for: blood pressure - med managed; depression; dizziness ; falls; hearing problems; vision problems (wears glasses w/ upcoming scheduled appt). R olecranon bursitis injury 10/18 secondary to fall; Surgical h/o significant for Neurectomy - lower abdomen/groin outpatient procedure 09/20/22 and surgery on gall bladder approx 12 years ago. Enrique is currently receiving outpatient ADULT LIVE IN CAREGIVER; he reportedly is scheduled to be evaluated by PT in near future. Indication of 6 out of 10 on Pain Assessment Grid relative to R UE; 2 out of 10 on Pain Assessment Grid relative to R LE. - Subjective Identification Type Name Identification Reconciled With Medical Record Observations Enrique was seen 1:1 for OT treatment session. Enrique has a pedal bike that he utilizes that is set-up on TT. 11/28/22 = Enrique's , Anisha, reported that Enrique has an appointment December 29 for bilateral eye surgery. (+) use of foam handles to build-up utensils and/or other items for manipulation. (+) report of getting pedal bike for home use. = Anisha Patient/Caregiver Compliance with Home Good Exercise Program Comment w/ family support - Objective Objective Measurements Please refer to below for progress towards meeting established OT goals: 11/28/22 = (+) use of foam handles to build-up utensils and/or other items for manipulation. (+) report of getting pedal bike for home use. 11/17/22 = completed 9-HPT w/ L hand in 1 min 46 sec; able to place x 2 pegs in pegboard w/ R hand without L hand assist. Unable to motor plan 5-digit R hand abduction; able to isolate active R radial thumb abd and isolate active R 5th digit abduction. Unable to rotate objects w/ R hand. Short Term Goals GOALS MET Enrique will actively participate in additional standardized assessments (e.g., 9-HPT). * MET 11/17/22 Alf Goals 1. Enrique will be modified independent with execution of home exercise program with the support of his family utilizing provided written and visual instructions from therapist. 2. Enrique and family will be able to identify 2 or 3 additional techniques/ modification strategies/ adaptive equipment that Enrique would be able to use in the home environment to support active engagement/ participation in meaningful activities/self care tasks. - Treatment 2 Descriptor Awareness of right hand/motor planning of right hand. Initiation/maintenace of R hand grasp. UBE x 5 minutes. Sitting. Alt directions. Able to initiate/maintain/adjust R hand grasp on own. 1 Descriptor Object manipulation. Strengthening of digits/grasp. Motor planning of R grasp. Flipping of 2 colored disks x 8. Transferring of 2 colored disks TT -> container. Transferring of small drink caps TT -> container. Transferring of tokens TT -> container. Transferring of small pegs from TT -> container. Red flex bar. 'U' 1 x 10. Upside down 'U' 1 x 10. - Assessment Assessment of Improvement Enrique has made some progress with outpatient OT; he has demonstrated increased ability to initiate and maintain/ sustain right director of revenue w/ management of upper extremity bike in sitting and increased success with retrieving objects with right hand w/ functional reach in frontal plane and flipping over of objects. Although Enrique is now actively retrieving objects in frontal plane w/ R UE to bring them closer to base of support for manipulation, he will utilize L hand to bring items positioned to R of UE closer and/or utilize nonverbal means to communicate this need. Enrique has had some increasing success w/ flipping objects and sliding objects to edge of table for manipulation w/ the right hand ; however, he continues to demonstrate inconsistency with motor approach despite familiarity of objects presented in treatment session . Enrique continues to need support/cueing for safe transfers, including locking of brakes prior to sitting. Enrique does have a pedal bike that he is using that is set- up on table and arm pulleys may be another good option for home use. Continued outpatient OT is recommended to address patient goals are to increase R UE function, including being able to write name and feed self utilizing utensils w/ the right hand. Enrique presented with increased L hand director of revenue/ digit compared to R hand director of revenue/ digit strength (dominant side) , decreased R UE motor coordination/motor planning, decreased R UE in-hand manipulation, R sided neglect, hard of hearing, vision impairment (report of recent blurriness per Anisha) and decreased ability to successfully engage in meaningful activities in a variety of environments. Home Exercise Program 11/25/22 = Provided with medium firm theraputty for home use; instructed in care and storage of putty. Rec gross digit flexion, pinching between thumb and 2nd digit (w / putty positioned on TT) and pushing each digit (2-5) into putty. Rec completion of putty exercises over/on top of TT. Enrique's , Anisha, was present throughout treatment session. Discussed potential use of pedal bike given UE option; currently has stationary bike. - Plan Therapy Recommendations Continue with Current Program, Advance per Rehabilitation Protocol Comment 8 weeks Frequency of Treatment Once a Week Therapeutic Contents Active Range of Motion,Client Education,Functional Activities,Home Exercise Program,Joint Protection, Manual Therapy,Education,Self- Care,Stretching/Flexibility Activities,Therapeutic Activities,Therapeutic Exercises Electronically Signed by: Katheryn Gibson OT 01/03/23 0017 If you are in agreement with this Plan of Care, please return a signed and dated copy. I have reviewed this Plan of Care and certify that the skilled therapy services above are required to meet the patient?s needs. Physician Signature Date Printed Name and Credentials Clinical Instructor Signature Printed Name and Credentials
--- NOTE | 2023-01-25 15:53 | OT.OP.TRT ---
Visit Care Team Role Provider Type Luciano Cheung DO Attending Provider Physician Family Provider Primary Care Provider Referring Provider Specialty: Family Practice Address: [address] [place] [address], [id number] Email: Occupational Therapy Treatment Note OT Outpatient Treatment Note - Adult Start: 11/01/22 14:36 Freq: Status: Active Protocol: Document 01/25/23 15:45 AMS (Rec: 01/25/23 15:53 AMS [id number]) OT Outpatient Adult Treatment Note Session Time Visit Start Time 14:30 Visit Stop Time 15:15 Total Visit Minutes 45 Visit Information Visit Number 04/22; 10/29 --> visit KX modifier Plan of Care Dates 12/27/22 - 02/21/23 Insurance Information Medicare Setting Treatment Setting Outpatient Care Visit Type Note Type Treatment Note General Information General Information Enrique is a 72 year-old right hand dominant male referred to outpatient OT secondary to diagnosis of Parkinson's disease. Intake paperwork completed by Anisha Jacobo. Medical history significant for: blood pressure - med managed; depression; dizziness ; falls; hearing problems; vision problems (wears glasses w/ upcoming scheduled appt). R olecranon bursitis injury 10/18 secondary to fall; Surgical h/o significant for Neurectomy - lower abdomen/groin outpatient procedure 09/20/22 and surgery on gall bladder approx 12 years ago. 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 Indication of 6 out of 10 on Pain Assessment Grid relative to R UE; 2 out of 10 on Pain Assessment Grid relative to R LE. - Subjective Identification Type Name Identification Reconciled With Medical Record Observations Enrique was seen 1:1 for OT treatment session. Enrique has a pedal bike that he utilizes that is set-up on TT. Report of recent fall w/ subsequent x -rays; reportedly fell onto R arm/R LE. 11/28/22 = Enrique's , Anisha, reported that Enrique has an appointment December 29 for bilateral eye surgery. (+) use of foam handles to build-up utensils and/or other items for manipulation. (+) report of getting pedal bike for home use. = Anisha Patient/Caregiver Compliance with Home Good Exercise Program Comment w/ family support - Objective Objective Measurements Please refer to below for progress towards meeting established OT goals: 11/28/22 = (+) use of foam handles to build-up utensils and/or other items for manipulation. (+) report of getting pedal bike for home use. 11/17/22 = completed 9-HPT w/ L hand in 1 min 46 sec; able to place x 2 pegs in pegboard w/ R hand without L hand assist. Unable to motor plan 5-digit R hand abduction; able to isolate active R radial thumb abd and isolate active R 5th digit abduction. Unable to rotate objects w/ R hand. Short Term Goals GOALS MET Enrique will actively participate in additional standardized assessments (e.g., 9-HPT). * MET 11/17/22 Sales And Marketing Director Goals 1. Enrique will be modified independent with execution of home exercise program with the support of his family utilizing provided written and visual instructions from therapist. 2. Enrique and family will be able to identify 2 or 3 additional techniques/ modification strategies/ adaptive equipment that Enrique would be able to use in the home environment to support active engagement/ participation in meaningful activities/self care tasks. - Treatment 2 Descriptor Awareness of right hand/motor planning of right hand. Initiation/maintenace of R hand grasp. UBE x 5 minutes. Sitting. Alt directions. Able to initiate/maintain/adjust R hand grasp on own. 1 Descriptor Object manipulation. Strengthening of digits/grasp. Motor planning of R grasp. Transferring of 2 colored disks TT -> container. Transferring of small drink caps TT -> container. Transferring of quarters/ nickels TT -> container. Transferring of 1/4-inch to 3/ 4-inch beads TT -> container. Transferring of small/medium sized metal rings from TT to 1st and 2nd rungs of wood ' tree'. Red flex bar. 'U' 1 x 10. Upside down 'U' 1 x 10. - Assessment Assessment of Improvement (+) report of recent fall w/ subsequent x-rays of R UE indicated; Enrique is actively being seen in the outpatient setting by PT for balance/gait /mobility. (+) band aids noted to R elbow, R forearm, L hand . (+) report of discomfort in R wrist w/ stiffness reported w/ passive R wrist ext. Enrique continues to need support/ cueing for safe transfers, including locking of brakes prior to sitting, as well as cueing to grasp handle of 4WW w/ right hand and taking larger steps with R foot w/ mobility. Increased success w/ grasping of smaller objects w / R hand and coordination of thumb and 2nd digit, thumb and 3rd digit or 3-jaw/palmar grasp. Good activity tolerance /participation given OT treatment session followed PT session. Continued outpatient OT is recommended to address patient goals are to increase R UE function, including being able to write name and feed self utilizing utensils w/ the right hand. Enrique presented with increased L hand press operator instant print shop/ digit compared to R hand press operator instant print shop/ digit strength (dominant side) , decreased R UE motor coordination/motor planning, decreased R UE in-hand manipulation, R sided neglect, hard of hearing, vision impairment (report of recent blurriness per Anisha) and decreased ability to successfully engage in meaningful activities in a variety of environments. Home Exercise Program 11/25/22 = Provided with medium firm theraputty for home use; instructed in care and storage of putty. Rec gross digit flexion, pinching between thumb and 2nd digit (w / putty positioned on TT) and pushing each digit (2-5) into putty. Rec completion of putty exercises over/on top of TT. Enrique's , Anisha, was present throughout treatment session. Discussed potential use of pedal bike given UE option; currently has stationary bike. - Plan Therapy Recommendations Continue with Current Program, Advance per Rehabilitation Protocol
--- NOTE | 2023-02-01 15:32 | OT.OP.TRT ---
Visit Care Team Role Provider Type Luciano Cheung DO Attending Provider Physician Family Provider Primary Care Provider Referring Provider Specialty: Family Practice Address: [address] [place] [address], [id number] Email: Occupational Therapy Treatment Note OT Outpatient Treatment Note - Adult Start: 11/01/22 14:36 Freq: Status: Active Protocol: Document 02/01/23 15:16 AMS (Rec: 02/01/23 15:32 AMS [id number]) OT Outpatient Adult Treatment Note Session Time Visit Start Time 14:30 Visit Stop Time 15:15 Total Visit Minutes 45 Visit Information Visit Number 05/20; 11/29 --> visit KX modifier Plan of Care Dates 12/27/22 - 02/21/23 Insurance Information Medicare Setting Treatment Setting Outpatient Care Visit Type Note Type Treatment Note General Information General Information Enrique is a 72 year-old right hand dominant male referred to outpatient OT secondary to diagnosis of Parkinson's disease. Intake paperwork completed by Anisha Jacobo. Medical history significant for: blood pressure - med managed; depression; dizziness ; falls; hearing problems; vision problems (wears glasses w/ upcoming scheduled appt). R olecranon bursitis injury 10/18 secondary to fall; Surgical h/o significant for Neurectomy - lower abdomen/groin outpatient procedure 09/20/22 and surgery on gall bladder approx 12 years ago. 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 Indication of 6 out of 10 on Pain Assessment Grid relative to R UE; 2 out of 10 on Pain Assessment Grid relative to R LE. - Subjective Identification Type Name Identification Reconciled With Medical Record Observations Enrique was accompanied by his , Anisha, to treatment session. x-rays from fall were negative for R UE. He was seen in walk-in clinic and prescribed antibiotics for R UE swelling. (+) swelling of R UE noted; edema noteably present of dorsum of R hand w/ decreased indentations between 2-5 MCP joints of the R hand. Edema also noted in fingers w/ decreased creases of dorsal IPJ when comparing R and L and edema/swelling of wrist. Anisha reported that Enrique has an appt scheduled w/ his PCP next Monday as well. 02/01/23= Enrique has a pedal bike that he utilizes that is set-up on TT; 11/28/22 = Enrique's , Anisha, reported that Enrique has an appointment December 29 for bilateral eye surgery. (+) use of foam handles to build-up utensils and/or other items for manipulation. (+) report of getting pedal bike for home use. = Anisha Patient/Caregiver Compliance with Home Good Exercise Program Comment w/ family support - Objective Objective Measurements Please refer to below for progress towards meeting established OT goals: 11/28/22 = (+) use of foam handles to build-up utensils and/or other items for manipulation. (+) report of getting pedal bike for home use. 11/17/22 = completed 9-HPT w/ L hand in 1 min 46 sec; able to place x 2 pegs in pegboard w/ R hand without L hand assist. Unable to motor plan 5-digit R hand abduction; able to isolate active R radial thumb abd and isolate active R 5th digit abduction. Unable to rotate objects w/ R hand. Short Term Goals GOALS MET Enrique will actively participate in additional standardized assessments (e.g., 9-HPT). * MET 11/17/22 Spa Therapist Goals 1. Enrique will be modified independent with execution of home exercise program with the support of his family utilizing provided written and visual instructions from therapist. 2. Enrique and family will be able to identify 2 or 3 additional techniques/ modification strategies/ adaptive equipment that Enrique would be able to use in the home environment to support active engagement/ participation in meaningful activities/self care tasks. - Treatment 1 Descriptor Object manipulation. Strengthening of digits/grasp. Motor planning of R grasp. Transferring of inverted golf tees between fingers from TT - > container. Transferring of medium sized washers from TT -> container. Transferring of small clothespins from board -> container. Transferring of medium/large sized metal rings from TT to 1st rungs of wood 'tree'. Rotation of dominoes from flat -> to horizontal on TT ( horizontal rectangle). Red flex bar. 'U' 2 x 10. - Assessment Assessment of Improvement Negative results of recent x- rays from fall onto R UE; (+) edema of distal R UE. Enrique was wearing long sleeved shirt, however, swelling noteable of wrist --> fingers of R UE. Reportedly is being treated w/ antibiotics w/ recommendation to follow-up w/ walk-in clinic (if needed)/swelling has not resolved. Enrique also has an appt scheduled w/ his PCP next Monday. Enrique continues to need support/ cueing for safe transfers, including locking of brakes prior to sitting, as well as cueing to grasp handle of 4WW w/ right hand and taking larger steps with R foot w/ mobility. Improving motor coordination of the R hand/ object manipulation abilities despite edema; introduced ' scissoring' of objects between digits of the R hand for abd/ add given swelling and rotation/graded control/force w/ balancing and rotating objects/dominoes (increased success w/ horizontal orientation of dominoes). Overall, good session. Continued outpatient OT is recommended to address patient goals are to increase R UE function, including being able to write name and feed self utilizing utensils w/ the right hand. Enrique presented with increased L hand pool technician/ digit compared to R hand pool technician/ digit strength (dominant side) , decreased R UE motor coordination/motor planning, decreased R UE in-hand manipulation, R sided neglect, hard of hearing, vision impairment (report of recent blurriness per Anisha) and decreased ability to successfully engage in meaningful activities in a variety of environments. Home Exercise Program 11/25/22 = Provided with medium firm theraputty for home use; instructed in care and storage of putty. Rec gross digit flexion, pinching between thumb and 2nd digit (w / putty positioned on TT) and pushing each digit (2-5) into putty. Rec completion of putty exercises over/on top of TT. Enrique's , Anisha, was present throughout treatment session. Discussed potential use of pedal bike given UE option; currently has stationary bike. - Plan Therapy Recommendations Continue with Current Program, Advance per Rehabilitation Protocol
--- NOTE | 2023-02-01 15:33 | OT.OP.TRT ---
Visit Care Team Role Provider Type Luciano Cheung DO Attending Provider Physician Family Provider Primary Care Provider Referring Provider Specialty: Family Practice Address: [address] [place] [address], [id number] Email: Occupational Therapy Treatment Note OT Outpatient Treatment Note - Adult Start: 11/01/22 14:36 Freq: Status: Active Protocol: Document 02/01/23 15:16 AMS (Rec: 02/01/23 15:32 AMS [id number]) OT Outpatient Adult Treatment Note Session Time Visit Start Time 14:30 Visit Stop Time 15:15 Total Visit Minutes 45 Visit Information Visit Number 05/20; 11/29 --> visit KX modifier Plan of Care Dates 12/27/22 - 02/21/23 Insurance Information Medicare Setting Treatment Setting Outpatient Care Visit Type Note Type Treatment Note General Information General Information Enrique is a 72 year-old right hand dominant male referred to outpatient OT secondary to diagnosis of Parkinson's disease. Intake paperwork completed by Anisha Jacobo. Medical history significant for: blood pressure - med managed; depression; dizziness ; falls; hearing problems; vision problems (wears glasses w/ upcoming scheduled appt). R olecranon bursitis injury 10/18 secondary to fall; Surgical h/o significant for Neurectomy - lower abdomen/groin outpatient procedure 09/20/22 and surgery on gall bladder approx 12 years ago. 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 Indication of 6 out of 10 on Pain Assessment Grid relative to R UE; 2 out of 10 on Pain Assessment Grid relative to R LE. - Subjective Identification Type Name Identification Reconciled With Medical Record Observations Enrique was accompanied by his , Anisha, to treatment session. x-rays from fall were negative for R UE. He was seen in walk-in clinic and prescribed antibiotics for R UE swelling. (+) swelling of R UE noted; edema noteably present of dorsum of R hand w/ decreased indentations between 2-5 MCP joints of the R hand. Edema also noted in fingers w/ decreased creases of dorsal IPJ when comparing R and L and edema/swelling of wrist. Anisha reported that Enrique has an appt scheduled w/ his PCP next Monday as well. 02/01/23= Enrique has a pedal bike that he utilizes that is set-up on TT; 11/28/22 = Enrique's , Anisha, reported that Enrique has an appointment December 29 for bilateral eye surgery. (+) use of foam handles to build-up utensils and/or other items for manipulation. (+) report of getting pedal bike for home use. = Anisha Patient/Caregiver Compliance with Home Good Exercise Program Comment w/ family support - Objective Objective Measurements Please refer to below for progress towards meeting established OT goals: 11/28/22 = (+) use of foam handles to build-up utensils and/or other items for manipulation. (+) report of getting pedal bike for home use. 11/17/22 = completed 9-HPT w/ L hand in 1 min 46 sec; able to place x 2 pegs in pegboard w/ R hand without L hand assist. Unable to motor plan 5-digit R hand abduction; able to isolate active R radial thumb abd and isolate active R 5th digit abduction. Unable to rotate objects w/ R hand. Short Term Goals GOALS MET Enrique will actively participate in additional standardized assessments (e.g., 9-HPT). * MET 11/17/22 Director Voice Goals 1. Enrique will be modified independent with execution of home exercise program with the support of his family utilizing provided written and visual instructions from therapist. 2. Enrique and family will be able to identify 2 or 3 additional techniques/ modification strategies/ adaptive equipment that Enrique would be able to use in the home environment to support active engagement/ participation in meaningful activities/self care tasks. - Treatment 1 Descriptor Object manipulation. Strengthening of digits/grasp. Motor planning of R grasp. Transferring of inverted golf tees between fingers from TT - > container. Transferring of medium sized washers from TT -> container. Transferring of small clothespins from board -> container. Transferring of medium/large sized metal rings from TT to 1st rungs of wood 'tree'. Rotation of dominoes from flat -> to horizontal on TT ( horizontal rectangle). Red flex bar. 'U' 2 x 10. - Assessment Assessment of Improvement Negative results of recent x- rays from fall onto R UE; (+) edema of distal R UE. Enrique was wearing long sleeved shirt, however, swelling noteable of wrist --> fingers of R UE. Reportedly is being treated w/ antibiotics w/ recommendation to follow-up w/ walk-in clinic (if needed)/swelling has not resolved. Enrique also has an appt scheduled w/ his PCP next Monday. Enrique continues to need support/ cueing for safe transfers, including locking of brakes prior to sitting, as well as cueing to grasp handle of 4WW w/ right hand and taking larger steps with R foot w/ mobility. Improving motor coordination of the R hand/ object manipulation abilities despite edema; introduced ' scissoring' of objects between digits of the R hand for abd/ add given swelling and rotation/graded control/force w/ balancing and rotating objects/dominoes (increased success w/ horizontal orientation of dominoes). Overall, good session. Continued outpatient OT is recommended to address patient goals are to increase R UE function, including being able to write name and feed self utilizing utensils w/ the right hand. Enrique presented with increased L hand neurocritical care physician/ digit compared to R hand neurocritical care physician/ digit strength (dominant side) , decreased R UE motor coordination/motor planning, decreased R UE in-hand manipulation, R sided neglect, hard of hearing, vision impairment (report of recent blurriness per Anisha) and decreased ability to successfully engage in meaningful activities in a variety of environments. Home Exercise Program 11/25/22 = Provided with medium firm theraputty for home use; instructed in care and storage of putty. Rec gross digit flexion, pinching between thumb and 2nd digit (w / putty positioned on TT) and pushing each digit (2-5) into putty. Rec completion of putty exercises over/on top of TT. Enrique's , Anisha, was present throughout treatment session. Discussed potential use of pedal bike given UE option; currently has stationary bike. - Plan Therapy Recommendations Continue with Current Program, Advance per Rehabilitation Protocol
--- NOTE | 2023-02-06 11:34 | OT.OP.TRT ---
Visit Care Team Role Provider Type Luciano Cheung DO Attending Provider Physician Family Provider Primary Care Provider Referring Provider Specialty: Family Practice Address: [address] [place] [address], [phone] Email: Occupational Therapy Treatment Note OT Outpatient Treatment Note - Adult Start: 11/01/22 14:36 Freq: Status: Active Protocol: Document 02/06/23 11:21 AMS (Rec: 02/06/23 11:34 AMS [id number]) OT Outpatient Adult Treatment Note Session Time Visit Start Time 10:30 Visit Stop Time 11:15 Visit Information Visit Number 06/20; 12/29 --> visit KX modifier Plan of Care Dates 12/27/22 - 02/21/23 Insurance Information Medicare Setting Treatment Setting Outpatient Care Visit Type Note Type Treatment Note General Information General Information Enrique is a 72 year-old right hand dominant male referred to outpatient OT secondary to diagnosis of Parkinson's disease. Intake paperwork completed by Anisha Jacobo. Medical history significant for: blood pressure - med managed; depression; dizziness ; falls; hearing problems; vision problems (wears glasses w/ upcoming scheduled appt). R olecranon bursitis injury 10/18 secondary to fall; Surgical h/o significant for Neurectomy - lower abdomen/groin outpatient procedure 09/20/22 and surgery on gall bladder approx 12 years ago. 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 Indication of 6 out of 10 on Pain Assessment Grid relative to R UE; 2 out of 10 on Pain Assessment Grid relative to R LE. - Subjective Identification Type Name Identification Reconciled With Medical Record Observations Enrique was seen 1:1 for OT treatment session. (-) rings bilaterally. Decreased swelling of distal R UE noted primarily of the dorsum/back of the R hand/R wrist compared to previous treatment session ; (+) grasping of R hand by L hand intermittently throughout treatment session w/ reported R hand being 'stiff'. 02/01/23= Enrique has a pedal bike that he utilizes that is set-up on ; 11/28/22 = Enrique's , Anisha, reported that Enrique has an appointment December 29 for bilateral eye surgery. (+) use of foam handles to build-up utensils and/or other items for manipulation. (+) report of getting pedal bike for home use. = Anisha Patient/Caregiver Compliance with Home Good Exercise Program Comment w/ family support - Objective Objective Measurements Please refer to below for progress towards meeting established OT goals: 11/28/22 = (+) use of foam handles to build-up utensils and/or other items for manipulation. (+) report of getting pedal bike for home use. 11/17/22 = completed 9-HPT w/ L hand in 1 min 46 sec; able to place x 2 pegs in pegboard w/ R hand without L hand assist. Unable to motor plan 5-digit R hand abduction; able to isolate active R radial thumb abd and isolate active R 5th digit abduction. Unable to rotate objects w/ R hand. Short Term Goals GOALS MET Enrique will actively participate in additional standardized assessments (e.g., 9-HPT). * MET 11/17/22 Jail Goals 1. Enrique will be modified independent with execution of home exercise program with the support of his family utilizing provided written and visual instructions from therapist. 2. Enrique and family will be able to identify 2 or 3 additional techniques/ modification strategies/ adaptive equipment that Enrique would be able to use in the home environment to support active engagement/ participation in meaningful activities/self care tasks. - Treatment 1 Descriptor Object manipulation. Strengthening of digits/grasp. Motor planning of R grasp. Transferring of medium sized paperclips from TT -> container. Transferring of medium sized washers from TT -> container. Transferring of TB squares from TT -> container. N/A 02/06/23 Transferring of medium/large sized metal rings from TT to 1st rungs of wood 'tree'. Rotation of dominoes from flat -> to horizontal on TT ( horizontal rectangle). Transferring of inverted golf tees between fingers from TT - > container. Transferring of small clothespins from board -> container. Red flex bar. 'U' 2 x 10. - Assessment Assessment of Improvement Decreased swelling of distal R UE noted; (-) wearing of rings bilaterally. Enrique continues to need support/ cueing for safe transfers, including locking of brakes prior to sitting, as well as cueing to grasp handle of 4WW w/ right hand and taking larger steps with R foot w/ mobility. Continued difficulties w/ rotating thinner/smaller objects at TT w/ R hand. Rec rotation of dominoes versus short dowels/ screws/golf tees. Overall, good session. Continued outpatient OT is recommended to address patient goals are to increase R UE function, including being able to write name and feed self utilizing utensils w/ the right hand. 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 Home Exercise Program 11/25/22 = Provided with medium firm theraputty for home use; instructed in care and storage of putty. Rec gross digit flexion, pinching between thumb and 2nd digit (w / putty positioned on TT) and pushing each digit (2-5) into putty. Rec completion of putty exercises over/on top of TT. Enrique's , Anisha, was present throughout treatment session. Discussed potential use of pedal bike given UE option; currently has stationary bike. - Plan Therapy Recommendations Continue with Current Program, Advance per Rehabilitation Protocol
--- NOTE | 2023-02-14 13:07 | OT.OP.TRT ---
Visit Care Team Role Provider Type Luciano Cheung DO Attending Provider Physician Family Provider Primary Care Provider Referring Provider Specialty: Family Practice Address: [address] [place] [address], [id number] Email: Occupational Therapy Treatment Note OT Outpatient Treatment Note - Adult Start: 11/01/22 14:36 Freq: Status: Active Protocol: Document 02/14/23 13:04 [facility] (Rec: 02/14/23 13:07 [facility] [id number]) OT Outpatient Adult Treatment Note Session Time Visit Start Time 09:30 Visit Stop Time 10:00 Total Visit Minutes 30 Visit Information Visit Number 07/20; 01/29 --> visit KX modifier Plan of Care Dates 12/27/22 - 02/21/23 Insurance Information Medicare Setting Treatment Setting Outpatient Care Visit Type Note Type Treatment Note General Information General Information Enrique is a 72 year-old right hand dominant male referred to outpatient OT secondary to diagnosis of Parkinson's disease. Intake paperwork completed by Anisha Jacobo. Medical history significant for: blood pressure - med managed; depression; dizziness ; falls; hearing problems; vision problems (wears glasses w/ upcoming scheduled appt). R olecranon bursitis injury 10/18 secondary to fall; Surgical h/o significant for Neurectomy - lower abdomen/groin outpatient procedure 09/20/22 and surgery on gall bladder approx 12 years ago. 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 Indication of 6 out of 10 on Pain Assessment Grid relative to R UE; 2 out of 10 on Pain Assessment Grid relative to R LE. - Subjective Identification Type Name Identification Reconciled With Medical Record Observations Enrique was accompanied by his , Anisha, to treatment session. (+) taking of oral pain med at beginning of treatment session; session shortened d/t pain complaints. 02/01/23= Enrique has a pedal bike that he utilizes that is set-up on ; 11/28/22 = Enrique's , Anisha, reported that Enrique has an appointment December 29 for bilateral eye surgery. (+) use of foam handles to build-up utensils and/or other items for manipulation. (+) report of getting pedal bike for home use. = Anisha - - Treatment 1 Descriptor Object manipulation. Strengthening of digits/grasp. Motor planning of R grasp. Transferring of small objects from TT -> container (washers, bolts, etc). N/A 02/06/23 Transferring of medium/large sized metal rings from TT to 1st rungs of wood 'tree'. N/A 02/14/23 Rotation of dominoes from flat -> to horizontal on TT ( horizontal rectangle). Transferring of inverted golf tees between fingers from TT - > container. Transferring of small clothespins from board -> container. Red flex bar. 'U' 2 x 10. - Assessment Assessment of Improvement Decreased swelling of distal R UE noted. Enrique continues to need support/cueing for safe transfers, including locking of brakes prior to sitting, as well as cueing to grasp handle of 4WW w/ right hand and taking larger steps with R foot w/ mobility. Shortened treatment session secondary to Enrique's c/o pain/discomfort; ( +) intake of oral medication at start of session 9:30 a.m. as provided by . Continued outpatient OT is recommended to address patient goals are to increase R UE function, including being able to write name and feed self utilizing utensils w/ the right hand. 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 Home Exercise Program 11/25/22 = Provided with medium firm theraputty for home use; instructed in care and storage of putty. Rec gross digit flexion, pinching between thumb and 2nd digit (w / putty positioned on TT) and pushing each digit (2-5) into putty. Rec completion of putty exercises over/on top of TT. Enrique's , Anisha, was present throughout treatment session. Discussed potential use of pedal bike given UE option; currently has stationary bike. - Plan Therapy Recommendations Continue with Current Program, Advance per Rehabilitation Protocol
--- NOTE | 2023-02-20 13:28 | OT.OPPOC ---
Physical, Occupational & Speech Therapy At [facility] Amaury Jacobo [id number] 1950 Visit Care Team Role Provider Type Luciano Cheung DO Attending Provider Physician Family Provider Primary Care Provider Referring Provider Address: [address] [place] [address], [id number] Occupational Therapy Plan of Care OT Outpatient Adult Evaluation Start: 11/01/22 14:36 Freq: Status: Active Protocol: Document 11/01/22 14:43 AMS (Rec: 11/01/22 15:18 AMS [id number]) General Information - Adult Visit Information Visit Number 03/22; 03/31 --> visit KX modifier Plan of Care Dates 11/01/22 - 12/27/22 Insurance Information Medicare Session Time Visit Start Time 13:30 Visit Stop Time 14:00 Total Visit Minutes 30 Setting Treatment Setting Outpatient Care Visit Type Note Type Initial Evaluation Identification Identification Confirmed Yes Goals Short Term Goals Short Term Goals 1. Enrique will actively participate in additional standardized assessments (e.g. , 9-HPT). Snf Goals Snf Goals 1. Enrique will be modified independent with execution of home exercise program with the support of his family utilizing provided written and visual instructions from therapist. 2. Enrique and family will be able to identify 2 or 3 additional techniques/ modification strategies/ adaptive equipment that Enrique would be able to use in the home environment to support active engagement/ participation in meaningful activities/self care tasks. Assessment/Plan Assessment Treatment Assessment Enrique is a 72 year-old right hand dominant male referred to outpatient OT secondary to diagnosis of Parkinson's disease. Intake paperwork completed by Anisha Jacobo. Medical history significant for: blood pressure - med managed; depression; dizziness ; falls; hearing problems; vision problems (wears glasses w/ upcoming scheduled appt). R olecranon bursitis injury 10/18 secondary to fall; Surgical h/o significant for Neurectomy - lower abdomen/groin outpatient procedure 09/20/22 and surgery on gall bladder approx 12 years ago. Enrique is currently receiving outpatient [employer]; he reportedly is scheduled to be evaluated by PT in near future. Indication of 6 out of 10 on Pain Assessment Grid relative to R UE; 2 out of 10 on Pain Assessment Grid relative to R LE. Evaluation Findings: Presented w/ slip-on shoes and ambulating w/ 4WW w/ noted neglect of R UE. Report of having difficulty w/ managing buttons and belt; reportedly has shirt w/ magnetized buttons; Anisha reportedly adapted another button-up shirt for Enrique. Reportedly has trialed curved handle fork and spoon w/ decreased success utilizing utensils placed in the left hand. Reportedly is completing g/h tasks and self- feeding w/ the L hand. Anisha reportedly assists Enrique w/ donning watch on L wrist. Able to oppose R thumb to 3rd digit pad; able to oppose L thumb to all digit pads of the L hand. Able to functionally position both hands on top of head; phys assist from L hand to position both hands on back of head. Able to position both hands on lower back and touch bilateral shoulders. Difficulty motor planning of the R UE; unable to execute forearm flip R UE, however, passive within normal limits supination available. Decreased motor planning of the R wrist; unable to imitate RD/UD and wrist circles in either direction. 67.0# of force R final dressing cutter (compared to 70- 74 y.o. male norms 75.3 +/- 21 .5# of force) versus 99.0# of force L final dressing cutter (compared to 70- 74 y.o. male norms 64.8 +/- 18 .1# of force); 17.0# of force R lateral pinch (compared to 70-74 y.o. male norms 13.8 +/- 2.6# of force) versus 22.0# of force (compared to 70-74 y. o. male norms 13.3 +/- 2.6# of force); 9.0# of force R 3-jaw pinch (compared to 70-74 y.o. male norms 18.1 +/- 3.4# of force) versus 16.5# of force L 3-jaw pinch (compared to 70- 74 y.o. male norms 18.8 +/- 3. 3# of force); 6.0# of force R tip pinch (compared to 70-74 y .o. male norms 13.8 +/- 2.6# of force) versus 17.0# of force L tip pinch (compared to 70-74 y.o. male norms 13.3 +/ - 2.6# of force). Able to pick -up and transfer small bull and 1/4-inch thick short pegs from TT to container w/ R hand ; max difficulty motor planning compensatory approach of sliding flat object to edge of TT and coordinating 2nd/3rd digits w/ thumb. Poor proximal stabilization of UE w / writing name on TT surface; inconsistent w/ grasp approach w/ pen positioned in right hand (relative to number of digit pads positioned on writing utensil) although positioned in web space. Jerky movements noted w/ pen use versus fluid/smooth line formation(s). (+) attempt of tracing therapist's little traverse w/ ends not meeting w/ approx 1/4 -inch overlap. Report of practicing some hand writing/ letter formation w/ outpatient [employer] utilizing whiteboard and dry erase marker. Patient goals are to increase R UE function, including being able to write name and feed self utilizing utensils w/ the right hand. Enrique presented with increased L hand final dressing cutter/ digit compared to R hand final dressing cutter/ digit strength (dominant side) , decreased R UE motor coordination/motor planning, decreased R UE in-hand manipulation, R sided neglect, hard of hearing, vision impairment (report of recent blurriness per Anisha) and decreased ability to successfully engage in meaningful activities in a variety of environments. Thus, outpatient OT is recommended to address these areas to support active engagement in meaningful activities w/ focus on functioning of the R UE. Further assessment(s) are needed to establish base line. Plan Length of treatment (weeks) 8 Plan of Care Start Date 11/01/22 Plan of Care End Date 12/27/22 Treatment Frequency Once a Week Therapeutic Contents Active Range of Motion, Adaptive Equipment Education, Client Education,Cognitive Skills Development,Functional Activities,Home Exercise Program,Joint Protection, Manual Therapy,Education, Neurodevelopment Treatment, Neuromuscular Re-Education, Self-Care,Stretching/ Flexibility Activities, Therapeutic Activities, Therapeutic Exercises Functional Wrist/Hand Scan Hand Side Sensory Assessment Sensory Profile2 OT Outpatient Treatment Note - Adult Start: 11/01/22 14:36 Freq: Status: Active Protocol: Document 02/20/23 13:16 AMS (Rec: 02/20/23 13:27 [facility] [id number]) OT Outpatient Adult Treatment Note Session Time Visit Start Time 10:30 Visit Stop Time 11:10 Total Visit Minutes 40 Visit Information Visit Number 08/20; 02/28 --> visit KX modifier Plan of Care Dates 02/20/23 - 04/03/23 Insurance Information Medicare Setting Treatment Setting Outpatient Care Visit Type Note Type Progress Note General Information General Information Enrique is a 72 year-old right hand dominant male referred to outpatient OT secondary to diagnosis of Parkinson's disease. Intake paperwork completed by Anisha Jacobo. Medical history significant for: blood pressure - med managed; depression; dizziness ; falls; hearing problems; vision problems (wears glasses w/ upcoming scheduled appt). R olecranon bursitis injury 10/18 secondary to fall; Surgical h/o significant for Neurectomy - lower abdomen/groin outpatient procedure 09/20/22 and surgery on gall bladder approx 12 years ago. Enrique is currently receiving outpatient [employer]; he reportedly is scheduled to be evaluated by PT in near future. Indication of 6 out of 10 on Pain Assessment Grid relative to R UE; 2 out of 10 on Pain Assessment Grid relative to R LE. - Subjective Identification Type Name Identification Reconciled With Medical Record Observations Enrique was accompanied by his , Anisha, to treatment session. Report of sliding out of chair this morning. Nonverbal signs of pain/ discomfort of R arm; cradling of R arm w/ positioning of L hand proximal to R elbow/mid humeral shaft. Verbal exclamation of pain/discomfort post- attempts at practice/in -hand golf ball manipulation. 02/01/23= Enrique has a pedal bike that he utilizes that is set-up on ; 11/28/22 = Enrique's , Anisha, reported that Enrique has an appointment December 29 for bilateral eye surgery. (+) use of foam handles to build-up utensils and/or other items for manipulation. (+) report of getting pedal bike for home use. = Anisha Patient/Caregiver Compliance with Home Good Exercise Program - Objective Objective Measurements Please refer to below for progress towards meeting established OT goals: 11/28/22 = (+) use of foam handles to build-up utensils and/or other items for manipulation. (+) report of getting pedal bike for home use. 11/17/22 = completed 9-HPT w/ L hand in 1 min 46 sec; able to place x 2 pegs in pegboard w/ R hand without L hand assist. Unable to motor plan 5-digit R hand abduction; able to isolate active R radial thumb abd and isolate active R 5th digit abduction. Unable to rotate objects w/ R hand. Short Term Goals GOALS MET Enrique will actively participate in additional standardized assessments (e.g., 9-HPT). * MET 11/17/22 Snf Goals 1. Enrique will be modified independent with execution of home exercise program with the support of his family utilizing provided written and visual instructions from therapist. 02/20/23 = 50 % met. 2. Enrique and family will be able to identify 2 or 3 additional techniques/ modification strategies/ adaptive equipment that Enrique would be able to use in the home environment to support active engagement/ participation in meaningful activities/self care tasks. - Treatment 1 Descriptor Object manipulation. Strengthening of digits/grasp. Motor planning of R grasp. Transferring of small objects from TT -> container (washers, bolts, etc). N/A 02/06/23 Transferring of medium/large sized metal rings from TT to 1st rungs of wood 'tree'. N/A 02/14/23 Rotation of dominoes from flat -> to horizontal on TT ( horizontal rectangle). Transferring of inverted golf tees between fingers from TT - > container. Transferring of small clothespins from board -> container. Red flex bar. 'U' 2 x 10. - Assessment Assessment of Improvement Enrique is demonstrating improving motor coordination of the R hand; although, Enrique continues to have difficulty rotating small objects and prefers to manipulate objects closer to base of support ( decreased elbow extension noted), therapist has been able to decrease size of objects between transferred from TT to container w/ observed increasing use of radial side of hand w/ object manipulation, as well as observed increased graded force manipulation/awareness of object in space/orientation to midline of objects to support balancing. Enrique continues to need support/ cueing for safe transfers, including locking of brakes prior to sitting, as well as cueing to grasp handle of 4WW w/ right hand and taking larger steps with R foot w/ mobility and is being seen by outpatient PT. Continued outpatient OT is recommended to address patient goals are to increase R UE function. Home Exercise Program 11/25/22 = Provided with medium firm theraputty for home use; instructed in care and storage of putty. Rec gross digit flexion, pinching between thumb and 2nd digit (w / putty positioned on TT) and pushing each digit (2-5) into putty. Rec completion of putty exercises over/on top of TT. Enrique's , Anisha, was present throughout treatment session. Discussed potential use of pedal bike given UE option; currently has stationary bike. - Plan Therapy Recommendations Advance per Rehabilitation Protocol Comment 6 weeks Frequency of Treatment Once a Week Therapeutic Contents Active Range of Motion, Adaptive Equipment Education, Functional Activities,Home Exercise Program,Joint Protection,Manual Therapy, Education,Neurodevelopment Treatment,Neuromuscular Re- Education,Self-Care,Stretching /Flexibility Activities, Therapeutic Activities, Therapeutic Exercises,Sensory Re-education Electronically Signed by: Katheryn Gibson OT 02/20/23 5006 If you are in agreement with this Plan of Care, please return a signed and dated copy. I have reviewed this Plan of Care and certify that the skilled therapy services above are required to meet the patient?s needs. Physician Signature Date Printed Name and Credentials Clinical Instructor Signature Printed Name and Credentials
--- NOTE | 2023-03-01 11:34 | OT.OP.TRT ---
Visit Care Team Role Provider Type Luciano Cheung DO Attending Provider Physician Family Provider Primary Care Provider Referring Provider Specialty: Family Practice Address: [address] [place] [address], [id number] Email: Occupational Therapy Treatment Note OT Outpatient Treatment Note - Adult Start: 11/01/22 14:36 Freq: Status: Active Protocol: Document 03/01/23 11:25 AMS (Rec: 03/01/23 11:34 AMS [id number]) OT Outpatient Adult Treatment Note Session Time Visit Start Time 10:30 Visit Stop Time 11:00 Total Visit Minutes 30 Visit Information Visit Number 09/19; --> visit KX modifier Plan of Care Dates 02/20/23 - 04/03/23 Insurance Information Medicare Setting Treatment Setting Outpatient Care Visit Type Note Type Treatment Note General Information General Information Enrique is a 72 year-old right hand dominant male referred to outpatient OT secondary to diagnosis of Parkinson's disease. Intake paperwork completed by Anisha Jacobo. Medical history significant for: blood pressure - med managed; depression; dizziness ; falls; hearing problems; vision problems (wears glasses w/ upcoming scheduled appt). R olecranon bursitis injury 10/18 secondary to fall; Surgical h/o significant for Neurectomy - lower abdomen/groin outpatient procedure 09/20/22 and surgery on gall bladder approx 12 years ago. Enrique is currently receiving outpatient [employer]PUT[employer] SUPPORT SPECIALIST; he reportedly is scheduled to be evaluated by PT in near future. Indication of 6 out of 10 on Pain Assessment Grid relative to R UE; 2 out of 10 on Pain Assessment Grid relative to R LE. - Subjective Identification Type Name Identification Reconciled With Medical Record Observations Enrique was accompanied by his , Anisha, to treatment session. Nonverbal signs of pain/discomfort of R arm; cradling of R arm w/ holding ulnar surface of hand/wrist/ proximal forearm and grasping of R elbow. Verbal exclamation of pain/discomfort w/ attempt to reduce elbow range of motion based on pain complaints. Still reduced length of session based on cont pain/discomfort. (+) use of glasses post- missing wood dowel x 5+ trials ( overshooting target). 02/01/23= Enrique has a pedal bike that he utilizes that is set-up on TT; 11/28/22 = Enrique's , Anisha, reported that Enrique has an appointment December 29 for bilateral eye surgery. (+) use of foam handles to build-up utensils and/or other items for manipulation. (+) report of getting pedal bike for home use. = Anisha Patient/Caregiver Compliance with Home Good Exercise Program - Objective Objective Measurements Please refer to below for progress towards meeting established OT goals: 11/28/22 = (+) use of foam handles to build-up utensils and/or other items for manipulation. (+) report of getting pedal bike for home use. 11/17/22 = completed 9-HPT w/ L hand in 1 min 46 sec; able to place x 2 pegs in pegboard w/ R hand without L hand assist. Unable to motor plan 5-digit R hand abduction; able to isolate active R radial thumb abd and isolate active R 5th digit abduction. Unable to rotate objects w/ R hand. Short Term Goals GOALS MET Enrique will actively participate in additional standardized assessments (e.g., 9-HPT). * MET 11/17/22 Usp Goals 1. Enrique will be modified independent with execution of home exercise program with the support of his family utilizing provided written and visual instructions from therapist. 02/20/23 = 50 % met. 2. Enrique and family will be able to identify 2 or 3 additional techniques/ modification strategies/ adaptive equipment that Enrique would be able to use in the home environment to support active engagement/ participation in meaningful activities/self care tasks. - Treatment 1 Descriptor Object manipulation. Strengthening of digits/grasp. Motor planning of R grasp. Transferring of small objects from TT -> container (washers, electrical caps). N/A 02/06/23 Transferring of medium/large sized metal rings from TT to 1st rungs of wood 'tree'. N/A 02/14/23 Rotation of dominoes from flat -> to horizontal on TT ( horizontal rectangle). Transferring of inverted golf tees between fingers from TT - > container. Transferring of small clothespins from board -> container. Red flex bar. 'U' 2 x 10. - Assessment Assessment of Improvement (+) pain/discomfort of right distal UE; modified TT activities to reduce elbow range of motion; ended treatment session early d/t cont pain/discomfort. (+) taking of pain med this morning prior to treatment session. Intermittent oral intake pain meds per , Anisha. (+) use of standard FWW on this date w/ decreased safety. Enrique continues to need support/cueing for safe transfers w/ FWW given holding onto FWW w/ coming into standing, poor grasping of FWW w/ R hand and inconsistency w / gait/step length primarily of the R LE. Continued outpatient OT is recommended to address patient goals are to increase R UE function. Home Exercise Program 11/25/22 = Provided with medium firm theraputty for home use; instructed in care and storage of putty. Rec gross digit flexion, pinching between thumb and 2nd digit (w / putty positioned on TT) and pushing each digit (2-5) into putty. Rec completion of putty exercises over/on top of TT. Enrique's , Anisha, was present throughout treatment session. Discussed potential use of pedal bike given UE option; currently has stationary bike. - Plan Therapy Recommendations Continue with Current Program, Advance per Rehabilitation Protocol
--- NOTE | 2023-03-16 11:37 | OT.OP.TRT ---
Visit Care Team Role Provider Type Luciano Cheung DO Attending Provider Physician Family Provider Primary Care Provider Referring Provider Specialty: Family Practice Address: [address] [place] [address], [id number] Email: Occupational Therapy Treatment Note OT Outpatient Treatment Note - Adult Start: 11/01/22 14:36 Freq: Status: Active Protocol: Document 03/16/23 11:26 AMS (Rec: 03/16/23 11:37 AMS [id number]) OT Outpatient Adult Treatment Note Session Time Visit Start Time 10:30 Visit Stop Time 11:15 Total Visit Minutes 45 Visit Information Visit Number 10/20; 03/31 --> visit KX modifier Plan of Care Dates 02/20/23 - 04/03/23 Insurance Information Medicare Setting Treatment Setting Outpatient Care Visit Type Note Type Treatment Note General Information General Information Enrique is a 72 year-old right hand dominant male referred to outpatient OT secondary to diagnosis of Parkinson's disease. Intake paperwork completed by Anisha Jacobo. Medical history significant for: blood pressure - med managed; depression; dizziness ; falls; hearing problems; vision problems (wears glasses w/ upcoming scheduled appt). R olecranon bursitis injury 10/18 secondary to fall; Surgical h/o significant for Neurectomy - lower abdomen/groin outpatient procedure 09/20/22 and surgery on gall bladder approx 12 years ago. 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 Indication of 6 out of 10 on Pain Assessment Grid relative to R UE; 2 out of 10 on Pain Assessment Grid relative to R LE. - Subjective Identification Type Name Identification Reconciled With Medical Record Observations Enrique was accompanied by his , Anisha, to treatment session. (-) use of glasses this treatment session. Arrived to treatment session in transport w/c; report of recent fall post- PT session; additional PT outpatient visits have been scheduled. Bandaids applied to L forehead and ulnar dorsal surface of L hand. Anisha reports observed increased use of the R hand in the home. 02/01/23= Enrique has a pedal bike that he utilizes that is set-up on TT; 11/28/22 = Enrique's , Anisha, reported that Enrique has an appointment December 29 for bilateral eye surgery. (+) use of foam handles to build-up utensils and/or other items for manipulation. (+) report of getting pedal bike for home use. = Anisha Patient/Caregiver Compliance with Home Good Exercise Program - Objective Objective Measurements Please refer to below for progress towards meeting established OT goals: 11/28/22 = (+) use of foam handles to build-up utensils and/or other items for manipulation. (+) report of getting pedal bike for home use. 11/17/22 = completed 9-HPT w/ L hand in 1 min 46 sec; able to place x 2 pegs in pegboard w/ R hand without L hand assist. Unable to motor plan 5-digit R hand abduction; able to isolate active R radial thumb abd and isolate active R 5th digit abduction. Unable to rotate objects w/ R hand. Short Term Goals GOALS MET Enrique will actively participate in additional standardized assessments (e.g., 9-HPT). * MET 11/17/22 Half-Way Goals 1. Enrique will be modified independent with execution of home exercise program with the support of his family utilizing provided written and visual instructions from therapist. 03/16/23 = 50% met; rec addition of wide width pen to bowl of items being manipulated in the home w/ the right hand; rec practicing of picking up of pen from flat surface and vertically orientating pen as able 2. Enrique and family will be able to identify 2 or 3 additional techniques/ modification strategies/ adaptive equipment that Enrique would be able to use in the home environment to support active engagement/ participation in meaningful activities/self care tasks. - Treatment 1 Descriptor Object manipulation. Strengthening of digits/grasp. Motor planning of R grasp. Transferring of small objects from TT -> container (washers, electrical caps). N/A 02/06/23 Transferring of medium/large sized metal rings from TT to 1st rungs of wood 'tree'. N/A 02/14/23 Rotation of dominoes from flat -> to horizontal on TT ( horizontal rectangle). Transferring of inverted golf tees between fingers from TT - > container. Transferring of small clothespins from board -> container. Red flex bar. 'U' 2 x 10. - Assessment Assessment of Improvement Enrique presented in transport w/ c w/ report of recent fall; Enrique was seen by PCP post- fall. Additional outpatient PT appointments have been scheduled. L hand positioned on dorsum of R hand/wrist intermittently w/ object manipulation; intermittent verbal cues and environmental modifications (e.g., avoidance of full elbow ext) to encourage R handed manipulation. Able to manipulate washers, medium sized electrical caps, and small caps w/ R hand w/ increased time. Metronome did not influence speed of manipulation/motor planning w/ R UE. 1 handed/L handed manipulation of cap/water bottle w/ use of TT. Continued outpatient OT is recommended to address patient goals are to increase R UE function. Home Exercise Program 03/16/23 = Rec addition of wide width pen to bowl of items being manipulated in the home w/ R hand; Rec picking up of pen from flat surface and vertically orientating pen as able 11/25/22 = Provided with medium firm theraputty for home use; instructed in care and storage of putty. Rec gross digit flexion, pinching between thumb and 2nd digit (w / putty positioned on TT) and pushing each digit (2-5) into putty. Rec completion of putty exercises over/on top of TT. Enrique's , Anisha, was present throughout treatment session. Discussed potential use of pedal bike given UE option; currently has stationary bike. - Plan Therapy Recommendations Continue with Current Program, Advance per Rehabilitation Protocol
--- NOTE | 2023-03-22 12:35 | OT.OP.TRT ---
Visit Care Team Role Provider Type Luciano Cheung DO Attending Provider Physician Family Provider Primary Care Provider Referring Provider Specialty: Family Practice Address: [address] [place] [address], [id number] Email: Occupational Therapy Treatment Note OT Outpatient Treatment Note - Adult Start: 11/01/22 14:36 Freq: Status: Active Protocol: Document 03/22/23 12:29 AMS (Rec: 03/22/23 12:35 AMS [id number]) OT Outpatient Adult Treatment Note Session Time Visit Start Time 10:30 Visit Stop Time 11:10 Total Visit Minutes 40 Visit Information Visit Number 11/20; 05/01 --> visit KX modifier Plan of Care Dates 02/20/23 - 04/03/23 Insurance Information Medicare Setting Treatment Setting Outpatient Care Visit Type Note Type Treatment Note General Information General Information Enrique is a 72 year-old right hand dominant male referred to outpatient OT secondary to diagnosis of Parkinson's disease. Intake paperwork completed by Anisha Jacobo. Medical history significant for: blood pressure - med managed; depression; dizziness ; falls; hearing problems; vision problems (wears glasses w/ upcoming scheduled appt). R olecranon bursitis injury 10/18 secondary to fall; Surgical h/o significant for Neurectomy - lower abdomen/groin outpatient procedure 09/20/22 and surgery on gall bladder approx 12 years ago. 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 Indication of 6 out of 10 on Pain Assessment Grid relative to R UE; 2 out of 10 on Pain Assessment Grid relative to R LE. - Subjective Identification Type Name Identification Reconciled With Medical Record Observations Enrique was accompanied by his , Anisha, to treatment session. (-) use of glasses this treatment session. Arrived to treatment session in transport w/c; report of another fall w/ swelling and bruising noted in lateral corner of R eye. Bandaids applied to L forehead and ulnar dorsal surface of L hand . Enrique and report that daughter has been diagnosed w/ cancer. 02/01/23= Enrique has a pedal bike that he utilizes that is set-up on TT; 11/28/22 = Enrique's , Anisha, reported that Enrique has an appointment December 29 for bilateral eye surgery. (+) use of foam handles to build-up utensils and/or other items for manipulation. (+) report of getting pedal bike for home use. = Anisha Patient/Caregiver Compliance with Home Good Exercise Program - Objective Objective Measurements Please refer to below for progress towards meeting established OT goals: 11/28/22 = (+) use of foam handles to build-up utensils and/or other items for manipulation. (+) report of getting pedal bike for home use. 11/17/22 = completed 9-HPT w/ L hand in 1 min 46 sec; able to place x 2 pegs in pegboard w/ R hand without L hand assist. Unable to motor plan 5-digit R hand abduction; able to isolate active R radial thumb abd and isolate active R 5th digit abduction. Unable to rotate objects w/ R hand. Short Term Goals GOALS MET Enrique will actively participate in additional standardized assessments (e.g., 9-HPT). * MET 11/17/22 Snf Goals 1. Enrique will be modified independent with execution of home exercise program with the support of his family utilizing provided written and visual instructions from therapist. 03/16/23 = 50% met; rec addition of wide width pen to bowl of items being manipulated in the home w/ the right hand; rec practicing of picking up of pen from flat surface and vertically orientating pen as able 2. Enrique and family will be able to identify 2 or 3 additional techniques/ modification strategies/ adaptive equipment that Enrique would be able to use in the home environment to support active engagement/ participation in meaningful activities/self care tasks. - Treatment 1 Descriptor Object manipulation. Strengthening of digits/grasp. Motor planning of R grasp. Transferring of small objects from TT -> container (washers, electrical caps). N/A 02/06/23 Transferring of medium/large sized metal rings from TT to 1st rungs of wood 'tree'. N/A 02/14/23 Rotation of dominoes from flat -> to horizontal on TT ( horizontal rectangle). Transferring of inverted golf tees between fingers from TT - > container. Transferring of small clothespins from board -> container. Red flex bar. 'U' 2 x 10. - Assessment Assessment of Improvement L hand positioned on dorsum of R hand/wrist noted x 2 trials w/ object manipulation. Able to manipulate washers, medium sized electrical caps, short wood dowels ~1/4-inch or slightly smaller in width w/ R hand w/ increased time. Able to manipuate 1-8# of force resistance clothespins w/ R hand (~50% w/ request to transition to alt activity). Able to rotate and vertically position x 2 bolts vertically on TT. Primary use of thumb opposition w/ 3, 4th digit pads and/or grasping of objects between 2nd/3rd digits of R hand. 1 handed/L handed manipulation of cap/water bottle w/ use of TT. Continued outpatient OT is recommended to address patient goals are to increase R UE function. Home Exercise Program 03/16/23 = Rec addition of wide width pen to bowl of items being manipulated in the home w/ R hand; Rec picking up of pen from flat surface and vertically orientating pen as able 11/25/22 = Provided with medium firm theraputty for home use; instructed in care and storage of putty. Rec gross digit flexion, pinching between thumb and 2nd digit (w / putty positioned on TT) and pushing each digit (2-5) into putty. Rec completion of putty exercises over/on top of TT. Enrique's , Anisha, was present throughout treatment session. Discussed potential use of pedal bike given UE option; currently has stationary bike. - Plan Therapy Recommendations Continue with Current Program, Advance per Rehabilitation Protocol
--- NOTE | 2023-04-10 13:32 | OT.OP.DC ---
Visit Care Team Role Provider Type Luciano Cheung DO Attending Provider Physician Family Provider Primary Care Provider Referring Provider Address: [address] [place] [address], [id number] Email: OT Outpatient OT Outpatient Adult Evaluation Start: 11/01/22 14:36 Freq: Status: Active Protocol: Document 11/01/22 14:43 AMS (Rec: 11/01/22 15:18 AMS [id number]) General Information - Adult Visit Information Visit Number 03/22; 03/31 --> visit KX modifier Plan of Care Dates 11/01/22 - 12/27/22 Insurance Information Medicare Session Time Visit Start Time 13:30 Visit Stop Time 14:00 Total Visit Minutes 30 Setting Treatment Setting Outpatient Care Visit Type Note Type Initial Evaluation Identification Identification Confirmed Yes Goals Short Term Goals Short Term Goals 1. Enrique will actively participate in additional standardized assessments (e.g. , 9-HPT). Hairspring Studder Goals Hairspring Studder Goals 1. Enrique will be modified independent with execution of home exercise program with the support of his family utilizing provided written and visual instructions from therapist. 2. Enrique and family will be able to identify 2 or 3 additional techniques/ modification strategies/ adaptive equipment that Enrique would be able to use in the home environment to support active engagement/ participation in meaningful activities/self care tasks. Assessment/Plan Assessment Treatment Assessment Enrique is a 72 year-old right hand dominant male referred to outpatient OT secondary to diagnosis of Parkinson's disease. Intake paperwork completed by Anisha Jacobo. Medical history significant for: blood pressure - med managed; depression; dizziness ; falls; hearing problems; vision problems (wears glasses w/ upcoming scheduled appt). R olecranon bursitis injury 10/18 secondary to fall; Surgical h/o significant for Neurectomy - lower abdomen/groin outpatient procedure 09/20/22 and surgery on gall bladder approx 12 years ago. Enrique is currently receiving outpatient INVESTMENT BANKING ANALYST; he reportedly is scheduled to be evaluated by PT in near future. Indication of 6 out of 10 on Pain Assessment Grid relative to R UE; 2 out of 10 on Pain Assessment Grid relative to R LE. Evaluation Findings: Presented w/ slip-on shoes and ambulating w/ 4WW w/ noted neglect of R UE. Report of having difficulty w/ managing buttons and belt; reportedly has shirt w/ magnetized buttons; Anisha reportedly adapted another button-up shirt for Enrique. Reportedly has trialed curved handle fork and spoon w/ decreased success utilizing utensils placed in the left hand. Reportedly is completing g/h tasks and self- feeding w/ the L hand. Anisha reportedly assists Enrique w/ donning watch on L wrist. Able to oppose R thumb to 3rd digit pad; able to oppose L thumb to all digit pads of the L hand. Able to functionally position both hands on top of head; phys assist from L hand to position both hands on back of head. Able to position both hands on lower back and touch bilateral shoulders. Difficulty motor planning of the R UE; unable to execute forearm flip R UE, however, passive within normal limits supination available. Decreased motor planning of the R wrist; unable to imitate RD/UD and wrist circles in either direction. 67.0# of force R training program developer (compared to 70- 74 y.o. male norms 75.3 +/- 21 .5# of force) versus 99.0# of force L training program developer (compared to 70- 74 y.o. male norms 64.8 +/- 18 .1# of force); 17.0# of force R lateral pinch (compared to 70-74 y.o. male norms 13.8 +/- 2.6# of force) versus 22.0# of force (compared to 70-74 y. o. male norms 13.3 +/- 2.6# of force); 9.0# of force R 3-jaw pinch (compared to 70-74 y.o. male norms 18.1 +/- 3.4# of force) versus 16.5# of force L 3-jaw pinch (compared to 70- 74 y.o. male norms 18.8 +/- 3. 3# of force); 6.0# of force R tip pinch (compared to 70-74 y .o. male norms 13.8 +/- 2.6# of force) versus 17.0# of force L tip pinch (compared to 70-74 y.o. male norms 13.3 +/ - 2.6# of force). Able to pick -up and transfer small bull and 1/4-inch thick short pegs from TT to container w/ R hand ; max difficulty motor planning compensatory approach of sliding flat object to edge of TT and coordinating 2nd/3rd digits w/ thumb. Poor proximal stabilization of UE w / writing name on TT surface; inconsistent w/ grasp approach w/ pen positioned in right hand (relative to number of digit pads positioned on writing utensil) although positioned in web space. Jerky movements noted w/ pen use versus fluid/smooth line formation(s). (+) attempt of tracing therapist's [place] w/ ends not meeting w/ approx 1/4 -inch overlap. Report of practicing some hand writing/ letter formation w/ outpatient INVESTMENT BANKING ANALYST utilizing whiteboard and dry erase marker. Patient goals are to increase R UE function, including being able to write name and feed self utilizing utensils w/ the right hand. Enrique presented with increased L hand training program developer/ digit compared to R hand training program developer/ digit strength (dominant side) , decreased R UE motor coordination/motor planning, decreased R UE in-hand manipulation, R sided neglect, hard of hearing, vision impairment (report of recent blurriness per Anisha) and decreased ability to successfully engage in meaningful activities in a variety of environments. Thus, outpatient OT is recommended to address these areas to support active engagement in meaningful activities w/ focus on functioning of the R UE. Further assessment(s) are needed to establish base line. Plan Length of treatment (weeks) 8 Plan of Care Start Date 11/01/22 Plan of Care End Date 12/27/22 Treatment Frequency Once a Week Therapeutic Contents Active Range of Motion, Adaptive Equipment Education, Client Education,Cognitive Skills Development,Functional Activities,Home Exercise Program,Joint Protection, Manual Therapy,Education, Neurodevelopment Treatment, Neuromuscular Re-Education, Self-Care,Stretching/ Flexibility Activities, Therapeutic Activities, Therapeutic Exercises Functional Wrist/Hand Scan Hand Side Sensory Assessment Sensory Profile2 OT Outpatient Treatment Note - Adult Start: 11/01/22 14:36 Freq: Status: Active Protocol: Document 04/10/23 13:25 [facility] (Rec: 04/10/23 13:31 [facility] [id number]) OT Outpatient Adult Treatment Note Visit Information Visit Number 11/20; 05/01 --> visit KX modifier Plan of Care Dates 02/20/23 - 04/03/23 Insurance Information Medicare Setting Treatment Setting Outpatient Care Visit Type Note Type Discharge Summary - Subjective Observations Per outpatient PT, Enrique has had increased number of falls in the home as of late, with one fall leading to subsequent ER visit (based on information collected from primary INVESTMENT BANKING ANALYST and his ). Outpatient PT is d/c Enrique and recommending follow-up visit w / PCP w/ recommendation for home health PT for safety consult. Given that outpatient PT indicated that patient is no longer safe to attend outpatient PT in the clinic, it is recommended that Enrique be discharged from outpatient OT and referred to occupational therapy. - Objective Objective Measurements Please refer to below for progress towards meeting established OT goals: 11/28/22 = (+) use of foam handles to build-up utensils and/or other items for manipulation. (+) report of getting pedal bike for home use. 11/17/22 = completed 9-HPT w/ L hand in 1 min 46 sec; able to place x 2 pegs in pegboard w/ R hand without L hand assist. Unable to motor plan 5-digit R hand abduction; able to isolate active R radial thumb abd and isolate active R 5th digit abduction. Unable to rotate objects w/ R hand. Short Term Goals GOALS MET Enrique will actively participate in additional standardized assessments (e.g., 9-HPT). * MET 11/17/22 Custodial Goals D/C ALL GOALS 04/10/23 1. Enrique will be modified independent with execution of home exercise program with the support of his family utilizing provided written and visual instructions from therapist. 03/16/23 = 50% met; rec addition of wide width pen to bowl of items being manipulated in the home w/ the right hand; rec practicing of picking up of pen from flat surface and vertically orientating pen as able 2. Enrique and family will be able to identify 2 or 3 additional techniques/ modification strategies/ adaptive equipment that Enrique would be able to use in the home environment to support active engagement/ participation in meaningful activities/self care tasks. - - Assessment Assessment of Improvement Per outpatient PT, Enrique has had increased number of falls in the home as of late, with one fall leading to subsequent ER visit (based on information collected from primary INVESTMENT BANKING ANALYST and his ). Outpatient PT is d/c Enrique and recommending follow-up visit w / PCP w/ recommendation for home health PT for safety consult. Given that outpatient PT indicated that patient is no longer safe to attend outpatient PT in the clinic, it is recommended that Enrique be discharged from outpatient OT and referred to occupational therapy. - Plan Therapy Recommendations Discharge from Occupational Therapy Suggested Referrals Primary Care Physician Other Referrals Home Health OT
== END 2023-04-13 11:10 | disposition home or self-care (01) ==
LOC: OT 10:30
PROVIDERS: Family Provider Family Medicine; PCP Family Medicine; Referring Provider Family Medicine; Visit Provider Family Medicine
DX: R27.0 Ataxia, unspecified (principal); R27.8 Other lack of coordination; G20.A1 Parkinson's disease without dyskinesia, without mention of fluctuations
CPT/HCPCS: 97110; 97166; 97530

== ENCOUNTER 2023-04-07 10:30 | Outpatient (RCR) | payer MEDICARE, OTHER, SELFPAY ==
--- NOTE | 2023-03-27 12:18 | PT.OIE ---
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 Lumbar radiculopathy Medication side effects Osteoarthritis, hip, bilateral Parkinson disease Pelvic somatic dysfunction Psoas muscle strain Rate of speech, slow Screening for prostate cancer Segmental and somatic dysfunction of abdomen and other regions Sleep apnea Past Surgical History (Last Reviewed 02/16/23 @ 14:07 by Charles Patel MD) Hx of hernia repair Status post cholecystectomy Visit Care Team Role Provider Type Luciano Cheung DO Family Provider Physician Primary Care Provider Specialty: Family Practice Address: [address] [place] [address], [id number] Email: Rose Mary Rojas PA-C Attending Provider Advanced Electronic Device Monitor Referring Provider Specialty: Medical Address: [address] [place] [address], [address], [place], [address] Email: [email or web address] Physical Therapy Initial Evaluation PT-OP-A Visit Information Start: 03/21/23 18:08 Freq: Status: Active Protocol: Document 03/27/23 09:53 MB (Rec: 03/27/23 10:02 MB [id number]) Out-Patient Physical Therapy Visit Information Visit Information Visit Type Initial Evaluation Visit Note Pt is getting speech at another facility, will need to track. They are late to eval Visit Start Time 09:53 Visit Stop Time 10:30 Total Visit Minutes 37 Visit Number 1 Number of EVP SALES Visits 0 Evaluation Information Evaluation Date 03/27/23 PT-OP-B Current Condition Start: 03/21/23 18:08 Freq: Status: Active Protocol: Document 03/27/23 09:53 MB (Rec: 03/27/23 10:02 MB [id number]) Current Condition History of Current Condition Onset Date 2-3 years ago Current Complaints Imbalance, falls, low speech History of Current Condition Pt with dx of corticobasilar degeneration. He had previous dx of PD and is still on carbidopa levodopa. is unsure that the medication is helpful. It may make him tired . Pt had a fall in the clinic and then returned to PCP before returning to PT. He was working on balance and strength with PT. Pt uses a transport chair with assistance from if there is a long distance they have to move. Pt has right sided weakness that was one of the first things that was noticeable. Pt had some nerve and abdominal pain on the right side in the past. Pt is right handed and is getting OT to help with right hand use. Things that have been helpful with PT are working on the leg press and with balance. Pt can have falls up to everyday. He has a history of his BP dropping. Treatment Goals Patient/Caregiver Goals To prevent as many falls as possible and keep him moving. PT-OP-C Subjective Start: 03/21/23 18:08 Freq: Status: Active Protocol: Document 03/27/23 09:53 MB (Rec: 03/27/23 10:02 MB [id number]) OP-PT Subjective Patient Comments Patient Comments See above PT-OP-D Balance Start: 03/21/23 18:08 Freq: Status: Active Protocol: Document 03/27/23 09:53 MB (Rec: 03/27/23 11:59 MB [id number]) OP-PT Balance Assessment Sitting Balance Static Sitting Balance Ability Poor Dynamic Sitting Balance Ability Poor Sitting Balance Comments Tends to fall back into chair without any control of descent and PT must slow descent with mod A. He does not let go of walker or reach back for chair when cued. Standing Balance Static Standing Balance Ability Poor Dynamic Standing Balance Ability Poor Device Used RW Standing Balance Comments Pt with posterior lean and functional weakenss RLE Balance Tests Other Other Balance Tests Performed Pt requires CGA to min A for static standing with RW and without AD. He tends to let go of RW with right hand with standing and gait and does not cue him to hold onto it. Mcdonald Fall Scale Copyright Permission PT-OP-G Mobility & Gait Start: 03/21/23 18:08 Freq: Status: Active Protocol: Document 03/27/23 09:53 MB (Rec: 03/27/23 11:59 MB [id number]) OP Mobility Evaluation Transfers Sit to Stand Min to mod A for safe STS many times throughout treatment OP Gait Assessment Gait Gait Assistance Required: Minimum Assistance Distance (Feet) 50 Able to Maintain Weight Bearing Status Yes During Gait Assistive Devices Assistive Device Front Wheeled Walker Orthotic/Prosthetic Devices or Brace: No Gait Deviations General Gait Pattern Decreased Stride Length, Decreased Feet Clearance, Flexed Trunk,Step-to Gait Factors Limiting Gait Function Factors Limiting Gait Function Decreased Activity Tolerance, Decreased Strength,Difficulty Following Directions,Poor Balance,Poor Safety Awareness Comments Gait Comments Pt tends to only hold onto walker with left hand and he pushes it with left hand only. He has step-to gait left and then right foot and he does not always clear right foot with stepping. Pt cannot follow cues to hold onto walker with right hand when asked by PT. PT-OP-H Neuro Start: 03/21/23 18:08 Freq: Status: Active Protocol: Document 03/27/23 09:53 MB (Rec: 03/27/23 11:59 MB [id number]) Vital Signs Comments Vital Signs Comments Orthostatic assessment is challenging as pt cannot follow commands to keep his left arm still in standing. BP and HR in LUE: supine 133/74, 81; after 1' standing 101/59, 89. PT-OP-K Range of Motion Start: 03/21/23 18:08 Freq: Status: Active Protocol: Document 03/27/23 09:53 MB (Rec: 03/27/23 11:59 MB [id number]) Shoulder Goniometric Range of Motion Shoulder ROM Limitations Comments Pt has trouble following all commands, including for shoulder ROM and he has limited active right shoulder movement and strength and he does not use his right arm well functionally. PT-OP-M Strength Start: 03/21/23 18:08 Freq: Status: Active Protocol: Document 03/27/23 09:53 MB (Rec: 03/27/23 11:59 MB [id number]) Hip Strength Hip Manual Muscle Testing Left Flexion (L2) 4 Good Right Flexion (L2) 3- Fair- Comments Pt cannot follow commands well for MMT any joint and he has functional weakness in his right LE compared to the left PT-OP-Q Treatments Start: 03/21/23 18:08 Freq: Status: Active Protocol: Document 03/27/23 09:53 MB (Rec: 03/27/23 11:59 MB [id number]) Self-Care/Home Management Treatment Education Patient Education Fall Risk,Safety Other Education Education to patient and about pt's high fall risk, need to remind pt to hold onto RW for gait or using the RW is not safe for gait, benefits of transport w/c, orthostasis today and concern for fall if he gets up quickly at night, current high level of assistance needed for all mobility and gait. PT-OP-T Assessment and Plan Start: 03/21/23 18:08 Freq: Status: Active Protocol: Document 03/27/23 09:53 MB (Rec: 03/27/23 12:17 MB [id number]) Physical Therapy Assessment Rehab Potential Rehabilitation Potential Poor Evaluation Complexity Number of Personal Factors/Comorbidities 3 or More Number of Body Systems Impaired 3 Clinical Presentation at Evaluation Unstable Impairments Impairments Activity Tolerance,Balance, Coordination,Functional Activities,Functional Mobility ,Gait,Pain,ROM,Transfers Other Concerns Fall Risk High fall risk and up to daily falls per Goals 4 Impairment Inability to walk without assistance Prison Goal (LTG) Pt will gait train at least 150' with LRAD and no more than superv assistance. LTG Duration 05/26/23 3 Impairment High fall risk, falls at home [employer] Goal (LTG) Pt will perform WNLs on standardized balance test to decrease fall risk at home. LTG Duration 05/26/23 2 Impairment Assistance needed to transfer safely Prison Goal (LTG) Pt will perform all transfers with no more than superv and cues to decrease fall risk. LTG Duration 05/26/23 1 Impairment Falls at home Prison Goal (LTG) will report no falls for 2 weeks at home to decrease risk of pt injury at home. LTG Duration 05/26/23 Progress Towards Goals Progress Towards Goals Slow Progress due to Activity Tolerance Assessment Summary Assessment Pt is a 72 y/o male presenting for the first time to this PT . Pt formerly was diagnosed with PD and then had a referral to another neurologist and is now dx with corticobasilar degeneration. states that he still takes carbidopa levodopa because his first neurologist has not taken him off of it and it makes him lethargic. PT encourages to call Dr. Najera's office about the medication concern as he is pt 's primary neurologist per . Pt with orthostasis on assessment today. He requires min to mod A for gait and all transfers, has functional weakness in right arm and leg and does not use his right hand on the walker. He has limited visual tracking with mobility and his speech is not understandable. PT asks several times if he has had a major decline in the last 1-2 months and she does not directly answer PT. She thinks that perhaps he has had a decline. She states he can fall up to daily at home and that she assists with ADLs. He did have the fall after therapy many weeks ago and was cleared by PCP to return to outpatient. Upon speaking with previous therapists, pt does appear to have a decline in function. PT is concerned about pt's and safety at home and getting in and out of therapy clinic as he has already had a fall leaving once and with his current mobility presentation. PT encourages w/c use at end of treatment for transport. Pt is currently receiving OPPT, OPOT and OPSLP services via Telehealth. He may be approaching being more appropriate for HH services. Will initiate PT trial and send this note to Dr. Najera and referring provider. Physical Therapy Plan Frequency and Duration Frequency of Treatment 2x/Week Duration of treatment (weeks) 8 Plan of Care Start Date 03/27/23 Plan of Care End Date 05/26/23 Therapeutic Interventions Therapeutic Interventions Balance Training,Coordination Training,Gait Training,Home Exercise Program,Manual Therapy,Neuromuscular Re- education,Patient/Caregiver Education,Self-Care/Home Management,Therapeutic Activities,Therapeutic Exercises Modalities Cold Pack/Ice Massage,Hot Packs Next Visit Focus/Plan Next Note Type Treatment Note Next Visit Plan Initiate LE and balance training, possibly NuStep, STS and AD training
--- NOTE | 2023-03-27 12:18 | PT.OPPOC ---
Physical, Occupational & Speech Therapy At 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, unspecified (03/27/23) Repeated falls (03/27/23) Visit Care Team Role Provider Type Luciano Cheung DO Family Provider Physician Primary Care Provider Specialty: Family Practice Address: [address] [place] [address], [id number] Email: Rose Mary Rojas PA-C Attending Provider Advanced Route [employer] Referring Provider Specialty: Medical Address: [address] [place] [address], [address], [place], [address] Email: [email or web address] Plan Of Care PT-OP-T Assessment and Plan Start: 03/21/23 18:08 Freq: Status: Active Protocol: Document 03/27/23 09:53 MB (Rec: 03/27/23 12:17 MB [id number]) Physical Therapy Assessment Rehab Potential Rehabilitation Potential Poor Evaluation Complexity Number of Personal Factors/Comorbidities 3 or More Number of Body Systems Impaired 3 Clinical Presentation at Evaluation Unstable Impairments Impairments Activity Tolerance,Balance, Coordination,Functional Activities,Functional Mobility ,Gait,Pain,ROM,Transfers Other Concerns Fall Risk High fall risk and up to daily falls per Goals 4 Impairment Inability to walk without assistance Halfway Goal (LTG) Pt will gait train at least 150' with LRAD and no more than superv assistance. LTG Duration 05/26/23 3 Impairment High fall risk, falls at home Degree Clerk Goal (LTG) Pt will perform WNLs on standardized balance test to decrease fall risk at home. LTG Duration 05/26/23 2 Impairment Assistance needed to transfer safely Halfway Goal (LTG) Pt will perform all transfers with no more than superv and cues to decrease fall risk. LTG Duration 05/26/23 1 Impairment Falls at home [employer] Clerk Goal (LTG) will report no falls for 2 weeks at home to decrease risk of pt injury at home. LTG Duration 05/26/23 Progress Towards Goals Progress Towards Goals Slow Progress due to Activity Tolerance Assessment Summary Assessment Pt is a 72 y/o male presenting for the first time to this PT . Pt formerly was diagnosed with PD and then had a referral to another neurologist and is now dx with corticobasilar degeneration. states that he still takes carbidopa levodopa because his first neurologist has not taken him off of it and it makes him lethargic. PT encourages to call Dr. Najera's office about the medication concern as he is pt 's primary neurologist per . Pt with orthostasis on assessment today. He requires min to mod A for gait and all transfers, has functional weakness in right arm and leg and does not use his right hand on the walker. He has limited visual tracking with mobility and his speech is not understandable. PT asks several times if he has had a major decline in the last 1-2 months and she does not directly answer PT. She thinks that perhaps he has had a decline. She states he can fall up to daily at home and that she assists with ADLs. He did have the fall after therapy many weeks ago and was cleared by PCP to return to outpatient. Upon speaking with previous therapists, pt does appear to have a decline in function. PT is concerned about pt's and safety at home and getting in and out of therapy clinic as he has already had a fall leaving once and with his current mobility presentation. PT encourages w/c use at end of treatment for transport. Pt is currently receiving OPPT, OPOT and OPSLP services via Telehealth. He may be approaching being more appropriate for HH services. Will initiate PT trial and send this note to Dr. Najera and referring provider. Physical Therapy Plan Frequency and Duration Frequency of Treatment 2x/Week Duration of treatment (weeks) 8 Plan of Care Start Date 03/27/23 Plan of Care End Date 05/26/23 Therapeutic Interventions Therapeutic Interventions Balance Training,Coordination Training,Gait Training,Home Exercise Program,Manual Therapy,Neuromuscular Re- education,Patient/Caregiver Education,Self-Care/Home Management,Therapeutic Activities,Therapeutic Exercises Modalities Cold Pack/Ice Massage,Hot Packs Next Visit Focus/Plan Next Note Type Treatment Note Next Visit Plan Initiate LE and balance training, possibly NuStep, STS and AD training Plan of Care Dates Plan of Care Start Date 03/27/23 Plan of Care End Date 05/26/23 Electronically Signed by: Adri Garcia PT 03/27/23 5105 If you are in agreement with this Plan of Care, please return a signed and dated copy. I have reviewed this Plan of Care and certify that the skilled therapy services above are required to meet the patient?s needs. Physician Signature Date Printed Name and Credentials Clinical Instructor Signature Printed Name and Credentials
--- NOTE | 2023-04-09 08:39 | PT-OP ANOTE ---
RETURNING OFFICER, Martha Weinstein, who is treating pt via Telehealth when he is in his home, contacted primary PT to state that pt fell again, hit the back of his head and is having further cognitive and other troubles. Will con't to monitor as pt may be more appropriate for HHPT given ongoing falls.
--- NOTE | 2023-04-09 08:56 | PT-OP ANOTE ---
PT calls pt's and she reports that pt has had three more falls since last Monday and he went to the ED after hitting head and back. All is clear. PT lets know that we must discharge OPPT at this fall given ongoing falls and it is unsafe for pt to transfer and ambulate into clinic. PT will provide information to ODALIS Campa and Martha Weinstein, who is treating him.
--- NOTE | 2023-04-09 09:05 | PT.OPDS ---
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) Ataxia, unspecified (04/07/23) Repeated falls (04/07/23) Visit Care Team Role Provider Type Luciano Cheung DO Family Provider Physician Primary Care Provider Specialty: Family Practice Address: [address] [place] [address], [id number] Email: oRse Mary Rojas PA-C Attending Provider Advanced Tipple Mechanic Referring Provider Specialty: Medical Address: [address] [place] [address], [address], [place], [address] Email: [email or web address] Visit Number Visit Number 2 Discharge Summary PT-OP-B Current Condition Start: 03/21/23 18:08 Freq: Status: Active Protocol: Document 03/27/23 09:53 MB (Rec: 03/27/23 10:02 MB [id number]) Current Condition History of Current Condition Onset Date 2-3 years ago Current Complaints Imbalance, falls, low speech History of Current Condition Pt with dx of corticobasilar degeneration. He had previous dx of PD and is still on carbidopa levodopa. is unsure that the medication is helpful. It may make him tired . Pt had a fall in the clinic and then returned to PCP before returning to PT. He was working on balance and strength with PT. Pt uses a transport chair with assistance from if there is a long distance they have to move. Pt has right sided weakness that was one of the first things that was noticeable. Pt had some nerve and abdominal pain on the right side in the past. Pt is right handed and is getting OT to help with right hand use. Things that have been helpful with PT are working on the leg press and with balance. Pt can have falls up to everyday. He has a history of his BP dropping. Treatment Goals Patient/Caregiver Goals To prevent as many falls as possible and keep him moving. PT-OP-C Subjective Start: 03/21/23 18:08 Freq: Status: Active Protocol: Document 04/07/23 10:35 NBM (Rec: 04/07/23 13:09 NBM [id number]) OP-PT Subjective Patient Comments Patient Comments reports pt fell the day before yesterday about 10 o' clock unwitnessed, and as pt stood up from table he fell back onto chair, floor and tile. She called electric drill operator and they cleared him. He has reported to his back is stiff now, that he hit his head and thought his vision was affected a bit. PT-OP-D Balance Start: 03/21/23 18:08 Freq: Status: Active Protocol: Document 03/27/23 09:53 MB (Rec: 03/27/23 11:59 MB [id number]) OP-PT Balance Assessment Sitting Balance Static Sitting Balance Ability Poor Dynamic Sitting Balance Ability Poor Sitting Balance Comments Tends to fall back into chair without any control of descent and PT must slow descent with mod A. He does not let go of walker or reach back for chair when cued. Standing Balance Static Standing Balance Ability Poor Dynamic Standing Balance Ability Poor Device Used RW Standing Balance Comments Pt with posterior lean and functional weakenss RLE Balance Tests Other Other Balance Tests Performed Pt requires CGA to min A for static standing with RW and without AD. He tends to let go of RW with right hand with standing and gait and does not cue him to hold onto it. Mcdonald Fall Scale Copyright Permission PT-OP-G Mobility & Gait Start: 03/21/23 18:08 Freq: Status: Active Protocol: Document 03/27/23 09:53 MB (Rec: 03/27/23 11:59 MB [id number]) OP Mobility Evaluation Transfers Sit to Stand Min to mod A for safe STS many times throughout treatment OP Gait Assessment Gait Gait Assistance Required: Minimum Assistance Distance (Feet) 50 Able to Maintain Weight Bearing Status Yes During Gait Assistive Devices Assistive Device Front Wheeled Walker Orthotic/Prosthetic Devices or Brace: No Gait Deviations General Gait Pattern Decreased Stride Length, Decreased Feet Clearance, Flexed Trunk,Step-to Gait Factors Limiting Gait Function Factors Limiting Gait Function Decreased Activity Tolerance, Decreased Strength,Difficulty Following Directions,Poor Balance,Poor Safety Awareness Comments Gait Comments Pt tends to only hold onto walker with left hand and he pushes it with left hand only. He has step-to gait left and then right foot and he does not always clear right foot with stepping. Pt cannot follow cues to hold onto walker with right hand when asked by PT. PT-OP-H Neuro Start: 03/21/23 18:08 Freq: Status: Active Protocol: Document 03/27/23 09:53 MB (Rec: 03/27/23 11:59 MB [id number]) Vital Signs Comments Vital Signs Comments Orthostatic assessment is challenging as pt cannot follow commands to keep his left arm still in standing. BP and HR in LUE: supine 133/74, 81; after 1' standing 101/59, 89. PT-OP-K Range of Motion Start: 03/21/23 18:08 Freq: Status: Active Protocol: Document 03/27/23 09:53 MB (Rec: 03/27/23 11:59 MB [id number]) Shoulder Goniometric Range of Motion Shoulder ROM Limitations Comments Pt has trouble following all commands, including for shoulder ROM and he has limited active right shoulder movement and strength and he does not use his right arm well functionally. PT-OP-M Strength Start: 03/21/23 18:08 Freq: Status: Active Protocol: Document 03/27/23 09:53 MB (Rec: 03/27/23 11:59 MB [id number]) Hip Strength Hip Manual Muscle Testing Left Flexion (L2) 4 Good Right Flexion (L2) 3- Fair- Comments Pt cannot follow commands well for MMT any joint and he has functional weakness in his right LE compared to the left PT-OP-T Assessment and Plan Start: 03/21/23 18:08 Freq: Status: Active Protocol: Document 04/09/23 09:01 MB (Rec: 04/09/23 09:04 MB [id number]) Physical Therapy Assessment Rehab Potential Rehabilitation Potential Poor Evaluation Complexity Number of Personal Factors/Comorbidities 3 or More Number of Body Systems Impaired 3 Clinical Presentation at Evaluation Unstable Impairments Impairments Activity Tolerance,Balance, Coordination,Functional Activities,Functional Mobility ,Gait,Pain,ROM,Transfers Other Concerns Fall Risk High fall risk and up to daily falls per Goals 4 Impairment Inability to walk without assistance Fdc Goal (LTG) Pt will gait train at least 150' with LRAD and no more than superv assistance. LTG Duration 05/26/23 3 Impairment High fall risk, falls at home Pharmacy Operations Specialist Goal (LTG) Pt will perform WNLs on standardized balance test to decrease fall risk at home. LTG Duration 05/26/23 2 Impairment Assistance needed to transfer safely Pharmacy Operations Specialist Goal (LTG) Pt will perform all transfers with no more than superv and cues to decrease fall risk. LTG Duration 05/26/23 1 Impairment Falls at home Fdc Goal (LTG) will report no falls for 2 weeks at home to decrease risk of pt injury at home. LTG Duration 05/26/23 Progress Towards Goals Progress Towards Goals Slow Progress due to Activity Tolerance Assessment Summary Assessment PT speaks with pt's after speech therapist communicates with PT that pt has had ongoing falls at home, hitting the back of his head and hurting his back. His reports 3 more falls since Monday and that he had a ED visit. PT communicates that pt is no longer safe to attend OPPT and PT recommends return to provider, Dr. Cheung, and for PT for safety consult. PT will communicate with pt's OT, Katheryn, and his speech therapist, Martha, so they can address his OT and speech needs. Physical Therapy Plan Frequency and Duration Frequency of Treatment 2x/Week Duration of treatment (weeks) 8 Plan of Care Start Date 03/27/23 Plan of Care End Date 05/26/23 Therapeutic Interventions Therapeutic Interventions Balance Training,Coordination Training,Gait Training,Home Exercise Program,Manual Therapy,Neuromuscular Re- education,Patient/Caregiver Education,Self-Care/Home Management,Therapeutic Activities,Therapeutic Exercises Modalities Cold Pack/Ice Massage,Hot Packs Discharge Physical Therapy Discharge Reasons Change in Medical Status Discharge Comments [facility] Cheung [facility], [facility], carlos
== END 2023-04-12 14:01 | disposition home or self-care (01) ==
LOC: PHYS 10:30
PROVIDERS: Family Provider Family Medicine; PCP Family Medicine; Referring Provider Physician Assistant; Visit Provider Physician Assistant
DX: G31.85 Corticobasal degeneration (principal); R27.0 Ataxia, unspecified; R29.6 Repeated falls
CPT/HCPCS: 97162; 97535

== ENCOUNTER 2023-04-08 09:55 | Emergency (ER) | payer MEDICARE, OTHER, SELFPAY ==
--- NOTE | 2023-04-08 09:59 | DI.CT.S_ITS ---
PROCEDURE: CT HEAD/BRAIN WO CON INDICATIONS: Unwitnessed fall history of dementia TECHNIQUE: Noncontrast 4.5 mm thick angled axial sections acquired from the foramen magnum to the vertex, with coronal and sagittal reformats. For radiation dose reduction, the following was used: automated exposure control, adjustment of mA and/or kV according to patient size. COMPARISON: [facility], CT, CT HEAD/BRAIN WO CON, 03/07/2023, 15:02. FINDINGS: Image quality: Diagnostic. CSF spaces: Basal cisterns are patent. No extra-axial fluid collections. The ventricles are symmetric in size and shape. Brain: No intracranial bleeds or masses. There is cerebral volume loss for age, with resultant ventricular and sulcal prominence. There are periventricular and deep white matter chronic small vessel ischemic changes. There is intracranial internal carotid artery atherosclerosis. Skull and face: Calvarium and visualized facial bones appear intact, without suspicious lesions. Small right frontal scalp hematoma. Sinuses: Visualized sinuses and mastoids are clear. IMPRESSION: 1. No acute intracranial process. 2. Moderate atrophy and chronic microvascular ischemic changes. Dictated by: Radha Donovan M.D. on 04/08/2023 at 10:40 Approved by: Radha Donovan M.D. on 04/08/2023 at 10:41
--- NOTE | 2023-04-08 09:59 | DI.CT.S_ITS ---
PROCEDURE: CT CERVICAL SPINE WO CON INDICATIONS: Unwitnessed fall history of dementia TECHNIQUE: Noncontrast 3 mm thick sections acquired from the skull base to the T4 level. Sagittal and coronal reformats were then constructed. For radiation dose reduction, the following was used: automated exposure control, adjustment of mA and/or kV according to patient size. COMPARISON: [facility], CT, CT CERVICAL SPINE WO CON, 03/07/2023, 15:02. FINDINGS: Image quality: Excellent. Bones: No fractures or dislocations. Visualized superior ribs are intact. Multilevel degenerative changes. Soft tissues: Prevertebral soft tissues are normal in thickness. No paravertebral hematomas. No apical pneumothoraces. IMPRESSION: No displaced fracture or traumatic subluxation. Dictated by: Radha Donovan M.D. on 04/08/2023 at 10:39 Approved by: Radha Donovan M.D. on 04/08/2023 at 10:40
[2023-04-08 10:00] VITALS: PULSE 80; RESP 23
[2023-04-08 10:01] VITALS: BP 145/86; PULSE 80; RESP 23; O2SAT 93
[2023-04-08 10:06] VITALS: BP 145/86; PULSE 78; RESP 18; TEMP 36.8; O2SAT 96; BMI 32.1
--- NOTE | 2023-04-08 10:08 | ED.GENADULT ---
HPI - General Adult General Chief complaint: Fall Stated complaint: fall Time Seen by Provider: 04/08/23 09:59 Source: patient and EMS Mode of arrival: EMS Limitations: other (Parkinson's disease/dementia) History of Present Illness HPI narrative: 72-year-old male. Not on anticoagulation. History of Parkinson's disease. I have seen him multiple times in the emergency department in the past. At baseline answers ?yes? to almost every question but then sometimes will switch his answer to ?no? had a unwitnessed fall this morning. Family is not at bedside during my initial evaluation. EMS reports they were called by patient's . Is at baseline neurologic status. He has in a inflatable backboard. Patient does answer ?yes? when asked if he is in any pain but can not distinguish anything further than that. Related Data Home Medications Medication Instructions Recorded Confirmed lisinopril 40 mg tablet 20 mg PO DAILY 02/16/23 03/14/23 carbidopa 25 mg-levodopa 100 mg 2 tab PO 3XD 03/07/23 03/14/23 tablet trazodone 50 mg tablet 50 mg PO BEDTIME PRN 03/14/23 03/14/23 Previous Rx's Medication Instructions Recorded epinephrine 0.3 mg/0.3 mL 0.3 mg (0.3 mL) IM SEE 12/09/21 injection, auto-injector (EpiPen INSTRUCTIONS #1 kit 2-Phillip) Disabled Parking Permit #1 ea 10/14/22 ketamine 5 % cream in metered-dose 1 applic topical BID #30 grams 12/15/22 applicator duloxetine 30 mg capsule,delayed 30 mg PO DAILY #90 caps 01/10/23 release hydrochlorothiazide 12.5 mg tablet 12.5 mg PO QAM #90 tabs 01/10/23 tamsulosin 0.4 mg capsule 0.4 mg PO DAILY #90 caps 01/10/23 oxycodone-acetaminophen 5 mg-325 1 tab PO Q8H PRN severe pain #90 02/07/23 mg tablet (Percocet) tabs Allergies Allergy/AdvReac Type Severity Reaction Status Date / Time bee venom protein (honey bee) Allergy Severe Anaphylaxis Verified 04/08/23 10:16 Review of Systems Review of Systems Narrative: Very limited given his history of Parkinson's. 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 Psoas muscle strain Segmental and somatic dysfunction of abdomen and other regions Pelvic somatic dysfunction Screening for prostate cancer Ataxia Rate of speech, slow Medication side effects Deep inguinal pain, right Surgical History Hx of hernia repair Status post cholecystectomy Family History Grandmother Heart disease Mother Age: 93 Environmental allergies Grandmother Stroke Social History marital status: household members: spouse Smoking Status: Former smoker alcohol intake: current substance use type: does not use Smoking Status: Former smoker alcohol intake frequency: holidays/special occasions only Substance Use Type: does not use Exam Initial Vital Signs Initial Vital Signs: Vital Signs Pulse Rate 80 04/08/23 10:00 Respiratory Rate 23 04/08/23 10:00 Const General: cooperative and healthy appearing HENMT Head: normal to inspection and normocephalic Resp Effort & Inspection: normal respiratory effort Auscultation: clear to auscultation bilaterally Cardio Rate: regular rate Rhythm: regular rhythm GI Inspection: normal to inspection and non-distended Skin Other: Superficial skin abrasions to the right elbow. It appears that 1 happened during the fall today however there were a couple others that are from a fall a couple days ago. Neuro Other: Patient does follow commands. Answers ?yes? to all questions. Extrem Other: Patient has no gross deformities. He does flex it his hips and knees without apparent discomfort. His pelvis does not appear to be painful to palpation. Moves upper extremities. Has a bandage over his right elbow. Course Orders Ordered: ED Orders 04/08/23 09:59 CT cervical spine wo con Stat CT head/brain wo con Stat Discontinued Medications Bacitracin (Bacitracin Oint 0.9 Gm Pckt) 1 applic TOP NOW ONE Stop: 04/08/23 11:03 Vital Signs Vital signs: Vital Signs - 8 hr 04/08/23 10:00 04/08/23 10:01 04/08/23 10:01 Temperature Pulse Rate 80 80 Respiratory Rate 23 23 Blood Pressure 145/86 H Pulse Oximetry 93 Oxygen Delivery Method 04/08/23 10:06 04/08/23 10:30 Temperature 98.2 F Pulse Rate 78 74 Respiratory Rate 18 17 Blood Pressure 145/86 H Pulse Oximetry 96 94 Oxygen Delivery Method Room Air Medical Decision Making Imaging Data CT scan - head: Radiologist's Impression: ROCEDURE: CT HEAD/BRAIN WO CON INDICATIONS: Unwitnessed fall history of dementia TECHNIQUE: Noncontrast 4.5 mm thick angled axial sections acquired from the foramen magnum to the vertex, with coronal and sagittal reformats. For radiation dose reduction, the following was used: automated exposure control, adjustment of mA and/or kV according to patient size. COMPARISON: [facility], CT, CT HEAD/BRAIN WO CON, 03/07/2023, 15:02. FINDINGS: Image quality: Diagnostic. CSF spaces: Basal cisterns are patent. No extra-axial fluid collections. The ventricles are symmetric in size and shape. Brain: No intracranial bleeds or masses. There is cerebral volume loss for age, with resultant ventricular and sulcal prominence. There are periventricular and deep white matter chronic small vessel ischemic changes. There is intracranial internal carotid artery atherosclerosis. Skull and face: Calvarium and visualized facial bones appear intact, without suspicious lesions. Small right frontal scalp hematoma. Sinuses: Visualized sinuses and mastoids are clear. IMPRESSION: 1. No acute intracranial process. 2. Moderate atrophy and chronic microvascular ischemic changes. CT - cervical spine: Radiologist's Impression: PROCEDURE: CT CERVICAL SPINE WO CON INDICATIONS: Unwitnessed fall history of dementia TECHNIQUE: Noncontrast 3 mm thick sections acquired from the skull base to the T4 level. Sagittal and coronal reformats were then constructed. For radiation dose reduction, the following was used: automated exposure control, adjustment of mA and/or kV according to patient size. COMPARISON: [facility], CT, CT CERVICAL SPINE WO CON, 03/07/2023, 15:02. FINDINGS: Image quality: Excellent. Bones: No fractures or dislocations. Visualized superior ribs are intact. Multilevel degenerative changes. Soft tissues: Prevertebral soft tissues are normal in thickness. No paravertebral hematomas. No apical pneumothoraces. IMPRESSION: No displaced fracture or traumatic subluxation. MDM Narrative Medical decision making narrative: Patient is close to his baseline neurologically however his thinks that maybe he is somewhat more subdued than normal. He does not appear to have any discomfort with movement of his upper and lower extremities. Has a abrasion to his right elbow that was dressed here in the ER. His head CT and cervical spine CT are unremarkable. Had a long discussion with the patient's regarding trying to get some help for them at home. I emailed the patient's primary doctor and also our ED oncology social work and provided the patient's contact information. The patient's was okay with me doing this. There was no indication for admission to the hospital. Will discharge patient home with return precautions. Discharge Plan Departure Patient Disposition: Home Clinical Impression: Fall, Abrasion of skin Instructions: How to Prevent Falls Activity Restrictions/Additional Instructions: Amaury can continue all of his medications as directed. Keep all of his scheduled medical appointments. I did send an e-mail to our emergency department oncology social work and also his primary doctor about trying to help you get the process started for help at home. Return to the emergency department for new symptoms. Prescriptions: No Action (DME) Disabled Parking Permit See Rx Instructions .Route .MEDSUPPLY Qty: 1 0RF Rx Instructions: Valid for 12 months epinephrine [EpiPen 2-Phillip] 0.3 mg/0.3 mL auto-injector 0.3 mg IM SEE INSTRUCTIONS Qty: 1 2RF Patient Comments: pt has never taken tamsulosin 0.4 mg capsule 0.4 mg PO DAILY Qty: 90 1RF hydrochlorothiazide 12.5 mg tablet 12.5 mg PO QAM Qty: 90 1RF duloxetine 30 mg capsule,delayed release(DR/EC) 30 mg PO DAILY Qty: 90 3RF Rx Instructions: Take one capsule daily at bedtime. oxycodone-acetaminophen [Percocet] 5-325 mg tablet 1 tab PO Q8H PRN (Reason: severe pain) Qty: 90 0RF Rx Instructions: caution re balance impairment trazodone 50 mg tablet 50 mg PO BEDTIME PRN carbidopa-levodopa 25-100 mg tablet 2 tab PO 3XD ketamine 5 % cream in metered-dose pump 1 applic topical BID Qty: 30 0RF lisinopril 40 mg tablet 20 mg PO DAILY Referrals: Luciano Cheung DO [Primary Care Provider] - Stand Alone Forms: Patient Portal/API
[2023-04-08 10:30] VITALS: PULSE 74; RESP 17; O2SAT 94
[2023-04-08 11:00] VITALS: PULSE 73; RESP 18; O2SAT 96
[2023-04-08] MEDS: BACITRACIN OINT 0.9 GM PCKT 1 APPLIC TOP (11:09)
--- NOTE | 2023-04-08 11:19 | PC.NURSE ---
Bacitracin and new bandage applied to R elbow
--- NOTE | 2023-04-10 18:57 | CM.SWNOTE ---
ED MANUFACTURING PROJECT ENGINEER follow up Note MANUFACTURING PROJECT ENGINEER receives consult and email from ED provider due to need for HH services. MANUFACTURING PROJECT ENGINEER reviews EMR and identifies that patient was previously at outpatient PT, OT and [facility] and they discharged patient recommending HH services due to concern for patient's falls. MANUFACTURING PROJECT ENGINEER calls patient's spouse regarding HH, spouse states that the family is going through a lot due to patient's daughter having new cancer dx. Spouse agrees to HH for patient and denies preference for HH agency. MANUFACTURING PROJECT ENGINEER calls [facility] and leaves VM. MANUFACTURING PROJECT ENGINEER scans in F2F and submits order for referral, [facility] has access to [facility] and can review clinicals and previous outpatient reports from PT/OT/[facility]. MANUFACTURING PROJECT ENGINEER submits referral for PT, OT, RN, [facility], HH aide and MANUFACTURING PROJECT ENGINEER. MANUFACTURING PROJECT ENGINEER emails spouse with senior resource guide and list of private pay caregivers. Patient also has PCP f/u appt with Dr. Cheung for 04/18/23. Plan: patient to f/u with [facility] referral and patient to f/u with PCP. Family to seek higher level of care resources as well. Adry Gomes, AMMONIUM NITRATE NEUTRALIZER
== END 2023-04-08 11:21 | disposition home or self-care (01) ==
PROVIDERS: Emergency Provider Emergency Medicine; Family Provider Family Medicine; PCP Family Medicine
DX: S50.311A Abrasion of right elbow, initial encounter (principal); W19.XXXA Unspecified fall, initial encounter; F03.90 Unspecified dementia, unspecified severity, without behavioral disturbance, psychotic disturbance, mood disturbance, and anxiety
CPT/HCPCS: 70450; 72125; 99283